=== PATIENT | female | born 1940 | race Caucasian/White ===

== ENCOUNTER → 2018-06-03 17:30 | Outpatient (CLI) | payer MEDICARE, SELFPAY | PROVIDERS: Family Provider Internal Medicine; PCP Internal Medicine; Visit Provider Physician Assistant | DX: R39.9 Unspecified symptoms and signs involving the genitourinary system (principal) | CPT/HCPCS: 87077; 87086; 87186 ==

== ENCOUNTER → 2018-07-08 17:12 | Outpatient (REF) | payer MEDICARE, SELFPAY ==
[2018-07-08 18:19] LABS: Appearance Urine UA CLOUDY; Bilirubin Urine UA NEGATIVE (NEGATIVE); Color Urine UA BROWN; Glucose Urine UA NEGATIVE (Normal); Ketones Urine UA NEGATIVE (NEGATIVE); Leukocyte Esterase Urine UA 2+ (NEGATIVE); Nitrite Urine UA POSITIVE (Negative); Occult Blood Urine UA 3+ (Negative); Protein Urine UA 2+ (Negative); Specific Gravity Urine UA 1.025 (1.000-1.035); Urobilinogen Urine UA 0.2 E.U./dL (0.2)
[2018-07-08 18:26] LABS: RBC Urine 30-100/HPF (0-5/HPF); Renal Epithelial Cells Urine 5-10/HPF; Squamous Epithelial Cell Urine 0-1 /HPF; WBC Urine 10-30/HPF (0-5/HPF)
[2018-07-08 18:27] LABS: Bacteria Urine Moderate (10-30); Culture Indicated Urine Specimen Cultured
== END ==
LOC: LAB 17:12
PROVIDERS: Family Provider Internal Medicine; PCP Internal Medicine; Visit Provider Internal Medicine
DX: N39.0 Urinary tract infection, site not specified (principal)
CPT/HCPCS: 81001; 87077; 87086; 87186

== ENCOUNTER → 2018-07-08 17:50 | Outpatient (CLI) | payer MEDICARE, SELFPAY | PROVIDERS: Family Provider Internal Medicine; PCP Internal Medicine; Visit Provider Internal Medicine | DX: Z53.9 Procedure and treatment not carried out, unspecified reason (principal) ==

== ENCOUNTER 2019-01-12 10:20 | Inpatient (IN) | payer MEDICARE, SELFPAY ==
[2019-01-12] VITALS (17 sets, daily range): BP systolic 129–194; BP diastolic 55–80; PULSE 67–100; RESP 14–24; TEMP 36.8–38.4; O2SAT 92–98; BMI 26.4
--- NOTE | 2019-01-12 10:48 | DI.RAD.S_ITS ---
PROCEDURE: XR CHEST 2V INDICATIONS: non productive cough TECHNIQUE: 2 views of the chest were acquired. COMPARISON: [facility], , CHEST 1 VIEW, 03/13/2014, 20:19. FINDINGS: Surgical changes and devices: None. Lungs and pleura: Lungs are clear. No pleural effusions or pneumothorax. Mediastinum: Mediastinal contours are normal. Heart size is normal. Bones and chest wall: No suspicious bony abnormalities. Soft tissues appear unremarkable. IMPRESSION: 1. No acute cardiopulmonary disease. Dictated by: Marcelo Gordillo M.D. on 01/12/2019 at 11:36 Approved by: Marcelo Gordillo M.D. on 01/12/2019 at 11:38
[2019-01-12 12:11] LABS: Add Manual Diff / Slide Review NO; Basophils Absolute Auto 0 /uL (0-100); Basophils Percent Auto 0.3 % (0-2); Eosinophils Absolute Auto 0 /uL (0-450); Eosinophils Percent Auto 0.1 % (2-4); Hemoglobin 15.3 g/dL (12.0-16.0); Lymphocytes Absolute Auto 300 /uL (1100-4500); Lymphocytes Percent Auto 7.7 % (25-40); Mean Corpuscular HGB Conc 34.7 % (30-36); Mean Corpuscular Volume 86.5 fL (80-100); Monocytes Absolute Auto 600 /uL (0-900); Monocytes Percent Auto 14.4 % (3-14); Neutrophils Absolute Auto 3100 /uL (1500-7000); Neutrophils Percent Auto 77.5 % (50-75); Platelet Count 211 X10^3/uL (150-400); Red Blood Cell Count 5.08 X10^6/uL (4.0-5.2)
--- NOTE | 2019-01-12 12:37 | DI.CT.S_ITS ---
PROCEDURE: CT HEAD/BRAIN WO CON INDICATIONS: syncope TECHNIQUE: Noncontrast 4.5 mm thick angled axial sections acquired from the foramen magnum to the vertex, with coronal and sagittal reformats. For radiation dose reduction, the following was used: automated exposure control, adjustment of mA and/or kV according to patient size. COMPARISON: [facility], CT, HEAD WITHOUT CONTRAST, 03/13/2014, 15:14. [facility], CT, HEAD WITHOUT CONTRAST, 06/17/2011, 16:11. FINDINGS: Image quality: Excellent. CSF spaces: Basal cisterns are patent. No extra-axial fluid collections. The ventricles are symmetric in size and shape. Brain: No intracranial bleeds or masses. There is cerebral volume loss for age, with resultant ventricular and sulcal prominence. There are periventricular and deep white matter chronic small vessel ischemic changes. There is intracranial internal carotid artery atherosclerosis. Skull and face: Calvarium and visualized facial bones appear intact, without suspicious lesions. Sinuses: Visualized sinuses and mastoids are clear. 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 Expected mild to moderate microvascular atherosclerotic change in the deep white matter of each hemisphere considering age. Dictated by: Deshawn Quach M.D. on 01/12/2019 at 12:59 Approved by: Deshawn Quach M.D. on 01/12/2019 at 13:00
--- NOTE | 2019-01-12 13:11 | ED_ITS ---
HPI - URI/Sore Throat <Siri CondonTERESAP-BC - Last Filed: 01/12/19 18:09> General Chief Complaint: Upper Respiratory Symptoms Stated Complaint: Pneumonia Time Seen by Provider: 01/12/19 12:23 Source: patient, EMS and RN notes reviewed Mode of arrival: ambulatory Limitations: no limitations History of Present Illness HPI Narrative: Patient is a 78-year-old female nonsmoker who lives by herself with history of pneumonia who presented by EMS today for chief concern of weakness earlier this morning. She states she was started on amoxicillin on Tuesday for presumptive pneumonia. She states she woke up this morning, passed out twice. She denies any chest pain. She complains of a cough. She states she has a history of severe dehydration for which she has been hospitalized. She complains of decreased appetite, nausea. She states she does not did not hit her head when she passed out earlier today. She states the 1st episode of syncope happened when she was getting coffee ready this morning. She states the 2nd episode of syncope happened after she took her antibiotic. She states that she was crawling across the floor. Per EMS the patient was ambulating well around her house when they arrived. Related Data Home Medications Medication Instructions Recorded Confirmed aspirin 81 mg tablet,delayed 81 mg PO DAILY 06/03/18 01/12/19 release gabapentin 300 mg capsule 300 mg PO BEDTIME 06/03/18 01/12/19 losartan 25 mg tablet 25 mg PO DAILY 06/03/18 01/12/19 amoxicillin 500 mg PO TID 01/12/19 01/12/19 cholecalciferol (vitamin D3) 1 tab PO DAILY 01/12/19 01/12/19 [Vitamin D3] dorzolamide 1 drp OPHTHALMIC (EYE) DIRECTED 01/12/19 01/12/19 latanoprost 1 drp OPHTHALMIC (EYE) BEDTIME 01/12/19 01/12/19 multivitamin 1 tab PO DAILY 01/12/19 01/12/19 Allergies Allergy/AdvReac Type Severity Reaction Status Date / Time nitrofurantoin Allergy Unknown Verified 01/12/19 13:21 [NITROFURANTOIN] azithromycin Allergy Verified 01/12/19 13:21 cholestyramine Allergy Verified 01/12/19 13:21 clavulanic acid Allergy Verified 01/12/19 13:21 [From Augmentin] lisinopril Allergy Verified 01/12/19 13:21 loratadine [From Claritin] Allergy Verified 01/12/19 13:21 neomycin Allergy Verified 01/12/19 13:21 Opioids-Meperidine and Allergy Verified 01/12/19 13:21 Related oseltamivir [From Tamiflu] Allergy Verified 01/12/19 13:21 procaine [From Novocain] Allergy Verified 01/12/19 13:21 Sulfa (Sulfonamide Allergy Verified 01/12/19 13:21 Antibiotics) Milk Containing Products AdvReac Mild DIARRHEA Verified 01/12/19 13:21 [MILK CONTAINING PRODUCTS] meperidine [MEPERIDINE] AdvReac Unknown Verified 01/12/19 13:21 Review of Systems <WALTER Hodgson - Last Filed: 01/12/19 18:09> Review of Systems GENERAL: See HPI HEENT: Denies sinus pain, ear pain, sore throat, difficulty swallowing, dizzin ess. RESPIRATORY: See HPI CARDIOVASCULAR: Denies chest pain, palpitations, orthopnea, edema, GASTROINTESTINAL: See HPI : Denies dysuria, frequency, incontinence, hematuria, urinary retention. MUSCULOSKELETAL: denies weakness, joint pain, or bony pain SKIN: Denies rash, skin lesions, or other NEUROLOGIC: Denies weakness, headache, numbness, change in speech, confusion, seizures, incoordination. PSYCHIATRIC: No concerning psychosocial issues. 12 point review of systems is negative except for those stated above PFSH <WALTER Hodgson - Last Filed: 01/12/19 18:09> Social History household members: none Smoking Status: Never smoker alcohol intake: never Social History household members: none Smoking Status: Never smoker alcohol intake: never Exam <WALTER Hodgson - Last Filed: 01/12/19 18:09> Narrative Exam Narrative: GENERAL: This is a well-nourished, well-developed patient, lying on stretcher HEAD: Atraumatic. Normocephalic. No temporal or scalp tenderness. EYES: Pupils equal round and reactive. Extraocular motions intact. No scleral icterus. No injection or drainage. ENT: Nose without bleeding, purulent drainage or septal hematoma. Throat without erythema, tonsillar hypertrophy or exudate. Uvula midline. Airway patent. NECK: Trachea midline. No JVD or lymphadenopathy. Supple, nontender, no meningeal signs. CARDIOVASCULAR: Regular rate and rhythm without murmurs, gallops, or rubs. RESPIRATORY: Clear to auscultation. Breath sounds equal bilaterally. No wheezes, rales, or rhonchi. Dry cough noted. No accessory muscle use. No increased respiratory effort. GASTROINTESTINAL: Abdomen soft, non-tender, nondistended. No hepato- splenomegaly, or palpable masses. No guarding. no palpable pulsatile mass. active bowel sounds all 4 quadrants. EXTREMITIES: No clubbing, cyanosis, or edema. No joint tenderness, effusion, or edema noted. BACK: Nontender without deformity or crepitance. No flank tenderness. NEURO: AOx3. SKIN: No rash or erythema. Initial Vital Signs Initial Vital Signs: Vital Signs Temperature 99.0 F 01/12/19 10:25 Pulse Rate 81 01/12/19 10:25 Respiratory Rate 18 01/12/19 10:25 Blood Pressure 149/77 H 01/12/19 10:25 Pulse Oximetry 97 01/12/19 10:25 <Siri Bae DO - Last Filed: 01/12/19 19:17> Initial Vital Signs Initial Vital Signs: Vital Signs Temperature 99.0 F 01/12/19 10:25 Pulse Rate 81 01/12/19 10:25 Respiratory Rate 18 01/12/19 10:25 Blood Pressure 149/77 H 01/12/19 10:25 Pulse Oximetry 97 01/12/19 10:25 Course <MELISA Hodgson-CHAVA - Last Filed: 01/12/19 18:09> Orders Ordered: ED Orders 01/12/19 10:48 CXR [XR chest 2V] Stat 01/12/19 11:35 CBC [Complete Blood Count AUTO DIFF] Stat 01/12/19 12:37 CT head/brain wo con Stat EKG-12 Lead Stat 01/12/19 13:25 Influenza A and B by PCR Rapid Stat 01/12/19 15:05 Urinalysis and Microscopic Stat 01/12/19 16:45 Troponin & CK Cardiac Panel Stat 01/12/19 18:40 Consult to Pastoral Services Routine Sodium Chloride (Normal Saline 0.9%) 1,000 mls @ 125 mls/hr IV CONT CARLI Last Infusion: 01/12/19 18:05 Dose: 125 mls/hr Infusion: 01/12/19 18:01 Dose: 0 mls/hr Admin: 01/12/19 17:07 Dose: 125 mls/hr Discontinued Medications Acetaminophen (Tylenol) 650 mg PO NOW ONE Stop: 01/12/19 15:30 Last Admin: 01/12/19 15:48 Dose: 650 mg Sodium Chloride (Normal Saline 0.9%) 500 mls @ 1,000 mls/hr IV BOLUS ONE Stop: 01/12/19 13:40 Last Infusion: 01/12/19 14:16 Dose: 0 mls/hr Admin: 01/12/19 13:29 Dose: 1,000 mls/hr Ondansetron HCl (Zofran) 4 mg IV NOW ONE Stop: 01/12/19 14:38 Last Admin: 01/12/19 15:21 Dose: 4 mg Vital Signs - 8 hr 01/12/19 11:35 01/12/19 12:11 01/12/19 13:15 Temperature Pulse Rate 72 72 78 Pulse Rate [Orthostatic Lying] Pulse Rate [Orthostatic Sitting] Pulse Rate [Orthostatic Standing] Respiratory Rate 16 18 16 Blood Pressure Blood Pressure [Orthostatic Lying] Blood Pressure [Orthostatic Sitting] Blood Pressure [Orthostatic Standing] Blood Pressure [Right Arm] 142/61 H 138/55 L Pulse Oximetry 95 95 96 01/12/19 13:45 01/12/19 14:00 01/12/19 15:30 Temperature 101.2 F H Pulse Rate 80 86 83 Pulse Rate [Orthostatic Lying] Pulse Rate [Orthostatic Sitting] Pulse Rate [Orthostatic Standing] Respiratory Rate 19 20 21 Blood Pressure Blood Pressure [Orthostatic Lying] Blood Pressure [Orthostatic Sitting] Blood Pressure [Orthostatic Standing] Blood Pressure [Right Arm] 165/73 H 179/78 H 194/72 H Pulse Oximetry 94 94 01/12/19 15:48 01/12/19 16:06 01/12/19 17:11 Temperature 101.2 F H Pulse Rate 75 Pulse Rate [Orthostatic Lying] 86 Pulse Rate [Orthostatic Sitting] 92 H Pulse Rate [Orthostatic Standing] 100 H Respiratory Rate 24 Blood Pressure Blood Pressure [Orthostatic Lying] 171/68 H Blood Pressure [Orthostatic Sitting] 164/79 H Blood Pressure [Orthostatic Standing] 166/76 H Blood Pressure [Right Arm] 179/72 H Pulse Oximetry 92 01/12/19 17:12 01/12/19 17:13 01/12/19 17:30 Temperature 99.9 F H 99.9 F H 98.3 F Pulse Rate 85 73 Pulse Rate [Orthostatic Lying] Pulse Rate [Orthostatic Sitting] Pulse Rate [Orthostatic Standing] Respiratory Rate 20 18 Blood Pressure 141/66 H Blood Pressure [Orthostatic Lying] Blood Pressure [Orthostatic Sitting] Blood Pressure [Orthostatic Standing] Blood Pressure [Right Arm] 166/76 H Pulse Oximetry 96 98 <Siri Bae, - Last Filed: 01/12/19 19:17> Orders Ordered: ED Orders 01/12/19 10:48 CXR [XR chest 2V] Stat 01/12/19 11:35 CBC [Complete Blood Count AUTO DIFF] Stat 01/12/19 12:37 CT head/brain wo con Stat EKG-12 Lead Stat 01/12/19 13:25 Influenza A and B by PCR Rapid Stat 01/12/19 15:05 Urinalysis and Microscopic Stat 01/12/19 16:45 Troponin & CK Cardiac Panel Stat 01/12/19 18:40 Consult to Pastoral Services Routine Sodium Chloride (Normal Saline 0.9%) 1,000 mls @ 125 mls/hr IV CONT CARLI Last Infusion: 01/12/19 18:05 Dose: 125 mls/hr Infusion: 01/12/19 18:01 Dose: 0 mls/hr Admin: 01/12/19 17:07 Dose: 125 mls/hr Discontinued Medications Acetaminophen (Tylenol) 650 mg PO NOW ONE Stop: 01/12/19 15:30 Last Admin: 01/12/19 15:48 Dose: 650 mg Sodium Chloride (Normal Saline 0.9%) 500 mls @ 1,000 mls/hr IV BOLUS ONE Stop: 01/12/19 13:40 Last Infusion: 01/12/19 14:16 Dose: 0 mls/hr Admin: 01/12/19 13:29 Dose: 1,000 mls/hr Ondansetron HCl (Zofran) 4 mg IV NOW ONE Stop: 01/12/19 14:38 Last Admin: 01/12/19 15:21 Dose: 4 mg Vital Signs - 8 hr 01/12/19 11:35 01/12/19 12:11 01/12/19 13:15 Temperature Pulse Rate 72 72 78 Pulse Rate [Orthostatic Lying] Pulse Rate [Orthostatic Sitting] Pulse Rate [Orthostatic Standing] Respiratory Rate 16 18 16 Blood Pressure Blood Pressure [Orthostatic Lying] Blood Pressure [Orthostatic Sitting] Blood Pressure [Orthostatic Standing] Blood Pressure [Right Arm] 142/61 H 138/55 L Pulse Oximetry 95 95 96 01/12/19 13:45 01/12/19 14:00 01/12/19 15:30 Temperature 101.2 F H Pulse Rate 80 86 83 Pulse Rate [Orthostatic Lying] Pulse Rate [Orthostatic Sitting] Pulse Rate [Orthostatic Standing] Respiratory Rate 19 20 21 Blood Pressure Blood Pressure [Orthostatic Lying] Blood Pressure [Orthostatic Sitting] Blood Pressure [Orthostatic Standing] Blood Pressure [Right Arm] 165/73 H 179/78 H 194/72 H Pulse Oximetry 94 94 01/12/19 15:48 01/12/19 16:06 01/12/19 17:11 Temperature 101.2 F H Pulse Rate 75 Pulse Rate [Orthostatic Lying] 86 Pulse Rate [Orthostatic Sitting] 92 H Pulse Rate [Orthostatic Standing] 100 H Respiratory Rate 24 Blood Pressure Blood Pressure [Orthostatic Lying] 171/68 H Blood Pressure [Orthostatic Sitting] 164/79 H Blood Pressure [Orthostatic Standing] 166/76 H Blood Pressure [Right Arm] 179/72 H Pulse Oximetry 92 01/12/19 17:12 01/12/19 17:13 01/12/19 17:30 Temperature 99.9 F H 99.9 F H 98.3 F Pulse Rate 85 73 Pulse Rate [Orthostatic Lying] Pulse Rate [Orthostatic Sitting] Pulse Rate [Orthostatic Standing] Respiratory Rate 20 18 Blood Pressure 141/66 H Blood Pressure [Orthostatic Lying] Blood Pressure [Orthostatic Sitting] Blood Pressure [Orthostatic Standing] Blood Pressure [Right Arm] 166/76 H Pulse Oximetry 96 98 MDM - URI/Sore Throat <WALTER Hodgson - Last Filed: 01/12/19 18:09> Lab Data Result diagrams: 01/12/19 11:35 01/12/19 10:00 Lab Results 01/12/19 01/12/19 01/12/19 Range/Units 10:00 10:00 10:00 WBC (4.5-11.0) X10^3/uL RBC (4.0-5.2) X10^6/uL Hgb (12.0-16.0) g/dL Hct (36-46) % MCV (80-100) fL MCH (26-34) PG MCHC (30-36) % RDW (11.6-14.8) % Plt Count (150-400) X10^3/uL Neut % (Auto) (50-75) % Lymph % (Auto) (25-40) % [place] % (Auto) (3-14) % Eos % (Auto) (2-4) % Baso % (Auto) (0-2) % Neut # (Auto) (8018-5920) /uL Lymph # (Auto) (3438-0167) /uL [place] # (Auto) (0-900) /uL Eos # (Auto) (0-450) /uL Baso # (Auto) (0-100) /uL PT 12.5 (10.1-12.7) SECONDS INR 1.1 (0.9-1.3) Sodium 139 (137-145) mmol/L Potassium 3.8 (3.4-5.1) mmol/L Chloride 100 (98-107) mmol/L Carbon Dioxide 26 (22-32) mmol/L BUN 14 (7-17) mg/dL Creatinine 0.70 (0.52-1.04) mg/dL Estimated GFR > 60.0 (>60) mL/min BUN/Creatinine Ratio 20.0 (6-22) Glucose 97 (80-110) mg/dL Calcium 9.1 (8.4-10.2) mg/dL Total Bilirubin 0.6 (0.2-1.3) mg/dL AST 45 H (14-36) IU/L ALT 29 (9-52) IU/L Alkaline Phosphatase 85 (38-126) U/L Total Creatine Kinase 380 H (30-135) U/L CK-MB (CK-2) 2.17 (<2.37) ng/mL CK-MB (CK-2) Rel Index 0.6 L (1.5-5.0) % Troponin I < 0.012 (0.01-0.034) ng/mL B-Natriuretic Peptide < 100 (<100) Total Protein 7.1 (6.3-8.2) g/dL Albumin 4.4 (3.5-5.0) g/dL Globulin 2.7 (1.7-4.1) g/dL Albumin/Globulin Ratio 1.6 (1.0-2.8) Urine Color Urine Appearance Urine pH (4.5-8.0) Ur Specific [place] (1.000-1.035) Urine Protein (Negative) Urine Glucose (UA) (Negative) g/dL Urine Ketones (NEGATIVE) Urine Occult Blood (Negative) Urine Nitrate (Negative) Urine Bilirubin (NEGATIVE) Urine Urobilinogen (0.2) E.U./dL Ur Leukocyte Esterase (NEGATIVE) Urine RBC (0-5/HPF) Urine WBC (0-5/HPF) Ur Transition Epith Cell (0-5/HPF) Ur Renal Epithelial Cell Urine Bacteria (None) Ur Culture Indicated? Influenza A & B (PCR) (Negative) 01/12/19 01/12/19 01/12/19 Range/Units 11:35 13:25 15:05 WBC 4.0 L (4.5-11.0) X10^3/uL RBC 5.08 (4.0-5.2) X10^6/uL Hgb 15.3 (12.0-16.0) g/dL Hct 44.0 (36-46) % MCV 86.5 (80-100) fL MCH 30.0 (26-34) PG MCHC 34.7 (30-36) % RDW 13.0 (11.6-14.8) % Plt Count 211 (150-400) X10^3/uL Neut % (Auto) 77.5 H (50-75) % Lymph % (Auto) 7.7 L (25-40) % [place] % (Auto) 14.4 H (3-14) % Eos % (Auto) 0.1 L (2-4) % Baso % (Auto) 0.3 (0-2) % Neut # (Auto) 3100 (5506-5164) /uL Lymph # (Auto) 300 L (0866-4823) /uL [place] # (Auto) 600 (0-900) /uL Eos # (Auto) 0 (0-450) /uL Baso # (Auto) 0 (0-100) /uL PT (10.1-12.7) SECONDS INR (0.9-1.3) Sodium (137-145) mmol/L Potassium (3.4-5.1) mmol/L Chloride (98-107) mmol/L Carbon Dioxide (22-32) mmol/L BUN (7-17) mg/dL Creatinine (0.52-1.04) mg/dL Estimated GFR (>60) mL/min BUN/Creatinine Ratio (6-22) Glucose (80-110) mg/dL Calcium (8.4-10.2) mg/dL Total Bilirubin (0.2-1.3) mg/dL AST (14-36) IU/L ALT (9-52) IU/L Alkaline Phosphatase (38-126) U/L Total Creatine Kinase (30-135) U/L CK-MB (CK-2) (<2.37) ng/mL CK-MB (CK-2) Rel Index (1.5-5.0) % Troponin I (0.01-0.034) ng/mL B-Natriuretic Peptide (<100) Total Protein (6.3-8.2) g/dL Albumin (3.5-5.0) g/dL Globulin (1.7-4.1) g/dL Albumin/Globulin Ratio (1.0-2.8) Urine Color Yellow Urine Appearance Clear Urine pH 6.5 (4.5-8.0) Ur Specific [place] 1.015 (1.000-1.035) Urine Protein Negative (Negative) Urine Glucose (UA) Negative (Negative) g/dL Urine Ketones 1+ H (NEGATIVE) Urine Occult Blood Negative (Negative) Urine Nitrate Negative (Negative) Urine Bilirubin Negative (NEGATIVE) Urine Urobilinogen 1.0 (0.2) E.U./dL Ur Leukocyte Esterase Negative (NEGATIVE) Urine RBC None seen (0-5/HPF) Urine WBC 0-1/hpf (0-5/HPF) Ur Transition Epith Cell 0-1/hpf (0-5/HPF) Ur Renal Epithelial Cell 0-1/hpf Urine Bacteria None seen (None) Ur Culture Indicated? Cult not indicated Influenza A & B (PCR) Positive, type b A (Negative) 01/12/19 Range/Units 16:45 WBC (4.5-11.0) X10^3/uL RBC (4.0-5.2) X10^6/uL Hgb (12.0-16.0) g/dL Hct (36-46) % MCV (80-100) fL MCH (26-34) PG MCHC (30-36) % RDW (11.6-14.8) % Plt Count (150-400) X10^3/uL Neut % (Auto) (50-75) % Lymph % (Auto) (25-40) % [place] % (Auto) (3-14) % Eos % (Auto) (2-4) % Baso % (Auto) (0-2) % Neut # (Auto) (2845-8286) /uL Lymph # (Auto) (7953-9406) /uL [place] # (Auto) (0-900) /uL Eos # (Auto) (0-450) /uL Baso # (Auto) (0-100) /uL PT (10.1-12.7) SECONDS INR (0.9-1.3) Sodium (137-145) mmol/L Potassium (3.4-5.1) mmol/L Chloride (98-107) mmol/L Carbon Dioxide (22-32) mmol/L BUN (7-17) mg/dL Creatinine (0.52-1.04) mg/dL Estimated GFR (>60) mL/min BUN/Creatinine Ratio (6-22) Glucose (80-110) mg/dL Calcium (8.4-10.2) mg/dL Total Bilirubin (0.2-1.3) mg/dL AST (14-36) IU/L ALT (9-52) IU/L Alkaline Phosphatase (38-126) U/L Total Creatine Kinase 607 H D (30-135) U/L CK-MB (CK-2) 2.51 H (<2.37) ng/mL CK-MB (CK-2) Rel Index 0.4 L (1.5-5.0) % Troponin I < 0.012 (0.01-0.034) ng/mL B-Natriuretic Peptide (<100) Total Protein (6.3-8.2) g/dL Albumin (3.5-5.0) g/dL Globulin (1.7-4.1) g/dL Albumin/Globulin Ratio (1.0-2.8) Urine Color Urine Appearance Urine pH (4.5-8.0) Ur Specific [place] (1.000-1.035) Urine Protein (Negative) Urine Glucose (UA) (Negative) g/dL Urine Ketones (NEGATIVE) Urine Occult Blood (Negative) Urine Nitrate (Negative) Urine Bilirubin (NEGATIVE) Urine Urobilinogen (0.2) E.U./dL Ur Leukocyte Esterase (NEGATIVE) Urine RBC (0-5/HPF) Urine WBC (0-5/HPF) Ur Transition Epith Cell (0-5/HPF) Ur Renal Epithelial Cell Urine Bacteria (None) Ur Culture Indicated? Influenza A & B (PCR) (Negative) Imaging Data CT scan - head: Radiologist's impression: [place] [address] CT Scan Report Signed Patient: Melissa Cortes LMR#: [id number] : 1940Acct:[id number] Age/Sex: 78 / FDate of Service: 01/12/19 Loc: ED Accession Number: [id number] Procedure: CT head/brain wo con Ordering Provider: Siri Condon [facility] PROCEDURE: CT HEAD/BRAIN WO CON INDICATIONS: syncope TECHNIQUE: Noncontrast 4.5 mm thick angled axial sections acquired from the foramen magnum to the vertex, with coronal and sagittal reformats. For radiation dose reduction, the following was used: automated exposure control, adjustment of mA and/or kV according to patient size. COMPARISON: [facility], CT, HEAD WITHOUT CONTRAST, 03/13/2014, 15:14. [facility], CT, HEAD WITHOUT CONTRAST, 06/17/2011, 16:11. FINDINGS: Image quality: Excellent. CSF spaces: Basal cisterns are patent. No extra-axial fluid collections. The ventricles are symmetric in size and shape. Brain: No intracranial bleeds or masses. There is cerebral volume loss for age, with resultant ventricular and sulcal prominence. There are periventricular and deep white matter chronic small vessel ischemic changes. There is intracranial internal carotid artery atherosclerosis. Skull and face: Calvarium and visualized facial bones appear intact, without suspicious lesions. Sinuses: Visualized sinuses and mastoids are clear. IMPRESSION: No interchange agent time, no sign of trauma from the syncopal episode. Expected mild to moderate microvascular atherosclerotic change in the deep white matter of each hemisphere considering age. Dictated by: Deshawn Quach M.D. on 01/12/2019 at 12:59 Approved by: Deshawn Quach M.D. on 01/12/2019 at 13:00 Chest x-ray: Radiologist's impression: Melissa Cortes 78 F [address] [address] XRay Report Signed Patient: Melissa Cortes LMR#: [id number] : 1940cct:[id number] Age/Sex: 78 / FDate of Service: 01/12/19 Loc: ED Accession Number: [id number] Procedure: XR chest 2V Ordering Provider: Siri Bae D.O. PROCEDURE: XR CHEST 2V INDICATIONS: non productive cough TECHNIQUE: 2 views of the chest were acquired. COMPARISON: [facility], , CHEST 1 VIEW, 03/13/2014, 20:19. FINDINGS: Surgical changes and devices: None. Lungs and pleura: Lungs are clear. No pleural effusions or pneumothorax. Mediastinum: Mediastinal contours are normal. Heart size is normal. Bones and chest wall: No suspicious bony abnormalities. Soft tissues appear unremarkable. IMPRESSION: 1. No acute cardiopulmonary disease. Dictated by: Marcelo Gordillo M.D. on 01/12/2019 at 11:36 Approved by: Marcelo Gordillo M.D. on 01/12/2019 at 11:38 ECG Data Attestation: I personally reviewed and interpreted this ECG as follows: Interpretation: Sinus rhythm. Ventricular rate 78. P are 122. No ectopy noted. QRS [address] Bae at 12:57 MDM Narrative Medical decision making narrative: The patient is a 78-year-old female who is currently treating for pneumonia. However she tested positive for flu B in the emergency department. Given that she has had repeat episodes of syncope at home, I am concerned about discharging her. She had a normal head CT, as well as a chest x-ray that showed no acute cardiopulmonary process. She had initial negative troponin. A 2nd troponin was ordered in the emergency department. Thus I contacted Dr. Rivera who kindly agreed to admit the patient. We discussed the possibility of Tamiflu, however the patient is allergic to Tamiflu and declines it at this point time. She was given IV fluids as well as nausea medication in the emergency department. I offered her Tylenol when her fever came up. She had orthostatics prior to her admission, which came back normal. she had no questions or concerns about her admission and appreciated her admission. <Siri Bae, DO - Last Filed: 01/12/19 19:17> Lab Data Lab Results 01/12/19 01/12/19 01/12/19 Range/Units 10:00 10:00 10:00 WBC (4.5-11.0) X10^3/uL RBC (4.0-5.2) X10^6/uL Hgb (12.0-16.0) g/dL Hct (36-46) % MCV (80-100) fL MCH (26-34) PG MCHC (30-36) % RDW (11.6-14.8) % Plt Count (150-400) X10^3/uL Neut % (Auto) (50-75) % Lymph % (Auto) (25-40) % [place] % (Auto) (3-14) % Eos % (Auto) (2-4) % Baso % (Auto) (0-2) % Neut # (Auto) (7087-7121) /uL Lymph # (Auto) (2156-9940) /uL [place] # (Auto) (0-900) /uL Eos # (Auto) (0-450) /uL Baso # (Auto) (0-100) /uL PT 12.5 (10.1-12.7) SECONDS INR 1.1 (0.9-1.3) Sodium 139 (137-145) mmol/L Potassium 3.8 (3.4-5.1) mmol/L Chloride 100 (98-107) mmol/L Carbon Dioxide 26 (22-32) mmol/L BUN 14 (7-17) mg/dL Creatinine 0.70 (0.52-1.04) mg/dL Estimated GFR > 60.0 (>60) mL/min BUN/Creatinine Ratio 20.0 (6-22) Glucose 97 (80-110) mg/dL Calcium 9.1 (8.4-10.2) mg/dL Total Bilirubin 0.6 (0.2-1.3) mg/dL AST 45 H (14-36) IU/L ALT 29 (9-52) IU/L Alkaline Phosphatase 85 (38-126) U/L Total Creatine Kinase 380 H (30-135) U/L CK-MB (CK-2) 2.17 (<2.37) ng/mL CK-MB (CK-2) Rel Index 0.6 L (1.5-5.0) % Troponin I < 0.012 (0.01-0.034) ng/mL B-Natriuretic Peptide < 100 (<100) Total Protein 7.1 (6.3-8.2) g/dL Albumin 4.4 (3.5-5.0) g/dL Globulin 2.7 (1.7-4.1) g/dL Albumin/Globulin Ratio 1.6 (1.0-2.8) Urine Color Urine Appearance Urine pH (4.5-8.0) Ur Specific [place] (1.000-1.035) Urine Protein (Negative) Urine Glucose (UA) (Negative) g/dL Urine Ketones (NEGATIVE) Urine Occult Blood (Negative) Urine Nitrate (Negative) Urine Bilirubin (NEGATIVE) Urine Urobilinogen (0.2) E.U./dL Ur Leukocyte Esterase (NEGATIVE) Urine RBC (0-5/HPF) Urine WBC (0-5/HPF) Ur Transition Epith Cell (0-5/HPF) Ur Renal Epithelial Cell Urine Bacteria (None) Ur Culture Indicated? Influenza A & B (PCR) (Negative) 01/12/19 01/12/19 01/12/19 Range/Units 11:35 13:25 15:05 WBC 4.0 L (4.5-11.0) X10^3/uL RBC 5.08 (4.0-5.2) X10^6/uL Hgb 15.3 (12.0-16.0) g/dL Hct 44.0 (36-46) % MCV 86.5 (80-100) fL MCH 30.0 (26-34) PG MCHC 34.7 (30-36) % RDW 13.0 (11.6-14.8) % Plt Count 211 (150-400) X10^3/uL Neut % (Auto) 77.5 H (50-75) % Lymph % (Auto) 7.7 L (25-40) % [place] % (Auto) 14.4 H (3-14) % Eos % (Auto) 0.1 L (2-4) % Baso % (Auto) 0.3 (0-2) % Neut # (Auto) 3100 (2868-8555) /uL Lymph # (Auto) 300 L (9521-2410) /uL [place] # (Auto) 600 (0-900) /uL Eos # (Auto) 0 (0-450) /uL Baso # (Auto) 0 (0-100) /uL PT (10.1-12.7) SECONDS INR (0.9-1.3) Sodium (137-145) mmol/L Potassium (3.4-5.1) mmol/L Chloride (98-107) mmol/L Carbon Dioxide (22-32) mmol/L BUN (7-17) mg/dL Creatinine (0.52-1.04) mg/dL Estimated GFR (>60) mL/min BUN/Creatinine Ratio (6-22) Glucose (80-110) mg/dL Calcium (8.4-10.2) mg/dL Total Bilirubin (0.2-1.3) mg/dL AST (14-36) IU/L ALT (9-52) IU/L Alkaline Phosphatase (38-126) U/L Total Creatine Kinase (30-135) U/L CK-MB (CK-2) (<2.37) ng/mL CK-MB (CK-2) Rel Index (1.5-5.0) % Troponin I (0.01-0.034) ng/mL B-Natriuretic Peptide (<100) Total Protein (6.3-8.2) g/dL Albumin (3.5-5.0) g/dL Globulin (1.7-4.1) g/dL Albumin/Globulin Ratio (1.0-2.8) Urine Color Yellow Urine Appearance Clear Urine pH 6.5 (4.5-8.0) Ur Specific [place] 1.015 (1.000-1.035) Urine Protein Negative (Negative) Urine Glucose (UA) Negative (Negative) g/dL Urine Ketones 1+ H (NEGATIVE) Urine Occult Blood Negative (Negative) Urine Nitrate Negative (Negative) Urine Bilirubin Negative (NEGATIVE) Urine Urobilinogen 1.0 (0.2) E.U./dL Ur Leukocyte Esterase Negative (NEGATIVE) Urine RBC None seen (0-5/HPF) Urine WBC 0-1/hpf (0-5/HPF) Ur Transition Epith Cell 0-1/hpf (0-5/HPF) Ur Renal Epithelial Cell 0-1/hpf Urine Bacteria None seen (None) Ur Culture Indicated? Cult not indicated Influenza A & B (PCR) Positive, type b A (Negative) 01/12/19 Range/Units 16:45 WBC (4.5-11.0) X10^3/uL RBC (4.0-5.2) X10^6/uL Hgb (12.0-16.0) g/dL Hct (36-46) % MCV (80-100) fL MCH (26-34) PG MCHC (30-36) % RDW (11.6-14.8) % Plt Count (150-400) X10^3/uL Neut % (Auto) (50-75) % Lymph % (Auto) (25-40) % [place] % (Auto) (3-14) % Eos % (Auto) (2-4) % Baso % (Auto) (0-2) % Neut # (Auto) (8983-2386) /uL Lymph # (Auto) (2334-4889) /uL [place] # (Auto) (0-900) /uL Eos # (Auto) (0-450) /uL Baso # (Auto) (0-100) /uL PT (10.1-12.7) SECONDS INR (0.9-1.3) Sodium (137-145) mmol/L Potassium (3.4-5.1) mmol/L Chloride (98-107) mmol/L Carbon Dioxide (22-32) mmol/L BUN (7-17) mg/dL Creatinine (0.52-1.04) mg/dL Estimated GFR (>60) mL/min BUN/Creatinine Ratio (6-22) Glucose (80-110) mg/dL Calcium (8.4-10.2) mg/dL Total Bilirubin (0.2-1.3) mg/dL AST (14-36) IU/L ALT (9-52) IU/L Alkaline Phosphatase (38-126) U/L Total Creatine Kinase 607 H D (30-135) U/L CK-MB (CK-2) 2.51 H (<2.37) ng/mL CK-MB (CK-2) Rel Index 0.4 L (1.5-5.0) % Troponin I < 0.012 (0.01-0.034) ng/mL B-Natriuretic Peptide (<100) Total Protein (6.3-8.2) g/dL Albumin (3.5-5.0) g/dL Globulin (1.7-4.1) g/dL Albumin/Globulin Ratio (1.0-2.8) Urine Color Urine Appearance Urine pH (4.5-8.0) Ur Specific [place] (1.000-1.035) Urine Protein (Negative) Urine Glucose (UA) (Negative) g/dL Urine Ketones (NEGATIVE) Urine Occult Blood (Negative) Urine Nitrate (Negative) Urine Bilirubin (NEGATIVE) Urine Urobilinogen (0.2) E.U./dL Ur Leukocyte Esterase (NEGATIVE) Urine RBC (0-5/HPF) Urine WBC (0-5/HPF) Ur Transition Epith Cell (0-5/HPF) Ur Renal Epithelial Cell Urine Bacteria (None) Ur Culture Indicated? Influenza A & B (PCR) (Negative) Discharge Plan Departure Patient Disposition: Admitted As Inpatient Clinical Impression: Influenza B Syncope Qualifiers: Syncope type: unspecified Qualified Code(s): R55 - Syncope and collapse Discharge Date/Time: 01/12/19 18:02 Interventions: ED Discharge Assessment Last Done: 01/12/19 17:26 Admit Date/Time: 01/12/19 17:57 Admit Provider: Mallory Rivera <Siri Bae DO - Last Filed: 01/12/19 19:17> Cosign ED Attending Cosignature Attestation: I was immediately available in the department for consultation, case was di scussed and with two episodes of syncope and positive for influenza felt it was appropriate to keep patient in hospital. This documentation has been reviewed and I agree with assessment and plan. Supervised by Siri Bae DO
[2019-01-12 13:18] LABS: INR 1.1 (0.9-1.3); Prothrombin Time 12.5 SECONDS (10.1-12.7)
[2019-01-12 13:28] LABS: Alanine Aminotransferase 29 IU/L (9-52); Albumin 4.4 g/dL (3.5-5.0); Albumin Globulin Ratio 1.6 (1.0-2.8); Alkaline Phosphatase 85 U/L (38-126); Aspartate Aminotransferase 45 IU/L (14-36); Bilirubin Total 0.6 mg/dL (0.2-1.3); Blood Urea Nitrogen 14 mg/dL (7-17); Calcium 9.1 mg/dL (8.4-10.2); Carbon Dioxide 26 mmol/L (22-32); Chloride 100 mmol/L (98-107); Creatine Kinase 380 U/L (30-135); Estimated Glomerular Filt Rate > 60.0 mL/min (>60); Globulin 2.7 g/dL (1.7-4.1); Glucose 97 mg/dL (80-110); HEMOLYSIS 18 (0-50); Potassium 3.8 mmol/L (3.4-5.1); Sodium 139 mmol/L (137-145); Total Protein 7.1 g/dL (6.3-8.2)
[2019-01-12] MEDS: SODIUM CHLORIDE 0.9% 500 ML 1000 ML IV (13:29)
[2019-01-12 13:40] LABS: Troponin I < 0.012 ng/mL (0.01-0.034)
[2019-01-12 13:43] LABS: B Type Natriuretic Peptide < 100 (<100)
[2019-01-12 13:44] LABS: CKMB % Relative Index 0.6 % (1.5-5.0); Creatine Kinase MB 2.17 ng/mL (<2.37)
[2019-01-12 15:08] LABS: Bacteria Urine None Seen; RBC Urine None Seen (0-5/HPF)
[2019-01-12 15:09] LABS: Appearance Urine UA CLEAR; Bilirubin Urine UA NEGATIVE (NEGATIVE); Color Urine UA YELLOW; Glucose Urine UA NEGATIVE (Negative); Ketones Urine UA 1+ (NEGATIVE); Leukocyte Esterase Urine UA NEGATIVE (NEGATIVE); Nitrite Urine UA NEGATIVE (Negative); Occult Blood Urine UA NEGATIVE (Negative); Protein Urine UA NEGATIVE (Negative); Specific Gravity Urine UA 1.015 (1.000-1.035); pH Urine UA 6.5 (4.5-8.0)
[2019-01-12] MEDS: ONDANSETRON 4 MG/2 ML INJ IV (15:21)
[2019-01-12 15:31] LABS: Culture Indicated Urine Cult Not Indicated; Renal Epithelial Cells Urine 0-1/HPF; Transitional Epi Cells Urine 0-1/HPF (0-5/HPF); WBC Urine 0-1/HPF (0-5/HPF)
[2019-01-12] MEDS: ACETAMINOPHEN 325 MG TABLET 650 MG PO (15:48)
[2019-01-12 17:05] LABS: Creatine Kinase 607 U/L (30-135)
[2019-01-12] MEDS: SODIUM CHLORIDE 0.9% 1,000 ML 125 ML IV (17:07)
[2019-01-12 17:18] LABS: Troponin I < 0.012 ng/mL (0.01-0.034)
[2019-01-12 17:20] LABS: CKMB % Relative Index 0.4 % (1.5-5.0); Creatine Kinase MB 2.51 ng/mL (<2.37)
--- NOTE | 2019-01-12 19:35 | PC.NURSE ---
Addendum entered and electronically signed by Ben Vallejo R.N. 01/12/19 19:50: BP 146/66,P 73, o2 98% on Room air. Lung sounds clear bilaterally. Original Note: Pt arrived on unit at 1730, ambulated from stretcher to bed. Pt is in good spirits, states that she is feeling less week. Denies pain, nausea.
[2019-01-12 21:23] LABS: Procalcitonin < 0.05 ng/mL (<0.5)
[2019-01-12] MEDS: GABAPENTIN 300 MG CAPSULE PO (21:51)
[2019-01-12] MEDS: SODIUM CHLORIDE 0.45% 1,000 ML 100 ML IV (21:52)
[2019-01-12] MEDS: DORZOLAMIDE 2% OPHTH 10 ML 1 DROPS EYE-BOTH (22:18)
[2019-01-12] MEDS: LATANOPROST 0.005% OPHTH 2.5 ML 1 DROPS EYE-BOTH (22:23)
[2019-01-12 23:23] LABS: Adenovirus Not Detected (Not Detect); Coronavirus 229E Not Detected (Not Detect); Coronavirus HKU1 Not Detected (Not Detect); Coronavirus NL 63 Not Detected (Not Detect); Coronavirus OC43 Not Detected (Not Detect); Human Metapneumovirus Not Detected (Not Detect); Human Rhinovirus/Enterovirus Not Detected (Not Detect)
[2019-01-12 23:24] LABS: Influenza A Not Detected (Not Detect)
[2019-01-12 23:25] LABS: Influenza B Detected (Not Detect)
[2019-01-12 23:26] LABS: Bordetella pertussis Not Detected (Not Detect); Chlamydophila pneumoniae Not Detected (Not Detect); Mycoplasma pneumoniae Not Detected (Not Detect); Parainfluenza Virus 1 Not Detected (Not Detect); Parainfluenza Virus 2 Not Detected (Not Detect); Parainfluenza Virus 3 Not Detected (Not Detect); Parainfluenza Virus 4 Not Detected (Not Detect); Respiratory Syncytial Virus Not Detected (Not Detect)
[2019-01-13] VITALS (13 sets, daily range): BP systolic 120–187; BP diastolic 58–88; PULSE 62–84; RESP 16–20; TEMP 36.4–37.7; O2SAT 94–99
--- NOTE | 2019-01-13 04:36 | P.HP_ITS ---
History of Present Illness Date Patient Seen: 01/12/19 Time Patient Seen: 20:39 Chief complaint: Pneumonia Narrative: This is a 78-year-old female patient with history of hypertension, optic neuropathy and neuropathy left foot who presents to the ER today for progressive cough and syncopal episodes today. The patient was seen by her primary care provider 2 days ago and was diagnosed with pneumonia and started on amoxicillin. The patient has since continued to have a nonproductive cough and malaise fevers and diaphoresis. She describes progressive weakness and feeling like she was going to pass out starting yesterday and experiencing 2 episodes of syncope today. She does report visual change associated with these episodes which occurred twice today sustaining a fall without injury. The patient denies striking her head complaints of neck back pain. she denies nasal congestion or sore throat has no chest pain or shortness of breath only a nagging cough that is dry and nonproductive. She Has had intermittent nausea denies vomiting and has no abdominal pain. She reports no complaints of diarrhea or constipation. While in the ER the patient is found to have a normal CBC as well as normal chemistries. She has an elevated CK as 607 with CK-can be at 2.51 with a low index of 0.4. She has had 2 troponins that are negative at less than 0.012. She is notably positive for influenza A on serology. Patient History Medical History History of hysterectomy (Acute) Hypertension (Acute) Idiopathic peripheral neuropathy (Acute) Optic neuropathy, right (Acute) Surgical History History of tonsillectomy (Acute) Social History household members: none Smoking Status: Never smoker alcohol intake: never Family & Social History Family History (Updated 01/13/19 @ 04:46 by NOBLE Florian) Father Hypertension Cancer Cardiovascular disease Mother No problems noted. Social History: household members none Prior Living Arrangements House Safety & Behavioral: Feels Safe in Current Yes Environment Been Physically Hurt or No Threatened By a Person Suicidal Ideation Description None Suicide Plan Description No Plan Tobacco & Substance use: Smoking Status Never smoker alcohol intake never alcohol intake frequency 0-2 drinks per day Substance Use Type does not use Comment: Patient lives by herself in a single family home in [place]. She is with her passing away 4 years ago. Her parents are both . Smoking: Patient is a nonsmoker Alcohol: The patient reports rare alcohol consumption Substance use: Patient denies recreation of arm [employer], herbal or cannabis products Advanced directives: Patient declares herself to be DO NOT RESUSCITATE. She does need her son Arvin Cortes to be her surrogate decision maker. Meds Home Medications Medication Instructions Recorded Confirmed Type aspirin 81 mg tablet,delayed 81 mg PO DAILY 06/03/18 01/12/19 History release gabapentin 300 mg capsule 300 mg PO BEDTIME 06/03/18 01/12/19 History losartan 25 mg tablet 25 mg PO DAILY 06/03/18 01/12/19 History amoxicillin 500 mg PO TID 01/12/19 01/12/19 History cholecalciferol (vitamin D3) 1 tab PO DAILY 01/12/19 01/12/19 History [Vitamin D3] dorzolamide 1 drp OPHTHALMIC (EYE) DIRECTED 01/12/19 01/12/19 History latanoprost 1 drp OPHTHALMIC (EYE) BEDTIME 01/12/19 01/12/19 History multivitamin 1 tab PO DAILY 01/12/19 01/12/19 History Allergies Allergy/AdvReac Type Severity Reaction Status Date / Time nitrofurantoin Allergy Unknown Verified 01/12/19 13:21 [NITROFURANTOIN] azithromycin Allergy Verified 01/12/19 13:21 cholestyramine Allergy Verified 01/12/19 13:21 clavulanic acid Allergy Verified 01/12/19 13:21 [From Augmentin] lisinopril Allergy Verified 01/12/19 13:21 loratadine [From Claritin] Allergy Verified 01/12/19 13:21 neomycin Allergy Verified 01/12/19 13:21 Opioids-Meperidine and Allergy Verified 01/12/19 13:21 Related oseltamivir [From Tamiflu] Allergy Verified 01/12/19 13:21 procaine [From Novocain] Allergy Verified 01/12/19 13:21 Sulfa (Sulfonamide Allergy Verified 01/12/19 13:21 Antibiotics) Milk Containing Products AdvReac Mild DIARRHEA Verified 01/12/19 13:21 [MILK CONTAINING PRODUCTS] meperidine [MEPERIDINE] AdvReac Unknown Verified 01/12/19 13:21 Review of Systems Review of Systems All systems reviewed & are unremarkable except as noted in HPI and below Exam Vital Signs (past 8 hours): - 01/12/19 20:44 01/12/19 20:50 01/13/19 00:55 Temperature 98.4 F 98.5 F Pulse Rate 67 65 Pulse Rate [Orthostatic Lying] 67 Pulse Rate [Orthostatic Sitting] 69 Pulse Rate [Orthostatic Standing] 78 Respiratory Rate 17 16 Blood Pressure 134/70 154/72 H Blood Pressure [Orthostatic Lying] 134/70 Blood Pressure [Orthostatic Sitting] 147/79 H Blood Pressure [Orthostatic Standing] 129/76 Pulse Oximetry 98 Oxygen Delivery Method Room Air Oxygen Flow Rate 93 Narrative Exam Narrative: GENERAL APPEARANCE: well developed, well nourished, in no acute distress. HEAD: Normocephalic, atraumatic, no scalp lesions. EYES: Wearing glasses, SILVA, decreased visual field right lower field, decreased lateral peripheral vision in both eyes, sclera non-icteric, extr aocular movement intact without nystagmus. EARS: normal external structures, no ear pain NOSE: sinuses non tender to percussion, no rhinorrhea ORAL CAVITY: mucosa moist without lesions or exudate, palate normal, tongue in midline. THROAT: normal, no erythema, no exudate, pharynx normal, uvula midline. NECK/THYROID: neck supple, no jugular venous distention, no carotid bruit, no thyromegaly, trachea midline. LYMPH NODES: no cervical or supraclavicular lymphadenopathy. SKIN: warm and dry, no suspicious lesions, no rashes, good turgor. HEART: regular rate and rhythm, S1-S2 without murmur, rubs, gallops, brisk capillary refill, no edema LUNGS: clear to auscultation bilaterally, no coarseness crackles or wheezing, no cough present CHEST: Symmetrical movement, no accessory muscle use, no pain to AP and lateral compression. ABDOMEN: Soft, no distention, no epigastric or abdominal tenderness on palpation, no guarding or peritoneal signs, no organomegaly, no flank or suprapubic tenderness BACK: Normal curvature, nontender to palpation, no CVA tenderness on percussion EXTREMITIES: moves all extremities, strength is 5/5 and symmetrical, well perfused, stable gait NEUROLOGIC: AAO x4, motor strength normal upper and lower extremities, sensory exam intact to light touch, hearing grossly normal to speech. PSYCH: alert, cognitive function intact, good eye contact, stable mood with congruent affect Objective Labs Result Diagrams: 01/12/19 11:35 01/12/19 10:00 Labs: Laboratory Results - last 24 hr 01/12/19 01/12/19 01/12/19 10:00 10:00 10:00 WBC RBC Hgb Hct MCV MCH MCHC RDW Plt Count Neut % (Auto) Lymph % (Auto) [place] % (Auto) Eos % (Auto) Baso % (Auto) Neut # (Auto) Lymph # (Auto) [place] # (Auto) Eos # (Auto) Baso # (Auto) PT 12.5 INR 1.1 Sodium 139 Potassium 3.8 Chloride 100 Carbon Dioxide 26 BUN 14 Creatinine 0.70 Estimated GFR > 60.0 BUN/Creatinine Ratio 20.0 Glucose 97 Calcium 9.1 Total Bilirubin 0.6 AST 45 H ALT 29 Alkaline Phosphatase 85 Total Creatine Kinase 380 H CK-MB (CK-2) 2.17 CK-MB (CK-2) Rel Index 0.6 L Troponin I < 0.012 B-Natriuretic Peptide < 100 Total Protein 7.1 Albumin 4.4 Globulin 2.7 Albumin/Globulin Ratio 1.6 Procalcitonin Urine Color Urine Appearance Urine pH Ur Specific [place] Urine Protein Urine Glucose (UA) Urine Ketones Urine Occult Blood Urine Nitrate Urine Bilirubin Urine Urobilinogen Ur Leukocyte Esterase Urine RBC Urine WBC Ur Transition Epith Cell Ur Renal Epithelial Cell Urine Bacteria Ur Culture Indicated? Chlamy pneumoniae PCR Adenovirus (PCR) B.parapertussis DNA PCR Coronavirus OC43 (PCR) Coronavirus HKU1 (PCR) Coronavirus 229E (PCR) Coronavirus NL63 (PCR) Human Metapneumovir PCR Influenza Type A (PCR) Influenza Type B (PCR) Influenza A & B (PCR) M. pneumoniae (PCR) Parainfluenza 1 (PCR) Parainfluenza 2 (PCR) Parainfluenza 3 (PCR) Parainfluenza 4 (PCR) RSV (PCR) Entero/Rhino (PCR) 01/12/19 01/12/19 01/12/19 11:35 13:25 15:05 WBC 4.0 L RBC 5.08 Hgb 15.3 Hct 44.0 MCV 86.5 MCH 30.0 MCHC 34.7 RDW 13.0 Plt Count 211 Neut % (Auto) 77.5 H Lymph % (Auto) 7.7 L [place] % (Auto) 14.4 H Eos % (Auto) 0.1 L Baso % (Auto) 0.3 Neut # (Auto) 3100 Lymph # (Auto) 300 L [place] # (Auto) 600 Eos # (Auto) 0 Baso # (Auto) 0 PT INR Sodium Potassium Chloride Carbon Dioxide BUN Creatinine Estimated GFR BUN/Creatinine Ratio Glucose Calcium Total Bilirubin AST ALT Alkaline Phosphatase Total Creatine Kinase CK-MB (CK-2) CK-MB (CK-2) Rel Index Troponin I B-Natriuretic Peptide Total Protein Albumin Globulin Albumin/Globulin Ratio Procalcitonin Urine Color Yellow Urine Appearance Clear Urine pH 6.5 Ur Specific [place] 1.015 Urine Protein Negative Urine Glucose (UA) Negative Urine Ketones 1+ H Urine Occult Blood Negative Urine Nitrate Negative Urine Bilirubin Negative Urine Urobilinogen 1.0 Ur Leukocyte Esterase Negative Urine RBC None seen Urine WBC 0-1/hpf Ur Transition Epith Cell 0-1/hpf Ur Renal Epithelial Cell 0-1/hpf Urine Bacteria None seen Ur Culture Indicated? Cult not indicated Chlamy pneumoniae PCR Adenovirus (PCR) B.parapertussis DNA PCR Coronavirus OC43 (PCR) Coronavirus HKU1 (PCR) Coronavirus 229E (PCR) Coronavirus NL63 (PCR) Human Metapneumovir PCR Influenza Type A (PCR) Influenza Type B (PCR) Influenza A & B (PCR) Positive, type b A M. pneumoniae (PCR) Parainfluenza 1 (PCR) Parainfluenza 2 (PCR) Parainfluenza 3 (PCR) Parainfluenza 4 (PCR) RSV (PCR) Entero/Rhino (PCR) 01/12/19 01/12/19 01/12/19 16:45 16:45 22:08 WBC RBC Hgb Hct MCV MCH MCHC RDW Plt Count Neut % (Auto) Lymph % (Auto) [place] % (Auto) Eos % (Auto) Baso % (Auto) Neut # (Auto) Lymph # (Auto) [place] # (Auto) Eos # (Auto) Baso # (Auto) PT INR Sodium Potassium Chloride Carbon Dioxide BUN Creatinine Estimated GFR BUN/Creatinine Ratio Glucose Calcium Total Bilirubin AST ALT Alkaline Phosphatase Total Creatine Kinase 607 H D CK-MB (CK-2) 2.51 H CK-MB (CK-2) Rel Index 0.4 L Troponin I < 0.012 B-Natriuretic Peptide Total Protein Albumin Globulin Albumin/Globulin Ratio Procalcitonin < 0.05 Urine Color Urine Appearance Urine pH Ur Specific [place] Urine Protein Urine Glucose (UA) Urine Ketones Urine Occult Blood Urine Nitrate Urine Bilirubin Urine Urobilinogen Ur Leukocyte Esterase Urine RBC Urine WBC Ur Transition Epith Cell Ur Renal Epithelial Cell Urine Bacteria Ur Culture Indicated? Chlamy pneumoniae PCR Not detected Adenovirus (PCR) Not detected B.parapertussis DNA PCR Not detected Coronavirus OC43 (PCR) Not detected Coronavirus HKU1 (PCR) Not detected Coronavirus 229E (PCR) Not detected Coronavirus NL63 (PCR) Not detected Human Metapneumovir PCR Not detected Influenza Type A (PCR) Not detected Influenza Type B (PCR) Detected H Influenza A & B (PCR) M. pneumoniae (PCR) Not detected Parainfluenza 1 (PCR) Not detected Parainfluenza 2 (PCR) Not detected Parainfluenza 3 (PCR) Not detected Parainfluenza 4 (PCR) Not detected RSV (PCR) Not detected Entero/Rhino (PCR) Not detected Assessment & Plan Assessment & Plan narrative: The patient is admitted to the hospital for evaluation and monitoring related to syncopal episodes. 1. Syncopal episodes, acute -patient with 2 syncopal episodes while standing with antecedent visual changes, no complaints of chest pain or palpitations. -EKG in the ER is sinus rhythm with ventricular rate of 78, no ectopy, no ST or T-wave changes are noted -patient with associated falls without injury -patient endorses prior hospitalization for syncopal episode related to dehydration. Patient admits to decreased oral intake related to current illness and malaise. -patient has received IV fluid in the emergency room and continues to receive IV fluid on the floor is able stand without dizziness -will obtain orthostatic vital signs 2. Influenza A, present on admission -patient with dry nonproductive cough, chest x-ray reveals normal heart size and no acute cardiopulmonary disease. -no evidence of pneumonia however positive on serology for flu A -patient is alert communicative and presently afebrile without pulmonary complications therefore will not be starting Tamiflu. 3. Dehydration, acute -this appears to be the cause of syncopal episodes is the patient endorses decreased oral intake related to feeling poorly -will receive IV hydration normal saline at 75 cc/hour Patient is admitted to the hospital due to the severity of symptoms and risk for complications. The patient is admitted as observation with expected length of stay to be less than 2 midnights. Quality VTE Deep Vein Thrombosis/Pulmonary Embolism Present on Admission: No
[2019-01-13 05:44] LABS: Hematocrit 41.4 % (36-46); Hemoglobin 13.8 g/dL (12.0-16.0); Mean Corpuscular HGB Conc 33.2 % (30-36); Mean Corpuscular Hemoglobin 29.3 PG (26-34); Mean Corpuscular Volume 88.3 fL (80-100); Platelet Count 178 X10^3/uL (150-400); Red Blood Cell Count 4.69 X10^6/uL (4.0-5.2); Red Cell Distribution Width 13.1 % (11.6-14.8); White Blood Cell Count 2.8 X10^3/uL (4.5-11.0)
[2019-01-13 05:51] LABS: Add Manual Diff / Slide Review YES
[2019-01-13 06:09] LABS: BUN Creatinine Ratio 23.3 (6-22); Blood Urea Nitrogen 14 mg/dL (7-17); Calcium 8.3 mg/dL (8.4-10.2); Carbon Dioxide 22 mmol/L (22-32); Chloride 104 mmol/L (98-107); Estimated Glomerular Filt Rate > 60.0 mL/min (>60); Glucose 82 mg/dL (80-110); HEMOLYSIS 17 (0-50); Potassium 3.5 mmol/L (3.4-5.1); Sodium 136 mmol/L (137-145)
[2019-01-13] MEDS: PANTOPRAZOLE 20 MG TABLET PO (06:30)
[2019-01-13 07:40] LABS: Neutrophils Absolute Manual 1288 /uL (3000-5900); Total Cells Counted 50
[2019-01-13 07:41] LABS: RBC Morphology Normal Morphology
[2019-01-13] MEDS: SODIUM CHLORIDE 0.45% 1,000 ML 100 ML IV (08:11)
--- NOTE | 2019-01-13 08:13 | PM.DS.1 ---
History of Present Illness Date Patient Seen: 01/12/19 Chief complaint: Pneumonia Narrative: Written by Dat DICKEY: This is a 78-year-old female patient with history of hypertension, optic neuropathy and neuropathy left foot who presents to the ER today for progressive cough and syncopal episodes today. The patient was seen by her primary care provider 2 days ago and was diagnosed with pneumonia and started on amoxicillin. The patient has since continued to have a nonproductive cough and malaise fevers and diaphoresis. She describes progressive weakness and feeling like she was going to pass out starting yesterday and experiencing 2 episodes of syncope today. She does report visual change associated with these episodes which occurred twice today sustaining a fall without injury. The patient denies striking her head complaints of neck back pain. she denies nasal congestion or sore throat has no chest pain or shortness of breath only a nagging cough that is dry and nonproductive. She Has had intermittent nausea denies vomiting and has no abdominal pain. She reports no complaints of diarrhea or constipation. While in the ER the patient is found to have a normal CBC as well as normal chemistries. She has an elevated CK as 607 with CK-can be at 2.51 with a low index of 0.4. She has had 2 troponins that are negative at less than 0.012. She is notably positive for influenza A on serology. 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 Syncopal episodes, acute -patient with 2 syncopal episodes while standing with antecedent visual changes, no complaints of chest pain or palpitations. -EKG in the ER is sinus rhythm with ventricular rate of 78, no ectopy, no ST or T-wave changes are noted -patient with associated falls without injury -patient endorses prior hospitalization for syncopal episode related to dehydration. Patient admits to decreased oral intake related to current illness and malaise. -patient has received IV fluid in the emergency room and continues to receive IV fluid on the floor is able stand without dizziness -will obtain orthostatic vital signs 2. Influenza A, present on admission -patient with dry nonproductive cough, chest x-ray reveals normal heart size and no acute cardiopulmonary disease. -no evidence of pneumonia however positive on serology for flu A -patient is alert communicative and presently afebrile without pulmonary complications therefore will not be starting Tamiflu. 3. Dehydration, acute -this appears to be the cause of syncopal episodes is the patient endorses decreased oral intake related to feeling poorly -will receive IV hydration normal saline at 75 cc/hour Exam Vital Signs (past 8 hours): - 01/13/19 00:55 01/13/19 05:00 Temperature 98.5 F 98.1 F Pulse Rate 65 69 Respiratory Rate 16 16 Blood Pressure 154/72 H 150/58 H Pulse Oximetry 98 95 Oxygen Delivery Method Room Air Oxygen Flow Rate 93 Narrative Exam Narrative: General: No acute distress, well-developed, well-nourished, appropriately interactive HEENT: Normocephalic, atraumatic. External ears without defect. Pupils equal, round, and reactive to light and accommodation. Anicteric sclerae, moist conjunctivae, and no lid lag. Oropharynx free of erythema and cobble stoning with moist mucosa. Neck: Supple with full range of motion. No jugular venous distension. No bruits. No lymphadenopathy or thyromegaly. Cardiovascular: Regular rate and rhythm without murmurs, rubs, or gallops appreciated Pulmonary: Clear to auscultation bilaterally without crackles, wheezes, or rhonchi. Normal respiratory effort with no use of accessory muscles. Abdomen: Bowel tones present. Soft, nontender, nondistended. No hepatosplenomegaly or masses appreciated. Extremities: No clubbing, cyanosis, or edema. Skin: Normal temperature, turgor, and texture; no rash, ulcers, or subcutaneous nodules appreciated. Neurological: Cranial nerves grossly intact. Normal muscle strength, tone, and bulk. Reflexes, coordination, and sensory function within normal limits. No known gait impairment. Psychiatric: Normal mood and affect. Alert and oriented to person, place, and time. Objective Labs Result Diagrams: 01/13/19 04:50 01/13/19 04:50 Labs: Laboratory Results - last 24 hr 01/12/19 01/12/19 01/12/19 10:00 10:00 10:00 WBC RBC Hgb Hct MCV MCH MCHC RDW Plt Count Neut % (Auto) Lymph % (Auto) [place] % (Auto) Eos % (Auto) Baso % (Auto) Neut # (Auto) Lymph # (Auto) [place] # (Auto) Eos # (Auto) Baso # (Auto) Total Counted Seg Neutrophils % Band Neutrophils % Lymphocytes % (Manual) Atypical Lymphs % Monocytes % (Manual) Basophils % (Manual) Neutrophils # (Manual) RBC Morphology PT 12.5 INR 1.1 Sodium 139 Potassium 3.8 Chloride 100 Carbon Dioxide 26 BUN 14 Creatinine 0.70 Estimated GFR > 60.0 BUN/Creatinine Ratio 20.0 Glucose 97 Calcium 9.1 Total Bilirubin 0.6 AST 45 H ALT 29 Alkaline Phosphatase 85 Total Creatine Kinase 380 H CK-MB (CK-2) 2.17 CK-MB (CK-2) Rel Index 0.6 L Troponin I < 0.012 B-Natriuretic Peptide < 100 Total Protein 7.1 Albumin 4.4 Globulin 2.7 Albumin/Globulin Ratio 1.6 Procalcitonin Urine Color Urine Appearance Urine pH Ur Specific [place] Urine Protein Urine Glucose (UA) Urine Ketones Urine Occult Blood Urine Nitrate Urine Bilirubin Urine Urobilinogen Ur Leukocyte Esterase Urine RBC Urine WBC Ur Transition Epith Cell Ur Renal Epithelial Cell Urine Bacteria Ur Culture Indicated? Chlamy pneumoniae PCR Adenovirus (PCR) B.parapertussis DNA PCR Coronavirus OC43 (PCR) Coronavirus HKU1 (PCR) Coronavirus 229E (PCR) Coronavirus NL63 (PCR) Human Metapneumovir PCR Influenza Type A (PCR) Influenza Type B (PCR) Influenza A & B (PCR) M. pneumoniae (PCR) Parainfluenza 1 (PCR) Parainfluenza 2 (PCR) Parainfluenza 3 (PCR) Parainfluenza 4 (PCR) RSV (PCR) Entero/Rhino (PCR) 01/12/19 01/12/19 01/12/19 11:35 13:25 15:05 WBC 4.0 L RBC 5.08 Hgb 15.3 Hct 44.0 MCV 86.5 MCH 30.0 MCHC 34.7 RDW 13.0 Plt Count 211 Neut % (Auto) 77.5 H Lymph % (Auto) 7.7 L [place] % (Auto) 14.4 H Eos % (Auto) 0.1 L Baso % (Auto) 0.3 Neut # (Auto) 3100 Lymph # (Auto) 300 L [place] # (Auto) 600 Eos # (Auto) 0 Baso # (Auto) 0 Total Counted Seg Neutrophils % Band Neutrophils % Lymphocytes % (Manual) Atypical Lymphs % Monocytes % (Manual) Basophils % (Manual) Neutrophils # (Manual) RBC Morphology PT INR Sodium Potassium Chloride Carbon Dioxide BUN Creatinine Estimated GFR BUN/Creatinine Ratio Glucose Calcium Total Bilirubin AST ALT Alkaline Phosphatase Total Creatine Kinase CK-MB (CK-2) CK-MB (CK-2) Rel Index Troponin I B-Natriuretic Peptide Total Protein Albumin Globulin Albumin/Globulin Ratio Procalcitonin Urine Color Yellow Urine Appearance Clear Urine pH 6.5 Ur Specific [place] 1.015 Urine Protein Negative Urine Glucose (UA) Negative Urine Ketones 1+ H Urine Occult Blood Negative Urine Nitrate Negative Urine Bilirubin Negative Urine Urobilinogen 1.0 Ur Leukocyte Esterase Negative Urine RBC None seen Urine WBC 0-1/hpf Ur Transition Epith Cell 0-1/hpf Ur Renal Epithelial Cell 0-1/hpf Urine Bacteria None seen Ur Culture Indicated? Cult not indicated Chlamy pneumoniae PCR Adenovirus (PCR) B.parapertussis DNA PCR Coronavirus OC43 (PCR) Coronavirus HKU1 (PCR) Coronavirus 229E (PCR) Coronavirus NL63 (PCR) Human Metapneumovir PCR Influenza Type A (PCR) Influenza Type B (PCR) Influenza A & B (PCR) Positive, type b A M. pneumoniae (PCR) Parainfluenza 1 (PCR) Parainfluenza 2 (PCR) Parainfluenza 3 (PCR) Parainfluenza 4 (PCR) RSV (PCR) Entero/Rhino (PCR) 01/12/19 01/12/19 01/12/19 16:45 16:45 22:08 WBC RBC Hgb Hct MCV MCH MCHC RDW Plt Count Neut % (Auto) Lymph % (Auto) [place] % (Auto) Eos % (Auto) Baso % (Auto) Neut # (Auto) Lymph # (Auto) [place] # (Auto) Eos # (Auto) Baso # (Auto) Total Counted Seg Neutrophils % Band Neutrophils % Lymphocytes % (Manual) Atypical Lymphs % Monocytes % (Manual) Basophils % (Manual) Neutrophils # (Manual) RBC Morphology PT INR Sodium Potassium Chloride Carbon Dioxide BUN Creatinine Estimated GFR BUN/Creatinine Ratio Glucose Calcium Total Bilirubin AST ALT Alkaline Phosphatase Total Creatine Kinase 607 H D CK-MB (CK-2) 2.51 H CK-MB (CK-2) Rel Index 0.4 L Troponin I < 0.012 B-Natriuretic Peptide Total Protein Albumin Globulin Albumin/Globulin Ratio Procalcitonin < 0.05 Urine Color Urine Appearance Urine pH Ur Specific [place] Urine Protein Urine Glucose (UA) Urine Ketones Urine Occult Blood Urine Nitrate Urine Bilirubin Urine Urobilinogen Ur Leukocyte Esterase Urine RBC Urine WBC Ur Transition Epith Cell Ur Renal Epithelial Cell Urine Bacteria Ur Culture Indicated? Chlamy pneumoniae PCR Not detected Adenovirus (PCR) Not detected B.parapertussis DNA PCR Not detected Coronavirus OC43 (PCR) Not detected Coronavirus HKU1 (PCR) Not detected Coronavirus 229E (PCR) Not detected Coronavirus NL63 (PCR) Not detected Human Metapneumovir PCR Not detected Influenza Type A (PCR) Not detected Influenza Type B (PCR) Detected H Influenza A & B (PCR) M. pneumoniae (PCR) Not detected Parainfluenza 1 (PCR) Not detected Parainfluenza 2 (PCR) Not detected Parainfluenza 3 (PCR) Not detected Parainfluenza 4 (PCR) Not detected RSV (PCR) Not detected Entero/Rhino (PCR) Not detected 01/13/19 01/13/19 04:50 04:50 WBC 2.8 L RBC 4.69 Hgb 13.8 Hct 41.4 MCV 88.3 MCH 29.3 MCHC 33.2 RDW 13.1 Plt Count 178 Neut % (Auto) Not Reportable Lymph % (Auto) Not Reportable [place] % (Auto) Not Reportable Eos % (Auto) Not Reportable Baso % (Auto) Not Reportable Neut # (Auto) Lymph # (Auto) Not Reportable [place] # (Auto) Not Reportable Eos # (Auto) Baso # (Auto) Not Reportable Total Counted 50 Seg Neutrophils % 34.0 L Band Neutrophils % 12.0 H Lymphocytes % (Manual) 26.0 Atypical Lymphs % 10.0 H Monocytes % (Manual) 16.0 H Basophils % (Manual) 2.0 H Neutrophils # (Manual) 1288 L RBC Morphology Normal morphology PT INR Sodium 136 L Potassium 3.5 Chloride 104 Carbon Dioxide 22 BUN 14 Creatinine 0.60 Estimated GFR > 60.0 BUN/Creatinine Ratio 23.3 H Glucose 82 Calcium 8.3 L Total Bilirubin AST ALT Alkaline Phosphatase Total Creatine Kinase CK-MB (CK-2) CK-MB (CK-2) Rel Index Troponin I B-Natriuretic Peptide Total Protein Albumin Globulin Albumin/Globulin Ratio Procalcitonin Urine Color Urine Appearance Urine pH Ur Specific [place] Urine Protein Urine Glucose (UA) Urine Ketones Urine Occult Blood Urine Nitrate Urine Bilirubin Urine Urobilinogen Ur Leukocyte Esterase Urine RBC Urine WBC Ur Transition Epith Cell Ur Renal Epithelial Cell Urine Bacteria Ur Culture Indicated? Chlamy pneumoniae PCR Adenovirus (PCR) B.parapertussis DNA PCR Coronavirus OC43 (PCR) Coronavirus HKU1 (PCR) Coronavirus 229E (PCR) Coronavirus NL63 (PCR) Human Metapneumovir PCR Influenza Type A (PCR) Influenza Type B (PCR) Influenza A & B (PCR) M. pneumoniae (PCR) Parainfluenza 1 (PCR) Parainfluenza 2 (PCR) Parainfluenza 3 (PCR) Parainfluenza 4 (PCR) RSV (PCR) Entero/Rhino (PCR) Discharge Plan Discharge Med Rec/Prescriptions Prescriptions: No Action aspirin [Adult Aspirin Regimen] 81 mg tablet,delayed release (DR/EC) 81 mg PO DAILY RF: 0 losartan 25 mg tablet 25 mg PO DAILY RF: 0 gabapentin 300 mg capsule 300 mg PO BEDTIME RF: 0 amoxicillin 500 mg capsule 500 mg PO TID RF: 0 latanoprost 0.005 % drops 1 drp ophthalmic (eye) BEDTIME RF: 0 dorzolamide 2 % drops 1 drp ophthalmic (eye) DIRECTED RF: 0 multivitamin Tablet,Chewable 1 tab PO DAILY RF: 0 cholecalciferol (vitamin D3) [Vitamin D3] 400 unit Tablet,Chewable 1 tab PO DAILY RF: 0 Follow up/Referrals: Vic Duque MD [Primary Care Provider] - Discharge Data Primary Care Provider: Vic Duque V Attending Provider: Mallory Rivera Admit Date/Time: 01/12/19 17:57 Quality VTE Deep Vein Thrombosis/Pulmonary Embolism Present on Admission: No
[2019-01-13] MEDS: ASPIRIN EC 81 MG TABLET PO (08:57)
[2019-01-13] MEDS: IBUPROFEN 600 MG TABLET PO (09:01)
[2019-01-13] MEDS: LOSARTAN 25 MG TABLET PO (09:20)
--- NOTE | 2019-01-13 10:06 | PT.IIE ---
Surgical History (Last Reviewed 01/13/19 @ 04:45 by NOBLE Florian) History of tonsillectomy (Acute) Medical History (Last Reviewed 01/13/19 @ 04:45 by NOBLE Florian) History of hysterectomy (Acute) Hypertension (Acute) Idiopathic peripheral neuropathy (Acute) Optic neuropathy, right (Acute) Physical Therapy Inpatient Evaluation/Re-Eval M1 PT/OT-IP Prior Functional Status Start: 01/13/19 13:23 Freq: NEEDED Status: Active Protocol: Document 01/13/19 10:06 DLM (Rec: 01/13/19 13:39 DL [id number]) Medical Review Prior Functional Status Medical History Reviewed Yes Diet/Fluid Consistency Regular Communication WNL Mobility and Gait Independent without device Activities of Daily Living and IADL's Independent Prior Functional Level (Other details) drives, volunteers at [employer] Social History Household Members none Living Arrangements House Number of Floors (Floors) One Floor Number of Stairs To Enter/Railing? 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 Hx of falls with syncope M2 PT-IP Current Condition Start: 01/13/19 13:23 Freq: NEEDED Status: Active Protocol: Document 01/13/19 10:06 DLM (Rec: 01/13/19 13:39 DL [id number]) Physical Therapy Current Condition Current Condition Evaluation Date 01/13/19 Treatment Diagnosis weakness, impaired gait Onset Date 01/12/19 Precautions Other Precautions Influenza A M3 PT-IP Subjective Start: 01/13/19 13:23 Freq: NEEDED Status: Active Protocol: Document 01/13/19 10:06 DLM (Rec: 01/13/19 13:39 DL [id number]) Subjective Physical Therapy Visit Type Type Initial Evaluation Visit Start Time 09:30 Visit Stop Time 10:06 Total Visit Minutes 36 Number of HOME THEATER INSTALLER Visits 0 Physical Therapy Visit Comments Patient Comments she describes mild light- headedness when up to bathroom , c/o cough Patient Goals get better and return home Therapy Pain Assessment Pain When Pain Assessed During Mobility Pain Present Pain Present Denied Pain M4 PT-IP Mobility and Gait Start: 01/13/19 13:23 Freq: NEEDED Status: Active Protocol: Document 01/13/19 10:06 DLM (Rec: 01/13/19 15:24 DL [id number]) PT-Bed Mobility Assessment Supine to Sit Supine to Sit Standby Assistance Scooting Scooting to Edge of Bed Independent PT-Transfer Assessment Sit to and From Stand Sit to and from Stand Standby Assistance Use of Upper Extremities Equipment Transfer Assistive Device Gait Belt Front Wheeled Walker Transfers Transfer Destination Chair Toilet Transfer Technique Stand Step Pivot Transfer Ability Level of Assist Standby Assistance Gait Assessment Gait Gait Assistance Required: Standby Assistance Distance (Feet) 8 Assistive Devices Assistive Device Gait Belt Front Wheeled Walker Factors Limiting Gait Function Factors Limiting Gait Function Decreased Activity Tolerance Comments Gait Comments mild light-headedness reported when up ambulating to toilet Vital signs: supine BP 149/76, HR 82 sitting BP 183/83, HR 79 standing BP 127/77, HR 84 sitting BP 138/71, HR 81 PT-Balance Assessment Sitting Balance and Reactions Static Sitting Balance Ability Normal Dynamic Sitting Balance Ability Normal Standing Balance and Reactions Static Standing Balance Ability Good Dynamic Standing Balance Ability Good Device Used FWW M5 PT-IP Objective Assessments Start: 01/13/19 13:23 Freq: NEEDED Status: Active Protocol: Document 01/13/19 10:06 DLM (Rec: 01/13/19 15:24 DL [id number]) Orientation Orientation/Cognition Level of Alertness Alert Orientation Name Age Birthday Month Date Year Day of Week Place Situation Language Function Ability No Deficits Noted Safety Awareness Understands Safety Issues Memory Description No Deficits Noted Gross Range of Motion Upper Extremity ROM Assessment Within Functional Limits Lower Extremity ROM Assessment Within Functional Limits Strength Upper Extremity Strength Assessment Within Functional Limits Lower Extremity Strength Assessment Within Functional Limits Coordination Assessment Gross Coordination Gross Coordination WNL Sensation Assessment Sensation Gross Sensation Right LE Impaired Left LE Impaired Sensation Description Numbness Comments Sensation Comments hx neuropathy in feet Muscle Tone Muscle Tone WNL Yes M6 PT-IP Treatment Start: 01/13/19 13:23 Freq: NEEDED Status: Active Protocol: Document 01/13/19 10:06 DLM (Rec: 01/13/19 15:24 DL [id number]) Physical Therapy Treatment Education Education Provided Safety M7 PT-IP Assessment and Plan Start: 01/13/19 13:23 Freq: NEEDED Status: Active Protocol: Document 01/13/19 10:06 DLM (Rec: 01/13/19 15:24 [facility] [id number]) PT Summary Assessment and Plan Potential Rehabilitation Potential Excellent Status of Condition at Evaluation Evolving Summary Impairments Gait Activity Tolerance Assessment Summary Melissa is alert and willing to participate in physical therapy. Noted orthostatic BP during sit to stand. Pt able to ambulate short distances in her room with FWW with c/o mild light-headedness. Pt left up in recliner this visit. She continues to have frequent cough. She will need to progress before she is safe to return home alone. Will continue to assess her need for fWW for home use. Goals Bed Mobility Goal Independent Transfer Goal Independent Front Wheeled Walker Gait Goal Independent Front Wheel Walker Gait Distance 150 feet Other Goals Up and down 6 steps with rail and SBA Days to Meet Goals 4 Frequency of Treatment Frequency Of Treatment Twice a Day Treatment Plan Physical Therapy Treatment Plan Bed Mobility Training Transfer Training Gait Training Therapeutic Exercise Balance Retraining Discharge Planning Other Recommendations and Next Treatment assess need for assistive Focus device as she progresses Recommendations To Nursing Amount of Assist Needed 1 Person Assist Discharge Recommendations PT Discharge Recommendations Home Home Health Other Discharge Recommendations continue to assess for discharge planning Equipment Needed for Home Before continue to assess Discharge
[2019-01-13] MEDS: DORZOLAMIDE 2% OPHTH 10 ML 1 DROPS EYE-BOTH ×2 (10:09→20:37)
--- NOTE | 2019-01-13 10:21 | PC.NURSE ---
AM NOTE - pt is alert, some occassional congested, non productive cough, bs are clear, ra 98%, some voice hoarseness, given tea with honey this am, ibuprofen for 99.9 temp, later am phys therapy in and pt up w/fww, orthostatic completed, pt bp did drop from sitting to standing, pt continues with some dizziness, ambul to chair with phys therapy, no return lightheadedness once seated.
--- NOTE | 2019-01-13 11:11 | P.PN_ITS ---
Subjective Date Patient Seen: 01/13/19 Interval history: Melissa Cortes is a 78-year-old female with a past medical history significant for hypertension, optic neuropathy and neuropathy left foot who presents to the ED for progressive cough and syncopal episodes. The patient is resting in bedside chair comfortably. She endorses dry nonproductive cough and slight hoarseness. She requests lozenges. She also endorses generalized weakness that is slowly improving. She does not feel ready to go home as she is unsure of how she would take care of herself. Continue PT. She denies headache, shortness of breath, chest pain, abdominal pain, nausea, vomiting, fever, chills, dysuria, diarrhea or constipation. She is voiding and eliminating without difficulty. She is up ambulating with assistance. Exam Vital Signs (past 8 hours): - 01/13/19 05:00 01/13/19 08:31 01/13/19 08:42 Temperature 98.1 F 99.9 F H Pulse Rate 69 79 Pulse Rate [Orthostatic Lying] Pulse Rate [Orthostatic Sitting] Pulse Rate [Orthostatic Standing] Respiratory Rate 16 20 Blood Pressure 150/58 H 120/69 Blood Pressure [Orthostatic Lying] Blood Pressure [Orthostatic Sitting] Blood Pressure [Orthostatic Standing] Pulse Oximetry 95 98 94 01/13/19 09:50 01/13/19 11:01 Temperature Pulse Rate Pulse Rate [Orthostatic Lying] 82 Pulse Rate [Orthostatic Sitting] 79 Pulse Rate [Orthostatic Standing] 84 Respiratory Rate Blood Pressure Blood Pressure [Orthostatic Lying] 149/76 H Blood Pressure [Orthostatic Sitting] 183/83 H Blood Pressure [Orthostatic Standing] 127/77 Pulse Oximetry 97 Oxygen Delivery Method Room Air Oxygen Flow Rate 93 Narrative Exam Narrative: General: Elderly female sitting in bedside chair and in no acute distress, well-developed, well-nourished, appropriately interactive. HEENT: Normocephalic, atraumatic. External ears without defect. Pupils equal, round, and reactive to light. Anicteric sclerae, moist conjunctivae, and no lid lag. Oropharynx with mild erythema and moist mucosa. Neck: Supple with full range of motion.No lymphadenopathy or thyromegaly. Cardiovascular: Regular rate and rhythm without murmurs, rubs, or gallops appreciated. Pulmonary: Clear to auscultation bilaterally without crackles, wheezes, or rhonchi. Normal respiratory effort with no use of accessory muscles. Abdomen: Soft, bowel sounds present, nontender, nondistended. No hepatosplenomegaly or masses appreciated. Extremities: No clubbing, cyanosis, or edema. Skin: Normal temperature, turgor, and texture; no rash, ulcers, or subcutaneous nodules appreciated. Neurological: Cranial nerves grossly intact. Psychiatric: Normal mood and affect. Alert and appears to be oriented to person, place, and time. Objective Labs Result Diagrams: 01/13/19 04:50 01/13/19 04:50 Labs: Laboratory Results - last 24 hr 01/12/19 01/12/19 01/12/19 10:00 10:00 10:00 WBC RBC Hgb Hct MCV MCH MCHC RDW Plt Count Neut % (Auto) Lymph % (Auto) [place] % (Auto) Eos % (Auto) Baso % (Auto) Neut # (Auto) Lymph # (Auto) [place] # (Auto) Eos # (Auto) Baso # (Auto) Total Counted Seg Neutrophils % Band Neutrophils % Lymphocytes % (Manual) Atypical Lymphs % Monocytes % (Manual) Basophils % (Manual) Neutrophils # (Manual) RBC Morphology PT 12.5 INR 1.1 Sodium 139 Potassium 3.8 Chloride 100 Carbon Dioxide 26 BUN 14 Creatinine 0.70 Estimated GFR > 60.0 BUN/Creatinine Ratio 20.0 Glucose 97 Calcium 9.1 Total Bilirubin 0.6 AST 45 H ALT 29 Alkaline Phosphatase 85 Total Creatine Kinase 380 H CK-MB (CK-2) 2.17 CK-MB (CK-2) Rel Index 0.6 L Troponin I < 0.012 B-Natriuretic Peptide < 100 Total Protein 7.1 Albumin 4.4 Globulin 2.7 Albumin/Globulin Ratio 1.6 Procalcitonin Urine Color Urine Appearance Urine pH Ur Specific Clancy Urine Protein Urine Glucose (UA) Urine Ketones Urine Occult Blood Urine Nitrate Urine Bilirubin Urine Urobilinogen Ur Leukocyte Esterase Urine RBC Urine WBC Ur Transition Epith Cell Ur Renal Epithelial Cell Urine Bacteria Ur Culture Indicated? Chlamy pneumoniae PCR Adenovirus (PCR) B.parapertussis DNA PCR Coronavirus OC43 (PCR) Coronavirus HKU1 (PCR) Coronavirus 229E (PCR) Coronavirus NL63 (PCR) Human Metapneumovir PCR Influenza Type A (PCR) Influenza Type B (PCR) Influenza A & B (PCR) M. pneumoniae (PCR) Parainfluenza 1 (PCR) Parainfluenza 2 (PCR) Parainfluenza 3 (PCR) Parainfluenza 4 (PCR) RSV (PCR) Entero/Rhino (PCR) 01/12/19 01/12/19 01/12/19 11:35 13:25 15:05 WBC 4.0 L RBC 5.08 Hgb 15.3 Hct 44.0 MCV 86.5 MCH 30.0 MCHC 34.7 RDW 13.0 Plt Count 211 Neut % (Auto) 77.5 H Lymph % (Auto) 7.7 L [place] % (Auto) 14.4 H Eos % (Auto) 0.1 L Baso % (Auto) 0.3 Neut # (Auto) 3100 Lymph # (Auto) 300 L [place] # (Auto) 600 Eos # (Auto) 0 Baso # (Auto) 0 Total Counted Seg Neutrophils % Band Neutrophils % Lymphocytes % (Manual) Atypical Lymphs % Monocytes % (Manual) Basophils % (Manual) Neutrophils # (Manual) RBC Morphology PT INR Sodium Potassium Chloride Carbon Dioxide BUN Creatinine Estimated GFR BUN/Creatinine Ratio Glucose Calcium Total Bilirubin AST ALT Alkaline Phosphatase Total Creatine Kinase CK-MB (CK-2) CK-MB (CK-2) Rel Index Troponin I B-Natriuretic Peptide Total Protein Albumin Globulin Albumin/Globulin Ratio Procalcitonin Urine Color Yellow Urine Appearance Clear Urine pH 6.5 Ur Specific Clancy 1.015 Urine Protein Negative Urine Glucose (UA) Negative Urine Ketones 1+ H Urine Occult Blood Negative Urine Nitrate Negative Urine Bilirubin Negative Urine Urobilinogen 1.0 Ur Leukocyte Esterase Negative Urine RBC None seen Urine WBC 0-1/hpf Ur Transition Epith Cell 0-1/hpf Ur Renal Epithelial Cell 0-1/hpf Urine Bacteria None seen Ur Culture Indicated? Cult not indicated Chlamy pneumoniae PCR Adenovirus (PCR) B.parapertussis DNA PCR Coronavirus OC43 (PCR) Coronavirus HKU1 (PCR) Coronavirus 229E (PCR) Coronavirus NL63 (PCR) Human Metapneumovir PCR Influenza Type A (PCR) Influenza Type B (PCR) Influenza A & B (PCR) Positive, type b A M. pneumoniae (PCR) Parainfluenza 1 (PCR) Parainfluenza 2 (PCR) Parainfluenza 3 (PCR) Parainfluenza 4 (PCR) RSV (PCR) Entero/Rhino (PCR) 01/12/19 01/12/19 01/12/19 16:45 16:45 22:08 WBC RBC Hgb Hct MCV MCH MCHC RDW Plt Count Neut % (Auto) Lymph % (Auto) [place] % (Auto) Eos % (Auto) Baso % (Auto) Neut # (Auto) Lymph # (Auto) [place] # (Auto) Eos # (Auto) Baso # (Auto) Total Counted Seg Neutrophils % Band Neutrophils % Lymphocytes % (Manual) Atypical Lymphs % Monocytes % (Manual) Basophils % (Manual) Neutrophils # (Manual) RBC Morphology PT INR Sodium Potassium Chloride Carbon Dioxide BUN Creatinine Estimated GFR BUN/Creatinine Ratio Glucose Calcium Total Bilirubin AST ALT Alkaline Phosphatase Total Creatine Kinase 607 H D CK-MB (CK-2) 2.51 H CK-MB (CK-2) Rel Index 0.4 L Troponin I < 0.012 B-Natriuretic Peptide Total Protein Albumin Globulin Albumin/Globulin Ratio Procalcitonin < 0.05 Urine Color Urine Appearance Urine pH Ur Specific Clancy Urine Protein Urine Glucose (UA) Urine Ketones Urine Occult Blood Urine Nitrate Urine Bilirubin Urine Urobilinogen Ur Leukocyte Esterase Urine RBC Urine WBC Ur Transition Epith Cell Ur Renal Epithelial Cell Urine Bacteria Ur Culture Indicated? Chlamy pneumoniae PCR Not detected Adenovirus (PCR) Not detected B.parapertussis DNA PCR Not detected Coronavirus OC43 (PCR) Not detected Coronavirus HKU1 (PCR) Not detected Coronavirus 229E (PCR) Not detected Coronavirus NL63 (PCR) Not detected Human Metapneumovir PCR Not detected Influenza Type A (PCR) Not detected Influenza Type B (PCR) Detected H Influenza A & B (PCR) M. pneumoniae (PCR) Not detected Parainfluenza 1 (PCR) Not detected Parainfluenza 2 (PCR) Not detected Parainfluenza 3 (PCR) Not detected Parainfluenza 4 (PCR) Not detected RSV (PCR) Not detected Entero/Rhino (PCR) Not detected 01/13/19 01/13/19 04:50 04:50 WBC 2.8 L RBC 4.69 Hgb 13.8 Hct 41.4 MCV 88.3 MCH 29.3 MCHC 33.2 RDW 13.1 Plt Count 178 Neut % (Auto) Not Reportable Lymph % (Auto) Not Reportable [place] % (Auto) Not Reportable Eos % (Auto) Not Reportable Baso % (Auto) Not Reportable Neut # (Auto) Lymph # (Auto) Not Reportable [place] # (Auto) Not Reportable Eos # (Auto) Baso # (Auto) Not Reportable Total Counted 50 Seg Neutrophils % 34.0 L Band Neutrophils % 12.0 H Lymphocytes % (Manual) 26.0 Atypical Lymphs % 10.0 H Monocytes % (Manual) 16.0 H Basophils % (Manual) 2.0 H Neutrophils # (Manual) 1288 L RBC Morphology Normal morphology PT INR Sodium 136 L Potassium 3.5 Chloride 104 Carbon Dioxide 22 BUN 14 Creatinine 0.60 Estimated GFR > 60.0 BUN/Creatinine Ratio 23.3 H Glucose 82 Calcium 8.3 L Total Bilirubin AST ALT Alkaline Phosphatase Total Creatine Kinase CK-MB (CK-2) CK-MB (CK-2) Rel Index Troponin I B-Natriuretic Peptide Total Protein Albumin Globulin Albumin/Globulin Ratio Procalcitonin Urine Color Urine Appearance Urine pH Ur Specific Clancy Urine Protein Urine Glucose (UA) Urine Ketones Urine Occult Blood Urine Nitrate Urine Bilirubin Urine Urobilinogen Ur Leukocyte Esterase Urine RBC Urine WBC Ur Transition Epith Cell Ur Renal Epithelial Cell Urine Bacteria Ur Culture Indicated? Chlamy pneumoniae PCR Adenovirus (PCR) B.parapertussis DNA PCR Coronavirus OC43 (PCR) Coronavirus HKU1 (PCR) Coronavirus 229E (PCR) Coronavirus NL63 (PCR) Human Metapneumovir PCR Influenza Type A (PCR) Influenza Type B (PCR) Influenza A & B (PCR) M. pneumoniae (PCR) Parainfluenza 1 (PCR) Parainfluenza 2 (PCR) Parainfluenza 3 (PCR) Parainfluenza 4 (PCR) RSV (PCR) Entero/Rhino (PCR) Assessment & Plan Assessment & Plan narrative: Melissa Cortes is a 78-year-old female with a past medical history significant for hypertension, optic neuropathy and neuropathy left foot who presents to the ED for progressive cough and syncopal episodes. 1. Acute orthostatic hypotension with syncopal episodes, secondary to hypovolemia, present on admission. Resolving. -Patient presented after 2 syncopal episodes while standing with antecedent visual changes and fall without injury. No complaints of chest pain or palpitations. -Patient endorses prior hospitalization for syncopal episode related to dehydration. Patient admits to decreased oral intake related to current illness and malaise. -EKG in the ER is sinus rhythm with ventricular rate of 78, no ectopy, no ST or T-wave changes are noted. -Continue IV fluid with normal saline at 100 mL/hr (patient was receiveing 1/2 NS likely by accident and that was discontinued). Received 1 L NS in ED. -Ordered orthostatic vital signs every shiftand improving. Hold losartan which was continued and stopped this morning. 2. Acute generalized weakness, present on admission. Resolving. -Continue to treat underlying cause which is acute dehydration secondary to influenza infection as above. -Ordered PT and OT evaluation and treatment, pending. 3. Acute influenza A upper respiratory tract infection, present on admission. Active. -Patient presented with dry nonproductive cough and mild laryngitis. -Chest x-ray reveals normal heart size and no acute cardiopulmonary disease. -Positive for influenza A. -Continue symptom management with Cepacol lozenges, Tessalon Perles 3 times daily as needed and IV fluid hydration as above. Patient is outside the window for Tamiflu and reports she is allergic. 4. Hypertension, chronic, present on admit. Stable. -Patient hypovolemic and has orthostatic blood pressures as above. -Held losartan which may have been given this morning but now discontinued. Disposition: Likely discharge tomorrow with home health. Quality VTE Deep Vein Thrombosis/Pulmonary Embolism Present on Admission: No
[2019-01-13 11:22] LABS: Magnesium 1.7 mg/dL (1.6-2.3)
[2019-01-13] MEDS: SODIUM CHLORIDE 0.9% 1,000 ML 100 ML IV ×2 (11:32→20:36)
[2019-01-13] MEDS: BENZOCAINE/MENTHOL 1 LOZ PKT 1 EACH PO ×2 (11:32→19:14)
--- NOTE | 2019-01-13 15:43 | PT.IPTN ---
Physical Therapy Treatment Note M2 PT-IP Current Condition Start: 01/13/19 13:23 Freq: NEEDED Status: Active Protocol: Document 01/13/19 10:06 DLM (Rec: 01/13/19 13:39 DLM [id number]) Physical Therapy Current Condition Current Condition Evaluation Date 01/13/19 Treatment Diagnosis weakness, impaired gait Onset Date 01/12/19 Precautions Other Precautions Influenza A M3 PT-IP Subjective Start: 01/13/19 13:23 Freq: NEEDED Status: Active Protocol: Document 01/13/19 15:26 SA (Rec: 01/13/19 15:43 SA [id number]) Subjective Physical Therapy Visit Type Type Treatment Note Visit Start Time 15:00 Visit Stop Time 15:25 Total Visit Minutes 25 Number of [employer]PAREL [employer]BR[employer] DIGIT[employer]ER Visits 1 Physical Therapy Visit Comments Patient Comments Pt up in chair and agreeable to therapy. Patient Goals get better and return home Therapy Pain Assessment Pain When Pain Assessed During Mobility Pain Present Pain Present Denied Pain M4 PT-IP Mobility and Gait Start: 01/13/19 13:23 Freq: NEEDED Status: Active Protocol: Document 01/13/19 15:26 SA (Rec: 01/13/19 15:43 SA [id number]) PT-Transfer Assessment Sit to and From Stand Sit to and from Stand Standby Assistance Use of Upper Extremities Equipment Transfer Assistive Device Gait Belt Front Wheeled Walker Orthotic/Prosthetic Devices or Brace: Yes Transfers Transfer Destination Chair Toilet Transfer Technique Stand Step Pivot Transfer Ability Level of Assist Standby Assistance Comments Mobility Comments Pt completed stand pivot txs on/off chair and toilet with FWW and cues for safety. Stood at sink to wash/dry hands with no LOB. BP prior to activity 153/72 and after activity 143/74. Gait Assessment Gait Gait Assistance Required: Standby Assistance 1 Person Assist Distance (Feet) 20 Able to Maintain Weight Bearing Status Yes During Gait Assistive Devices Assistive Device Gait Belt Front Wheeled Walker Orthotic/Prosthetic Devices or Brace: No Gait Deviations General Gait Pattern Decreased Stride Length Decreased Feet Clearance Factors Limiting Gait Function Factors Limiting Gait Function Decreased Activity Tolerance Decreased Strength Comments Gait Comments Pt denies feeling dizzy or lightheaded with gait, uses FWW safely in tight spaces and no LOB. PT-Balance Assessment Sitting Balance and Reactions Static Sitting Balance Ability Normal Dynamic Sitting Balance Ability Normal Standing Balance and Reactions Static Standing Balance Ability Good Dynamic Standing Balance Ability Good Device Used FWW M5 PT-IP Objective Assessments Start: 01/13/19 13:23 Freq: NEEDED Status: Active Protocol: Document 01/13/19 10:06 DLM (Rec: 01/13/19 15:24 DLM [id number]) Orientation Orientation/Cognition Level of Alertness Alert Orientation Name Age Birthday Month Date Year Day of Week Place Situation Language Function Ability No Deficits Noted Safety Awareness Understands Safety Issues Memory Description No Deficits Noted Gross Range of Motion Upper Extremity ROM Assessment Within Functional Limits Lower Extremity ROM Assessment Within Functional Limits Strength Upper Extremity Strength Assessment Within Functional Limits Lower Extremity Strength Assessment Within Functional Limits Coordination Assessment Gross Coordination Gross Coordination WNL Sensation Assessment Sensation Gross Sensation Right LE Impaired Left LE Impaired Sensation Description Numbness Comments Sensation Comments hx neuropathy in feet Muscle Tone Muscle Tone WNL Yes M6 PT-IP Treatment Start: 01/13/19 13:23 Freq: NEEDED Status: Active Protocol: Document 01/13/19 15:26 SA (Rec: 01/13/19 15:43 SA [id number]) Physical Therapy Treatment Exercises Exercises Ankle Pumps Seated Knee Flexion/Extension Education Education Provided Safety M7 PT-IP Assessment and Plan Start: 01/13/19 13:23 Freq: NEEDED Status: Active Protocol: Document 01/13/19 15:26 SA (Rec: 01/13/19 15:43 SA [id number]) PT Summary Assessment and Plan Potential Rehabilitation Potential Excellent Status of Condition at Evaluation Evolving Summary Impairments Gait Activity Tolerance Assessment Summary Pt with decreased activity tolerance and strength, fatigues rapidly with standing activity. Demonstrates safe use of FWW and no LOB with gait or transfers. Goals Days to Meet Goals 4 Frequency of Treatment Frequency Of Treatment Twice a Day Treatment Plan Physical Therapy Treatment Plan Bed Mobility Training Transfer Training Gait Training Therapeutic Exercise Balance Retraining Discharge Planning Other Recommendations and Next Treatment assess need for assistive Focus device as she progresses Recommendations To Nursing Amount of Assist Needed 1 Person Assist Discharge Recommendations PT Discharge Recommendations Home Home Health Other Discharge Recommendations continue to assess for discharge planning Equipment Needed for Home Before continue to assess Discharge
--- NOTE | 2019-01-13 17:50 | PC.NURSE ---
Addendum entered and electronically signed by Ben Vallejo R.N. 01/13/19 21:51: Patient continues to trend up w/ Blood pressures on this shift. 130/67, 176/73, 187/76, 180/63. Dr. Perdomo was phoned and he advised to d/c NS fluids. Original Note: Pt has non-productive cough. Lung sounds clear bilaterally. Denies pain.
[2019-01-13] MEDS: BENZONATATE 100 MG CAPSULE PO (18:15)
[2019-01-13] MEDS: GABAPENTIN 300 MG CAPSULE PO (20:37)
[2019-01-13] MEDS: LATANOPROST 0.005% OPHTH 2.5 ML 1 DROPS EYE-BOTH (20:37)
[2019-01-14] VITALS (13 sets, daily range): BP systolic 126–198; BP diastolic 61–99; PULSE 69–95; RESP 16–19; TEMP 35.8–37.7; O2SAT 91–97
--- NOTE | 2019-01-14 | DI.ECHO.S_ITS ---
[facility]---------+ [facility] +---------+ : : [id number] : : : : [id number] : : : : Phone: [phone]+ Echocardiogram Report + + :Name: SAMANTHA MAYNARD Study Date: 01/14/2019 Height: 61 in : :[facility] Exam Location: [facility] Weight: 138 lb : : Gender: Female BSA: 1.6 m2 : :: 1940 Age: 78 yrs BP: 159/70 mmHg: :Reason For Study: SYNCOPE : : Performed By: Maikol Bailon : :Referring: OMAR JACOBS : + + Interpretation Summary There is normal left ventricular wall thickness. The ejection fraction is estimated to be 60-65%. There are no focal wall motion abnormalities. The right ventricle is normal in size and function. Pulmonary artery pressures cannot be estimated because of the lack of a measurable TR jet velocity but the IVC suggests a CVP of around 3 mmHg. Comparison is made with the echocardiogram of 03/14/14. No significant change. Procedure: A two-dimensional transthoracic echocardiogram with color flow and Doppler was performed. The study quality was technically adequate. Comparison is made with the echocardiogram of 03/14/14. The patient was in normal sinus rhythm during the exam. Left Ventricle: The left ventricle is normal in size. There is normal left ventricular wall thickness. There is no echo evidence for significant left ventricular outflow tract obstruction. The ejection fraction is estimated to be 60-65%. There are no focal wall motion abnormalities. Diastolic parameters suggest a relaxation abnormality of the left ventricle, consistent with probable normal filling pressures. Right Ventricle: The right ventricle is normal in size and function. Atria: Both atria are normal in size. The interatrial septum is intact with no evidence for an atrial septal defect. Mitral Valve: The mitral valve is normal in structure and function. There is no mitral valve stenosis. There is no mitral regurgitation noted. Aortic Valve: The aortic valve is trileaflet. The aortic valve opens well. There is no aortic valve stenosis. No aortic regurgitation is present. Tricuspid Valve: The tricuspid valve is normal in structure and function. No tricuspid regurgitation. Pulmonary artery pressures cannot be estimated because of the lack of a measurable TR jet velocity but the IVC suggests a CVP of around 3 mmHg. Pulmonic Valve: The pulmonic valve is normal in structure and function. There is trace pulmonic regurgitation. Great Vessels: The aortic root is normal size. The dimensions of the ascending aorta are normal. The pulmonary artery is normal size. The IVC is of normal diameter and collapses less than 50% with a sniff. This suggests a right atrial pressure of 8 mm Hg. Pericardium/ Pleura There is no pericardial effusion. There is no pleural effusion. MMode/2D Measurements & Calculations LVIDd: 4.6 cm LVOT diam: 2.0 cm LVIDs: 2.9 cm Ao root diam: 3.0 cm FS: 38.3 % Aortic Jxn: 2.6 cm EPSS: 0.49 cm asc Aorta Diam: 3.2 cm IVSd: 1.0 cm Ao Arch Diam (Prox Trans): 2.5 cm LVPWd: 0.81 cm LV scott. diameter/BSA (cm/m^2): 2.9 LV sys. diameter/BSA (cm/m^2): 1.8 LA dimension: 3.7 cm RA long axis: 4.1 cm LA A2 area: 17.1 cm2 RA area: 12.2 cm2 LA A4 area: 14.0 cm2 RA vol: 30.7 ml LA length (vol): 4.4 cm RA : 19.0 ml/m2 LA vol: 46.6 ml IVC diam: 1.3 cm LA vol index: 28.9 ml/m2 Doppler Measurements & Calculations Ao V2 max: 130.4 cm/sec LVOT Max Arnold: 123.5 cm/sec Ao V2 mean: 91.4 cm/sec LV V1 max P.1 mmHg Ao max P.8 mmHg LV V1 VTI: 20.7 cm Ao mean P.7 mmHg DIANE(I,D): 2.3 cm2 Ao V2 VTI: 27.7 cm DIANE(V,D): 2.9 cm2 sev ratio: 0.75 DIANE indexed to BSA (cm^2/m^2): 1.4 MV E max arnold: 56.8 cm/sec PA V2 max: 89.5 cm/sec MV A max arnold: 85.0 cm/sec PA V2 mean: 67.4 cm/sec MV E/A: 0.67 PA mean P.9 mmHg Med Peak E' Arnold: 6.4 cm/sec PA pr(Accel): 21.6 mmHg E/E' med: 8.9 PA Accel Time: 0.13 sec Lat Peak E' Arnold: 5.4 cm/sec E/E' lat: 10.6 E/e' average: 9.7 MV dec time: 0.32 sec SV(LVOT): 63.7 ml Electronically signed by: Kiet Eugene M.D. on Reading Physician:01/14/2019 06:34 PM
[2019-01-14] MEDS: ONDANSETRON 4 MG/2 ML INJ IV ×2 (05:35→11:57)
[2019-01-14] MEDS: SODIUM CHLORIDE 0.9% FLUSH 10 ML IV ×3 (05:36→21:38)
[2019-01-14] MEDS: PANTOPRAZOLE 20 MG TABLET PO (05:43)
[2019-01-14 06:06] LABS: BUN Creatinine Ratio 13.3 (6-22); Blood Urea Nitrogen 8 mg/dL (7-17); Calcium 8.6 mg/dL (8.4-10.2); Carbon Dioxide 24 mmol/L (22-32); Chloride 102 mmol/L (98-107); Estimated Glomerular Filt Rate > 60.0 mL/min (>60); Glucose 93 mg/dL (80-110); HEMOLYSIS < 15 (0-50); Magnesium 1.7 mg/dL (1.6-2.3); Potassium 3.5 mmol/L (3.4-5.1); Sodium 137 mmol/L (137-145)
--- NOTE | 2019-01-14 07:18 | PM.PN.1 ---
Subjective Date Patient Seen: 01/14/19 Interval history: Melissa Cortes is a 78-year-old female with a past medical history significant for hypertension, optic neuropathy and neuropathy left foot who presents to the ED for progressive cough and syncopal episodes. Interval history: Patient was up to bedside commode and syncopized, likely vasovagal. A code blue was called and canceled. Patient normotensive/hypertensive with good pulse. Appears more toxic today. She is diaphoretic and feels lightheaded and nauseated. Ordered 1 L normal saline bolus, Zofran, and starting Tamiflu despite listed allergy which she reports was a syncopal episode. Ordered stat EKG and labs including troponin and lactic acid. Repleting magnesium and potassium which are on low side of normal. Telemetry demonstrated sinus bradycardia to 40's which quickly resolved. Exam Vital Signs (past 8 hours): - 01/14/19 00:00 01/14/19 00:24 01/14/19 03:40 Temperature 99.8 F H Pulse Rate 80 Pulse Rate [Orthostatic Lying] 81 Pulse Rate [Orthostatic Sitting] 89 Pulse Rate [Orthostatic Standing] 95 H Respiratory Rate 16 Blood Pressure 182/81 H Blood Pressure [Orthostatic Lying] 190/92 H Blood Pressure [Orthostatic Sitting] 198/93 H Blood Pressure [Orthostatic Standing] 180/91 H Pulse Oximetry 95 96 01/14/19 05:44 Temperature Pulse Rate 74 Pulse Rate [Orthostatic Lying] Pulse Rate [Orthostatic Sitting] Pulse Rate [Orthostatic Standing] Respiratory Rate Blood Pressure 138/74 Blood Pressure [Orthostatic Lying] Blood Pressure [Orthostatic Sitting] Blood Pressure [Orthostatic Standing] Pulse Oximetry 96 Oxygen Delivery Method Room Air Oxygen Flow Rate 93 Narrative Exam Narrative: General: Elderly female lying in bed, diaphoretic, appears toxic and ill. HEENT: Normocephalic, atraumatic. External ears without defect. Pupils equal, round, and reactive to light. Anicteric sclerae, moist conjunctivae, and no lid lag. Oropharynx with mild erythema and moist mucosa. Neck: Supple with full range of motion. No lymphadenopathy or thyromegaly. Cardiovascular: Regular rate and rhythm without murmurs, rubs, or gallops appreciated. Pulmonary: Clear to auscultation bilaterally without crackles, wheezes, or rhonchi. Normal respiratory effort with no use of accessory muscles. Abdomen: Soft, bowel sounds present, nontender, nondistended. No hepatosplenomegaly or masses appreciated. Extremities: No clubbing, cyanosis, or edema. Skin: Normal temperature, turgor, and texture; no rash, ulcers, or subcutaneous nodules appreciated. Neurological: Cranial nerves grossly intact. Objective Labs Result Diagrams: 01/13/19 04:50 01/14/19 05:10 Labs: Laboratory Results - last 24 hr 01/13/19 01/13/19 01/14/19 04:50 04:50 05:10 Total Counted 50 Seg Neutrophils % 34.0 L Band Neutrophils % 12.0 H Lymphocytes % (Manual) 26.0 Atypical Lymphs % 10.0 H Monocytes % (Manual) 16.0 H Basophils % (Manual) 2.0 H Neutrophils # (Manual) 1288 L RBC Morphology Normal morphology Sodium 137 Potassium 3.5 Chloride 102 Carbon Dioxide 24 BUN 8 Creatinine 0.60 Estimated GFR > 60.0 BUN/Creatinine Ratio 13.3 Glucose 93 Calcium 8.6 Magnesium 1.7 1.7 Assessment & Plan Assessment & Plan narrative: Melissa Cortes is a 78-year-old female with a past medical history significant for hypertension, optic neuropathy and neuropathy left foot who presents to the ED for progressive cough and syncopal episodes. 1. Acute orthostatic hypotension and syncopal episodes, secondary to hypovolemia, present on admission. Orthostasis and hypovolemia resolved. -Patient presented after 2 syncopal episodes while standing with antecedent visual changes and fall without injury. No complaints of chest pain or palpitations. -Patient endorses prior hospitalization for syncopal episode related to dehydration. Patient admits to decreased oral intake related to current illness and malaise. -EKG demonstrated sinus rhythm with short NE intervals with frequent supraventricular complexes, left axis deviation, RBBB and inverted T wave. -Continue IV fluid hydration, receiving 1 L NS bolus now then continue normal saline at 100 mL/hr. Received 1 L NS in ED. -Continue orthostatic vital signs every shift and improving. Restarted losartan as patient is now hypertensive. -Started Tamiflu 75 mg twice daily as patient appears toxic. -Ordered stat echocardiogram, pending. -Patient had acute syncopal episode this morning while on bedside commode and review of telemetry demonstrated bradycardia to 40s with likely etiology vasovagal syncope. 2. Acute generalized weakness, present on admission. Active. -Treated acute dehydration secondary to influenza infection as above and may have some degree of deconditioning. -Continue PT and OT evaluation and treatment. Recommending home with home health. 3. Acute influenza B upper respiratory tract infection, present on admission. Active. -Patient presented with dry nonproductive cough and mild laryngitis. -Chest x-ray reveals normal heart size and no acute cardiopulmonary disease. -Positive for influenza B. Started Tamiflu 75 mg twice daily as patient now appears more toxic. -Continue symptom management with Cepacol lozenges, Tessalon Perles 3 times daily as needed and IV fluid hydration as above. 4. Hypertension, chronic, present on admit. Stable. -Patient hypovolemic and has orthostatic blood pressures as above. -Held losartan which may have been given this morning but now discontinued. Disposition: Anticipated discharge home today, however, patient became more toxic appearing and had another syncopal episode while on bedside commode prompting code blue which was canceled. Continue management as above. Patient likely to discharge in 1-2 days depending upon improvement with treatment of influenza. Quality VTE Deep Vein Thrombosis/Pulmonary Embolism Present on Admission: No
--- NOTE | 2019-01-14 07:21 | P.PN_ITS ---
Subjective Date Patient Seen: 01/14/19 Interval history: Melissa Cortes is a 78-year-old female with a past medical history significant for hypertension, optic neuropathy and neuropathy left foot who presents to the ED for progressive cough and syncopal episodes. Interval history: Patient was up to bedside commode and syncopized, likely vasovagal. A code blue was called and canceled. Patient normotensi ve/hypertensive with good pulse. Appears more toxic today. She is diaphoretic and feels lightheaded and nauseated. Ordered 1 L normal saline bolus, Zofran, and starting Tamiflu despite listed allergy which she reports was a syncopal episode. Ordered stat EKG and labs including troponin and lactic acid. Repleting magnesium and potassium which are on low side of normal. Telemetry demonstrated sinus bradycardia to 40's which quickly resolved. Exam Vital Signs (past 8 hours): - 01/14/19 00:00 01/14/19 00:24 01/14/19 03:40 Temperature 99.8 F H Pulse Rate 80 Pulse Rate [Orthostatic Lying] 81 Pulse Rate [Orthostatic Sitting] 89 Pulse Rate [Orthostatic Standing] 95 H Respiratory Rate 16 Blood Pressure 182/81 H Blood Pressure [Orthostatic Lying] 190/92 H Blood Pressure [Orthostatic Sitting] 198/93 H Blood Pressure [Orthostatic Standing] 180/91 H Pulse Oximetry 95 96 01/14/19 05:44 Temperature Pulse Rate 74 Pulse Rate [Orthostatic Lying] Pulse Rate [Orthostatic Sitting] Pulse Rate [Orthostatic Standing] Respiratory Rate Blood Pressure 138/74 Blood Pressure [Orthostatic Lying] Blood Pressure [Orthostatic Sitting] Blood Pressure [Orthostatic Standing] Pulse Oximetry 96 Oxygen Delivery Method Room Air Oxygen Flow Rate 93 Narrative Exam Narrative: General: Elderly female lying in bed, diaphoretic, appears toxic and ill. HEENT: Normocephalic, atraumatic. External ears without defect. Pupils equal, round, and reactive to light. Anicteric sclerae, moist conjunctivae, and no lid lag. Oropharynx with mild erythema and moist mucosa. Neck: Supple with full range of motion. No lymphadenopathy or thyromegaly. Cardiovascular: Regular rate and rhythm without murmurs, rubs, or gallops appreciated. Pulmonary: Clear to auscultation bilaterally without crackles, wheezes, or rhonchi. Normal respiratory effort with no use of accessory muscles. Abdomen: Soft, bowel sounds present, nontender, nondistended. No h epatosplenomegaly or masses appreciated. Extremities: No clubbing, cyanosis, or edema. Skin: Normal temperature, turgor, and texture; no rash, ulcers, or subcutaneous nodules appreciated. Neurological: Cranial nerves grossly intact. Objective Labs Result Diagrams: 01/13/19 04:50 01/14/19 05:10 Labs: Laboratory Results - last 24 hr 01/13/19 01/13/19 01/14/19 04:50 04:50 05:10 Total Counted 50 Seg Neutrophils % 34.0 L Band Neutrophils % 12.0 H Lymphocytes % (Manual) 26.0 Atypical Lymphs % 10.0 H Monocytes % (Manual) 16.0 H Basophils % (Manual) 2.0 H Neutrophils # (Manual) 1288 L RBC Morphology Normal morphology Sodium 137 Potassium 3.5 Chloride 102 Carbon Dioxide 24 BUN 8 Creatinine 0.60 Estimated GFR > 60.0 BUN/Creatinine Ratio 13.3 Glucose 93 Calcium 8.6 Magnesium 1.7 1.7 Assessment & Plan Assessment & Plan narrative: Melissa Cortes is a 78-year-old female with a past medical history significant for hypertension, optic neuropathy and neuropathy left foot who presents to the ED for progressive cough and syncopal episodes. 1. Acute orthostatic hypotension and syncopal episodes, secondary to hypovolemia, present on admission. Orthostasis and hypovolemia resolved. -Patient presented after 2 syncopal episodes while standing with antecedent visual changes and fall without injury. No complaints of chest pain or palpitations. -Patient endorses prior hospitalization for syncopal episode related to dehydra tion. Patient admits to decreased oral intake related to current illness and malaise. -EKG demonstrated sinus rhythm with short [place] intervals with frequent supraventricular complexes, left axis deviation, RBBB and inverted T wave. -Continue IV fluid hydration, receiving 1 L NS bolus now then continue normal saline at 100 mL/hr. Received 1 L NS in ED. -Continue orthostatic vital signs every shift and improving. Restarted losartan as patient is now hypertensive. -Started Tamiflu 75 mg twice daily as patient appears toxic. -Ordered stat echocardiogram, pending. -Patient had acute syncopal episode this morning while on bedside commode and review of telemetry demonstrated bradycardia to 40s with likely etiology vasovagal syncope. 2. Acute generalized weakness, present on admission. Active. -Treated acute dehydration secondary to influenza infection as above and may have some degree of deconditioning. -Continue PT and OT evaluation and treatment. Recommending home with home health. 3. Acute influenza B upper respiratory tract infection, present on admission. Active. -Patient presented with dry nonproductive cough and mild laryngitis. -Chest x-ray reveals normal heart size and no acute cardiopulmonary disease. -Positive for influenza B. Started Tamiflu 75 mg twice daily as patient now appears more toxic. -Continue symptom management with Cepacol lozenges, Tessalon Perles 3 times daily as needed and IV fluid hydration as above. 4. Hypertension, chronic, present on admit. Stable. -Patient hypovolemic and has orthostatic blood pressures as above. -Held losartan which may have been given this morning but now discontinued. Disposition: Anticipated discharge home today, however, patient became more toxic appearing and had another syncopal episode while on bedside commode prompting code blue which was canceled. Continue management as above. Patient likely to discharge in 1-2 days depending upon improvement with treatment of influenza. Quality VTE Deep Vein Thrombosis/Pulmonary Embolism Present on Admission: No
[2019-01-14 07:35] LABS: Lactate (Lactic Acid) 1.1 mmol/L (0.7-2.1)
[2019-01-14 07:47] LABS: Troponin I 0.021 ng/mL (0.01-0.034)
[2019-01-14] MEDS: MAGNESIUM SULFATE 2 GM/50 ML PIGGYBACK IV (08:10)
[2019-01-14] MEDS: SODIUM CHLORIDE 0.9% 1,000 ML 1000 ML IV (08:13)
[2019-01-14] MEDS: DORZOLAMIDE 2% OPHTH 10 ML 1 DROPS EYE-BOTH ×2 (08:17→21:37)
[2019-01-14] MEDS: SODIUM CHLORIDE 0.9% 1,000 ML 100 ML IV (08:21)
[2019-01-14] MEDS: ASPIRIN EC 81 MG TABLET PO (09:25)
[2019-01-14] MEDS: POTASSIUM CHLORIDE 40 MEQ in SODIUM CHLORIDE 0.9% 500 ML 130 ML IV (09:25)
[2019-01-14] MEDS: OSELTAMIVIR 75 MG CAPSULE PO ×2 (09:26→21:38)
--- NOTE | 2019-01-14 10:41 | PC.NURSE ---
Addendum entered by Eleonora Mendez R.N. 01/14/19 13:25: CARDIAC - echo in progress. Original Note: Addendum entered by Eleonora Mendez R.N. 01/14/19 12:04: GI - has continued with some underlying nausea, given 4mg iv zofran and pt able to natasha fluids and toast. Original Note: AM NOTE - at change of shift night and day RNs in med room, the night NEWS PRODUCER came out into med room and stated pt would not wake up while on bsc, informed pot pusher to immediately go back to pt, entered room immediately and pt was upright on a bsc, skin pink, eyes closed and not responding to voice or touch, rapid response called, pt did slowly arouse and with mult staff assistance was placed back in bed, bp 158/76, p60, pt was diaphoretic, her skin color was pink, was able to speak and ra 97%, pt continued to feel nauseated, Dr. Fisher was in to eval during the rapid response and an iv bolus of 1L was started, new orders rec'd, ekg done and MD reviewed, labs ordered, troponin and lactate 0.021 and 1.1, repeated vitals with bp 142/68, p68, mg+ rider admin, fluid continued NS at 100 after bolus, K+ rider started and after pt and discussed tamiflu and her hx of possible reaction a dose was admininstered, pt did have a small bm on the bed aquino, call light available and bed alarm on and advised pt not to get up w/o assistance. Later am, pt req up to bs, orthostatic bp were completed, lying 141/86, sit 171/87 and stand 188/98, spoke to with new order to resume pt losartan.
--- NOTE | 2019-01-14 11:26 | PT.IPTN ---
Physical Therapy Treatment Note M2 PT-IP Current Condition Start: 01/13/19 13:23 Freq: NEEDED Status: Active Protocol: Document 01/13/19 10:06 DLM (Rec: 01/13/19 13:39 DLM [id number]) Physical Therapy Current Condition Current Condition Evaluation Date 01/13/19 Treatment Diagnosis weakness, impaired gait Onset Date 01/12/19 Precautions Other Precautions Influenza A M3 PT-IP Subjective Start: 01/13/19 13:23 Freq: NEEDED Status: Active Protocol: Document 01/14/19 11:26 DLM (Rec: 01/14/19 13:02 DLM [id number]) Subjective Physical Therapy Visit Type Type Cancellation Notes nursing reports she had a near syncopal episode this AM when up, discussed case with nursing who agrees with holding activity this AM, will check back in PM Physical Therapy Visit Comments Patient Comments She is feeing nauseated
[2019-01-14] MEDS: LOSARTAN 25 MG TABLET PO (11:59)
--- NOTE | 2019-01-14 14:55 | PT.IPTN ---
Physical Therapy Treatment Note M2 PT-IP Current Condition Start: 01/13/19 13:23 Freq: NEEDED Status: Active Protocol: Document 01/13/19 10:06 DLM (Rec: 01/13/19 13:39 DLM [id number]) Physical Therapy Current Condition Current Condition Evaluation Date 01/13/19 Treatment Diagnosis weakness, impaired gait Onset Date 01/12/19 Precautions Other Precautions Influenza (+) M3 PT-IP Subjective Start: 01/13/19 13:23 Freq: NEEDED Status: Active Protocol: Document 01/14/19 14:55 DLM (Rec: 01/14/19 16:09 DLM [id number]) Subjective Physical Therapy Visit Type Type Cancellation Notes Hold Physical Therapy this afternoon per nursing, pt still resting after near syncopal episode this AM
--- NOTE | 2019-01-14 15:44 | CM.IDA ---
Initial DCP Assessment Note: Pt is a 78 yo female, resident of [place], admitted d/t syncopal episodes, found to be Flu A+, she had another syncopal episode this morning and code blue was called. Pt appearing more toxic this morning per Dr Fisher's assessment. Payer: Medicare/ [employer]. Met w/pt, explained SW role. 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 She wants to return home upon her DC but would appreciate a referral to HH and some information about private caregiving options. This [employer] provided Medicare Certified HH agency list and provided Senior Resource Guide. Pt explains she would like to review these options w/her sister today before a referral is made. This [employer] asks how much assist pt thinks she needs from a cg at home? Pt states she is unsure right now and may know more as she returns home. Following closely. F2F still needs to be signed and HH referral made if pt remains agreeable to this plan. P: DC likely in 1-2 days w/family and HH. JAMAAL Saunders Discharge Planning/Care Management Advanced directive, confirm from FAMILY Start: 01/12/19 18:41 Freq: Q24H Status: Active Protocol: Document 01/13/19 08:32 NEE (Rec: 01/13/19 08:32 NEE [id number]) Advance Directive, confirm on record Time 08:35 Person contacted patient Copy received No Document 01/14/19 11:02 NEE (Rec: 01/14/19 11:02 NEE [id number]) Advance Directive, confirm on record Time 08:35 Person contacted patient Copy received No Time 09:00 Person contacted pt Copy received No CM Discharge Assessment Start: 01/14/19 15:43 Freq: Status: Active Protocol: Document 01/14/19 15:43 [place] (Rec: 01/14/19 15:44 [place] [id number]) Discharge Planning Assessment Assigned Broom Man JAMAAL Singletary DPOA/Assigned Designee Name sister Argueta Contact Information [phone] Advance Directives? No Advance Directives on File No History Provided By Patient Medical Record Prior Living Arrangements House Household Members none Type of transporation used prior to Drives own vehicle admit Independent with ADL's Yes Is patient alert and oriented? Yes Barriers to Discharge No Discharge Plan Home Transportation Arrangement Family Referrals Initiated Home Health Review Status In Process
--- NOTE | 2019-01-14 16:16 | PM.CHAP ---
visit with Amalia, as she prefers to be called. She was attentive, and missing her dog and her home. Hospital stay frustrating because she is a busy lady. she asked for prayer.
[2019-01-14] MEDS: GABAPENTIN 300 MG CAPSULE PO (21:37)
[2019-01-14] MEDS: LATANOPROST 0.005% OPHTH 2.5 ML 1 DROPS EYE-BOTH (21:38)
[2019-01-14] MEDS: BENZOCAINE/MENTHOL 1 LOZ PKT 1 EACH PO (21:44)
--- NOTE | 2019-01-14 22:45 | PC.NURSE ---
Fluids d/c'd weak, but no episodes of syncope on our shift. Up to commode several times, a-febrile, denies pain. Has no edema, clear lung sounds bilaterally. No adverse reaction to Tamiflu observed or reported by patient. Normal sinus rhythm.
[2019-01-15] VITALS (7 sets, daily range): BP systolic 116–160; BP diastolic 58–86; PULSE 65–87; RESP 16–18; TEMP 36.6–36.9; O2SAT 96–98
[2019-01-15 05:47] LABS: Hematocrit 44.9 % (36-46); Mean Corpuscular HGB Conc 33.4 % (30-36); Mean Corpuscular Hemoglobin 29.2 PG (26-34); Mean Corpuscular Volume 87.3 fL (80-100); Platelet Count 167 X10^3/uL (150-400); Red Blood Cell Count 5.14 X10^6/uL (4.0-5.2); Red Cell Distribution Width 13.2 % (11.6-14.8); White Blood Cell Count 3.2 X10^3/uL (4.5-11.0)
[2019-01-15 05:51] LABS: Add Manual Diff / Slide Review YES
[2019-01-15 06:11] LABS: BUN Creatinine Ratio 13.3 (6-22); Blood Urea Nitrogen 8 mg/dL (7-17); Calcium 8.6 mg/dL (8.4-10.2); Carbon Dioxide 24 mmol/L (22-32); Chloride 105 mmol/L (98-107); Estimated Glomerular Filt Rate > 60.0 mL/min (>60); Glucose 86 mg/dL (80-110); HEMOLYSIS 19 (0-50); Magnesium 2.1 mg/dL (1.6-2.3); Potassium 3.7 mmol/L (3.4-5.1); Sodium 137 mmol/L (137-145)
[2019-01-15 06:26] LABS: Procalcitonin < 0.05 ng/mL (<0.5)
[2019-01-15] MEDS: PANTOPRAZOLE 20 MG TABLET PO (06:41)
[2019-01-15 07:00] LABS: RBC Morphology Normal Morphology
[2019-01-15] MEDS: ONDANSETRON 4 MG/2 ML INJ IV (07:50)
[2019-01-15] MEDS: SODIUM CHLORIDE 0.9% FLUSH 10 ML IV ×2 (07:50→20:08)
[2019-01-15] MEDS: ASPIRIN EC 81 MG TABLET PO (09:44)
[2019-01-15] MEDS: DORZOLAMIDE 2% OPHTH 10 ML 1 DROPS EYE-BOTH ×2 (09:44→20:08)
[2019-01-15] MEDS: LOSARTAN 25 MG TABLET PO (09:44)
[2019-01-15] MEDS: OSELTAMIVIR 75 MG CAPSULE PO ×2 (09:44→20:08)
--- NOTE | 2019-01-15 09:56 | PT.IPTN ---
Current Diagnoses Orthostatic hypotension (01/14/19) Physical Therapy Treatment Note M2 PT-IP Current Condition Start: 01/13/19 13:23 Freq: NEEDED Status: Active Protocol: Document 01/13/19 10:06 DLM (Rec: 01/13/19 13:39 DL [id number]) Physical Therapy Current Condition Current Condition Evaluation Date 01/13/19 Treatment Diagnosis weakness, impaired gait Onset Date 01/12/19 Precautions Other Precautions Influenza A M3 PT-IP Subjective Start: 01/13/19 13:23 Freq: NEEDED Status: Active Protocol: Document 01/15/19 09:49 [facility] (Rec: 01/15/19 09:56 [facility] [id number]) Subjective Physical Therapy Visit Type Type Treatment Note Visit Start Time 09:10 Visit Stop Time 09:40 Total Visit Minutes 30 Number of CLINICAL RN Visits 0 Physical Therapy Visit Comments Patient Comments Pt agreeable to get up. M4 PT-IP Mobility and Gait Start: 01/13/19 13:23 Freq: NEEDED Status: Active Protocol: Document 01/15/19 09:49 [facility] (Rec: 01/15/19 09:56 [facility] [id number]) PT-Transfer Assessment Sit to and From Stand Sit to and from Stand Standby Assistance Use of Upper Extremities Equipment Transfer Assistive Device Gait Belt Front Wheeled Walker Orthotic/Prosthetic Devices or Brace: Yes Comments Mobility Comments Transition between reclined to upright to standing with inc time to monitor symptoms. Gait Assessment Gait Gait Assistance Required: Standby Assistance Distance (Feet) 70 Assistive Devices Assistive Device Gait Belt Front Wheeled Walker Orthotic/Prosthetic Devices or Brace: No Gait Deviations General Gait Pattern Decreased Stride Length Decreased Feet Clearance Factors Limiting Gait Function Factors Limiting Gait Function Decreased Activity Tolerance Decreased Strength Comments Gait Comments No dizziness during gait. She required occasional standing breaks. seated rest break between 2 walks (35 feet ea) M5 PT-IP Objective Assessments Start: 01/13/19 13:23 Freq: NEEDED Status: Active Protocol: Document 01/13/19 10:06 DLM (Rec: 01/13/19 15:24 DL [id number]) Orientation Orientation/Cognition Level of Alertness Alert Orientation Name Age Birthday Month Date Year Day of Week Place Situation Language Function Ability No Deficits Noted Safety Awareness Understands Safety Issues Memory Description No Deficits Noted Gross Range of Motion Upper Extremity ROM Assessment Within Functional Limits Lower Extremity ROM Assessment Within Functional Limits Strength Upper Extremity Strength Assessment Within Functional Limits Lower Extremity Strength Assessment Within Functional Limits Coordination Assessment Gross Coordination Gross Coordination WNL Sensation Assessment Sensation Gross Sensation Right LE Impaired Left LE Impaired Sensation Description Numbness Comments Sensation Comments hx neuropathy in feet Muscle Tone Muscle Tone WNL Yes M6 PT-IP Treatment Start: 01/13/19 13:23 Freq: NEEDED Status: Active Protocol: Document 01/15/19 09:49 [facility] (Rec: 01/15/19 09:56 [facility] [id number]) Physical Therapy Treatment Exercises Exercises Ankle Pumps Seated Knee Flexion/Extension Other Treatments Other Treatment Performed edu to do leg lifts M7 PT-IP Assessment and Plan Start: 01/13/19 13:23 Freq: NEEDED Status: Active Protocol: Document 01/15/19 09:49 [facility] (Rec: 01/15/19 09:56 [facility] [id number]) PT Summary Assessment and Plan Summary Impairments Gait Activity Tolerance Assessment Summary Pt able to tolerate more activity and improve gait mechanics with cueing for inc step length & clearance. Goals Bed Mobility Goal Independent Transfer Goal Independent Front Wheeled Walker Gait Goal Independent Front Wheel Walker Gait Distance 150 feet Other Goals Up and down 6 steps with rail and SBA Days to Meet Goals 4 Frequency of Treatment Frequency Of Treatment Twice a Day Treatment Plan Physical Therapy Treatment Plan Bed Mobility Training Transfer Training Gait Training Therapeutic Exercise Balance Retraining Discharge Planning Other Recommendations and Next Treatment assess need for assistive Focus device as she progresses Recommendations To Nursing Amount of Assist Needed 1 Person Assist Discharge Recommendations PT Discharge Recommendations Home Home Health Other Discharge Recommendations continue to assess for discharge planning Equipment Needed for Home Before continue to assess Discharge
--- NOTE | 2019-01-15 12:05 | CM.DPC ---
Addendum entered by JAMAAL Weller 01/15/19 15:19: ADD: Per MD, pt not feeling stable for d/c yet today and due to pt's sister's concerns she may be agreeable to SNF at [facility] if needed. SW updated MD and pt's sister that since pt was changed to Inpt Status on 01/14/19 then she would need another two nights in the hospital to achieve her 3 night qualifying stay for Medicare to cover SNF. Sister agreeable with continuing to contact [facility] to attempt to set up Caregiver in the home for the pt for day of discharge and HH with back up plan of [facility] in [place] if needed. SW called [facility] and made new referral and KHALIF Pereira faxed clinicals to review. SW met bedside with pt again and she states that she and her sister were able to get a hold of [facility] and they can open the pt to private pay caregiver service on the day pt discharges the hospital. Pt also inquiring about [facility] Grocery Delivery service for once she gets home. Plan: SW to follow for likely pt d/c home tomorrow with [facility] and [facility] with back up plan of possibly [facility] SNF if they can accept. JAMAAL Weller Original Note: DCP HH Planning SW met bedside with pt and sister and explained role and both were very appreciative to further discuss d/c options and plans. SW provided another HH Choice List and both pt and sister state that they feel HH needed at d/c and SW discussed the services and frequency of HH and that they are not Caregivers. Pt does not have HH preference but requests one that can start services with her the soonest. Pt and sister have [employer] Resource Guidebook from yesterday and sister helping to place calls to [facility] for additional support 24/7 initially after discharge. Pt confirms that her son Arvin, who lives in [place], is her DPOA and has been keeping updated on pt status and needs from the pt and her sister. Son Arvin also agreeable with HH and CG at d/c. SW encouraged sister to call private pay caregivers again today to confirm how quickly they could start and sister agreeable and plans to call now. SW called [facility] and confirmed that they can accept the referral and can open the pt within 24 hrs of discharge likely. Kat from [facility] plans to come to the hospital and introduce herself to the pt and collect the pt's clinicals and F2F tomorrow (01/16/19) unless pt discharges today then SW will fax the clinicals to their office. Plan: SW to follow for [facility] to gather pt's clinicals and pwk tomorrow with plans to open the pt to service at discharge when medically stable. JAMAAL Weller
--- NOTE | 2019-01-15 14:18 | OT.IP.EVAL ---
Current Diagnoses Orthostatic hypotension (01/14/19) Past Medical History (Last Reviewed 01/13/19 @ 04:45 by NOBLE Florian) History of hysterectomy (Acute) Hypertension (Acute) Idiopathic peripheral neuropathy (Acute) Optic neuropathy, right (Acute) Surgical History (Last Reviewed 01/13/19 @ 04:45 by NOBLE Florian) History of tonsillectomy (Acute) Occupational Therapy Inpatient Evaluation/Re-Eval M1 PT/OT-IP Prior Functional Status Start: 01/13/19 13:23 Freq: NEEDED Status: Active Protocol: Document 01/15/19 14:00 CGR (Rec: 01/15/19 14:18 CGR [email or web address]) Medical Review Prior Functional Status Medical History Reviewed Yes Diet/Fluid Consistency Regular Communication WNL Mobility and Gait Independent without device Activities of Daily Living and IADL's Independent Prior Functional Level (Other details) 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 6 with B rail to front door and 4 with B rail to back door . Home Environment Standard Height Toilet Walk in Shower Home Equipment Straight Cane Grab Bars Near Toilet Grab Bars In Shower Employment Status Retired Additional Social History Comment Pt is a retired [employer] and currently volunteers at the [email or web address]. Pt was 4 years ago. M2 OT-IP Current Condition Start: 01/15/19 14:00 Freq: Status: Active Protocol: Document 01/15/19 14:00 CGR (Rec: 01/15/19 14:18 CGR [email or web address]) Occupational Therapy Current Condition Current Condition Evaluation Date 01/15/19 Treatment Diagnosis Influenza Post Operative Precautions Other Precautions Fall risk M3 OT- IP Subjective and Pain Start: 01/15/19 14:00 Freq: Status: Active Protocol: Document 01/15/19 14:00 CGR (Rec: 01/15/19 14:18 CGR [email or web address]) OT- Subjective Occupational Therapy Visit Type Type Initial Evaluation Visit Start Time 12:45 Visit Stop Time 13:08 Total Visit Minutes 23 Occupational Therapy Visit Comments Patient Comments Pt agreeable to OT services but requesting to speak with case management. Also requests to practice ambulation with a quad cane. Patient/Caregiver Goals To go home. OT Pain Assessment Pain Present Pain Present Denied Pain M4 OT- IP ADL's Start: 01/15/19 14:00 Freq: Status: Active Protocol: Document 01/15/19 14:00 CGR (Rec: 01/15/19 14:18 CGR [email or web address]) OT ADL-Grooming General Evaluation Grooming Ability Independent OT ADL-Dressing General Eval Upper Body Dressing Ability Independent Lower Body Dressing Ability Independent Comments OT Dressing Comments Socks seated without difficulty OT ADL-Toileting General Evaluation Toileting Ability Independent Comments OT Toileting Comments Toileting OT ADL-Bathing Comments OT Bathing Comments Declined, performed this AM with nursing. M5 OT- IP IADL's Start: 01/15/19 14:00 Freq: Status: Active Protocol: Document 01/15/19 14:00 CGR (Rec: 01/15/19 14:18 CGR [email or web address]) OT-Instrumental Activities of Daily Living Deficits IADL Deficits Identified No Deficits Home Safety Awareness Awareness of Need for Assistance at Home Good Awareness Ability to Problem Solve Emergency Able to Problem Solve Situations M6 OT- IP Functional Cognition Start: 01/15/19 14:00 Freq: Status: Active Protocol: Document 01/15/19 14:00 CGR (Rec: 01/15/19 14:18 CGR [email or web address]) Cognitive Factors Limiting Selfcare Function Cognitive Ability Level of Alertness Alert Patient Orientation Name Age Birthday Month Date Year Day of Week Place Situation Attention Span Ability Capable of Focused Attention Ability to Follow Commands Able to Follow Multi-Step Commands Memory Description No Deficits Noted Safety Awareness No Deficits Noted Problem Solving Ability No deficits Noted Executive Function Ability No Deficits Noted Abstract Thinking Ability No Deficits Noted OT- Vision and Hearing OT- Hearing Assessment OT- Hearing Assessment WFL OT- Vision Assessment Visual Acuity Glasses For Reading Visual Attentiveness WFL Occular Pursuits WFL Visual Convergence WFL Visual Ward WFL Diplopia Absent Visual Spacial Neglect Not Applicable M7 OT- IP Mobility and Balance Start: 01/15/19 14:00 Freq: Status: Active Protocol: Document 01/15/19 14:00 CGR (Rec: 01/15/19 14:18 CGR [email or web address]) OT- Bed Mobility Assessment Rolling Type of Rolling Roll to Right Level of Assistance Independent Supine to Sit Supine to Sit Assist Independent Sit to Supine Sit to Supine Assist Independent Scooting Scooting to Edge of Bed Independent OT-Transfer Assessment Sit to and From Stand Sit to and from Stand Independent Transfers Transfer Ability Independent Technique Transfer Destination Bed Chair Toilet Devices Transfer Assistive Devices Front Wheeled Walker OT- Balance Assessment Sitting Balance and Reactions Static Sitting Balance Ability Normal Dynamic Sitting Balance Ability Normal Standing Balance and Reactions Static Standing Balance Ability Fair Dynamic Standing Balance Ability Fair M8 OT- IP Objective Assessments Start: 01/15/19 14:00 Freq: Status: Active Protocol: Document 01/15/19 14:00 CGR (Rec: 01/15/19 14:18 CGR [email or web address]) OT Gross Range of Motion Upper Extremity Range of Motion Assessment Within Functional Limits OT Strength Upper Extremity Strength Assessment Within Functional Limits OT- Coordination Assessment Upper Extremity Finger to Nose Test Within Functional Limits Finger Tapping Test Within Functional Limits M9 OT- IP Assessment and Plan Start: 01/15/19 14:00 Freq: Status: Active Protocol: Document 01/15/19 14:00 CGR (Rec: 01/15/19 14:18 CGR [email or web address]) OT Summary Assessment and Plan Potential Rehabilitation Potential Excellent Analytic Complexity at Evaluation Low Summary Progress Towards Goals Safe For Discharge Frequency of Treatment Frequency Of Treatment Discharge Discharge Recommendations OT Discharge Recommendations Home Home Equipment Needs Defer to P.T. for functional mobility aid
--- NOTE | 2019-01-15 14:57 | CM.DPC ---
DCP Cont: Faxed referral to [facility] [[email or web address]] at fax # [phone]. Fax confirmation scanned in. Kelli Govea, [facility]
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
--- NOTE | 2019-01-15 16:01 | PT.IPTN ---
Current Diagnoses Orthostatic hypotension (01/14/19) Physical Therapy Treatment Note M2 PT-IP Current Condition Start: 01/13/19 13:23 Freq: NEEDED Status: Active Protocol: Document 01/13/19 10:06 DLM (Rec: 01/13/19 13:39 DLM [id number]) Physical Therapy Current Condition Current Condition Evaluation Date 01/13/19 Treatment Diagnosis weakness, impaired gait Onset Date 01/12/19 Precautions Other Precautions Influenza A M3 PT-IP Subjective Start: 01/13/19 13:23 Freq: NEEDED Status: Active Protocol: Document 01/15/19 13:45 HH (Rec: 01/15/19 16:01 [email or web address]) Subjective Physical Therapy Visit Type Type Treatment Note Visit Start Time 13:45 Visit Stop Time 14:10 Total Visit Minutes 20 Physical Therapy Visit Comments Patient Comments Pt agreeable to amb and requested to try SPC for mobility. M4 PT-IP Mobility and Gait Start: 01/13/19 13:23 Freq: NEEDED Status: Active Protocol: Document 01/15/19 13:45 HH (Rec: 01/15/19 16:01 HH [email or web address]) PT-Transfer Assessment Sit to and From Stand Sit to and from Stand Standby Assistance Contact Guard Assistance Use of Upper Extremities Equipment Transfer Assistive Device Gait Belt Straight Cane Front Wheeled Walker Comments Mobility Comments SBA for transfers with FWW CGA for transfers Gait Assessment Gait Gait Assistance Required: Contact Guard Assist Distance (Feet) 220 Assistive Devices Assistive Device Gait Belt Straight Cane Orthotic/Prosthetic Devices or Brace: No Gait Deviations General Gait Pattern Decreased Stride Length Decreased Feet Clearance Factors Limiting Gait Function Factors Limiting Gait Function Decreased Activity Tolerance Decreased Strength Comments Gait Comments educated 2 point gait pattern. Pt amb 220 ft with SPC in the hallway. required min to mod cues for reciprocal 2 point pattern. Pt lost balance to the side x2 but was able to recover. M5 PT-IP Objective Assessments Start: 01/13/19 13:23 Freq: NEEDED Status: Active Protocol: Document 01/13/19 10:06 DLM (Rec: 01/13/19 15:24 DLM [id number]) Orientation Orientation/Cognition Level of Alertness Alert Orientation Name Age Birthday Month Date Year Day of Week Place Situation Language Function Ability No Deficits Noted Safety Awareness Understands Safety Issues Memory Description No Deficits Noted Gross Range of Motion Upper Extremity ROM Assessment Within Functional Limits Lower Extremity ROM Assessment Within Functional Limits Strength Upper Extremity Strength Assessment Within Functional Limits Lower Extremity Strength Assessment Within Functional Limits Coordination Assessment Gross Coordination Gross Coordination WNL Sensation Assessment Sensation Gross Sensation Right LE Impaired Left LE Impaired Sensation Description Numbness Comments Sensation Comments hx neuropathy in feet Muscle Tone Muscle Tone WNL Yes M6 PT-IP Treatment Start: 01/13/19 13:23 Freq: NEEDED Status: Active Protocol: Document 01/15/19 09:49 [facility] (Rec: 01/15/19 09:56 [facility] [id number]) Physical Therapy Treatment Exercises Exercises Ankle Pumps Seated Knee Flexion/Extension Other Treatments Other Treatment Performed edu to do leg lifts M7 PT-IP Assessment and Plan Start: 01/13/19 13:23 Freq: NEEDED Status: Active Protocol: Document 01/15/19 13:45 (Rec: 01/15/19 16:01 [email or web address]) PT Summary Assessment and Plan Summary Impairments Gait Activity Tolerance Assessment Summary Pt able to tolerate more activity and improve gait mechanics with cueing for inc step length & clearance. Attempted SPC this pm with CGA . Needed cues for 2 point pattern and pt lost her balance twice but able to recover Goals Bed Mobility Goal Independent Transfer Goal Independent Cane Front Wheeled Walker Gait Goal Independent Cane Front Wheel Walker Gait Distance 150 feet Other Goals Up and down 6 steps with rail and SBA Days to Meet Goals 4 Frequency of Treatment Frequency Of Treatment Twice a Day Treatment Plan Physical Therapy Treatment Plan Bed Mobility Training Transfer Training Gait Training Therapeutic Exercise Balance Retraining Discharge Planning Other Recommendations and Next Treatment assess need for assistive Focus device as she progresses Recommendations To Nursing Amount of Assist Needed 1 Person Assist Discharge Recommendations PT Discharge Recommendations Home Home Health Other Discharge Recommendations continue to assess for discharge planning Equipment Needed for Home Before continue to assess Discharge
--- NOTE | 2019-01-15 18:13 | PM.PN.1 ---
Subjective Date Patient Seen: 01/15/19 Interval history: The patient is a 78-year-old female admitted to the hospital for influenza and dehydration. She was to be discharged home yesterday and had vasovagal syncope while on the toilet. Patient has had no further if episodes of syncope. She is however unsteady with ambulation. She is somewhat anxious about returning home. Her sister is attempting to get home care arranged for her. It is unclear whether this will be arranged by tomorrow. We agree that if the patient was unable to return home with 24 hour care she would be transferred to [facility] until this could be arranged. She is not short of breath. She is sitting in a chair resting comfortably. Exam Vital Signs (past 8 hours): - 01/15/19 13:00 01/15/19 16:58 Temperature 98.1 F 98.1 F Pulse Rate 68 74 Respiratory Rate 16 18 Blood Pressure 155/86 H 126/58 L Pulse Oximetry 96 98 Oxygen Delivery Method Room Air Oxygen Flow Rate 0 Narrative Exam Narrative: Pleasant female resting comfortably Lungs: Clear to auscultation Cardiac exam: Regular rate and rhythm normal S1 S Abdomen: Soft and nontender Extremity: No edema Objective Labs Result Diagrams: 01/15/19 05:00 01/15/19 05:00 Labs: Laboratory Results - last 24 hr 01/15/19 01/15/19 01/15/19 05:00 05:00 05:00 WBC 3.2 L RBC 5.14 Hgb 15.0 Hct 44.9 MCV 87.3 MCH 29.2 MCHC 33.4 RDW 13.2 Plt Count 167 Neut % (Auto) Not Reportable Lymph % (Auto) Not Reportable [place] % (Auto) Not Reportable Eos % (Auto) Not Reportable Baso % (Auto) Not Reportable Lymph # (Auto) Not Reportable [place] # (Auto) Not Reportable Baso # (Auto) Not Reportable Seg Neutrophils % 38.0 Band Neutrophils % 7.0 Lymphocytes % (Manual) 32.0 Atypical Lymphs % 13.0 H Monocytes % (Manual) 8.0 Eosinophils % (Manual) 1.0 L Basophils % (Manual) 1.0 RBC Morphology Normal morphology Sodium 137 Potassium 3.7 Chloride 105 Carbon Dioxide 24 BUN 8 Creatinine 0.60 Estimated GFR > 60.0 BUN/Creatinine Ratio 13.3 Glucose 86 Calcium 8.6 Magnesium 2.1 Procalcitonin < 0.05 Assessment & Plan Assessment & Plan narrative: Acute orthostatic hypotension and syncopal episodes, secondary to hypovolemia, present on admission. Orthostasis and hypovolemia resolved. -Patient presented after 2 syncopal episodes while standing with antecedent visual changes and fall without injury. No complaints of chest pain or palpitations. -Patient endorses prior hospitalization for syncopal episode related to dehydration. Patient admits to decreased oral intake related to current illness and malaise. -EKG demonstrated sinus rhythm with short [place] intervals with frequent supraventricular complexes, left axis deviation, RBBB and inverted T wave. -Continue IV fluid hydration, receiving 1 L NS bolus now then continue normal saline at 100 mL/hr. Received 1 L NS in ED. -Continue orthostatic vital signs every shift and improving. Restarted losartan as patient is now hypertensive. -Started Tamiflu 75 mg twice daily as patient appears toxic. -Ordered stat echocardiogram, pending. -Patient had acute syncopal episode this morning while on bedside commode and review of telemetry demonstrated bradycardia to 40s with likely etiology vasovagal syncope. 2. Acute generalized weakness, present on admission. Active. -Treated acute dehydration secondary to influenza infection as above and may have some degree of deconditioning. -Continue PT and OT evaluation and treatment. Recommending home with home health. 3. Acute influenza B upper respiratory tract infection, present on admission. Active. -Patient presented with dry nonproductive cough and mild laryngitis. -Chest x-ray reveals normal heart size and no acute cardiopulmonary disease. -Positive for influenza B. Started Tamiflu 75 mg twice daily as patient now appears more toxic. -Continue symptom management with Cepacol lozenges, Tessalon Perles 3 times daily as needed and IV fluid hydration as above. 4. Hypertension, chronic, present on admit. Stable. -Patient hypovolemic and has orthostatic blood pressures as above. -Held losartan which may have been given this morning but now discontinued. Anticipated discharge home with [address] [place] [address] tomorrow. Quality VTE Deep Vein Thrombosis/Pulmonary Embolism Present on Admission: No
--- NOTE | 2019-01-15 18:16 | P.PN_ITS ---
Subjective Date Patient Seen: 01/15/19 Interval history: The patient is a 78-year-old female admitted to the hospital for influenza and dehydration. She was to be discharged home yesterday and had vasovagal syncope while on the toilet. Patient has had no further if episodes of syncope. She is however unsteady with ambulation. She is somewhat anxious about returning home. Her sister is attempting to get home care arranged for her. It is unclear whether this will be arranged by tomorrow. We agree that if the patient was unable to return home with 24 hour care she would be transferred to detention facility until this could be arranged. She is not short of breath. She is sitting in a chair resting comfortably. Exam Vital Signs (past 8 hours): - 01/15/19 13:00 01/15/19 16:58 Temperature 98.1 F 98.1 F Pulse Rate 68 74 Respiratory Rate 16 18 Blood Pressure 155/86 H 126/58 L Pulse Oximetry 96 98 Oxygen Delivery Method Room Air Oxygen Flow Rate 0 Narrative Exam Narrative: Pleasant female resting comfortably Lungs: Clear to auscultation Cardiac exam: Regular rate and rhythm normal S1 S Abdomen: Soft and nontender Extremity: No edema Objective Labs Result Diagrams: 01/15/19 05:00 01/15/19 05:00 Labs: Laboratory Results - last 24 hr 01/15/19 01/15/19 01/15/19 05:00 05:00 05:00 WBC 3.2 L RBC 5.14 Hgb 15.0 Hct 44.9 MCV 87.3 MCH 29.2 MCHC 33.4 RDW 13.2 Plt Count 167 Neut % (Auto) Not Reportable Lymph % (Auto) Not Reportable [place] % (Auto) Not Reportable Eos % (Auto) Not Reportable Baso % (Auto) Not Reportable Lymph # (Auto) Not Reportable [place] # (Auto) Not Reportable Baso # (Auto) Not Reportable Seg Neutrophils % 38.0 Band Neutrophils % 7.0 Lymphocytes % (Manual) 32.0 Atypical Lymphs % 13.0 H Monocytes % (Manual) 8.0 Eosinophils % (Manual) 1.0 L Basophils % (Manual) 1.0 RBC Morphology Normal morphology Sodium 137 Potassium 3.7 Chloride 105 Carbon Dioxide 24 BUN 8 Creatinine 0.60 Estimated GFR > 60.0 BUN/Creatinine Ratio 13.3 Glucose 86 Calcium 8.6 Magnesium 2.1 Procalcitonin < 0.05 Assessment & Plan Assessment & Plan narrative: Acute orthostatic hypotension and syncopal episodes, secondary to hypovolemia, present on admission. Orthostasis and hypovolemia resolved. -Patient presented after 2 syncopal episodes while standing with antecedent visual changes and fall without injury. No complaints of chest pain or palpitations. -Patient endorses prior hospitalization for syncopal episode related to dehydration. Patient admits to decreased oral intake related to current illness and malaise. -EKG demonstrated sinus rhythm with short SC intervals with frequent supraventricular complexes, left axis deviation, RBBB and inverted T wave. -Continue IV fluid hydration, receiving 1 L NS bolus now then continue normal saline at 100 mL/hr. Received 1 L NS in ED. -Continue orthostatic vital signs every shift and improving. Restarted losartan as patient is now hypertensive. -Started Tamiflu 75 mg twice daily as patient appears toxic. -Ordered stat echocardiogram, pending. -Patient had acute syncopal episode this morning while on bedside commode and review of telemetry demonstrated bradycardia to 40s with likely etiology vasov agal syncope. 2. Acute generalized weakness, present on admission. Active. -Treated acute dehydration secondary to influenza infection as above and may have some degree of deconditioning. -Continue PT and OT evaluation and treatment. Recommending home with home health. 3. Acute influenza B upper respiratory tract infection, present on admission. Active. -Patient presented with dry nonproductive cough and mild laryngitis. -Chest x-ray reveals normal heart size and no acute cardiopulmonary disease. -Positive for influenza B. Started Tamiflu 75 mg twice daily as patient now appears more toxic. -Continue symptom management with Cepacol lozenges, Tessalon Perles 3 times daily as needed and IV fluid hydration as above. 4. Hypertension, chronic, present on admit. Stable. -Patient hypovolemic and has orthostatic blood pressures as above. -Held losartan which may have been given this morning but now discontinued. Anticipated discharge home with [address] [place] [address] tomorrow. Quality VTE Deep Vein Thrombosis/Pulmonary Embolism Present on Admission: No
[2019-01-15] MEDS: GABAPENTIN 300 MG CAPSULE PO (20:08)
[2019-01-15] MEDS: LATANOPROST 0.005% OPHTH 2.5 ML 1 DROPS EYE-BOTH (20:08)
[2019-01-16 00:40] VITALS: BP 134/62; PULSE 63; RESP 16; TEMP 36.8; O2SAT 97
[2019-01-16 03:51] VITALS: BP 172/68; PULSE 64; RESP 16; TEMP 36.7; O2SAT 97
[2019-01-16 03:52] VITALS: BP 116/67; BP 156/79; BP 172/68; PULSE 64; PULSE 78; PULSE 79
[2019-01-16] MEDS: PANTOPRAZOLE 20 MG TABLET PO (06:14)
[2019-01-16 08:37] VITALS: BP 126/64; BP 132/64; BP 133/56; PULSE 62; PULSE 64; PULSE 78; RESP 16; TEMP 36.6; O2SAT 97
[2019-01-16] MEDS: ASPIRIN EC 81 MG TABLET PO (09:26)
[2019-01-16] MEDS: OSELTAMIVIR 75 MG CAPSULE PO (09:27)
[2019-01-16] MEDS: DORZOLAMIDE 2% OPHTH 10 ML 1 DROPS EYE-BOTH (09:27)
[2019-01-16] MEDS: LOSARTAN 25 MG TABLET PO (09:27)
[2019-01-16] MEDS: SODIUM CHLORIDE 0.9% FLUSH 10 ML IV (09:27)
--- NOTE | 2019-01-16 09:51 | P.DS_ITS ---
History of Present Illness Date Patient Seen: 01/16/19 Chief complaint: Pneumonia Narrative: This is a 78-year-old female patient with history of hypertension, optic neuropathy and neuropathy left foot who presents to the ER today for progressive cough and syncopal episodes today. The patient was seen by her [facility] provider 2 days ago and was diagnosed with pneumonia and started on amoxicillin. The patient has since continued to have a nonproductive cough and malaise fevers and diaphoresis. She describes progressive weakness and feeling like she was going to pass out starting yesterday and experiencing 2 episodes of syncope today. She does report visual change associated with these episodes which occurred twice today sustaining a fall without injury. The patient denies striking her head complaints of neck back pain. she denies nasal congestion or sore throat has no chest pain or shortness of breath only a nagging cough that is dry and nonproductive. She Has had intermittent nausea denies vomiting and has no abdominal pain. She reports no complaints of diarrhea or constipation. While in the ER the patient is found to have a normal CBC as well as normal chemistries. She has an elevated CK as 607 with CK-can be at 2.51 with a low index of 0.4. She has had 2 troponins that are negative at less than 0.012. She is notably positive for influenza A on serology. 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 01/12/19 20:34 Consult to Discharge Planning Routine Comment: lives alone Consult to Physical Therapy Evaluate & Treat Comment: Flu A, generalized weakness Physician Instructions: Evaluate and Treat 01/13/19 11:20 Consult to Occupational Therapy Evaluate & Treat Comment: Physician Instructions: Evaluate and treat 01/15/19 15:25 Consult to Home Health Routine Comment: Pneumonia, Influenza A, sycopal episode Reason For Exam: Set up RN/PT/OT/ORAL AND MAXILLOFACIAL SURGEON for d/c home Discharge provider: Mallory Rivera MD Summary Discharge Diagnosis: Influenza A, present on admission Syncope, likely vasovagal, resolved Dehydration, present on admission Hypertension Left foot neuropathy Hospital Course: Patient was admitted to the hospital for dehydration, influenza A and generalized weakness. She was treated with tamiflu with improvement of her symptoms. The patient was to be discharged day before yesterday but had a vasovagal episode when on the toilet. She improved yesterday albeit still weak. Patient was able to obtain 24 hour homecare. She felt more confident about discharge and arrangements were made for her to discharge home. Status at Discharge Cognitive/behavioral status at discharge: oriented Functional status at discharge: independent ambulation Overall status at discharge: patient is not back to baseline Time Spent with Patient Less than 30 minutes Exam Vital Signs (past 8 hours): - 01/16/19 03:51 01/16/19 03:52 01/16/19 08:37 Temperature 98.1 F 97.8 F Pulse Rate 64 62 Pulse Rate [Orthostatic Lying] 64 62 Pulse Rate [Orthostatic Sitting] 79 64 Pulse Rate [Orthostatic Standing] 78 78 Respiratory Rate 16 16 Blood Pressure 172/68 H 133/56 L Blood Pressure [Orthostatic Lying] 172/68 H 133/56 L Blood Pressure [Orthostatic Sitting] 156/79 H 132/64 Blood Pressure [Orthostatic Standing] 116/67 126/64 Pulse Oximetry 97 97 Oxygen Delivery Method Room Air Oxygen Flow Rate 0 Narrative Exam Narrative: pleasant female resting comfortably Lungs: clear to auscultation CV: RRR NL Sl S2 2/6 ANDREW Abd: soft/ non tender/ non distended Ext: no edema Objective Labs Result Diagrams: 01/15/19 05:00 01/15/19 05:00 Discharge Plan Discharge Plan Patient Disposition: Home Discharge comment: Please follow up with Dr Johnson within 1 week. We will try to schedule before you leave the hospital, but if not please call to schedule [phone] Discharge Med Rec/Prescriptions Prescriptions: New benzonatate 100 mg Capsule 100 mg PO TID PRN (Reason: Cough) 5 Days RF: 0 oseltamivir [Tamiflu] 75 mg Capsule 75 mg PO BID 3 Days Qty: 6 RF: 0 Cepacol Sore Throat (tana-men) 15-3.6 mg Lozenge 1 ea PO Q8H PRN (Reason: Sore Throat) 5 Days RF: 0 oseltamivir [Tamiflu] 75 mg capsule 75 mg PO BID 5 Days Qty: 10 RF: 0 Continued aspirin [Adult Aspirin Regimen] 81 mg tablet,delayed release (DR/EC) 81 mg PO DAILY RF: 0 losartan 25 mg tablet 25 mg PO DAILY RF: 0 gabapentin 300 mg capsule 300 mg PO BEDTIME RF: 0 latanoprost 0.005 % drops 1 drp ophthalmic (eye) BEDTIME RF: 0 dorzolamide 2 % drops 1 drp ophthalmic (eye) DIRECTED RF: 0 multivitamin Tablet,Chewable 1 tab PO DAILY RF: 0 cholecalciferol (vitamin D3) [Vitamin D3] 400 unit Tablet,Chewable 1 tab PO DAILY RF: 0 Discontinued amoxicillin 500 mg capsule 500 mg PO TID RF: 0 Follow up/Referrals: Vic Johnson MD [Primary Care Provider] - (appt:01/23 @ 9:[address] johnson at [facility] [phone] ) Provider Discharge Instructions Diet: Diet as Tolerated and Low-sodium Activity: as tolerated Oxygen: not indicated Skin/Wound/Dressing Care Report to your healthcare provider any signs of infection, such as:: chills, fever and night sweats Visit Report/Discharge Packet Instructions: DI for Syncope in Adults (Fainting), DI for Dehydration -- Adult, DI for Influenza -- Adult, Benzonatate, Oseltamivir Discharge Data Primary Care Provider: Vic Johnson V Attending Provider: Mallory Rivera Admit Date/Time: 01/14/19 10:47 Discharges patient from system. Discharge Date/Time: 01/16/19 14:13 Quality VTE Deep Vein Thrombosis/Pulmonary Embolism Present on Admission: No
[2019-01-16 09:53] VITALS: O2SAT 96
--- NOTE | 2019-01-16 10:35 | PT.IPTN ---
Current Diagnoses Orthostatic hypotension (01/14/19) Physical Therapy Treatment Note M2 PT-IP Current Condition Start: 01/13/19 13:23 Freq: NEEDED Status: Active Protocol: Document 01/13/19 10:06 DLM (Rec: 01/13/19 13:39 DLM [id number]) Physical Therapy Current Condition Current Condition Evaluation Date 01/13/19 Treatment Diagnosis weakness, impaired gait Onset Date 01/12/19 Precautions Other Precautions Influenza A M3 PT-IP Subjective Start: 01/13/19 13:23 Freq: NEEDED Status: Active Protocol: Document 01/16/19 10:35 GGD (Rec: 01/16/19 12:35 GGD [id number]) Subjective Physical Therapy Visit Type Type Treatment Note Visit Start Time 10:05 Visit Stop Time 10:30 Total Visit Minutes 30 Number of MACHINE WIPER Visits 1 Physical Therapy Visit Comments Patient Comments Pt states she is doing better. M4 PT-IP Mobility and Gait Start: 01/13/19 13:23 Freq: NEEDED Status: Active Protocol: Document 01/16/19 10:35 GGD (Rec: 01/16/19 12:35 GGD [id number]) PT-Transfer Assessment Sit to and From Stand Sit to and from Stand Contact Guard Assistance Use of Upper Extremities Equipment Transfer Assistive Device Gait Belt Straight Cane Orthotic/Prosthetic Devices or Brace: No Transfers Transfer Destination Chair Wheelchair Transfer Ability Level of Assist Contact Guard Assistance Use of Upper Extremities Gait Assessment Gait Gait Assistance Required: Contact Guard Assist Distance (Feet) 350 Able to Maintain Weight Bearing Status Yes During Gait Assistive Devices Assistive Device Gait Belt Straight Cane Orthotic/Prosthetic Devices or Brace: No Gait Deviations General Gait Pattern Decreased Stride Length Decreased Feet Clearance Factors Limiting Gait Function Factors Limiting Gait Function Decreased Activity Tolerance Decreased Strength Comments Gait Comments Pt needed SPC for gait for stablity. She had increase in unsteadiness with gait without AD. Stair Climbing Assessment Evaluation Level of Assist On Stairs Standby Assistance Devices Stair Climbing Assistive Devices Right Railing Technique/Endurance Stair Climbing Direction Ascend and Descend Stair Climbing Technique Step to Step Number of Steps Climbed 3 Query Text: Stair Climbing Set # Repetitions (reps) 2 M5 PT-IP Objective Assessments Start: 01/13/19 13:23 Freq: NEEDED Status: Active Protocol: Document 01/13/19 10:06 DLM (Rec: 01/13/19 15:24 DL [id number]) Orientation Orientation/Cognition Level of Alertness Alert Orientation Name Age Birthday Month Date Year Day of Week Place Situation Language Function Ability No Deficits Noted Safety Awareness Understands Safety Issues Memory Description No Deficits Noted Gross Range of Motion Upper Extremity ROM Assessment Within Functional Limits Lower Extremity ROM Assessment Within Functional Limits Strength Upper Extremity Strength Assessment Within Functional Limits Lower Extremity Strength Assessment Within Functional Limits Coordination Assessment Gross Coordination Gross Coordination WNL Sensation Assessment Sensation Gross Sensation Right LE Impaired Left LE Impaired Sensation Description Numbness Comments Sensation Comments hx neuropathy in feet Muscle Tone Muscle Tone WNL Yes M6 PT-IP Treatment Start: 01/13/19 13:23 Freq: NEEDED Status: Active Protocol: Document 01/15/19 09:49 [facility] (Rec: 01/15/19 09:56 [facility] [id number]) Physical Therapy Treatment Exercises Exercises Ankle Pumps Seated Knee Flexion/Extension Other Treatments Other Treatment Performed edu to do leg lifts M7 PT-IP Assessment and Plan Start: 01/13/19 13:23 Freq: NEEDED Status: Active Protocol: Document 01/16/19 10:35 GGD (Rec: 01/16/19 12:35 GGD [id number]) PT Summary Assessment and Plan Summary Assessment Summary Pt improving mobility and gait . She did need cues for safety and stair mobility. She had improved stability with gait with SPC. Frequency of Treatment Frequency Of Treatment Twice a Day Treatment Plan Physical Therapy Treatment Plan Bed Mobility Training Transfer Training Gait Training Therapeutic Exercise Balance Retraining Discharge Planning Other Recommendations and Next Treatment assess need for assistive Focus device as she progresses Recommendations To Nursing Amount of Assist Needed 1 Person Assist Discharge Recommendations PT Discharge Recommendations Home Home Health
--- NOTE | 2019-01-16 11:10 | CM.DPC ---
DCP Discharge Home with HH Per MD, pt is medically stable to d/c home with HH today and pt agreeable and confirms that sister helped set up [facility] to arrive this evening for additional home assist. SW called [facility] and updated them that pt has d/c orders for today. Kat from [facility] arrived bedside and introduced self to pt and collected pt's facesheet, clinicals, d/c summ, signed MD Nellie orders to open pt to service. Plan: Patient to d/c home today via family POV and [facility] to open pt to service and private pay caregiver through [facility] to start this evening when pt arrives home. JAMAAL Weller
--- NOTE | 2019-01-16 11:33 | PM.CHAP ---
visit with Amalia. She is being discharged today, and has home helth care set up. We talked about her dog, her home, and her love of art. She is in positive spirits.
--- NOTE | 2019-01-16 14:05 | PC.NURSE ---
Discharge: IV dc'd intact. Tried to schedule follow up appt with Dr Duque before patient left, but their office was closed for lunch. Patient is aware she needs to schedule follow up within 1 week and will call [facility]. 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 Given education info on dehydration, influenza and syncope. She has made arrangements for [facility] who are meeting her at home today. Reviewed med list, and instructed to call MD with any s/sx worsening infection or symptoms of concern that arise prior to follow up. Patient verbalized understanding of d/c info and stated no further questions. All personal belongings sent at discharge. Assisted into wheelchair and taken out to private vehicle by nursing staff.
== END 2019-01-16 14:13 | disposition home or self-care (01) | DRG 312 ==
LOC: ED 17:57 → AC 01-13 09:04
PROVIDERS: Emergency Medicine; Internal Medicine; Nurse Practitioner Adult Health; Admitting Provider Internal Medicine; Emergency Provider Nurse Practitioner Family; Family Provider Internal Medicine; PCP Internal Medicine; Visit Provider Internal Medicine
DX: I95.1 Orthostatic hypotension (principal); H46.9 Unspecified optic neuritis; J10.1 Influenza due to other identified influenza virus with other respiratory manifestations; E86.0 Dehydration; G57.90 Unspecified mononeuropathy of unspecified lower limb; I10 Essential (primary) hypertension; W19.XXXA Unspecified fall, initial encounter; R55 Syncope and collapse
CPT/HCPCS: 36415; 36591; 70450; 71046; 80048; 80053; 81001; 82550; 82553; 83605; 83735; 83880; 84145; 84484; 85025; 85610; 87400; 87633; 93005; 93306; 94762; 96361; 96374; 97116; 97162; 97165; 97530; 97535; 99285; G0378; J2405; J3480; J7050

== ENCOUNTER → 2019-01-29 14:56 | Outpatient (CLI) | payer MEDICARE, SELFPAY ==
[2019-01-12 18:22] VITALS: BMI 26.4
== END ==
PROVIDERS: PCP Internal Medicine; Visit Provider Internal Medicine
DX: Z78.0 Asymptomatic menopausal state (principal); R29.890 Loss of height; Z82.62 Family history of osteoporosis
CPT/HCPCS: 77080

== ENCOUNTER → 2019-03-28 11:30 | Outpatient (CLI) | payer MEDICARE, SELFPAY ==
[2019-01-12 18:22] VITALS: BMI 26.4
--- NOTE | 2019-03-28 | DI.MG.S_ITS ---
BILATERAL DIGITAL SCREENING MAMMOGRAM 3D/2D WITH CAD: 03/28/2019 CLINICAL: Routine screening. Comparison is made to exams dated: 11/26/2014 mammogram, 03/11/2017 mammogram, and 09/18/2013 mammogram - [facility]. The tissue of both breasts is heterogeneously dense. This may lower the sensitivity of mammography. Current study was also evaluated with a Computer Aided Detection (CAD) system. No significant masses, calcifications, or other findings are seen in either breast. There has been no significant interval change. IMPRESSION: NEGATIVE There is no mammographic evidence of malignancy. A 1 year screening mammogram is recommended. This exam was interpreted at Station ID: [id number]. NOTE: For mammograms, a report in lay terms will be sent to the patient. Approximately 15% of breast malignancies will not be visualized mammographically. In the management of a palpable breast mass, a negative mammogram must not discourage biopsy of a clinically suspicious lesion. Electronically Signed By: Marcelo hood/francine:03/29/2019 15:14:49 letter sent: Normal Exam ACR BI-RADS Category 1: Negative [id number]
[2019-03-28 14:33] LABS: Aspartate Aminotransferase 28 IU/L (14-36); Blood Urea Nitrogen 14 mg/dL (7-17); Calcium 9.7 mg/dL (8.4-10.2); Carbon Dioxide 29 mmol/L (22-32); Chloride 101 mmol/L (98-107); Cholesterol 143 mg/dL (140-199); Estimated Glomerular Filt Rate > 60.0 mL/min (>60); Glucose 75 mg/dL (80-110); HDL Cholesterol 76 mg/dL (40-60); HEMOLYSIS < 15 (0-50); LDL Cholesterol Calculated 48 mg/dL (<100); Potassium 3.8 mmol/L (3.4-5.1); Sodium 139 mmol/L (137-145); Triglycerides 93 mg/dL (35-150)
== END ==
PROVIDERS: PCP Internal Medicine; Visit Provider Internal Medicine
DX: Z12.31 Encounter for screening mammogram for malignant neoplasm of breast (principal); I10 Essential (primary) hypertension; E78.2 Mixed hyperlipidemia
CPT/HCPCS: 36415; 77063; 77067; 80048; 80061; 84450

== ENCOUNTER → 2020-04-25 13:49 | Outpatient (CLI) | payer MEDICARE, SELFPAY ==
[2019-01-12 18:22] VITALS: BMI 26.4
[2020-04-25 16:01] LABS: Aspartate Aminotransferase 29 IU/L (14-36); BUN Creatinine Ratio 20.8 (6-22); Blood Urea Nitrogen 15 mg/dL (7-17); Calcium 9.6 mg/dL (8.4-10.2); Carbon Dioxide 27 mmol/L (22-32); Chloride 102 mmol/L (98-107); Cholesterol 130 mg/dL (140-199); Estimated Glomerular Filt Rate > 60.0 mL/min (>60); Glucose 98 mg/dL (80-110); HDL Cholesterol 73 mg/dL (40-60); HEMOLYSIS < 15 (0-50); LDL Cholesterol Calculated 27 mg/dL (<100); Potassium 4.3 mmol/L (3.4-5.1); Sodium 136 mmol/L (137-145); Triglycerides 148 mg/dL (35-150)
== END ==
PROVIDERS: PCP Internal Medicine; Referring Provider Internal Medicine; Visit Provider Internal Medicine
DX: I10 Essential (primary) hypertension (principal); E78.2 Mixed hyperlipidemia
CPT/HCPCS: 36415; 80048; 80061; 84450

== ENCOUNTER → 2020-11-12 08:18 | Outpatient (CLI) | payer MEDICARE, SELFPAY ==
[2019-01-12 18:22] VITALS: BMI 26.4
[2020-11-12] MEDS: COVID-19 VACC #1, MRNA(MOD) 100 MCG/0.5 ML VIAL IM (08:28)
== END ==
PROVIDERS: PCP Internal Medicine; Visit Provider Internal Medicine
DX: Z23 Encounter for immunization (principal)
CPT/HCPCS: 0011A; 91301

== ENCOUNTER → 2020-12-10 08:24 | Outpatient (CLI) | payer MEDICARE, SELFPAY ==
[2019-01-12 18:22] VITALS: BMI 26.4
[2020-12-10] MEDS: COVID-19 VACC #2, MRNA(MOD) 100 MCG/0.5 ML VIAL IM (08:33)
== END ==
PROVIDERS: PCP Internal Medicine; Visit Provider Internal Medicine
DX: Z23 Encounter for immunization (principal)
CPT/HCPCS: 0012A; 91301

== ENCOUNTER → 2021-01-09 10:05 | Outpatient (CLI) | payer MEDICARE, SELFPAY ==
[2019-01-12 18:22] VITALS: BMI 26.4
--- NOTE | 2021-01-09 | DI.RAD.S_ITS ---
PROCEDURE: XR CHEST 2V INDICATIONS: Cough/Weakness TECHNIQUE: 2 views of the chest were acquired. COMPARISON: [facility], CR, XR CHEST 2V, 01/12/2019, 10:52. FINDINGS: Surgical changes and devices: None. Lungs and pleura: Lungs are clear. No pleural effusions or pneumothorax. Mediastinum: Mediastinal contours are normal. Heart size is normal. Bones and chest wall: No suspicious bony abnormalities. Soft tissues appear unremarkable. IMPRESSION: No acute cardiopulmonary disease process. Dictated by: Essie Cox MD, PhD on 01/09/2021 at 15:02 Approved by: Essie Cox MD, PhD on 01/09/2021 at 15:10
[2021-01-09 11:07] LABS: Add Manual Diff / Slide Review NO; Basophils Absolute Auto 100 /uL (0-100); Basophils Percent Auto 1.1 % (0-2); Eosinophils Absolute Auto 100 /uL (0-450); Eosinophils Percent Auto 1.6 % (2-4); Hematocrit 43.5 % (36-46); Hemoglobin 14.6 g/dL (12.0-16.0); Lymphocytes Absolute Auto 1500 /uL (1100-4500); Mean Corpuscular HGB Conc 33.5 % (30-36); Mean Corpuscular Volume 89.5 fL (80-100); Monocytes Absolute Auto 600 /uL (0-900); Monocytes Percent Auto 9.8 % (3-14); Neutrophils Absolute Auto 3700 /uL (1500-7000); Neutrophils Percent Auto 62.5 % (50-75); Platelet Count 252 X10^3/uL (150-400); Red Blood Cell Count 4.86 X10^6/uL (4.0-5.2); Red Cell Distribution Width 13.2 % (11.6-14.8)
[2021-01-09 11:08] LABS: Appearance Urine UA CLEAR; Bilirubin Urine UA NEGATIVE (NEGATIVE); Color Urine UA YELLOW; Glucose Urine UA TRACE g/dL (Negative); Ketones Urine UA NEGATIVE (NEGATIVE); Leukocyte Esterase Urine UA NEGATIVE (NEGATIVE); Nitrite Urine UA NEGATIVE (Negative); Occult Blood Urine UA TRACE-INTACT (Negative); Protein Urine UA NEGATIVE (Negative); Specific Gravity Urine UA 1.025 (1.000-1.035); Urobilinogen Urine UA 0.2 E.U./dL (0.2)
[2021-01-09 11:18] LABS: Alanine Aminotransferase 23 IU/L (<35); Albumin 4.2 g/dL (3.5-5.0); Albumin Globulin Ratio 1.8 (1.0-2.8); Alkaline Phosphatase 74 U/L (38-126); Aspartate Aminotransferase 32 IU/L (14-36); BUN Creatinine Ratio 22.2 (6-22); Bilirubin Total 0.8 mg/dL (0.2-1.3); Blood Urea Nitrogen 16 mg/dL (7-17); Calcium 9.5 mg/dL (8.4-10.2); Carbon Dioxide 30 mmol/L (22-32); Chloride 104 mmol/L (98-107); Estimated Glomerular Filt Rate > 60.0 mL/min (>60); Globulin 2.4 g/dL (1.7-4.1); Glucose 87 mg/dL (80-110); HEMOLYSIS < 15 (0-50); Sodium 140 mmol/L (137-145); Total Protein 6.6 g/dL (6.3-8.2)
[2021-01-09 11:30] LABS: Bacteria Urine Few (2-10); Culture Indicated Urine Cult Not Indicated; RBC Urine 1-5/HPF (0-5/HPF); Squamous Epithelial Cell Urine 1-5 /HPF (0-5/HPF); WBC Urine 1-5/HPF (0-5/HPF)
[2021-01-09 11:44] LABS: TSH w/ Reflex to FT4 0.34 uIU/mL (0.47-4.68)
== END ==
PROVIDERS: PCP Internal Medicine; Referring Provider Physician Assistant; Visit Provider Physician Assistant
DX: R05 Cough (principal); R53.83 Other fatigue; R53.1 Weakness
CPT/HCPCS: 36415; 71046; 80053; 81001; 84439; 84443; 85025

== ENCOUNTER → 2021-01-13 09:23 | Outpatient (CLI) | payer MEDICARE, SELFPAY ==
[2019-01-12 18:22] VITALS: BMI 26.4
[2021-01-13 11:51] LABS: Free T3, Triiodothyronine Free 3.24 pg/mL (2.77-5.27); Free T4, Direct Thyroxine 1.23 ng/dL (0.78-2.19)
[2021-01-13 12:05] LABS: TSH w/ Reflex to FT4 1.19 uIU/mL (0.47-4.68)
== END ==
PROVIDERS: PCP Internal Medicine; Referring Provider Internal Medicine; Visit Provider Internal Medicine
DX: E78.2 Mixed hyperlipidemia (principal)
CPT/HCPCS: 36415; 84439; 84443; 84481

== ENCOUNTER 2021-03-21 08:35 | Emergency (ER) | payer MEDICARE, SELFPAY ==
[2019-01-12 18:22] VITALS: BMI 26.4
[2021-03-21 09:05] VITALS: BP 211/89; PULSE 83; RESP 16; TEMP 36.3; O2SAT 98; BMI 24.5
--- NOTE | 2021-03-21 09:14 | DI.CT.S_ITS ---
PROCEDURE: CT FACIAL BONES WO CON INDICATIONS: fall TECHNIQUE: Noncontrast 2.5 mm thick axial images acquired from the mandible through the frontal sinuses, with coronal and sagittal reformatting. For radiation dose reduction, the following was used: automated exposure control, adjustment of mA and/or kV according to patient size. COMPARISON: None. FINDINGS: Image quality: Excellent. Bones and teeth: Orbital alcaraz are intact. Sinus alcaraz show no fracture or deformity. Nasal bones and septum are intact. Visualized portions of the mandible demonstrate no fractures or subluxation. Zygomatic arches are intact. Pterygoid plates are intact. Visualized portions of the skull base and auditory canals are intact. Sinuses: Paranasal sinuses are aerated, without fluid levels, mucosal thickening, or mucoceles. Mastoid air cells are aerated. Soft tissues: No edema, masses, or fluid collections. No enlarged lymph nodes. No soft tissue lacerations or debris. Vascular: Visualized vascular structures appear normal in the absence of contrast. Bony vascular foramina and canals are intact. IMPRESSION: No facial fractures found. No evidence of abnormal fluid within the mastoid air cells or paranasal sinuses. Dictated by: Deshawn Quach M.D. on 03/21/2021 at 8:41 Approved by: Deshawn Quach M.D. on 03/21/2021 at 8:42
--- NOTE | 2021-03-21 09:14 | DI.CT.S_ITS ---
PROCEDURE: CT CERVICAL SPINE WO CON INDICATIONS: fall TECHNIQUE: Noncontrast 3 mm thick sections acquired from the skull base to the T4 level. Sagittal and coronal reformats were then constructed. For radiation dose reduction, the following was used: automated exposure control, adjustment of mA and/or kV according to patient size. COMPARISON: None. FINDINGS: Image quality: Excellent. Bones: No fractures or dislocations. Visualized superior ribs are intact. Soft tissues: Prevertebral soft tissues are normal in thickness. No paravertebral hematomas. No apical pneumothoraces. IMPRESSION: Degenerative osteoarthritic change and disc disease but no trauma found. Dictated by: Deshawn Quach M.D. on 03/21/2021 at 8:40 Approved by: Deshawn Quach M.D. on 03/21/2021 at 8:41
--- NOTE | 2021-03-21 09:14 | DI.CT.S_ITS ---
PROCEDURE: CT HEAD/BRAIN WO CON INDICATIONS: fall TECHNIQUE: Noncontrast 4.5 mm thick angled axial sections acquired from the foramen magnum to the vertex, with coronal and sagittal reformats. For radiation dose reduction, the following was used: automated exposure control, adjustment of mA and/or kV according to patient size. COMPARISON: None. FINDINGS: Image quality: Excellent. CSF spaces: Basal cisterns are patent. No extra-axial fluid collections. The ventricles are symmetric in size and shape. Brain: No intracranial bleeds or masses. There is cerebral volume loss for age, with resultant ventricular and sulcal prominence. There are periventricular and deep white matter chronic small vessel ischemic changes. There is intracranial internal carotid artery atherosclerosis. Skull and face: Calvarium and visualized facial bones appear intact, without suspicious lesions. Sinuses: Visualized sinuses and mastoids are clear. IMPRESSION: Scalp contusion left frontal area, otherwise normal. Dictated by: Deshawn Quach M.D. on 03/21/2021 at 8:40 Approved by: Deshawn Quach M.D. on 03/21/2021 at 8:40
--- NOTE | 2021-03-21 09:22 | PC.NURSE ---
denies symptoms, is hypertensive, provider gave verbal order for ct of head, c spine, and face. Patient has two black eyes. her nose abrasion is open to air, appears clean and well cared for the last three days.
--- NOTE | 2021-03-21 09:39 | ED.FALL ---
HPI - Fall General Chief Complaint: Fall Stated Complaint: fell Time Seen by Provider: 03/21/21 09:26 Source: patient Mode of arrival: Wheelchair Limitations: no limitations History of Present Illness HPI Narrative: Patient is an 80-year-old male abnormal patient has history of hypertension she presents after a ground level fall 2 days ago. She says she was walking her dog in a park when she tripped on a rock and landed on her face. She denies loss of consciousness. She says to nice people helped pick her up off the street. She does take aspirin 81 mg daily she has not had any nausea or vomiting. She has obvious bilateral contusions of her eyes she said her nose bled quite a bit. She has no numbness tingling or weakness. She is ambulatory. She has also been taking Aleve for her pain. She did not take her blood pressure medicine this morning. complaint: fall Onset (ago): day(s) (2) Fall from: standing Fall witnessed: no Place fall occurred: street Loss of consciousness: none Prolonged down time: no Related Data Home Medications Medication Instructions Recorded Confirmed aspirin 81 mg tablet,delayed 81 mg PO DAILY 06/03/18 01/12/19 release gabapentin 300 mg capsule 300 mg PO BEDTIME 06/03/18 01/12/19 losartan 25 mg tablet 25 mg PO DAILY 06/03/18 01/12/19 cholecalciferol (vitamin D3) 1 tab PO DAILY 01/12/19 01/12/19 [Vitamin D3] dorzolamide 1 drp OPHTHALMIC (EYE) DIRECTED 01/12/19 01/12/19 latanoprost 1 drp OPHTHALMIC (EYE) BEDTIME 01/12/19 01/12/19 multivitamin 1 tab PO DAILY 01/12/19 01/12/19 Allergies Allergy/AdvReac Type Severity Reaction Status Date / Time nitrofurantoin Allergy Unknown Verified 03/21/21 09:10 [NITROFURANTOIN] azithromycin Allergy Verified 03/21/21 09:10 cholestyramine Allergy Verified 03/21/21 09:10 clavulanic acid Allergy Verified 03/21/21 09:10 [From Augmentin] lisinopril Allergy Verified 03/21/21 09:10 loratadine [From Claritin] Allergy Verified 03/21/21 09:10 neomycin Allergy Verified 03/21/21 09:10 Opioids-Meperidine and Allergy Verified 03/21/21 09:10 Related oseltamivir [From Tamiflu] Allergy Verified 03/21/21 09:10 procaine [From Novocain] Allergy Verified 03/21/21 09:10 Sulfa (Sulfonamide Allergy Verified 03/21/21 09:10 Antibiotics) Milk Containing Products AdvReac Mild DIARRHEA Verified 03/21/21 09:10 [MILK CONTAINING PRODUCTS] meperidine [MEPERIDINE] AdvReac Unknown Verified 03/21/21 09:10 Review of Systems Review of Systems Narrative: GENERAL: Denies chills, fatigue, malaise, fever, sweats, travel HEENT: Denies sinus pain, ear pain, sore throat, difficulty swallowing, neck pain RESPIRATORY: Denies dyspnea, cough, wheezing, hemoptysis, sputum. CARDIOVASCULAR: Denies chest pain, palpitations, orthopnea, edema GASTROINTESTINAL: Denies nausea, vomiting, abdominal pain, diarrhea, constipation, melena. : Denies dysuria, frequency, incontinence, hematuria, urinary retention, flank pain. MUSCULOSKELETAL: Denies weakness, joint pain, or bony pain SKIN: Facial contusions NEUROLOGIC: Closed head injury, see HPI PSYCHIATRIC: No concerning psychosocial issues. 12 point review of systems is negative except for those stated above and HPI Patient History Medical History (Updated 03/21/21 @ 10:16 by Cristela Kyle DO) Hypertension Idiopathic peripheral neuropathy Optic neuropathy, right Surgical History History of hysterectomy History of tonsillectomy Family History Father Hypertension Cancer Cardiovascular disease Mother No problems noted. Social History household members: none Smoking Status: Never smoker alcohol intake: never Smoking Status: Never smoker alcohol intake frequency: 0-2 drinks per day Substance Use Type: does not use Exam Initial Vital Signs Initial Vital Signs: Vital Signs Temperature 97.3 F L 03/21/21 09:05 Pulse Rate 83 03/21/21 09:05 Respiratory Rate 16 03/21/21 09:05 Blood Pressure 211/89 H 03/21/21 09:05 Pulse Oximetry 98 03/21/21 09:05 GENERAL: Alert 80-year-old female sitting on bed resting comfortably HEENT: Head atraumatic,EOMI, pupils reactive, face symmetric, obvious periorbital facial contusions but no periorbital swelling nasal abrasion NECK: Supple no vertebral tenderness or step-off CARDIOVASCULAR: Regular rate and rhythm without murmurs, rubs or gallops. RESPIRATORY: Breath sounds equal bilaterally, no wheezes rales or rhonchi. ABDOMEN: Soft, nontender. Normoactive bowel sounds all 4 quadrants. No guarding or rebound. EXTREMITIES: Normal range of motion, no clubbing or edema. Neurovascularly intact NEUROLOGICAL: Alert and oriented x4.Normal gait and speech. Cranial nerves II through XII grossly intact. Resident In Diagnostic Radiology strength equal bilaterally SKIN: Warm, dry, no laceration, no petechiae, no rashes or lesions. Course Orders Ordered: ED Orders 03/21/21 09:14 CT cervical spine wo con Stat CT facial bones wo con Stat CT head/brain wo con Stat Vital Signs Vital signs: Vital Signs - 8 hr 03/21/21 10:36 Pulse Rate 78 Respiratory Rate 17 Blood Pressure 211/88 H Pulse Oximetry 99 MDM - Fall Imaging Data CT scan - head: Radiologist's Impression: PROCEDURE: CT HEAD/BRAIN WO CON INDICATIONS: fall TECHNIQUE: Noncontrast 4.5 mm thick angled axial sections acquired from the foramen magnum to the vertex, with coronal and sagittal reformats. For radiation dose reduction, the following was used: automated exposure control, adjustment of mA and/or kV according to patient size. COMPARISON: None. FINDINGS: Image quality: Excellent. CSF spaces: Basal cisterns are patent. No extra-axial fluid collections. The ventricles are symmetric in size and shape. Brain: No intracranial bleeds or masses. There is cerebral volume loss for age, with resultant ventricular and sulcal prominence. There are periventricular and deep white matter chronic small vessel ischemic changes. There is intracranial internal carotid artery atherosclerosis. Skull and face: Calvarium and visualized facial bones appear intact, without suspicious lesions. Sinuses: Visualized sinuses and mastoids are clear. IMPRESSION: Scalp contusion left frontal area, otherwise normal. Dictated by: Deshawn Quach M.D. on 03/21/2021 at 8:40 CT - cervical spine: Radiologist's Impression: PROCEDURE: CT CERVICAL SPINE WO CON INDICATIONS: fall TECHNIQUE: Noncontrast 3 mm thick sections acquired from the skull base to the T4 level. Sagittal and coronal reformats were then constructed. For radiation dose reduction, the following was used: automated exposure control, adjustment of mA and/or kV according to patient size. COMPARISON: None. FINDINGS: Image quality: Excellent. Bones: No fractures or dislocations. Visualized superior ribs are intact. Soft tissues: Prevertebral soft tissues are normal in thickness. No paravertebral hematomas. No apical pneumothoraces. IMPRESSION: Degenerative osteoarthritic change and disc disease but no trauma found. Dictated by: Deshawn Quach M.D. on 03/21/2021 at 8:40 Approved by: Deshawn Quach M.D. on 03/21/2021 at 8:41 CT Facial: Radiologist's Impression: PROCEDURE: CT FACIAL BONES WO CON INDICATIONS: fall TECHNIQUE: Noncontrast 2.5 mm thick axial images acquired from the mandible through the frontal sinuses, with coronal and sagittal reformatting. For radiation dose reduction, the following was used: automated exposure control, adjustment of mA and/or kV according to patient size. COMPARISON: None. FINDINGS: Image quality: Excellent. Bones and teeth: Orbital alcaraz are intact. Sinus alcaraz show no fracture or deformity. Nasal bones and septum are intact. Visualized portions of the mandible demonstrate no fractures or subluxation. Zygomatic arches are intact. Pterygoid plates are intact. Visualized portions of the skull base and auditory canals are intact. Sinuses: Paranasal sinuses are aerated, without fluid levels, mucosal thickening, or mucoceles. Mastoid air cells are aerated. Soft tissues: No edema, masses, or fluid collections. No enlarged lymph nodes. No soft tissue lacerations or debris. Vascular: Visualized vascular structures appear normal in the absence of contrast. Bony vascular foramina and canals are intact. IMPRESSION: No facial fractures found. No evidence of abnormal fluid within the mastoid air cells or paranasal sinuses. Dictated by: Deshawn Quach M.D. on 03/21/2021 at 8:41 MDM Narrative Medical decision making narrative: Fortunately patient scans are negative. She is quite hypertensive but not take blood pressure medication today she has no other or symptoms of closed head injury. Discussed with her that Aleve and aspirin can cause increased bleeding. Discharge Plan Departure Patient Disposition: Home Clinical Impression: Contusion of face Qualifiers: Encounter type: initial encounter Qualified Code(s): S00.83XA - Contusion of other part of head, initial encounter Activity Restrictions/Additional Instructions: *You have been diagnosed with facial contusion *What to do: Fortunately you do not have any broken bones or injury in her brain. Aleve an aspirin can cause increased bleeding. Recommend using Tylenol. Your blood pressure is also noted to be elevated in the emergency department. Please be sure to take your blood pressure medicine when you get home. He may need to monitor your blood pressure and report back to your primary care provider. *Continue to take medications as directed Tylenol 650 mg every 4-6 hours if needed for [id number] pain *Follow up with your primary care provider in 2-3 days *Return to ER if you should have increasing pain, nausea, persistent vomiting, weakness numbness or tingling. or any new, worsening or concerning symptoms Prescriptions: No Action aspirin [Adult Aspirin Regimen] 81 mg tablet,delayed release (DR/EC) 81 mg PO DAILY RF: 0 losartan 25 mg tablet 25 mg PO DAILY RF: 0 gabapentin 300 mg capsule 300 mg PO BEDTIME RF: 0 latanoprost 0.005 % drops 1 drp ophthalmic (eye) BEDTIME RF: 0 dorzolamide 2 % drops 1 drp ophthalmic (eye) DIRECTED RF: 0 multivitamin Tablet,Chewable 1 tab PO DAILY RF: 0 cholecalciferol (vitamin D3) [Vitamin D3] 400 unit Tablet,Chewable 1 tab PO DAILY RF: 0 Referrals: Vic Duque MD [Primary Care Provider] -
[2021-03-21 10:36] VITALS: BP 211/88; PULSE 78; RESP 17; O2SAT 99
== END 2021-03-21 10:37 | disposition home or self-care (01) ==
PROVIDERS: Emergency Provider Emergency Medicine; PCP Internal Medicine
DX: S00.83XA Contusion of other part of head, initial encounter (principal); I10 Essential (primary) hypertension; W19.XXXA Unspecified fall, initial encounter
CPT/HCPCS: 70450; 70486; 72125; 99281; 99284

== ENCOUNTER → 2022-03-03 10:21 | Outpatient (CLI) | payer MEDICARE, SELFPAY ==
[2019-01-12 18:22] VITALS: BMI 26.4
[2022-03-03 12:45] LABS: Hematocrit 43.2 % (36-46); Hemoglobin 14.6 g/dL (12.0-16.0); Mean Corpuscular HGB Conc 33.7 % (30-36); Mean Corpuscular Hemoglobin 29.8 PG (26-34); Mean Corpuscular Volume 88.3 fL (80-100); Platelet Count 267 X10^3/uL (150-400); Red Blood Cell Count 4.89 X10^6/uL (4.0-5.2); Red Cell Distribution Width 13.4 % (11.6-14.8)
[2022-03-03 13:03] LABS: Alanine Aminotransferase 18 IU/L (<35); Albumin 4.3 g/dL (3.5-5.0); Albumin Globulin Ratio 1.6 (1.0-2.8); Alkaline Phosphatase 75 U/L (38-126); Aspartate Aminotransferase 31 IU/L (14-36); BUN Creatinine Ratio 16.7 (6-22); Blood Urea Nitrogen 14 mg/dL (7-17); Carbon Dioxide 28 mmol/L (22-32); Chloride 105 mmol/L (98-107); Cholesterol 142 mg/dL (140-199); Estimated Glomerular Filt Rate > 60 mL/min (>60); Globulin 2.7 g/dL (1.7-4.1); Glucose 91 mg/dL (80-110); HDL Cholesterol 94 mg/dL (40-60); HEMOLYSIS < 15 (0-50); LDL Cholesterol Calculated 38 mg/dL (<100); Potassium 4.1 mmol/L (3.4-5.1); Sodium 139 mmol/L (137-145); Triglycerides 49 mg/dL (35-150)
[2022-03-03 13:34] LABS: TSH w/ Reflex to FT4 1.26 uIU/mL (0.47-4.68)
== END ==
PROVIDERS: PCP Internal Medicine; Referring Provider Internal Medicine; Visit Provider Internal Medicine
DX: I10 Essential (primary) hypertension (principal); E78.2 Mixed hyperlipidemia
CPT/HCPCS: 36415; 80053; 80061; 84443; 85027

== ENCOUNTER → 2022-08-26 10:17 | Outpatient (CLI) | payer MEDICARE, SELFPAY ==
[2019-01-12 18:22] VITALS: BMI 26.4
[2022-08-26 12:20] LABS: Add Manual Diff / Slide Review NO; Basophils Absolute Auto 100 /uL (0-100); Eosinophils Absolute Auto 100 /uL (0-450); Hematocrit 40.6 % (36-46); Hemoglobin 13.9 g/dL (12.0-16.0); Lymphocytes Absolute Auto 1600 /uL (1100-4500); Lymphocytes Percent Auto 28.1 % (25-40); Mean Corpuscular HGB Conc 34.2 % (30-36); Mean Corpuscular Hemoglobin 29.8 PG (26-34); Mean Corpuscular Volume 87.3 fL (80-100); Monocytes Absolute Auto 600 /uL (0-900); Monocytes Percent Auto 11.2 % (3-14); Neutrophils Absolute Auto 3300 /uL (1500-7000); Neutrophils Percent Auto 57.7 % (50-75); Platelet Count 269 X10^3/uL (150-400); Red Blood Cell Count 4.65 X10^6/uL (4.0-5.2); Red Cell Distribution Width 13.6 % (11.6-14.8); White Blood Cell Count 5.6 X10^3/uL (4.5-11.0)
[2022-08-26 14:12] LABS: Alanine Aminotransferase 19 IU/L (<35); Albumin 3.8 g/dL (3.5-5.0); Albumin Globulin Ratio 1.6 (1.0-2.8); Alkaline Phosphatase 72 U/L (38-126); Amylase 53 U/L (30-110); Aspartate Aminotransferase 25 IU/L (14-36); BUN Creatinine Ratio 22.4 (6-22); Bilirubin Total 0.7 mg/dL (0.2-1.3); Blood Urea Nitrogen 17 mg/dL (7-17); Calcium 9.1 mg/dL (8.4-10.2); Carbon Dioxide 27 mmol/L (22-32); Chloride 103 mmol/L (98-107); Estimated Glomerular Filt Rate > 60 mL/min (>60); Globulin 2.4 g/dL (1.7-4.1); Glucose 75 mg/dL (80-110); HEMOLYSIS < 15 (0-50); Lipase 151 U/L (23-300); Potassium 4.3 mmol/L (3.4-5.1); Sodium 138 mmol/L (137-145); Total Protein 6.2 g/dL (6.3-8.2)
[2022-08-26 14:48] LABS: Vitamin B12 423 pg/mL (239-931)
== END ==
PROVIDERS: PCP Internal Medicine; Referring Provider Internal Medicine; Visit Provider Internal Medicine
DX: R10.9 Unspecified abdominal pain (principal); E53.8 Deficiency of other specified B group vitamins
CPT/HCPCS: 36415; 80053; 82150; 82607; 83690; 85025

== ENCOUNTER → 2022-08-31 11:29 | Outpatient (CLI) | payer MEDICARE, SELFPAY ==
[2019-01-12 18:22] VITALS: BMI 26.4
--- NOTE | 2022-08-31 11:30 | DI.CT.S_ITS ---
PROCEDURE: CT ABDOMEN PELVIS W CON INDICATIONS: abdominal pain, weight loss TECHNIQUE: After the administration of oral and IV contrast, axial sections were acquired from the lung bases to the pubic symphysis. Coronal and sagittal reformats were performed. For radiation dose reduction, the following was used: automated exposure control, adjustment of mA and/or kV according to patient size. COMPARISON: None. FINDINGS: Image quality: Excellent. Lung bases: Unremarkable. There is a 1.7 cm right paraesophageal lymph node. GE junction is mildly thickened. Heart: Normal size. Partial visualization of a 2 cm soft tissue density in the area of the intra-atrial septum. ABDOMEN: Liver: Normal in size. Mild intrahepatic biliary dilation. Gallbladder: Surgically absent Biliary ducts: Common bile duct measures up to 12 mm in diameter, tapering to normal caliber distally. Pancreas: Unremarkable. Spleen: Unremarkable. Adrenal Glands: Mild adrenal thickening and nodularity. Kidneys and Ureters: Unremarkable. Stomach and Bowel: Appearance of mild thickening of gastric cardia and gastric antrum may be secondary to inadequate distention. Small bowel loops, and colon are normal in caliber. There is a large amount of stool in colon. Peritoneum: No abnormal intraperitoneal fluid. No free air. Ventral Wall: Small fat containing umbilical hernia. Abdominal Nodes: No retroperitoneal or mesenteric adenopathy by size criteria. Vessels: Aorta and inferior vena cava are normal in size. PELVIS: Pelvic Organs: Uterus is absent consistent with hysterectomy. No adnexal mass. No free-fluid in pelvis. Bladder: Unremarkable. Pelvic Nodes: No enlarged lymph nodes. Miscellaneous: No inguinal hernias are seen. Bones: Mild levoscoliosis. Moderate degenerative disc and facet disease in lumbar spine. IMPRESSION: 1. There is an enlarged posterior mediastinal lymph node. Etiology uncertain. Differential diagnosis include reactive lymph node, lymphoma and metastatic disease. CT chest with contrast is suggested for follow-up evaluation. 2. Mild concentric thickening of the distal esophagus. Recommend esophagram or EGD for follow-up evaluation. 3. A 2 cm soft tissue density in the area of interatrial septum. This is partially visualized. Can be further evaluated with chest CT at same time. 4. A large amount of stool in colon. Dictated by: Ernie Chambers M.D. on 09/01/2022 at 7:40 Approved by: Ernie Chambers M.D. on 09/01/2022 at 7:50
== END ==
PROVIDERS: PCP Internal Medicine; Referring Provider Internal Medicine; Visit Provider Internal Medicine
DX: R10.9 Unspecified abdominal pain (principal); R59.0 Localized enlarged lymph nodes; K42.9 Umbilical hernia without obstruction or gangrene
CPT/HCPCS: 74177; Q9967

== ENCOUNTER → 2022-09-12 10:40 | Outpatient (CLI) | payer MEDICARE, SELFPAY ==
[2019-01-12 18:22] VITALS: BMI 26.4
--- NOTE | 2022-09-12 10:42 | DI.CT.S_ITS ---
PROCEDURE: CT CHEST W CON INDICATIONS: abnormal abd CT scan/mediastinal adenopathy TECHNIQUE: After the administration of intravenous contrast, 5 mm thick sections acquired from the pulmonary apices to the posterior costophrenic angles. 1 mm axial lung, 5 mm thick coronal and sagittal reformats and 7 mm axial MIP were acquired. For radiation dose reduction, the following was used: automated exposure control, adjustment of mA and/or kV according to patient size. COMPARISON: [facility], CT, CT ABDOMEN PELVIS W CON, 08/31/2022, 13:25. FINDINGS: Image quality: Excellent. Lungs and pleura: Minimal nodular opacity can be seen involving the right upper lobe inferiorly and anteriorly. The lungs otherwise appear clear. No focal infiltrates are seen. No pleural effusions or pneumothorax. Central and peripheral airways are patent and normal in caliber. Mediastinum: In this patient with this given history, scrutiny is given to mediastinal lymph nodes. There is again seen a nodular opacity adjacent to the distal esophagus within the inferior mediastinum that measures 17 x 13 mm, as on series 2, image 46. No additional enlarged mediastinal lymph nodes are seen. No enlarged perihilar lymph nodes are seen. Incidental note is made of in atrial lipoma, as on series 2, image 33. Heart size is normal. No pericardial effusion. Thoracic aorta and central pulmonary arteries are normal in size. Esophagus is normal in caliber. There is a small hiatal hernia. Bones and chest wall: No suspicious bony lesions. Accentuated thoracic kyphosis is seen. Age-appropriate bony degenerative changes are seen. No vertebral body compression fractures. No axillary or supraclavicular adenopathy by size criteria. Thyroid gland demonstrates no significant abnormality. Abdomen: Visualized upper abdominal solid organs appear normal. Upper abdominal bowel loops are normal in caliber. IMPRESSION: There is a stable enlarged lymph node seen within the inferior mediastinum, adjacent to the distal esophagus. - Please consider upper endoscopy for further evaluation, as differential diagnosis includes a metastasis from esophageal cancer. No additional enlarged mediastinal, perihilar, or axillary lymph nodes are seen. Likely scarring can be seen involving the right upper lobe Additional findings: Atrial lipoma Small hiatal hernia Dictated by: Dejon Castaneda M.D. on 09/12/2022 at 10:26 Approved by: Dejon Castaneda M.D. on 09/12/2022 at 10:30
== END ==
PROVIDERS: PCP Internal Medicine; Referring Provider Internal Medicine; Visit Provider Internal Medicine
DX: R59.0 Localized enlarged lymph nodes (principal); K44.9 Diaphragmatic hernia without obstruction or gangrene; D17.4 Benign lipomatous neoplasm of intrathoracic organs
CPT/HCPCS: 71260; Q9967

== ENCOUNTER 2022-09-21 12:56 | Day surgery (SDC) | payer MEDICARE, SELFPAY ==
[2019-01-12 18:22] VITALS: BMI 26.4
[2022-09-21] VITALS (8 sets, daily range): BP systolic 92–193; BP diastolic 52–94; PULSE 73–96; RESP 11–18; TEMP 36.2–36.9; O2SAT 94–100; BMI 54.1
--- NOTE | 2022-09-21 | PATH_ITS ---
[facility] Accession Number: [id number] . 01 Material submitted: . PART A: esophagus, E-G Junction - GE JUNCTION - ESOPHAGUS PART B: esophagus - ESOPHAGEAL BIOPSIES . 01 Diagnosis: A. Gastroesophageal Junction, Biopsy: Squamocolumnar junctional mucosa with no diagnostic abnormality. Negative for intestinal metaplasia. Negative for dysplasia and malignancy. . B. Esophagus, 8iopsies: Squamous epithelium with no diagnostic abnormality. Intraepithelial eosinophils are not increased. Negative for dysplasia and malignancy. [facility] 09/23/2022 1039 Local . 01 Electronically signed: . Shayy Holt MD, Pathologist NPI- [id number] . 01 Gross description: . Part A: GE JUNCTION - ESOPHAGUS: Received in formalin is 1 fragment(s) of stevens, soft tissue measuring 0.3 x 0.3 x 0.1 cm submitted entirely in 1 cassette(s) Part B: ESOPHAGEAL BIOPSIES: Received in formalin are multiple fragment(s) of stevens, soft tissue measuring 0.7 x 0.3 x 0.1 cm in aggregate submitted entirely in 1 cassette(s) /CPE 09/22/2022 1142 Local . 01 Pathologist provided ICD-10: R93.89 . 01 CPT . 836192, 810020 Performed at: [address] [facility] [address] [place] [address] [address], [place], [place] [id number] MD Marcelo Nixon MD Phone: [phone]
[2022-09-21 13:54] LABS: COVID19 -Nasal RAPID Negative (Negative)
[2022-09-21] MEDS: LACTATED RINGERS 1,000 ML 200 ML IV (13:58)
--- NOTE | 2022-09-21 14:51 | PM.HP.1 ---
History of Present Illness History of Present Illness Date Patient Seen: 09/21/22 Time Patient Seen: 14:51 Chief complaint: EGD Narrative: 82-year-old woman who is here for diagnostic esophagoduodenoscopy. For the past 1 year she is been experiencing a significant unintentional weight loss and chronic nausea. No difficulty swallowing. Recent CT abdomen pelvis demonstrated thickening of the distal esophagus as well as an enlarged mediastinal lymph node. Patient History Medical History Do not resuscitate Esophageal mass Essential hypertension Generalized anxiety disorder Hypertension Idiopathic peripheral neuropathy Irritable bowel syndrome with diarrhea Mediastinal adenopathy Medicare annual wellness visit, initial Mixed hyperlipidemia Optic neuropathy, right Polyneuropathy, unspecified Recurrent UTI (urinary tract infection) Sensorineural hearing loss, bilateral Surgical History History of cholecystectomy History of hysterectomy History of tonsillectomy Family & Social History Family History Father Hypertension Cancer Cardiovascular disease Mother No problems noted. Social History: household members none Tobacco & Substance use: Smoking Status Never smoker alcohol intake never alcohol intake frequency holiday/special occasion Substance Use Type does not use Meds Home Medications and Allergies Home Medications Medication Instructions Recorded Confirmed Type aspirin 81 mg tablet,delayed 81 mg PO DAILY 06/03/18 09/21/22 History release (Adult Aspirin Regimen) dorzolamide 2 % eye drops 1 drp ophthalmic (eye) DIRECTED 01/12/19 09/21/22 History latanoprost 0.005 % eye drops 1 drp ophthalmic (eye) BEDTIME 01/12/19 09/21/22 History cholecalciferol (vitamin D3) 50 50 mcg PO DAILY 02/17/22 09/21/22 History mcg (2,000 unit) capsule ondansetron 4 mg disintegrating 4 mg PO Q8H PRN nausea and 05/10/22 09/21/22 Rx tablet vomiting #30 tabs losartan 50 mg tablet 50 mg PO BID #180 tabs 07/02/22 09/21/22 Rx rosuvastatin 10 mg tablet 10 mg PO DAILY #90 tabs 07/19/22 09/21/22 Rx L. acidophilus/Bifid. animalis 1 cap PO DAILY 07/23/22 09/21/22 History [Daily Probiotic] calcium carbonate 500 mg calcium 500 mg PO BID 07/23/22 09/21/22 History (1,250 mg) tablet netarsudil 0.02 % eye drops 1 drp ophthalmic (eye) DAILY 07/23/22 09/13/22 History (Rhopressa) Allergies Allergy/AdvReac Type Severity Reaction Status Date / Time nitrofurantoin Allergy Unknown Verified 09/21/22 13:43 [NITROFURANTOIN] azithromycin Allergy Verified 09/21/22 13:43 cholestyramine Allergy Verified 09/21/22 13:43 clavulanic acid Allergy Verified 09/21/22 13:43 [From Augmentin] gabapentin Allergy Verified 09/21/22 13:43 lisinopril Allergy Verified 09/21/22 13:43 loratadine [From Claritin] Allergy Verified 09/21/22 13:43 neomycin Allergy Verified 09/21/22 13:43 Opioids-Meperidine and Allergy Verified 09/21/22 13:43 Related oseltamivir [From Tamiflu] Allergy Verified 09/21/22 13:43 procaine [From Novocain] Allergy Verified 09/21/22 13:43 Sulfa (Sulfonamide Allergy Verified 09/21/22 13:43 Antibiotics) Milk Containing Products AdvReac Mild DIARRHEA Verified 09/21/22 13:43 [MILK CONTAINING PRODUCTS] meperidine [MEPERIDINE] AdvReac Unknown Verified 09/21/22 13:43 Exam Vital Signs (past 8 hours): - 09/21/22 13:48 Temperature 97.8 F Pulse Rate 80 Respiratory Rate 16 Blood Pressure 188/76 H Pulse Oximetry 100 Oxygen Delivery Method Room Air Oxygen Flow Rate 0 Oxygen Delivery Method Room Air Oxygen Flow Rate 0 Narrative Exam Narrative: General elderly woman alert oriented no distress Abdomen soft nontender nondistended Objective Labs Labs: Laboratory Results - last 24 hr 09/21/22 13:35 SARS-CoV-2 (PCR) Negative Assessment & Plan Assessment and plan (1) Esophageal thickening: Status: Acute Assessment & Plan narrative: 82-year-old woman with esophageal thickening and mediastinal lymphadenopathy here for diagnostic esophagoduodenoscopy. Overview of the operation was discussed with the patient. Procedural risks including bleeding, intestinal perforation were discussed. Her questions have been answered and she is in agreement with this plan. Time Spent With Patient Critical Care time: I spent a total of [] minutes of critical care time on this patient's care today; this time is exclusive of procedural time.
[2022-09-21] MEDS: LIDOCAINE 4% SOLN 50 ML 20 ML TOP (15:08)
--- NOTE | 2022-09-21 15:12 | PM.OP.EGD ---
Operative Date/Time/Diagnoses Date of procedure: 09/21/22 Time of procedure: 15:12 Pre-op diagnosis: Esophageal thickening Post-op diagnosis: same Procedure & Clinicians Study performed: Esophagoduodenoscopy Same procedure as scheduled: Yes Indications: 82-year-old woman with unintentional weight loss and chronic nausea found to have esophageal thickening Surgeon: Star Jimenez Procedure Notes Procedure in detail: Patient placed in left lateral decubitus position. Time out was performed. Procedural sedation was administered. A bite block was placed. the scope was inserted into the mouth and advanced through the esophagus. There were no masses within the esophagus. There was significant esophageal mucosal sloughing with linear fissures present most prominent in the distal esophagus multiple random biopsies of the esophagus were performed.. GE junction was observed at 35 cm from the incisors and was biopsied. The stomach was grossly normal in its appearance there were no masses.. The pylorus was intubated however pylorus was quite tight and intubation of it was difficult. Ultimately it was intubated and the duodenum was normal to the 2nd portion. The scope was retroflexed within the stomach and there was no hiatal hernia. Stomach was desufflated and scope removed. Patient tolerated procedure well. Findings: other findings (Esophagitis) Specimen(s): other (GE junction and random esophageal biopsies) Complications: none Impression: Esophagitis, suggestive of eosinophilic esophagitis Post-procedure Plan for aftercare: Will contact with results of biopsy Disposition: same day surgery
== END 2022-09-21 16:22 | disposition home or self-care (01) ==
PROVIDERS: PCP Internal Medicine; Referring Provider Surgery; Visit Provider Surgery
PROC: 0DJ08ZZ Inspection of Upper Intestinal Tract, Via Natural or Artificial Opening Endoscopic (ICD-10-PCS; CPT 43235; principal; 2022-09-21 14:15)
DX: K20.90 Esophagitis, unspecified without bleeding (principal); R63.4 Abnormal weight loss; Z20.822 Contact with and (suspected) exposure to COVID-19
CPT/HCPCS: 43239; 87635; C9803; J2704; J3010

== ENCOUNTER 2022-10-04 06:06 | Emergency (ER) | payer MEDICARE, SELFPAY ==
[2019-01-12 18:22] VITALS: BMI 26.4
--- NOTE | 2022-10-04 06:13 | DI.RAD.S_ITS ---
PROCEDURE: XR CHEST 1V INDICATIONS: dizzy, nausea, htn, n/v TECHNIQUE: One view of the chest was acquired. COMPARISON: [facility], CR, XR CHEST 2V, 01/09/2021, 10:07. FINDINGS: Surgical changes and devices: None. Lungs and pleura: Lungs are clear. No pleural effusions or pneumothorax. Mediastinum: Mediastinal contours appear normal. Heart size is normal. Bones and chest wall: No suspicious bony lesions. Overlying soft tissues appear unremarkable. IMPRESSION: No acute cardiopulmonary findings. These findings are concordant with the overnight interpretation. Dictated by: Arpita Maher M.D. on 10/04/2022 at 8:24 Approved by: Arpita Maher M.D. on 10/04/2022 at 8:25
--- NOTE | 2022-10-04 06:13 | DI.CT.S_ITS ---
PROCEDURE: CT HEAD/BRAIN WO CON INDICATIONS: dizzy, nausea, htn, n/v TECHNIQUE: Noncontrast 4.5 mm thick angled axial sections acquired from the foramen magnum to the vertex, with coronal and sagittal reformats. For radiation dose reduction, the following was used: automated exposure control, adjustment of mA and/or kV according to patient size. COMPARISON: [facility], CT, CT HEAD/BRAIN WO CON, 03/21/2021, 9:22. [facility], CT, CT HEAD/BRAIN WO CON, 01/12/2019, 12:46. FINDINGS: Image quality: Excellent. CSF spaces: Basal cisterns are patent. No extra-axial fluid collections. The ventricles are symmetric in size and shape. Brain: No intracranial bleeds or masses. There is moderate cerebral volume loss for age, with resultant ventricular and sulcal prominence. There are moderate periventricular and deep white matter chronic small vessel ischemic changes. Stable appearance of encephalomalacia involving the left gonzales radiata as well as the left basal ganglia compatible with remote infarct. There is intracranial internal carotid artery atherosclerosis. Skull and face: Calvarium and visualized facial bones appear intact, without suspicious lesions. Sinuses: Visualized sinuses and mastoids are clear. IMPRESSION: 1. CT head without acute intracranial abnormalities or acute calvarial fractures. 2. Age-related senescent changes and sequela of chronic small vessel ischemic disease. No significant discrepancy with the shift boss radiology preliminary report. Dictated by: Saul Cardona M.D. on 10/04/2022 at 7:48 Approved by: Saul Cardona M.D. on 10/04/2022 at 7:50
--- NOTE | 2022-10-04 06:15 | ED_ITS ---
HPI - Dizziness <Siri Bae, DO - Last Filed: 10/07/22 07:06> General Chief Complaint: Weakness Stated Complaint: Flu like symptoms Time Seen by Provider: 10/04/22 06:13 Source: patient Mode of arrival: EMS Limitations: no limitations History of Present Illness HPI Narrative: This is a 82-year-old female with history of hypertension dyslipidemia who states that she felt dizzy this morning, she felt a little nauseated she felt like she might pass out. She also states that it feels like she is spinning, patient states it does not seem to be worse when she moves her head quickly. Wh en she seated she is asymptomatic it is more when she tries to walk around. Medics noted that at home when they came to pick her up she walked quite a distance without any issue but when they explained they need to walk farther to the ambulance she lowered herself to the floor.. She states that no headache, no fevers or chills. She does have a new cough which is nonproductive. She denies chest pain or shortness of breath. Patient states she is had nausea this morning but no vomiting. She did have some diarrhea this morning she states it was dark. She denies any bright red blood. She denies any dysuria, urgency or frequency. She states she did have an EGD recently for abdominal discomfort which was negative according to the patient. Patient denies tobacco, alcohol or illicit. Related Data Home Medications Medication Instructions Recorded Confirmed aspirin 81 mg tablet,delayed 81 mg PO DAILY 06/03/18 09/24/22 release (Adult Aspirin Regimen) latanoprost 0.005 % eye drops 1 drp ophthalmic (eye) BEDTIME 01/12/19 09/24/22 cholecalciferol (vitamin D3) 50 50 mcg PO DAILY 02/17/22 09/24/22 mcg (2,000 unit) capsule L. acidophilus/Bifid. animalis 1 cap PO DAILY 07/23/22 09/24/22 [Daily Probiotic] calcium carbonate 500 mg calcium 500 mg PO BID 07/23/22 09/24/22 (1,250 mg) tablet netarsudil 0.02 % eye drops 1 drp ophthalmic (eye) DAILY 07/23/22 09/24/22 (Rhopressa) dorzolamide 22.3 mg-timolol 6.8 1 drp EYE-BOTH BID 09/24/22 09/24/22 mg/mL eye drops Previous Rx's Medication Instructions Recorded ondansetron 4 mg disintegrating 4 mg PO Q8H PRN nausea and 05/10/22 tablet vomiting #30 tabs rosuvastatin 10 mg tablet 10 mg PO DAILY #90 tabs 07/19/22 omeprazole 20 mg capsule,delayed 20 mg PO BID #60 caps 09/21/22 release losartan 100 mg tablet 100 mg PO DAILY #90 tabs 09/24/22 Allergies Allergy/AdvReac Type Severity Reaction Status Date / Time nitrofurantoin Allergy Unknown Verified 09/24/22 14:59 [NITROFURANTOIN] azithromycin Allergy Verified 09/24/22 14:59 cholestyramine Allergy Verified 09/24/22 14:59 clavulanic acid Allergy Verified 09/24/22 14:59 [From Augmentin] gabapentin Allergy Verified 09/24/22 14:59 lisinopril Allergy Verified 09/24/22 14:59 loratadine [From Claritin] Allergy Verified 09/24/22 14:59 neomycin Allergy Verified 09/24/22 14:59 Opioids-Meperidine and Allergy Verified 09/24/22 14:59 Related oseltamivir [From Tamiflu] Allergy Verified 09/24/22 14:59 procaine [From Novocain] Allergy Verified 09/24/22 14:59 Sulfa (Sulfonamide Allergy Verified 09/24/22 14:59 Antibiotics) Milk Containing Products AdvReac Mild DIARRHEA Verified 09/24/22 14:59 [MILK CONTAINING PRODUCTS] meperidine [MEPERIDINE] AdvReac Unknown Verified 09/24/22 14:59 Review of Systems <Siri Bae DO - Last Filed: 10/07/22 07:06> Review of Systems ROS Unobtainable: All systems reviewed & are unremarkable except as noted in HPI and below Patient History <Siri Bae DO - Last Filed: 10/07/22 07:06> Medical History Do not resuscitate Esophageal mass Essential hypertension Generalized anxiety disorder Hypertension Idiopathic peripheral neuropathy Irritable bowel syndrome with diarrhea Mediastinal adenopathy Mixed hyperlipidemia Optic neuropathy, right Polyneuropathy, unspecified Recurrent UTI (urinary tract infection) Sensorineural hearing loss, bilateral Surgical History History of cholecystectomy History of hysterectomy History of tonsillectomy Family History Father Hypertension Cancer Cardiovascular disease Mother No problems noted. Social History household members: none Smoking Status: Never smoker alcohol intake: never Smoking Status: Never smoker alcohol intake frequency: holidays/special occasions only Substance Use Type: does not use Exam <Siri Bae DO - Last Filed: 10/07/22 07:06> Narrative Exam Narrative: GEN: Elderly female, alert and oriented x 3, patient appears to be in mild distress. Patient stood off the EMS gurney, walked to our emergency department gurney and seated herself. HEENT: Atraumatic, pupils are equal round reactive to light, extraocular movements are intact, nares are clear, TMs are clear with no fluid, there is no conjunctival pallor. Throat is clear without any exudates, erythema, tonsillar enlargement or uvular deviation HEART: Regular rate and rhythm without murmur, clicks, rubs. LUNGS:Lungs clear to auscultation, no wheezes, rales, crackles, chest moves sym metrically ABD:bowel sounds normal, soft, non-tender, no guarding, rebound, rigidity, no masses noted, no hepatosplenomegaly, no abdominal bruit. Pulsatile mass. :No CVA tenderness MSCL: Non-tender, no muscle atrophy, muscles strength 5/5 upper and lower extremities, full range of motion, normal gait NEURO:CN 2-12 intact, sensation normal SKIN: No rash, erythema or other skin changes Initial Vital Signs Initial Vital Signs: Vital Signs Temperature 98.7 F 10/04/22 06:16 Pulse Rate 72 10/04/22 06:16 Respiratory Rate 16 10/04/22 06:16 Blood Pressure 214/93 H 10/04/22 06:16 Pulse Oximetry 97 10/04/22 06:16 Oxygen Delivery Method 10/04/22 06:16 <Cristela Kyle DO - Last Filed: 10/04/22 18:31> Initial Vital Signs Initial Vital Signs: Vital Signs Temperature 98.7 F 10/04/22 06:16 Pulse Rate 72 10/04/22 06:16 Respiratory Rate 16 10/04/22 06:16 Blood Pressure 214/93 H 10/04/22 06:16 Pulse Oximetry 97 10/04/22 06:16 Oxygen Delivery Method 10/04/22 06:16 Course <DO Ashley Kemp Last Filed: 10/07/22 07:06> Orders Ordered: Discontinued Medications Sodium Chloride (Normal Saline 0.9%) 1,000 mls @ 150 mls/hr IV CONT CARLI Vital Signs Vital signs: Vital Signs - 8 hr 10/04/22 06:16 10/04/22 06:42 10/04/22 06:50 Temperature 98.7 F Pulse Rate 72 75 66 Respiratory Rate 16 22 22 Blood Pressure 214/93 H Pulse Oximetry 97 96 Oxygen Delivery Method Room Air 10/04/22 06:50 10/04/22 07:00 10/04/22 07:00 Temperature Pulse Rate 62 Respiratory Rate 19 Blood Pressure 178/76 H 156/67 H Pulse Oximetry 95 Oxygen Delivery Method 10/04/22 07:30 10/04/22 07:30 Temperature Pulse Rate 62 Respiratory Rate 18 Blood Pressure 167/73 H Pulse Oximetry 95 Oxygen Delivery Method <Cristela Kyle DO - Last Filed: 10/04/22 18:31> Orders Ordered: Discontinued Medications Sodium Chloride (Normal Saline 0.9%) 1,000 mls @ 150 mls/hr IV CONT CARLI Vital Signs Vital signs: Vital Signs - 8 hr 10/04/22 06:16 10/04/22 06:42 10/04/22 06:50 Temperature 98.7 F Pulse Rate 72 75 66 Respiratory Rate 16 22 22 Blood Pressure 214/93 H Pulse Oximetry 97 96 Oxygen Delivery Method Room Air 10/04/22 06:50 10/04/22 07:00 10/04/22 07:00 Temperature Pulse Rate 62 Respiratory Rate 19 Blood Pressure 178/76 H 156/67 H Pulse Oximetry 95 Oxygen Delivery Method 10/04/22 07:30 10/04/22 07:30 Temperature Pulse Rate 62 Respiratory Rate 18 Blood Pressure 167/73 H Pulse Oximetry 95 Oxygen Delivery Method MDM - Dizziness <DO Ashley Kemp Last Filed: 10/07/22 07:06> Lab Data Result diagrams: 10/04/22 06:45 10/04/22 06:45 Labs: Lab Results 10/04/22 10/04/22 10/04/22 Range/Units 06:42 06:45 06:45 WBC 6.6 (4.5-11.0) X10^3/uL RBC 4.80 (4.0-5.2) X10^6/uL Hgb 14.2 (12.0-16.0) g/dL Hct 41.6 (36-46) % MCV 86.7 (80-100) fL MCH 29.5 (26-34) PG MCHC 34.0 (30-36) % RDW 13.4 (11.6-14.8) % Plt Count 217 (150-400) X10^3/uL Neut % (Auto) 78.1 H (50-75) % Lymph % (Auto) 9.1 L (25-40) % Clinton % (Auto) 11.4 (3-14) % Eos % (Auto) 0.5 L (2-4) % Baso % (Auto) 0.9 (0-2) % Neut # (Auto) 5100 (3105-8530) /uL Lymph # (Auto) 600 L (0551-6835) /uL Clinton # (Auto) 800 (0-900) /uL Eos # (Auto) 0 (0-450) /uL Baso # (Auto) 100 (0-100) /uL Sodium 137 (137-145) mmol/L Potassium 3.6 (3.4-5.1) mmol/L Chloride 103 (98-107) mmol/L Carbon Dioxide 24 (22-32) mmol/L BUN 10 (7-17) mg/dL Creatinine 0.67 (0.52-1.04) mg/dL Estimated GFR > 60 (>60) mL/min BUN/Creatinine Ratio 14.9 (6-22) Glucose 101 (80-110) mg/dL Calcium 8.7 (8.4-10.2) mg/dL Total Bilirubin 1.1 (0.2-1.3) mg/dL AST 34 (14-36) IU/L ALT 30 (<35) IU/L Alkaline Phosphatase 84 (38-126) U/L Total Creatine Kinase 84 (30-135) U/L CK-MB (CK-2) TNP CK-MB (CK-2) Rel Index TNP Troponin I < 0.012 (0.01-0.034) ng/mL NT-Pro-B Natriuret Pep 524 H (<450) pg/mL Total Protein 7.0 (6.3-8.2) g/dL Albumin 4.1 (3.5-5.0) g/dL Globulin 2.9 (1.7-4.1) g/dL Albumin/Globulin Ratio 1.4 (1.0-2.8) Lipase (23-300) U/L SARS-CoV-2 (PCR) Positive H (Negative) Influenza A (RT-PCR) Flu a negative (NEGATIVE) Influenza B (RT-PCR) Flu b negative (NEGATIVE) RSV (PCR) Negative (Negative) 10/04/22 Range/Units 06:45 WBC (4.5-11.0) X10^3/uL RBC (4.0-5.2) X10^6/uL Hgb (12.0-16.0) g/dL Hct (36-46) % MCV (80-100) fL MCH (26-34) PG MCHC (30-36) % RDW (11.6-14.8) % Plt Count (150-400) X10^3/uL Neut % (Auto) (50-75) % Lymph % (Auto) (25-40) % Clinton % (Auto) (3-14) % Eos % (Auto) (2-4) % Baso % (Auto) (0-2) % Neut # (Auto) (6722-7259) /uL Lymph # (Auto) (6054-1234) /uL Clinton # (Auto) (0-900) /uL Eos # (Auto) (0-450) /uL Baso # (Auto) (0-100) /uL Sodium (137-145) mmol/L Potassium (3.4-5.1) mmol/L Chloride (98-107) mmol/L Carbon Dioxide (22-32) mmol/L BUN (7-17) mg/dL Creatinine (0.52-1.04) mg/dL Estimated GFR (>60) mL/min BUN/Creatinine Ratio (6-22) Glucose (80-110) mg/dL Calcium (8.4-10.2) mg/dL Total Bilirubin (0.2-1.3) mg/dL AST (14-36) IU/L ALT (<35) IU/L Alkaline Phosphatase (38-126) U/L Total Creatine Kinase (30-135) U/L CK-MB (CK-2) CK-MB (CK-2) Rel Index Troponin I (0.01-0.034) ng/mL NT-Pro-B Natriuret Pep (<450) pg/mL Total Protein (6.3-8.2) g/dL Albumin (3.5-5.0) g/dL Globulin (1.7-4.1) g/dL Albumin/Globulin Ratio (1.0-2.8) Lipase 78 (23-300) U/L SARS-CoV-2 (PCR) (Negative) Influenza A (RT-PCR) (NEGATIVE) Influenza B (RT-PCR) (NEGATIVE) RSV (PCR) (Negative) Urine Dip Bedside Urine Glucose Negative Bedside Urine Bilirubin - Negative Bedside Urine Ketone + 15 Urine Specific Krum 1.010 Bedside Urine Occult Blood - Negative Bedside Urine pH 7.5 Bedside Urine Protein - Negative Bedside Urine Urobilinogen - Negative Bedside Urine Nitrite - Negative Bedside Urine Leukocytes - Negative Esterase ECG Data Attestation: I personally reviewed and interpreted this ECG as follows: MDM Narrative Medical decision making narrative: This is an 82-year-old female who presents with dizziness, nausea, some mild diarrhea, patient has not had any syncope she actually ambulated quite well in department she is initially hypertensive on 1st set of vitals so head CT, chest x-ray cardiac labs, lipase and EKG were ordered also influenza/COVID RSV is having significant viral illness in the community. Patient does not have any other acute neurologic changes on exam, she notes sometimes she has felt dizzy in the past. She does note a recent cough. Patient signed out to Dr. Kyle while awaiting final results. <Cristela Kyle, DO - Last Filed: 10/04/22 18:31> Lab Data Labs: Lab Results 10/04/22 10/04/22 10/04/22 Range/Units 06:42 06:45 06:45 WBC 6.6 (4.5-11.0) X10^3/uL RBC 4.80 (4.0-5.2) X10^6/uL Hgb 14.2 (12.0-16.0) g/dL Hct 41.6 (36-46) % MCV 86.7 (80-100) fL MCH 29.5 (26-34) PG MCHC 34.0 (30-36) % RDW 13.4 (11.6-14.8) % Plt Count 217 (150-400) X10^3/uL Neut % (Auto) 78.1 H (50-75) % Lymph % (Auto) 9.1 L (25-40) % Clinton % (Auto) 11.4 (3-14) % Eos % (Auto) 0.5 L (2-4) % Baso % (Auto) 0.9 (0-2) % Neut # (Auto) 5100 (5234-2024) /uL Lymph # (Auto) 600 L (6805-1168) /uL Clinton # (Auto) 800 (0-900) /uL Eos # (Auto) 0 (0-450) /uL Baso # (Auto) 100 (0-100) /uL Sodium 137 (137-145) mmol/L Potassium 3.6 (3.4-5.1) mmol/L Chloride 103 (98-107) mmol/L Carbon Dioxide 24 (22-32) mmol/L BUN 10 (7-17) mg/dL Creatinine 0.67 (0.52-1.04) mg/dL Estimated GFR > 60 (>60) mL/min BUN/Creatinine Ratio 14.9 (6-22) Glucose 101 (80-110) mg/dL Calcium 8.7 (8.4-10.2) mg/dL Total Bilirubin 1.1 (0.2-1.3) mg/dL AST 34 (14-36) IU/L ALT 30 (<35) IU/L Alkaline Phosphatase 84 (38-126) U/L Total Creatine Kinase 84 (30-135) U/L CK-MB (CK-2) TNP CK-MB (CK-2) Rel Index TNP Troponin I < 0.012 (0.01-0.034) ng/mL NT-Pro-B Natriuret Pep 524 H (<450) pg/mL Total Protein 7.0 (6.3-8.2) g/dL Albumin 4.1 (3.5-5.0) g/dL Globulin 2.9 (1.7-4.1) g/dL Albumin/Globulin Ratio 1.4 (1.0-2.8) Lipase (23-300) U/L SARS-CoV-2 (PCR) Positive H (Negative) Influenza A (RT-PCR) Flu a negative (NEGATIVE) Influenza B (RT-PCR) Flu b negative (NEGATIVE) RSV (PCR) Negative (Negative) 10/04/22 Range/Units 06:45 WBC (4.5-11.0) X10^3/uL RBC (4.0-5.2) X10^6/uL Hgb (12.0-16.0) g/dL Hct (36-46) % MCV (80-100) fL MCH (26-34) PG MCHC (30-36) % RDW (11.6-14.8) % Plt Count (150-400) X10^3/uL Neut % (Auto) (50-75) % Lymph % (Auto) (25-40) % Clinton % (Auto) (3-14) % Eos % (Auto) (2-4) % Baso % (Auto) (0-2) % Neut # (Auto) (6666-4208) /uL Lymph # (Auto) (2558-7260) /uL Clinton # (Auto) (0-900) /uL Eos # (Auto) (0-450) /uL Baso # (Auto) (0-100) /uL Sodium (137-145) mmol/L Potassium (3.4-5.1) mmol/L Chloride (98-107) mmol/L Carbon Dioxide (22-32) mmol/L BUN (7-17) mg/dL Creatinine (0.52-1.04) mg/dL Estimated GFR (>60) mL/min BUN/Creatinine Ratio (6-22) Glucose (80-110) mg/dL Calcium (8.4-10.2) mg/dL Total Bilirubin (0.2-1.3) mg/dL AST (14-36) IU/L ALT (<35) IU/L Alkaline Phosphatase (38-126) U/L Total Creatine Kinase (30-135) U/L CK-MB (CK-2) CK-MB (CK-2) Rel Index Troponin I (0.01-0.034) ng/mL NT-Pro-B Natriuret Pep (<450) pg/mL Total Protein (6.3-8.2) g/dL Albumin (3.5-5.0) g/dL Globulin (1.7-4.1) g/dL Albumin/Globulin Ratio (1.0-2.8) Lipase 78 (23-300) U/L SARS-CoV-2 (PCR) (Negative) Influenza A (RT-PCR) (NEGATIVE) Influenza B (RT-PCR) (NEGATIVE) RSV (PCR) (Negative) Urine Dip Bedside Urine Glucose Negative Bedside Urine Bilirubin - Negative Bedside Urine Ketone + 15 Urine Specific Krum 1.010 Bedside Urine Occult Blood - Negative Bedside Urine pH 7.5 Bedside Urine Protein - Negative Bedside Urine Urobilinogen - Negative Bedside Urine Nitrite - Negative Bedside Urine Leukocytes - Negative Esterase Imaging Data Chest x-ray: Radiologist's Impression: atient: Melissa Cortes MR#: [id number] : 1940 Acct:[id number] Age/Sex: 82 / F Date of Service: 10/04/22 Loc: ED Accession Number: [id number] ?? Procedure: XR chest 1V Ordering Provider: Siri Bae D.O. PROCEDURE:? XR CHEST 1V ? INDICATIONS:? dizzy, nausea, htn, n/v ? TECHNIQUE:? One view of the chest was acquired.? ? COMPARISON:? [facility], , XR CHEST 2V, 01/09/2021, 10:07. ? FINDINGS:? ? Surgical changes and devices:? None.? ? Lungs and pleura:? Lungs are clear.? No pleural effusions or pneumothorax.? ? Mediastinum:? Mediastinal contours appear normal.? Heart size is normal.? ? Bones and chest wall:? No suspicious bony lesions.? Overlying soft tissues appear unremarkable.? ? IMPRESSION:? No acute cardiopulmonary findings. ? These findings are concordant with the overnight interpretation. ? ? ? Dictated by: Arpita Maher M.D. on 10/04/2022 at 8:24 ? ? ECG Data Interpretation: Sinus rhythm rate 62 PA interval 104 QRS [address] changes similar to previous EKGs MDM Narrative Medical decision making narrative: This is an 82-year-old female who presents with dizziness, nausea, some mild diarrhea, patient has not had any syncope she actually ambulated quite well in department she is initially hypertensive on 1st set of vitals so head CT, chest x-ray cardiac labs, lipase and EKG were ordered also influenza/COVID RSV is having significant viral illness in the community. Patient does not have any other acute neurologic changes on exam, she notes sometimes she has felt dizzy in the past. She does note a recent cough. Patient signed out to Dr. Kyle while awaiting final results. Patient is 82-year-old female signed out to me by Dr. Bae. If seen and evaluated her myself. She has some mild dizziness upon standing and ambulating. She is found to be COVID positive. She is not requiring oxygen blood work is overall within normal limits. BNP is minimally elevated at 524 but she is asymptomatic, no leukocytosis. Patient ambulated to the restroom. At this time does not require hospitalization for her COVID. Overall feeling better. Discharge Plan Departure Patient Disposition: Home Clinical Impression: COVID-19 Instructions: COVID-19 Activity Restrictions/Additional Instructions: *You have been diagnosed with COVID-19 *What to do: At this time please drink fluids rest *Continue to take medications as directed Tylenol 650 mg every 4-6 hours if needed for pain or fever *Follow up with your primary care provider in 2-3 days or call [phone] *Return to ER if you should have increasing dizziness falls shortness of breath oxygen less than 90% or any new, worsening or concerning symptoms Prescriptions: No Action aspirin [Adult Aspirin Regimen] 81 mg tablet,delayed release (DR/EC) 81 mg PO DAILY ondansetron 4 mg tablet,disintegrating 4 mg PO Q8H PRN (Reason: nausea and vomiting) Qty: 30 6RF rosuvastatin 10 mg tablet 10 mg PO DAILY Qty: 90 3RF calcium carbonate 500 mg calcium (1,250 mg) tablet 500 mg PO BID L. acidophilus/Bifid. animalis [Daily Probiotic] 1 cap PO DAILY Rhopressa 0.02 % drops 1 drp ophthalmic (eye) DAILY dorzolamide-timolol 22.3-6.8 mg/mL drops 1 drp EYE-BOTH BID losartan 100 mg tablet 100 mg PO DAILY Qty: 90 3RF cholecalciferol (vitamin D3) 50 mcg (2,000 unit) capsule 50 mcg PO DAILY omeprazole 20 mg capsule,delayed release(DR/EC) 20 mg PO BID Qty: 60 0RF latanoprost 0.005 % drops 1 drp ophthalmic (eye) BEDTIME Label Comments: INSTILL 1 DROP IN BOTH EYES AT BEDTIME Referrals: Vic Duque MD [Primary Care Provider] - Visit Report Forms: Patient Portal/API
[2022-10-04 06:16] VITALS: BP 214/93; PULSE 72; RESP 16; TEMP 37.1; O2SAT 97
--- NOTE | 2022-10-04 06:29 | PC.NURSE ---
To CT via stretcher with tech
--- NOTE | 2022-10-04 06:40 | PC.NURSE ---
Returns to the room via stretcher with tech
[2022-10-04 06:42] VITALS: PULSE 75; RESP 22
--- NOTE | 2022-10-04 06:42 | PC.NURSE ---
Nasal swab performed at this time - tolerated well
[2022-10-04 06:50] VITALS: BP 178/76; PULSE 66; RESP 22; O2SAT 96
[2022-10-04 07:00] VITALS: BP 156/67; PULSE 62; RESP 19; O2SAT 95
[2022-10-04 07:07] LABS: Add Manual Diff / Slide Review NO; Basophils Absolute Auto 100 /uL (0-100); Basophils Percent Auto 0.9 % (0-2); Eosinophils Absolute Auto 0 /uL (0-450); Eosinophils Percent Auto 0.5 % (2-4); Hematocrit 41.6 % (36-46); Hemoglobin 14.2 g/dL (12.0-16.0); Lymphocytes Absolute Auto 600 /uL (1100-4500); Lymphocytes Percent Auto 9.1 % (25-40); Mean Corpuscular Hemoglobin 29.5 PG (26-34); Mean Corpuscular Volume 86.7 fL (80-100); Monocytes Absolute Auto 800 /uL (0-900); Monocytes Percent Auto 11.4 % (3-14); Neutrophils Absolute Auto 5100 /uL (1500-7000); Neutrophils Percent Auto 78.1 % (50-75); Platelet Count 217 X10^3/uL (150-400); Red Cell Distribution Width 13.4 % (11.6-14.8); White Blood Cell Count 6.6 X10^3/uL (4.5-11.0)
[2022-10-04 07:14] LABS: Alanine Aminotransferase 30 IU/L (<35); Albumin 4.1 g/dL (3.5-5.0); Albumin Globulin Ratio 1.4 (1.0-2.8); Alkaline Phosphatase 84 U/L (38-126); Aspartate Aminotransferase 34 IU/L (14-36); BUN Creatinine Ratio 14.9 (6-22); Bilirubin Total 1.1 mg/dL (0.2-1.3); Blood Urea Nitrogen 10 mg/dL (7-17); Calcium 8.7 mg/dL (8.4-10.2); Carbon Dioxide 24 mmol/L (22-32); Chloride 103 mmol/L (98-107); Creatine Kinase 84 U/L (30-135); Estimated Glomerular Filt Rate > 60 mL/min (>60); Globulin 2.9 g/dL (1.7-4.1); Glucose 101 mg/dL (80-110); HEMOLYSIS < 15 (0-50); Lipase 78 U/L (23-300); Potassium 3.6 mmol/L (3.4-5.1); Sodium 137 mmol/L (137-145)
--- NOTE | 2022-10-04 07:20 | PC.NURSE ---
Report given to dayshift RN team - care relinquished
[2022-10-04 07:26] LABS: NT-proBNP (BNP-Adult 18+) 524 pg/mL (<450); Troponin I < 0.012 ng/mL (0.01-0.034)
[2022-10-04 07:30] VITALS: BP 167/73; PULSE 62; RESP 18; O2SAT 95
[2022-10-04 08:00] VITALS: BP 174/78; PULSE 78; RESP 24; O2SAT 95
[2022-10-04 08:23] LABS: Influenza A - CEPHEID Flu A NEGATIVE (NEGATIVE); Influenza B - CEPHEID Flu B NEGATIVE (NEGATIVE); Respiratory Syncytial Virus Negative (Negative)
[2022-10-04 08:26] LABS: COVID-19 CEPHEID 4-PLEX PCR POSITIVE (Negative)
== END 2022-10-04 09:27 | disposition home or self-care (01) ==
PROVIDERS: Emergency Medicine; Emergency Provider Emergency Medicine; PCP Internal Medicine
DX: U07.1 COVID-19 (principal); I10 Essential (primary) hypertension; R42 Dizziness and giddiness
CPT/HCPCS: 0241U; 36415; 70450; 71045; 80053; 81003; 82550; 83690; 83880; 84484; 85025; 93005; 99284

== ENCOUNTER 2023-02-17 13:36 | Emergency (ER) | payer MEDICARE, SELFPAY ==
[2019-01-12 18:22] VITALS: BMI 26.4
[2023-02-17 14:31] VITALS: BP 216/97; PULSE 64; RESP 18; TEMP 36.6; O2SAT 98; BMI 22.8
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
[2023-02-17 16:33] VITALS: BP 200/95; PULSE 80; RESP 18; O2SAT 97
== END 2023-02-17 16:35 | disposition home or self-care (01) ==
PROVIDERS: Emergency Provider Physician Assistant Medical; PCP Internal Medicine
DX: I10 Essential (primary) hypertension (principal); V89.2XXA Person injured in unspecified motor-vehicle accident, traffic, initial encounter
CPT/HCPCS: 99281

== ENCOUNTER → 2023-06-01 11:53 | Outpatient (CLI) | payer MEDICARE, SELFPAY ==
[2023-05-30 15:33] VITALS: BMI 26.4
[2023-06-01 12:30] LABS: Hematocrit 38.1 % (36-46); Hemoglobin 13.3 g/dL (12.0-16.0); Mean Corpuscular HGB Conc 34.9 % (30-36); Mean Corpuscular Hemoglobin 29.6 PG (26-34); Mean Corpuscular Volume 84.9 fL (80-100); Platelet Count 272 X10^3/uL (150-400); Red Cell Distribution Width 13.6 % (11.6-14.8); White Blood Cell Count 6.8 X10^3/uL (4.5-11.0)
[2023-06-01 12:50] LABS: Alanine Aminotransferase 21 IU/L (<35); Albumin 4.1 g/dL (3.5-5.0); Albumin Globulin Ratio 1.5 (1.0-2.8); Alkaline Phosphatase 86 U/L (38-126); Aspartate Aminotransferase 29 IU/L (14-36); BUN Creatinine Ratio 14.9 (6-22); Bilirubin Total 1.1 mg/dL (0.2-1.3); Blood Urea Nitrogen 14 mg/dL (7-17); Carbon Dioxide 28 mmol/L (22-32); Chloride 102 mmol/L (98-107); Cholesterol 145 mg/dL (140-199); Estimated Glomerular Filt Rate 60 mL/min (>60); Globulin 2.7 g/dL (1.7-4.1); Glucose 100 mg/dL (80-110); HDL Cholesterol 93 mg/dL (40-60); HEMOLYSIS < 15 (0-50); LDL Cholesterol Calculated 37 mg/dL (<100); Sodium 137 mmol/L (137-145); Total Protein 6.8 g/dL (6.3-8.2); Triglycerides 76 mg/dL (35-150)
[2023-06-01 13:18] LABS: TSH w/ Reflex to FT4 1.12 uIU/mL (0.47-4.68)
[2023-06-01 13:54] LABS: Potassium 2.7 mmol/L (3.4-5.1)
== END ==
PROVIDERS: PCP Internal Medicine; Referring Provider Internal Medicine; Visit Provider Internal Medicine
DX: E78.2 Mixed hyperlipidemia (principal); I10 Essential (primary) hypertension; I87.2 Venous insufficiency (chronic) (peripheral); R55 Syncope and collapse
CPT/HCPCS: 36415; 80053; 80061; 84443; 85027

== ENCOUNTER → 2023-06-06 14:14 | Outpatient (CLI) | payer MEDICARE, SELFPAY ==
[2023-05-30 15:33] VITALS: BMI 26.4
[2023-06-06 15:37] LABS: Blood Urea Nitrogen 16 mg/dL (7-17); Carbon Dioxide 24 mmol/L (22-32); Chloride 104 mmol/L (98-107); Estimated Glomerular Filt Rate 60 mL/min (>60); Glucose 109 mg/dL (80-110); HEMOLYSIS < 15 (0-50); Magnesium 1.4 mg/dL (1.6-2.3); Potassium 3.4 mmol/L (3.4-5.1); Sodium 140 mmol/L (137-145)
== END ==
PROVIDERS: PCP Internal Medicine; Referring Provider Internal Medicine; Visit Provider Internal Medicine
DX: E87.6 Hypokalemia (principal)
CPT/HCPCS: 36415; 80048; 83735

== ENCOUNTER → 2024-02-27 15:32 | Outpatient (CLI) | payer MEDICARE, SELFPAY ==
[2023-05-30 15:33] VITALS: BMI 26.4
--- NOTE | 2024-02-27 15:34 | DI.RAD.S_ITS ---
PROCEDURE: XR KNEE RT 3V INDICATIONS: pain TECHNIQUE: 3 views of the knee were acquired. COMPARISON: None. FINDINGS: Bones: Normal mineralization. No acute fractures. Moderate lateral compartment joint space loss, trace subcortical cystic change and small marginal spurs. Mild medial compartment joint space loss. Moderate patellofemoral compartment space loss and small spurs. No suspicious bone lesions. Soft tissues: Small joint effusion. No unusual calcifications. 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 Small joint effusion. Dictated by: Abby De Leon M.D. on 02/27/2024 at 17:08 Approved by: Abby De Leon M.D. on 02/27/2024 at 17:09
== END ==
PROVIDERS: PCP Internal Medicine; Referring Provider Internal Medicine; Visit Provider Internal Medicine
DX: M25.461 Effusion, right knee (principal); M25.561 Pain in right knee
CPT/HCPCS: 73562

== ENCOUNTER 2024-05-28 14:58 | Emergency (ER) | payer MEDICARE, SELFPAY ==
[2023-05-30 15:33] VITALS: BMI 26.4
[2024-05-28 15:10] VITALS: BP 138/65; PULSE 70; RESP 16; TEMP 36.6; O2SAT 99; BMI 20.7
--- NOTE | 2024-05-28 15:45 | DI.RAD.S_ITS ---
PROCEDURE: XR CHEST 1V INDICATIONS: chest pain TECHNIQUE: One view of the chest was acquired. COMPARISON: [facility], CR, XR CHEST 2V, 01/09/2021, 10:07. [facility], CR, XR CHEST 1V, 10/04/2022, 6:33. FINDINGS: Surgical changes and devices: Cholecystectomy clips are seen. Lungs and pleura: Lungs are clear. No pleural effusions or pneumothorax. Mediastinum: The cardiac contours are within normal limits. The aorta demonstrates calcification and tortuosity. Bones and chest wall: No suspicious bony lesions. Age-appropriate bony degenerative changes are seen. Mild levoconvex scoliotic curvature is noted. Overlying soft tissues appear unremarkable. IMPRESSION: No acute cardiopulmonary abnormality is seen. Dictated by: Dejon Castaneda M.D. on 05/28/2024 at 16:07 Approved by: Dejon Castaneda M.D. on 05/28/2024 at 16:08
--- NOTE | 2024-05-28 16:29 | EKG_ITS ---
[place] [address] [address] [place] [id number] Test Date: 2024-05-28 Pat Name: Melissa oCrtes Department: [facility] Room: Gender: Female Family Intervention Specialist: TIESHA : 1940 Requested By: Order Number: [id number] Reading MD: Robert Cortes MD Measurements Intervals [place] Rate: 72 P: 56 [place]: 114 QRS: -49 QRSD: 94 T: 13 QT: 388 QTc: 424 Interpretive Statements Normal sinus rhythm Left axis deviation Pulmonary disease pattern Incomplete right bundle branch block Nonspecific ST and T wave abnormality Electronically Signed On 05-28-2024 16:44:04 PDT by Robert Cortes MD
[2024-05-28 16:30] VITALS: BP 159/76; PULSE 72; RESP 19; O2SAT 98
[2024-05-28 17:00] VITALS: PULSE 76; RESP 23; O2SAT 95
[2024-05-28 17:01] VITALS: BP 202/88; PULSE 79; RESP 18; O2SAT 96
[2024-05-28 17:02] LABS: Add Manual Diff / Slide Review NO; Basophils Absolute Auto 0 /uL (0-100); Basophils Percent Auto 0.4 % (0-2); Eosinophils Absolute Auto 100 /uL (0-450); Eosinophils Percent Auto 0.7 % (2-4); Hematocrit 39.5 % (36-46); Hemoglobin 13.4 g/dL (12.0-16.0); INR 1.1 (0.9-1.3); Lymphocytes Absolute Auto 900 /uL (1100-4500); Lymphocytes Percent Auto 8.9 % (25-40); Mean Corpuscular Hemoglobin 30.4 PG (26-34); Mean Corpuscular Volume 89.3 fL (80-100); Monocytes Absolute Auto 600 /uL (0-900); Monocytes Percent Auto 6.2 % (3-14); Neutrophils Absolute Auto 8500 /uL (1500-7000); Neutrophils Percent Auto 83.8 % (50-75); Platelet Count 237 X10^3/uL (150-400); Prothrombin Time 12.1 SECONDS (9.4-12.5); Red Blood Cell Count 4.42 X10^6/uL (4.0-5.2); Red Cell Distribution Width 13.4 % (11.6-14.8); White Blood Cell Count 10.2 X10^3/uL (4.5-11.0)
[2024-05-28 17:04] LABS: PTT Partial Thromboplastin Tim 29 SECONDS (25.1-36.5)
[2024-05-28 17:12] LABS: Alanine Aminotransferase 27 IU/L (<35); Albumin 4.6 g/dL (3.5-5.0); Albumin Globulin Ratio 1.7 (1.0-2.8); Alkaline Phosphatase 73 U/L (38-126); BUN Creatinine Ratio 20.7 (6-22); Bilirubin Total 1.3 mg/dL (0.2-1.3); Blood Urea Nitrogen 17 mg/dL (7-17); Calcium 9.2 mg/dL (8.4-10.2); Carbon Dioxide 20 mmol/L (22-32); Chloride 104 mmol/L (98-107); Creatine Kinase 94 U/L (30-135); Estimated Glomerular Filt Rate > 60 mL/min (>60); Globulin 2.7 g/dL (1.7-4.1); Glucose 136 mg/dL (80-110); Lipase 95 U/L (23-300); Magnesium 1.6 mg/dL (1.6-2.3); Sodium 134 mmol/L (137-145); Total Protein 7.3 g/dL (6.3-8.2)
[2024-05-28 17:24] LABS: NT-proBNP (BNP-Adult 18+) 424 pg/mL (<450); Troponin I < 0.012 ng/mL (0.01-0.034)
[2024-05-28 17:26] LABS: HEMOLYSIS 225 (0-50)
[2024-05-28 17:27] LABS: Aspartate Aminotransferase 58 IU/L (14-36)
--- NOTE | 2024-05-28 18:22 | ED_ITS ---
HPI - General Adult General Chief complaint: Dizziness Stated complaint: Fainting Spell Time Seen by Provider: 05/28/24 18:00 Source: patient, RN notes reviewed and old records reviewed Mode of arrival: Family Vehicle Limitations: no limitations History of Present Illness HPI narrative: 84-year-old female with history of hypertension, dyslipidemia, GERD, venous insufficiency and mild dementia presents with complaint of syncopal episode. 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 She states she has been feeling a little under the weather today she had had 2 episodes of diarrhea earlier, she states typically she has 1 which has a bowel movement. She was little bit dizzy while she was seated states she felt tired. Also consciousness for about 10-15 seconds according to bystanders and then improved. She had returned home and her friend then brought her here to evaluate. She is since ambulated without issue, states she will feels tired but otherwise well. Denies any fevers or chills, no cold cough or congestion. No chest pain or shortness of breath. Persistent dizziness or syncope. No nausea or vomiting. She notes she did not have want to eat or drink today. She has not had any additional episodes of diarrhea she states no black or bloody stools. She did take Imodium after the 1st episode. States no dysuria urgency or frequency that is new but is up a lot at nighttime for the past month or 2. States she is on medication for hypertension, GERD, statin aspirin. States she has had a prior hysterectomy and cholecystectomy. States she is multiple antibiotic allergies but can tolerate penicillin. Patient states she has a appointment with her primary care next . She is accompanied by a friend. Related Data Home Medications Medication Instructions Recorded Confirmed aspirin 81 mg tablet,delayed 81 mg PO DAILY 06/03/18 04/26/24 release (Adult Aspirin Regimen) cholecalciferol (vitamin D3) 50 50 mcg PO DAILY 02/17/22 04/26/24 mcg (2,000 unit) capsule pyridoxine (vitamin B6) [Vitamin 1 cap PO DAILY PRN 10/27/23 04/26/24 B-6] dorzolamide 22.3 mg-timolol 6.8 EYE-BOTH 04/26/24 04/26/24 mg/mL eye drops latanoprost 0.005 % eye drops drp EYE-BOTH 04/26/24 04/26/24 Previous Rx's Medication Instructions Recorded amlodipine 5 mg tablet 5 mg PO DAILY #90 tabs 05/24/24 omeprazole 20 mg capsule,delayed 20 mg PO BID #180 caps 05/24/24 release rosuvastatin 10 mg tablet 10 mg PO DAILY #90 tabs 05/24/24 cephalexin 500 mg capsule 500 mg PO Q8H 5 days #15 caps 05/28/24 Allergies Allergy/AdvReac Type Severity Reaction Status Date / Time nitrofurantoin Allergy Unknown Verified 04/26/24 13:56 [NITROFURANTOIN] azithromycin Allergy Verified 04/26/24 13:56 cholestyramine Allergy Verified 04/26/24 13:56 clavulanic acid Allergy Verified 04/26/24 13:56 [From Augmentin] gabapentin Allergy Verified 04/26/24 13:56 lisinopril Allergy Verified 04/26/24 13:56 loratadine [From Claritin] Allergy Verified 04/26/24 13:56 neomycin Allergy Verified 04/26/24 13:56 Opioids-Meperidine and Allergy Verified 04/26/24 13:56 Related oseltamivir [From Tamiflu] Allergy Verified 04/26/24 13:56 procaine [From Novocain] Allergy Verified 04/26/24 13:56 Sulfa (Sulfonamide Allergy Verified 04/26/24 13:56 Antibiotics) donepezil [From Aricept] AdvReac Severe Diarrhea Verified 04/26/24 13:56 losartan AdvReac Intermediate GI upset Verified 04/26/24 13:56 Milk Containing Products AdvReac Mild DIARRHEA Verified 04/26/24 13:56 (Dairy) [MILK CONTAINING PRODUCTS] meperidine [MEPERIDINE] AdvReac Unknown Verified 04/26/24 13:56 Review of Systems Review of Systems ROS Unobtainable: All systems reviewed & are unremarkable except as noted in HPI and below Patient History Medical History Dementia Venous (peripheral) insufficiency GERD without esophagitis Polyneuropathy, unspecified Irritable bowel syndrome with diarrhea Do not resuscitate Generalized anxiety disorder Recurrent UTI (urinary tract infection) Sensorineural hearing loss, bilateral Mixed hyperlipidemia Essential hypertension Idiopathic peripheral neuropathy Optic neuropathy, right Hypertension Surgical History History of cholecystectomy History of tonsillectomy History of hysterectomy Family History Father Hypertension Cancer Cardiovascular disease Mother No problems noted. Social History details: lives alone, 3 sons, one estranged, retired household members: none Smoking Status: Never smoker alcohol intake: never Smoking Status: Never smoker alcohol intake frequency: holidays/special occasions only Substance Use Type: does not use Exam Narrative Exam Narrative: GEN: Thin elderly female, alert and oriented x 3, patient appears to be in mild distress. HEENT: Atraumatic, pupils are equal round reactive to light, extraocular movements are intact, nares are clear, there is no conjunctival pallor. Throat is clear without any exudates, erythema, tonsillar enlargement or uvular deviation HEART: Regular rate and rhythm without murmur, clicks, rubs. No JVD. Trace edema bilateral ankles. LUNGS:Lungs clear to auscultation, no wheezes, rales, crackles, chest moves symmetrically, no tachypnea or accessory muscle use ABD:bowel sounds normal, soft, non-tender, no guarding, rebound, rigidity, no masses noted, no hepatosplenomegaly :No CVA tenderness MSCL: Non-tender, no muscle atrophy, muscles strength 5/5 upper and lower extremities, full range of motion NEURO:CN 2-12 intact, sensation normal Initial Vital Signs Initial Vital Signs: Vital Signs Temperature 97.8 F 05/28/24 15:10 Pulse Rate 70 05/28/24 15:10 Respiratory Rate 16 05/28/24 15:10 Blood Pressure 138/65 05/28/24 15:10 Pulse Oximetry 99 05/28/24 15:10 Oxygen Delivery Method Room Air 05/28/24 15:10 Course Orders Ordered: Discontinued Medications Cephalexin HCl (Cephalexin 250 Mg Capsule) 500 mg PO NOW ONE Stop: 05/28/24 18:40 Last Admin: 05/28/24 18:59 Dose: 500 mg Documented By: USMAN Vital Signs Vital signs: Vital Signs - 8 hr 05/28/24 15:10 05/28/24 16:30 05/28/24 16:30 Temperature 97.8 F Pulse Rate 70 72 Respiratory Rate 16 19 Blood Pressure 138/65 159/76 H Pulse Oximetry 99 98 Oxygen Delivery Method Room Air Room Air 05/28/24 17:00 05/28/24 17:01 05/28/24 17:01 Temperature Pulse Rate 76 79 Respiratory Rate 23 18 Blood Pressure 202/88 H Pulse Oximetry 95 96 Oxygen Delivery Method Medical Decision Making Lab Data 05/28/24 16:19 05/28/24 16:19 Labs: Lab Results 05/28/24 05/28/24 Range/Units 16:19 17:04 WBC 10.2 (4.5-11.0) X10^3/uL RBC 4.42 (4.0-5.2) X10^6/uL Hgb 13.4 (12.0-16.0) g/dL Hct 39.5 (36-46) % MCV 89.3 (80-100) fL MCH 30.4 (26-34) PG MCHC 34.0 (30-36) % RDW 13.4 (11.6-14.8) % Plt Count 237 (150-400) X10^3/uL Neut % (Auto) 83.8 H (50-75) % Lymph % (Auto) 8.9 L (25-40) % Harrison % (Auto) 6.2 (3-14) % Eos % (Auto) 0.7 L (2-4) % Baso % (Auto) 0.4 (0-2) % Neut # (Auto) 8500 H (5383-3103) /uL Lymph # (Auto) 900 L (5997-1336) /uL Harrison # (Auto) 600 (0-900) /uL Eos # (Auto) 100 (0-450) /uL Baso # (Auto) 0 (0-100) /uL PT 12.1 (9.4-12.5) SECONDS INR 1.1 (0.9-1.3) APTT 29 (25.1-36.5) SECONDS Sodium 134 L (137-145) mmol/L Potassium 5.0 (3.4-5.1) mmol/L Chloride 104 (98-107) mmol/L Carbon Dioxide 20 L (22-32) mmol/L BUN 17 (7-17) mg/dL Creatinine 0.82 (0.52-1.04) mg/dL Estimated GFR > 60 (>60) mL/min BUN/Creatinine Ratio 20.7 (6-22) Glucose 136 H (80-110) mg/dL Calcium 9.2 (8.4-10.2) mg/dL Magnesium 1.6 (1.6-2.3) mg/dL Total Bilirubin 1.3 (0.2-1.3) mg/dL AST 58 H (14-36) IU/L ALT 27 (<35) IU/L Alkaline Phosphatase 73 (38-126) U/L Total Creatine Kinase 94 (30-135) U/L Troponin I < 0.012 (0.01-0.034) ng/mL NT-Pro-B Natriuret Pep 424 (<450) pg/mL Total Protein 7.3 (6.3-8.2) g/dL Albumin 4.6 (3.5-5.0) g/dL Globulin 2.7 (1.7-4.1) g/dL Albumin/Globulin Ratio 1.7 (1.0-2.8) Lipase 95 (23-300) U/L Urine RBC 1-5/hpf (0-5/HPF) Urine WBC 5-10/hpf H (0-5/HPF) Ur Squamous Epith Cells None seen (0-5/HPF) Urine Bacteria Many (>30) H (None) Ur Culture Indicated? Specimen cultured Vol Urine Centrifuged 10ml (spun) Urine Dip Bedside Urine Glucose Negative Bedside Urine Bilirubin - Negative Bedside Urine Ketone - Negative Urine Specific [place] 1.010 Bedside Urine Occult Blood +/- Bedside Urine pH 6.0 Bedside Urine Protein - Negative Bedside Urine Urobilinogen - Negative Bedside Urine Nitrite + Positive Bedside Urine Leukocytes ++ 125 Esterase Point of care testing: Urine Dip Bedside Urine Glucose Negative Bedside Urine Bilirubin - Negative Bedside Urine Ketone - Negative Urine Specific [place] 1.010 Bedside Urine Occult Blood +/- Bedside Urine pH 6.0 Bedside Urine Protein - Negative Bedside Urine Urobilinogen - Negative Bedside Urine Nitrite + Positive Bedside Urine Leukocytes ++ 125 Esterase ECG Data Attestation: I personally reviewed and interpreted this ECG as follows: Prior ECG tracings: available for review Interpretation: Sinus rhythm rate of 72 MA 114 QRS 84 QTC of 424, no acute ST changes V2 V3 slightly different although appears to be some motion artifact in V3. V2 actually appears similar to prior from 01/14/2019 but different from 10/04/2022 all the others appears similar. [facility] Narrative Medical decision making narrative: 84-year-old female who had 2 episodes of diarrhea which is not atypical but states she did eat or drink much today had an episode of dizziness and then syncope lasting 10-15 seconds. Patient has been ambulating and feeling overall well since although slightly tired immediately afterwards. She states she feels much better at this time. Labs show white count of 10.2 hemoglobin of 13 platelets of 237 predominance of neutrophils. Coags are negative sodium is 134 potassium 5, chloride 104 CO2 is 20 with a BUN of 17 creatinine 0.82 glucose of 136 calcium 9.2 with a Mag 1.6, AST is 58 otherwise negative LFTs, troponins less than 0.012 with a BNP of 424 Point of care urine is nitrate positive as well as leukocyte esterase. Chest x-ray shows no acute change. EKG shows left axis deviation, normal sinus rhythm incomplete right bundle. Patient was ambulated without issue. We will treat for UTI she is noticed she has up a lot at nighttime urinating but this has been going on for some time. Patient is otherwise well-appearing and felt appropriate for discharge home. Discharge Plan Departure Patient Disposition: Home Clinical Impression: Syncope, UTI (urinary tract infection) Instructions: DI for Syncope in Adults (Fainting) Activity Restrictions/Additional Instructions: Follow up with your physician at your scheduled appointment. Your urine did show changes consistent with infection, take antibiotics until completed. Your prescription was sent to [facility] in [place]. Take the cephalexin, 1 tablet every 8 hours x5 days Please return for fevers, recurrent episodes of lightheadedness or passing out, severe headaches new chest pain or shortness of breath, persistent vomiting, black or bloody stools, difficulty with urination or other new or concerning changes. Prescriptions: New cephalexin 500 mg capsule 500 mg PO Q8H 5 Days Qty: 15 0RF No Action aspirin [Adult Aspirin Regimen] 81 mg tablet,delayed release (DR/EC) 81 mg PO DAILY rosuvastatin 10 mg tablet 10 mg PO DAILY Qty: 90 0RF amlodipine 5 mg tablet 5 mg PO DAILY Qty: 90 0RF omeprazole 20 mg capsule,delayed release(DR/EC) 20 mg PO BID Qty: 180 0RF pyridoxine (vitamin B6) [Vitamin B-6] 1 cap PO DAILY PRN dorzolamide-timolol 22.3-6.8 mg/mL drops EYE-BOTH latanoprost 0.005 % drops EYE-BOTH cholecalciferol (vitamin D3) 50 mcg (2,000 unit) capsule 50 mcg PO DAILY Referrals: Vic Duque MD [Primary Care Provider] - Stand Alone Forms: Patient Portal/API
[2024-05-28 18:40] LABS: Bacteria Urine Many (>30); RBC Urine 1-5/HPF (0-5/HPF); Urine Volume 10mL (spun); WBC Urine 5-10/HPF (0-5/HPF)
[2024-05-28 18:41] LABS: Culture Indicated Urine Specimen Cultured; Squamous Epithelial Cell Urine None Seen (0-5/HPF)
[2024-05-28] MEDS: cephALEXin 250 MG CAPSULE 500 MG PO (18:59)
== END 2024-05-28 19:04 | disposition home or self-care (01) ==
PROVIDERS: Emergency Medicine; Emergency Provider Emergency Medicine; PCP Internal Medicine
DX: R55 Syncope and collapse (principal); N39.0 Urinary tract infection, site not specified; R19.7 Diarrhea, unspecified; R07.9 Chest pain, unspecified
CPT/HCPCS: 36415; 71045; 80053; 81003; 81015; 82550; 83690; 83735; 83880; 84484; 85025; 85610; 85730; 87077; 87086; 87186; 93005; 99284

== ENCOUNTER → 2024-11-25 14:22 | Outpatient (CLI) | payer MEDICARE, SELFPAY ==
[2023-05-30 15:33] VITALS: BMI 26.4
== END ==
PROVIDERS: PCP Internal Medicine; Visit Provider Nurse Practitioner Family
DX: R30.0 Dysuria (principal)
CPT/HCPCS: 87077; 87086; 87186

== ENCOUNTER 2024-12-06 11:42 | Inpatient (IN) | payer MEDICARE, SELFPAY ==
[2023-05-30 15:33] VITALS: BMI 26.4
[2024-12-06] VITALS (21 sets, daily range): BP systolic 95–201; BP diastolic 58–98; PULSE 72–91; RESP 12–22; TEMP 36.2–36.6; O2SAT 95–100; BMI 19.8
--- NOTE | 2024-12-06 | DI.RAD.S_ITS ---
PROCEDURE: XR CHEST 1V INDICATIONS: ground level fall TECHNIQUE: One view of the chest was acquired. COMPARISON: [facility], CR, XR CHEST 1V, 05/28/2024, 15:51. FINDINGS: Surgical changes and devices: None. Lungs and pleura: Lungs are clear. No pleural effusions or pneumothorax. Mediastinum: Mediastinal contours appear normal. Heart size is normal. Bones and chest wall: No suspicious bony lesions. Overlying soft tissues appear unremarkable. IMPRESSION: No acute cardiopulmonary abnormality is seen. Dictated by: Jad Graham M.D. on 12/06/2024 at 14:26 Approved by: Jad Graham M.D. on 12/06/2024 at 14:28
--- NOTE | 2024-12-06 11:58 | EKG_ITS ---
[address] [id number] [address] [address] Test Date: 2024-12-06 Pat Name: Melissa Cortes Department: Room: 209 Gender: Female Para Educator: SHAY : 1940 Requested By: Order Number: [id number] Reading MD: Robert Cortes MD Measurements Intervals [place] Rate: 71 P: 78 [place]: 112 QRS: -51 QRSD: 102 T: 40 QT: 404 QTc: 439 Interpretive Statements Normal sinus rhythm Left axis deviation Incomplete right bundle branch block (old) Electronically Signed On 12-07-2024 7:24:01 PST by Robert Cortes MD
--- NOTE | 2024-12-06 12:01 | DI.CT.S_ITS ---
PROCEDURE: CT HEAD/BRAIN WO CON INDICATIONS: Unwitness fall TECHNIQUE: Noncontrast 4.5 mm thick angled axial sections acquired from the foramen magnum to the vertex, with coronal and sagittal reformats. For radiation dose reduction, the following was used: automated exposure control, adjustment of mA and/or kV according to patient size. COMPARISON: [facility], CT, CT HEAD/BRAIN WO CON, 10/04/2022, 6:19. [facility], CT, CT HEAD/BRAIN WO CON, 03/21/2021, 9:22. FINDINGS: Image quality: Diagnostic. CSF spaces: Basal cisterns are patent. No extra-axial fluid collections. The ventricles are symmetric in size and shape. Brain: No intracranial bleeds or masses. There is cerebral volume loss for age, with resultant ventricular and sulcal prominence. There are periventricular and deep white matter chronic small vessel ischemic changes. There is intracranial internal carotid artery atherosclerosis. Skull and face: Calvarium and visualized facial bones appear intact, without suspicious lesions. Sinuses: Visualized sinuses and mastoids are clear. IMPRESSION: No acute intracranial pathology. Age related microvascular atherosclerotic changes again noted within the deep white matter of each hemisphere. No trauma seen. Dictated by: Deshawn Quach M.D. on 12/06/2024 at 12:55 Approved by: Deshawn Quach M.D. on 12/06/2024 at 12:56
--- NOTE | 2024-12-06 12:01 | DI.CT.S_ITS ---
PROCEDURE: CT ANGIO HEAD AND NECK INDICATIONS: unwitnessed fall TECHNIQUE: After the administration of intravenous contrast, 1 mm thick sections acquired from the aortic arch through the [place] of [place]. 3-dimensional crmxryi-oupdksies-slwlvwgwue (MIP) and/or volume rendering reformats were acquired of the central intracranial vasculature and neck separately. For radiation dose reduction, the following was used: automated exposure control, adjustment of mA and/or kV according to patient size. COMPARISON: None. FINDINGS: Image quality: Diagnostic. BRAIN: No significant change since same day head CT. HEAD CT ANGIOGRAPHY: Anterior circulation: Intracranial internal carotid arteries are normal in size and flow. The flow within the paired anterior cerebral arteries is normal and symmetric. The flow within the middle cerebral arteries is normal and symmetric. The anterior communicating artery is seen. No aneurysms are seen. Posterior circulation: Visualized portions of the vertebral arteries demonstrate normal caliber, and join to form a normal appearing basilar artery. Flow within the posterior cerebral arteries is normal and symmetric. No aneurysms are seen. NECK CT ANGIOGRAPHY: Carotid system: The great vessels demonstrate a conventional anatomy as they arise from the aortic arch. The origins of the common carotid arteries appear patent. The common carotid arteries demonstrate normal caliber and courses. The bifurcation regions are both widely patent. The internal carotid arteries demonstrate normal calibers and courses. Posterior circulation: The origins of the vertebral arteries both appear widely patent. The left vertebral artery is atrophic The more superior extracranial portions of both vertebral arteries also demonstrate normal courses. They join to form a normal appearing basilar artery. Soft tissues: Visualized neck soft tissues demonstrate no suspicious abnormalities. Bones: No suspicious bony lesions. Visualized cervical spine appears normally aligned. Other: Dependent centrilobular nodules in the right upper lobe and left lower lobe. IMPRESSION: No significant intracranial arterial abnormality is seen. No significant abnormality is seen within the arteries of the neck. Dependent centrilobular nodules in the lungs, concerning for aspiration. Correlate with risk factors and consider speech pathology referral. No acute, displaced fracture or traumatic subluxation. Any quantitative measurements of stenosis were performed using NASCET criteria. Dictated by: Yoni Perez M.D. on 12/06/2024 at 13:25 Approved by: Yoni Perez M.D. on 12/06/2024 at 13:29
[2024-12-06 12:12] LABS: INR 1.1 (0.9-1.3)
[2024-12-06 12:14] LABS: PTT Partial Thromboplastin Tim 30 SECONDS (25.1-36.5)
[2024-12-06 12:15] LABS: Add Manual Diff / Slide Review NO; Basophils Absolute Auto 0 /uL (0-100); Basophils Percent Auto 0.3 % (0-2); Eosinophils Absolute Auto 0 /uL (0-450); Hematocrit 43.5 % (36-46); Hemoglobin 14.8 g/dL (12.0-16.0); Lymphocytes Absolute Auto 300 /uL (1100-4500); Lymphocytes Percent Auto 1.6 % (25-40); Mean Corpuscular HGB Conc 34.1 % (30-36); Monocytes Absolute Auto 1000 /uL (0-900); Monocytes Percent Auto 5.2 % (3-14); Neutrophils Absolute Auto 17900 /uL (1500-7000); Neutrophils Percent Auto 92.9 % (50-75); Platelet Count 284 X10^3/uL (150-400); Red Blood Cell Count 4.94 X10^6/uL (4.0-5.2); Red Cell Distribution Width 13.4 % (11.6-14.8); White Blood Cell Count 19.3 X10^3/uL (4.5-11.0)
[2024-12-06 12:22] LABS: Alanine Aminotransferase 46 IU/L (<35); Albumin 4.6 g/dL (3.5-5.0); Albumin Globulin Ratio 1.8 (1.0-2.8); Alkaline Phosphatase 99 U/L (38-126); Aspartate Aminotransferase 86 IU/L (14-36); BUN Creatinine Ratio 34.3 (6-22); Bilirubin Total 2.3 mg/dL (0.2-1.3); Blood Urea Nitrogen 23 mg/dL (7-17); Calcium 9.7 mg/dL (8.4-10.2); Carbon Dioxide 18 mmol/L (22-32); Chloride 104 mmol/L (98-107); Estimated Glomerular Filt Rate > 60 mL/min (>60); Globulin 2.5 g/dL (1.7-4.1); Glucose 135 mg/dL (80-110); Lipase 27 U/L (23-300); Magnesium 1.7 mg/dL (1.6-2.3); Potassium 3.2 mmol/L (3.4-5.1); Sodium 135 mmol/L (137-145); Total Protein 7.1 g/dL (6.3-8.2)
[2024-12-06 12:23] LABS: Lactate (Lactic Acid) 3.1 mmol/L (0.7-2.1)
--- NOTE | 2024-12-06 12:28 | ED.SYNCOPE ---
HPI - Syncope General Chief Complaint: Trauma Stated Complaint: GLF Time Seen by Provider: 12/06/24 12:01 Source: EMS Mode of arrival: EMS History of Present Illness HPI narrative: 84-year-old female with a past medical history of hyperlipidemia mild dementia comes into the ED from home via EMS for evaluation of unwitnessed fall. Patient states that the last thing she remembers was waking up to people coming into her house, these were apparently metal numerical control programmer's who was scheduled to do work at patient's house. At arrival EMS states patient A&O x4 no focal deficits but unable to stand bear weight ambulate, she states that she believes she may have fallen/passed out yesterday and is now too weak to get up, she normally is able to stand walk with a walker. She denies any pain but does feel generalized weakness, she states that she did complete a course of antibiotics for urinary tract infection, unsure of tetanus vaccination, family at bedside state patient is at her baseline, but does look a lot weaker than normal. She denies any symptoms such as chest pain shortness of breath fever chills nausea vomiting abdominal pain or any other GI/ symptoms at this time. Related Data Home Medications Medication Instructions Recorded Confirmed aspirin 81 mg tablet,delayed 81 mg PO DAILY 06/03/18 11/25/24 release (Adult Aspirin Regimen) cholecalciferol (vitamin D3) 50 50 mcg PO DAILY 02/17/22 11/25/24 mcg (2,000 unit) capsule pyridoxine (vitamin B6) [Vitamin 1 cap PO DAILY PRN 10/27/23 11/25/24 B-6] dorzolamide 22.3 mg-timolol 6.8 EYE-BOTH 04/26/24 11/25/24 mg/mL eye drops latanoprost 0.005 % eye drops drp EYE-BOTH 04/26/24 11/25/24 Previous Rx's Medication Instructions Recorded amlodipine 10 mg tablet 10 mg PO DAILY #90 tabs 10/11/24 omeprazole 20 mg capsule,delayed 20 mg PO BID #180 caps 10/11/24 release rosuvastatin 10 mg tablet 10 mg PO DAILY #90 tabs 10/11/24 cefdinir 300 mg capsule 300 mg PO BID #10 caps 11/25/24 Allergies Allergy/AdvReac Type Severity Reaction Status Date / Time nitrofurantoin Allergy Unknown Verified 09/05/24 13:32 [NITROFURANTOIN] azithromycin Allergy Verified 09/05/24 13:32 cholestyramine Allergy Verified 09/05/24 13:32 clavulanic acid Allergy Verified 09/05/24 13:32 [From Augmentin] gabapentin Allergy Verified 09/05/24 13:32 lisinopril Allergy Verified 09/05/24 13:32 loratadine [From Claritin] Allergy Verified 09/05/24 13:32 neomycin Allergy Verified 09/05/24 13:32 Opioids-Meperidine and Allergy Verified 09/05/24 13:32 Related oseltamivir [From Tamiflu] Allergy Verified 09/05/24 13:32 procaine [From Novocain] Allergy Verified 09/05/24 13:32 Sulfa (Sulfonamide Allergy Verified 09/05/24 13:32 Antibiotics) donepezil [From Aricept] AdvReac Severe Diarrhea Verified 09/05/24 13:32 cephalexin AdvReac Intermediate Verified 09/05/24 13:32 losartan AdvReac Intermediate GI upset Verified 09/05/24 13:32 Milk Containing Products AdvReac Mild DIARRHEA Verified 09/05/24 13:32 (Dairy) [MILK CONTAINING PRODUCTS] meperidine [MEPERIDINE] AdvReac Unknown Verified 09/05/24 13:32 Review of Systems Review of Systems Narrative: General: Positive generalized weakness, Denies fever, chills, weight loss HEENT: Denies headache, eye drainage, eye irritation, head trauma, sore throat, voice change Cardiovascular: Denies any chest pain, palpitations, shortness of breath, tachycardia Respiratory: Denies any shortness of breath, cough, wheeze, stridor GI/: Denies any abdominal pain, nausea, vomiting, diarrhea, bright red blood per rectum, melanotic stools, urinary frequency, urinary retention, dysuria, hematuria MSK: Denies any joint pain, muscle pains, swelling Skin: Denies any rashes, lesions, discoloration Neuro: Positive syncope, generalized weakness Denies any headache, lightheadedness, dizziness, Psych: Denies SI/HI Patient History Medical History (Updated 12/06/24 @ 16:20 by Dat Casper DO) Unilateral primary osteoarthritis, right knee Dementia Venous (peripheral) insufficiency GERD without esophagitis Polyneuropathy, unspecified Irritable bowel syndrome with diarrhea Do not resuscitate Generalized anxiety disorder Recurrent UTI (urinary tract infection) Sensorineural hearing loss, bilateral Mixed hyperlipidemia Essential hypertension Idiopathic peripheral neuropathy Optic neuropathy, right Hypertension Surgical History History of cholecystectomy History of tonsillectomy History of hysterectomy Family History Father Hypertension Cancer Cardiovascular disease Mother No problems noted. Social History details: lives alone, 3 sons, one estranged, retired household members: none Smoking Status: Never smoker alcohol intake: never Smoking Status: Never smoker alcohol intake frequency: holidays/special occasions only Exam Narrative Exam Narrative: General: Frail, cachectic Cooperative, comfortable, not in acute distress HEENT: Small abrasion noted to the top of the right eyebrow not actively bleeding, ecchymosis noted to the right forehead/sabianist, PERRLA, normal sclera, eyelids normal, Neck: Active full range of motion, atraumatic, patient in C-collar for precautions Chest: Normal to inspection, negative crepitus, no overlying erythema ecchymosis Respiratory: Normal respiratory effort, not in acute respiratory distress, clear to auscultation bilaterally negative cough, wheeze, tachypnea, rhonchi, rales Cardiology: Regular rate rhythm negative gallop, murmur, rubs GI/: Normal to inspection, soft, nonrigid, no tenderness to palpation, exam deferred MSK: Patient with no tenderness palpation of any bony prominences however patient with pain with passive motion of the right hip neurovascularly intact no crepitus Skin: No rashes lesions noted Neuro: Alert awake oriented x3, moves all 4 extremities spontaneously, cranial nerves intact, able to answer all questions appropriately follows commands appropriately Psych: Cooperative, negative suicidal or homicidal ideations Initial Vital Signs Initial Vital Signs: Vital Signs Pulse Rate 78 12/06/24 11:44 Respiratory Rate 20 12/06/24 11:44 Blood Pressure 133/70 12/06/24 11:44 Pulse Oximetry 100 12/06/24 11:44 Oxygen Delivery Method Room Air 12/06/24 11:44 Course Orders Ordered: ED Orders 12/06/24 11:50 CBC Auto Diff [Complete Blood Count AUTO DIFF] Stat CMP [Comprehensive Metabolic Panel] Stat Lactate (Lactic Acid) Stat Lipase Stat MAG [Magnesium] Stat NT-proBNP (BNP-Adult 18+) Stat PT [Prothrombin Time INR] Stat PTT Partial Thromboplastin Alex Stat Troponin & CK Cardiac Panel Stat 12/06/24 12:01 CT angio head and neck Stat CT head/brain wo con Stat 12/06/24 12:09 Covid-19 + FLU A/B + RSV - PCR Stat 12/06/24 13:30 Urinalysis and Microscopic Stat 12/06/24 14:53 CT chest abd pel w con Stat 12/06/24 16:35 Troponin & CK Cardiac Panel Stat 12/06/24 16:44 XR hip w pel if done RT 2V Stat Acetaminophen (Acetaminophen 325 Mg Tablet) 650 mg PO Q6H PRN PRN Reason: Fever/Mild Pain (1-3) Enoxaparin Sodium (Enoxaparin 40 Mg/0.4 Ml Syringe) 40 mg SUBCUT DAILY CARLI Sodium Chloride (Normal Saline 0.9%) 1,000 mls @ 100 mls/hr IV CONT CARLI Naloxone HCl (Naloxone 0.4 Mg/Ml Vial) 0.2 mg IV Q2MIN PRN PRN Reason: Opiate Reversal Ondansetron HCl (Ondansetron 4 Mg/2 Ml Inj) 4 mg IV Q8HR PRN PRN Reason: Nausea And Vomiting Discontinued Medications Diphtheria/Tetanus/Acell Pertussis (Tet,Diph,Pertuss(Acell),Vac/Pf 0.5 Ml Syringe) 0.5 ml IM .ONCE ONE Stop: 12/06/24 12:28 Last Admin: 12/06/24 12:49 Dose: 0.5 ml Documented By: JS Sodium Chloride (Normal Saline 0.9%) 1,000 mls @ 1,000 mls/hr IV BOLUS ONE Stop: 12/06/24 13:26 Last Infusion: 12/06/24 13:30 Dose: Infused Documented By: Admin: 12/06/24 12:49 Dose: 1,000 mls/hr Documented By: JS Ceftriaxone Sodium 1,000 mg/ (Sodium Chloride) 100 mls @ 200 mls/hr IV NOW ONE Stop: 12/06/24 16:17 Last Admin: 12/06/24 16:56 Dose: 200 mls/hr Documented By: JAIMIE Doxycycline Hyclate 100 mg/ (Sodium Chloride) 100 mls @ 100 mls/hr IV NOW ONE Stop: 12/06/24 16:17 Vital Signs Vital signs: Vital Signs - 8 hr 12/06/24 11:44 12/06/24 11:51 12/06/24 11:52 Temperature Pulse Rate 78 76 77 Respiratory Rate 20 19 14 Blood Pressure 133/70 Pulse Oximetry 100 97 97 Oxygen Delivery Method Room Air 12/06/24 11:52 12/06/24 11:55 12/06/24 12:00 Temperature 97.2 F L Pulse Rate Respiratory Rate Blood Pressure 134/62 121/58 L Pulse Oximetry Oxygen Delivery Method 12/06/24 12:00 12/06/24 12:30 12/06/24 12:30 Temperature Pulse Rate 80 72 Respiratory Rate 20 18 Blood Pressure 131/59 L Pulse Oximetry 97 97 Oxygen Delivery Method 12/06/24 12:47 12/06/24 12:47 12/06/24 13:00 Temperature Pulse Rate 85 77 Respiratory Rate 19 15 Blood Pressure 95/60 Pulse Oximetry 96 96 Oxygen Delivery Method 12/06/24 13:01 12/06/24 13:01 12/06/24 13:30 Temperature Pulse Rate 77 82 Respiratory Rate 15 12 Blood Pressure 155/70 H Pulse Oximetry 96 97 Oxygen Delivery Method 12/06/24 13:30 12/06/24 14:00 12/06/24 14:00 Temperature Pulse Rate 76 Respiratory Rate 14 Blood Pressure 153/70 H 134/63 Pulse Oximetry 96 Oxygen Delivery Method 12/06/24 14:30 12/06/24 14:30 12/06/24 15:00 Temperature Pulse Rate 83 Respiratory Rate 22 Blood Pressure 140/63 146/69 H Pulse Oximetry 97 Oxygen Delivery Method 12/06/24 15:00 12/06/24 15:30 12/06/24 16:08 Temperature Pulse Rate 82 91 H 84 Respiratory Rate 17 20 Blood Pressure Pulse Oximetry 97 97 97 Oxygen Delivery Method Room Air MDM - Syncope Differential Diagnosis Differential diagnosis: Likely subarachnoid hemorrhage, dehydration and other (ACS, pneumonia, electrolyte abnormality, urinary tract infection intracranial hemorrhage, stroke) Lab Data 12/06/24 11:50 12/06/24 11:50 Labs: Lab Results 12/06/24 12/06/24 12/06/24 Range/Units 11:50 12:09 13:30 WBC 19.3 H (4.5-11.0) X10^3/uL RBC 4.94 (4.0-5.2) X10^6/uL Hgb 14.8 (12.0-16.0) g/dL Hct 43.5 (36-46) % MCV 88.0 (80-100) fL MCH 30.0 (26-34) PG MCHC 34.1 (30-36) % RDW 13.4 (11.6-14.8) % Plt Count 284 (150-400) X10^3/uL Neut % (Auto) 92.9 H (50-75) % Lymph % (Auto) 1.6 L (25-40) % Taylor % (Auto) 5.2 (3-14) % Eos % (Auto) 0.0 L (2-4) % Baso % (Auto) 0.3 (0-2) % Neut # (Auto) 90659 H (9399-6926) /uL Lymph # (Auto) 300 L (3566-3716) /uL Taylor # (Auto) 1000 H (0-900) /uL Eos # (Auto) 0 (0-450) /uL Baso # (Auto) 0 (0-100) /uL PT 13.0 H (9.4-12.5) SECONDS INR 1.1 (0.9-1.3) APTT 30 (25.1-36.5) SECONDS Sodium 135 L (137-145) mmol/L Potassium 3.2 L (3.4-5.1) mmol/L Chloride 104 (98-107) mmol/L Carbon Dioxide 18 L (22-32) mmol/L BUN 23 H (7-17) mg/dL Creatinine 0.67 (0.52-1.04) mg/dL Estimated GFR > 60 (>60) mL/min BUN/Creatinine Ratio 34.3 H (6-22) Glucose 135 H (80-110) mg/dL Lactate 3.1 H (0.7-2.1) mmol/L Calcium 9.7 (8.4-10.2) mg/dL Magnesium 1.7 (1.6-2.3) mg/dL Total Bilirubin 2.3 H (0.2-1.3) mg/dL AST 86 H (14-36) IU/L ALT 46 H (<35) IU/L Alkaline Phosphatase 99 (38-126) U/L Total Creatine Kinase 2201 H (30-135) U/L Troponin I 0.056 H (0.01-0.034) ng/mL NT-Pro-B Natriuret Pep 1840 H (<450) pg/mL Total Protein 7.1 (6.3-8.2) g/dL Albumin 4.6 (3.5-5.0) g/dL Globulin 2.5 (1.7-4.1) g/dL Albumin/Globulin Ratio 1.8 (1.0-2.8) Lipase 27 (23-300) U/L Urine Color Yellow Urine Appearance Clear Urine pH 6.5 (4.5-8.0) Ur Specific [place] 1.020 (1.000-1.035) Urine Protein 2+ H (Negative) Urine Glucose (UA) Negative (Negative) g/dL Urine Ketones 1+ H (NEGATIVE) Urine Occult Blood 3+ H (Negative) Urine Nitrate Negative (Negative) Urine Bilirubin Negative (NEGATIVE) Urine Urobilinogen 0.2 (0.2) E.U./dL Ur Leukocyte Esterase Negative (NEGATIVE) Urine RBC 1-5/hpf (0-5/HPF) Urine WBC 0-1/hpf (0-5/HPF) Ur Squamous Epith Cells 0-1 /hpf (0-5/HPF) Urine Bacteria Occasional (0-1) (None) Ur Culture Indicated? Cult not indicated Vol Urine Centrifuged 10ml (spun) SARS-CoV-2 (PCR) Negative (Negative) Influenza A (RT-PCR) Flu a negative (NEGATIVE) Influenza B (RT-PCR) Flu b negative (NEGATIVE) RSV (PCR) Negative (Negative) 12/06/24 12/06/24 Range/Units 14:05 16:35 WBC (4.5-11.0) X10^3/uL RBC (4.0-5.2) X10^6/uL Hgb (12.0-16.0) g/dL Hct (36-46) % MCV (80-100) fL MCH (26-34) PG MCHC (30-36) % RDW (11.6-14.8) % Plt Count (150-400) X10^3/uL Neut % (Auto) (50-75) % Lymph % (Auto) (25-40) % Taylor % (Auto) (3-14) % Eos % (Auto) (2-4) % Baso % (Auto) (0-2) % Neut # (Auto) (4456-1243) /uL Lymph # (Auto) (5514-7392) /uL Taylor # (Auto) (0-900) /uL Eos # (Auto) (0-450) /uL Baso # (Auto) (0-100) /uL PT (9.4-12.5) SECONDS INR (0.9-1.3) APTT (25.1-36.5) SECONDS Sodium (137-145) mmol/L Potassium (3.4-5.1) mmol/L Chloride (98-107) mmol/L Carbon Dioxide (22-32) mmol/L BUN (7-17) mg/dL Creatinine (0.52-1.04) mg/dL Estimated GFR (>60) mL/min BUN/Creatinine Ratio (6-22) Glucose (80-110) mg/dL Lactate 1.4 (0.7-2.1) mmol/L Calcium (8.4-10.2) mg/dL Magnesium (1.6-2.3) mg/dL Total Bilirubin (0.2-1.3) mg/dL AST (14-36) IU/L ALT (<35) IU/L Alkaline Phosphatase (38-126) U/L Total Creatine Kinase 2235 H (30-135) U/L Troponin I 0.076 H (0.01-0.034) ng/mL NT-Pro-B Natriuret Pep (<450) pg/mL Total Protein (6.3-8.2) g/dL Albumin (3.5-5.0) g/dL Globulin (1.7-4.1) g/dL Albumin/Globulin Ratio (1.0-2.8) Lipase (23-300) U/L Urine Color Urine Appearance Urine pH (4.5-8.0) Ur Specific Ripley (1.000-1.035) Urine Protein (Negative) Urine Glucose (UA) (Negative) g/dL Urine Ketones (NEGATIVE) Urine Occult Blood (Negative) Urine Nitrate (Negative) Urine Bilirubin (NEGATIVE) Urine Urobilinogen (0.2) E.U./dL Ur Leukocyte Esterase (NEGATIVE) Urine RBC (0-5/HPF) Urine WBC (0-5/HPF) Ur Squamous Epith Cells (0-5/HPF) Urine Bacteria (None) Ur Culture Indicated? Vol Urine Centrifuged SARS-CoV-2 (PCR) (Negative) Influenza A (RT-PCR) (NEGATIVE) Influenza B (RT-PCR) (NEGATIVE) RSV (PCR) (Negative) Imaging Data CT scan - head: Radiologist's Impression: [address] [address] [address] Scan Report Signed Patient: Melissa Cortes MR#: [id number] : 1940 Acct:[id number] Age/Sex: 84 / F Date of Service: 12/06/24 Loc: ED Accession Number: [id number] Procedure: CT head/brain wo con Ordering Provider: Dat Casper D.O. PROCEDURE: CT HEAD/BRAIN WO CON INDICATIONS: Unwitness fall TECHNIQUE: Noncontrast 4.5 mm thick angled axial sections acquired from the foramen magnum to the vertex, with coronal and sagittal reformats. For radiation dose reduction, the following was used: automated exposure control, adjustment of mA and/or kV according to patient size. COMPARISON: [facility], CT, CT HEAD/BRAIN WO CON, 10/04/2022, 6:19. [facility], CT, CT HEAD/BRAIN WO CON, 03/21/2021, 9:22. FINDINGS: Image quality: Diagnostic. CSF spaces: Basal cisterns are patent. No extra-axial fluid collections. The ventricles are symmetric in size and shape. Brain: No intracranial bleeds or masses. There is cerebral volume loss for age, with resultant ventricular and sulcal prominence. There are periventricular and deep white matter chronic small vessel ischemic changes. There is intracranial internal carotid artery atherosclerosis. Skull and face: Calvarium and visualized facial bones appear intact, without suspicious lesions. Sinuses: Visualized sinuses and mastoids are clear. IMPRESSION: No acute intracranial pathology. Age related microvascular atherosclerotic changes again noted within the deep white matter of each hemisphere. No trauma seen. CT angio head and neck: Radiologist's Impression: [address] [address] [address] Scan Report Signed Patient: Melissa Cortes MR#: [id number] : 1940 Acct:[id number] Age/Sex: 84 / F Date of Service: 12/06/24 Loc: ED Accession Number: [id number] Procedure: CT angio head and neck Ordering Provider: Dat Casper D.O. PROCEDURE: CT ANGIO HEAD AND NECK INDICATIONS: unwitnessed fall TECHNIQUE: After the administration of intravenous contrast, 1 mm thick sections acquired from the aortic arch through the [place] of [place]. 3-dimensional hiycgre-ghzlibimb-wemcofofov (MIP) and/or volume rendering reformats were acquired of the central intracranial vasculature and neck separately. For radiation dose reduction, the following was used: automated exposure control, adjustment of mA and/or kV according to patient size. COMPARISON: None. FINDINGS: Image quality: Diagnostic. BRAIN: No significant change since same day head CT. HEAD CT ANGIOGRAPHY: Anterior circulation: Intracranial internal carotid arteries are normal in size and flow. The flow within the paired anterior cerebral arteries is normal and symmetric. The flow within the middle cerebral arteries is normal and symmetric. The anterior communicating artery is seen. No aneurysms are seen. Posterior circulation: Visualized portions of the vertebral arteries demonstrate normal caliber, and join to form a normal appearing basilar artery. Flow within the posterior cerebral arteries is normal and symmetric. No aneurysms are seen. NECK CT ANGIOGRAPHY: Carotid system: The great vessels demonstrate a conventional anatomy as they arise from the aortic arch. The origins of the common carotid arteries appear patent. The common carotid arteries demonstrate normal caliber and courses. The bifurcation regions are both widely patent. The internal carotid arteries demonstrate normal calibers and courses. Posterior circulation: The origins of the vertebral arteries both appear widely patent. The left vertebral artery is atrophic The more superior extracranial portions of both vertebral arteries also demonstrate normal courses. They join to form a normal appearing basilar artery. Soft tissues: Visualized neck soft tissues demonstrate no suspicious abnormalities. Bones: No suspicious bony lesions. Visualized cervical spine appears normally aligned. Other: Dependent centrilobular nodules in the right upper lobe and left lower lobe. IMPRESSION: No significant intracranial arterial abnormality is seen. No significant abnormality is seen within the arteries of the neck. Dependent centrilobular nodules in the lungs, concerning for aspiration. Correlate with risk factors and consider speech pathology referral. No acute, displaced fracture or traumatic subluxation. Chest x-ray: Radiologist's Impression: [address] [address] XRay Report Signed Patient: Melissa Cortes MR#: [id number] : 1940 Acct:[id number] Age/Sex: 84 / F Date of Service: 12/06/24 Loc: ED Accession Number: [id number] Procedure: XR chest 1V Ordering Provider: Dat Casper D.O. PROCEDURE: XR CHEST 1V INDICATIONS: ground level fall TECHNIQUE: One view of the chest was acquired. COMPARISON: [facility], , XR CHEST 1V, 05/28/2024, 15:51. FINDINGS: Surgical changes and devices: None. Lungs and pleura: Lungs are clear. No pleural effusions or pneumothorax. Mediastinum: Mediastinal contours appear normal. Heart size is normal. Bones and chest wall: No suspicious bony lesions. Overlying soft tissues appear unremarkable. IMPRESSION: No acute cardiopulmonary abnormality is seen. ct chest abd pelvis: Radiologist's Impression: [address] [address] [address] Scan Report Signed Patient: Melissa Cortes MR#: [id number] : 1940 Acct:[id number] Age/Sex: 84 / F Date of Service: 12/06/24 Loc: ED Accession Number: [id number] Procedure: CT chest abd pel w con Ordering Provider: Dat Casper D.O. PROCEDURE: CT CHEST ABD PEL W CON INDICATIONS: sepsis, found down on floor TECHNIQUE: After the administration of intravenous contrast, 5 mm thick sections acquired from the lung apices to the symphysis. 5 mm coronal and sagittal reformats were performed, with additional 7 mm MIP reformats through the lungs. For radiation dose reduction, the following was used: automated exposure control, adjustment of mA and/or kV according to patient size. COMPARISON: None. FINDINGS: Image quality: Excellent. CHEST: Lower Neck: No enlarged lymph nodes. Thyroid: No thyroid nodules which require sonographic follow up, per consensus guidelines. Multiple small thyroid nodules period Axillae: No enlarged lymph nodes. Chest Wall: Unremarkable. Lungs and Pleura: No pneumothorax or pleural effusions. Trace dependent consolidation and ground-glass, most prominent in the left lower lobe. Heart: Heart size is normal. No pericardial effusion. Thoracic Vessels: The aorta and pulmonary arteries demonstrate normal size. Mediastinum and Marlene: No enlarged lymph nodes. Esophagus: No wall thickening. Small hiatal hernia. ABDOMEN: Liver: No solid mass. Gallbladder: Absent. Biliary ducts: No intrahepatic or extrahepatic biliary dilation, accounting for a post cholecystectomy state. Pancreas: No ductal dilation. Spleen: Size is within normal limits. Adrenal Glands: No adrenal nodules. Kidneys and Ureters: No hydronephrosis. No solid mass. No complex renal cystic lesion which requires follow up. Stomach and Bowel: Normal colonic caliber, without significant wall thickening. Peritoneum: No abnormal intraperitoneal fluid. No free air. Ventral Wall: No significant ventral hernia. Abdominal Nodes: No retroperitoneal or mesenteric adenopathy by size criteria. Vessels: Aorta and inferior vena cava are normal in size. PELVIS: Pelvic Organs: Unremarkable. Bladder: No bladder wall thickening, accounting for underdistention. Pelvic Nodes: No enlarged lymph nodes. Miscellaneous: No inguinal hernias are seen. Bones: Subcapital right hip fracture. IMPRESSION: Subcapital right hip fracture. Trace, dependent ground-glass and consolidation, most notably in the left lower lobe. Distribution and appearance raise the concern for aspiration. ECG Data Interpretation: EKG interpreted by ED physician sinus at 71 beats per minute QTC [address] changes no STEMI MDM Narrative Medical decision making narrative: 84-year-old female with a history of dementia, hypertension hyperlipidemia presents for unwitnessed fall at home. Patient was found by metal numerical control programmer's who were supposed to do work at the patient's home today. Patient states the last thing she remembers was walking in her house. At time of evaluation patient A&O x4 however too weak to even sit up in bed patient only able to stand bear weight ambulate with a walker. Patient had lab work imaging performed here in the emergency department, patient had CT scans performed of her head neck chest abdomen and pelvis CT scan of the chest showing pneumonia, patient is started on Rocephin doxy for this. Patient also noted to have right subcapital hip fracture. Patient with a leukocytosis, with initial elevated lactate at 3.1 with repeat improving at 1.4 after 1 L normal saline, patient also noted to have an elevated creatinine kinase of 2201 consistent with traumatic rhabdomyolysis patient creatinine normal not in ROMULO. Patient with EKG nonischemic, troponin initially 0.056 repeat pending, most likely type 2 spilled given patient with traumatic rhabdomyolysis as well as pneumonia. Given patient with pneumonia right subcapital hip fracture patient will require admission to the hospital 1646: Discussed case with orthopedic surgeon Dr. Peter, requesting x-rays, but states will see in consult agreeable with current workup patient to be admitted to Medicine given multiple other complaints/complexities, call placed out to hospitalist for admission. The patient's management plan was discussed Dr. Emerson, who agrees to admit the patient to their service and assumes care of this patient at this time. Full admission orders will be placed by the primary team. Discharge Plan Departure Patient Disposition: Admitted As Inpatient Clinical Impression: Traumatic rhabdomyolysis, Generalized weakness, Syncope, Closed head injury, Subcapital fracture of right hip, Pneumonia Admit Date/Time: 12/06/24 17:23 Admit Provider: Dat Soriano
[2024-12-06 12:29] LABS: Creatine Kinase 2201 U/L (30-135); HEMOLYSIS 16 (0-50)
[2024-12-06 12:33] LABS: NT-proBNP (BNP-Adult 18+) 1840 pg/mL (<450); Troponin I 0.056 ng/mL (0.01-0.034)
[2024-12-06] MEDS: SODIUM CHLORIDE 0.9% 1,000 ML 1000 ML IV (12:49)
[2024-12-06] MEDS: TET,DIPH,PERTUSS(ACELL),VAC/PF 0.5 ML SYRINGE IM (12:49)
[2024-12-06 12:57] LABS: Influenza A - CEPHEID Flu A NEGATIVE (NEGATIVE); Influenza B - CEPHEID Flu B NEGATIVE (NEGATIVE); Respiratory Syncytial Virus Negative (Negative)
[2024-12-06 13:02] LABS: COVID-19 CEPHEID 4-PLEX PCR Negative (Negative)
[2024-12-06 13:43] LABS: Reflexed Lactate in 2 Hours Y
--- NOTE | 2024-12-06 14:10 | PC.NURSE ---
Radha-Care done & Purewick placed, clear zechariah yellow urine draining.
[2024-12-06 14:24] LABS: Appearance Urine UA CLEAR; Bilirubin Urine UA NEGATIVE (NEGATIVE); Color Urine UA YELLOW; Glucose Urine UA NEGATIVE (Negative); Ketones Urine UA 1+ (NEGATIVE); Leukocyte Esterase Urine UA NEGATIVE (NEGATIVE); Nitrite Urine UA NEGATIVE (Negative); Occult Blood Urine UA 3+ (Negative); Protein Urine UA 2+ (Negative); Urobilinogen Urine UA 0.2 E.U./dL (0.2)
[2024-12-06 14:25] LABS: Lactate 2HR (Lactic Acid Rflx) 1.4 mmol/L (0.7-2.1)
[2024-12-06 14:27] LABS: pH Urine UA 6.5 (4.5-8.0)
[2024-12-06 14:35] LABS: Bacteria Urine Occasional (0-1); Culture Indicated Urine Cult Not Indicated; RBC Urine 1-5/HPF (0-5/HPF); Squamous Epithelial Cell Urine 0-1 /HPF (0-5/HPF); Urine Volume 10mL (spun); WBC Urine 0-1/HPF (0-5/HPF)
--- NOTE | 2024-12-06 14:53 | DI.CT.S_ITS ---
PROCEDURE: CT CHEST ABD PEL W CON INDICATIONS: sepsis, found down on floor TECHNIQUE: After the administration of intravenous contrast, 5 mm thick sections acquired from the lung apices to the symphysis. 5 mm coronal and sagittal reformats were performed, with additional 7 mm MIP reformats through the lungs. For radiation dose reduction, the following was used: automated exposure control, adjustment of mA and/or kV according to patient size. COMPARISON: None. FINDINGS: Image quality: Excellent. CHEST: Lower Neck: No enlarged lymph nodes. Thyroid: No thyroid nodules which require sonographic follow up, per consensus guidelines. Multiple small thyroid nodules period Axillae: No enlarged lymph nodes. Chest Wall: Unremarkable. Lungs and Pleura: No pneumothorax or pleural effusions. Trace dependent consolidation and ground-glass, most prominent in the left lower lobe. Heart: Heart size is normal. No pericardial effusion. Thoracic Vessels: The aorta and pulmonary arteries demonstrate normal size. Mediastinum and Marlene: No enlarged lymph nodes. Esophagus: No wall thickening. Small hiatal hernia. ABDOMEN: Liver: No solid mass. Gallbladder: Absent. Biliary ducts: No intrahepatic or extrahepatic biliary dilation, accounting for a post cholecystectomy state. Pancreas: No ductal dilation. Spleen: Size is within normal limits. Adrenal Glands: No adrenal nodules. Kidneys and Ureters: No hydronephrosis. No solid mass. No complex renal cystic lesion which requires follow up. Stomach and Bowel: Normal colonic caliber, without significant wall thickening. Peritoneum: No abnormal intraperitoneal fluid. No free air. Ventral Wall: No significant ventral hernia. Abdominal Nodes: No retroperitoneal or mesenteric adenopathy by size criteria. Vessels: Aorta and inferior vena cava are normal in size. PELVIS: Pelvic Organs: Unremarkable. Bladder: No bladder wall thickening, accounting for underdistention. Pelvic Nodes: No enlarged lymph nodes. Miscellaneous: No inguinal hernias are seen. Bones: Subcapital right hip fracture. IMPRESSION: Subcapital right hip fracture. Trace, dependent ground-glass and consolidation, most notably in the left lower lobe. Distribution and appearance raise the concern for aspiration. Dictated by: Yoni Perez M.D. on 12/06/2024 at 15:57 Approved by: Yoni Perez M.D. on 12/06/2024 at 16:02
--- NOTE | 2024-12-06 16:44 | DI.RAD.S_ITS ---
PROCEDURE: XR HIP W PEL IF DONE RT 2V INDICATIONS: right subcapital hip fracture TECHNIQUE: AP pelvis with lateral view(s) of the right hip(s). COMPARISON: [facility], CT, CT CHEST ABD PEL W CON, 12/06/2024, 15:14. FINDINGS: Bones: There is a mildly displaced and impacted subcapital right femoral neck fracture. Other osseous structures appear intact. Degenerative changes of the bilateral hips and lower lumbar spine.. Pelvic ring appears intact. No suspicious bony lesions. Soft tissues: The visualized bowel gas pattern is normal. No suspicious soft tissue calcifications. Contrast noted in the urinary bladder likely secondary to recent contrast enhanced CT. IMPRESSION: Mildly displaced and impacted subcapital right femoral neck fracture. Dictated by: Saul Cardona M.D. on 12/06/2024 at 17:24 Approved by: Saul Cardona M.D. on 12/06/2024 at 17:25
--- NOTE | 2024-12-06 16:45 | PC.NURSE ---
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 IVS covered w [employer] and patient no longer pulling at them. Repetative questions/confusion continue. Patient has Pure-Wick that continues to drain well.
[2024-12-06] MEDS: cefTRIAXone 1,000 MG in SODIUM CHLORIDE 0.9% 100 ML 200 MG IV (16:56)
[2024-12-06] MEDS: DOXYCYCLINE 100 MG in SODIUM CHLORIDE 0.9% 100 ML IV (17:00)
[2024-12-06 17:07] LABS: Creatine Kinase 2235 U/L (30-135)
[2024-12-06 17:08] LABS: Troponin I 0.076 ng/mL (0.01-0.034)
--- NOTE | 2024-12-06 17:19 | P.CONS_ITS ---
History of Present Illness Consult details Date Patient Seen: 12/07/24 Time Patient Seen: 07:24 Chief complaint: GLF Reason for consult: right hip fracture Requesting provider: Dat Casper Narrative: 84 yo F found down with R subcapital hip fracture-- per report normally ambulatory. + dementia--some mention possible pneuomina and rhabdomysosis Reports she remembers falling. Usually with a sent and pinned gently at home with her small dog. Ambulates with a cane. No prodrome or hip pain. States she fell very hard onto her right buttock. Denies injuries. Denies hip pain while lying in bed right now. Notes she has a sister Camilla in town. Details limited due to mental status. Patient was does state she remembers falling hard was unable to crawl to the door due to pain. Denies any numbness or tingling. Denies any upper extremity pain. - Meds Home Medications and Allergies Home Medications Medication Instructions Recorded Confirmed Type aspirin 81 mg tablet,delayed 81 mg PO DAILY 06/03/18 11/25/24 History release (Adult Aspirin Regimen) cholecalciferol (vitamin D3) 50 50 mcg PO DAILY 02/17/22 11/25/24 History mcg (2,000 unit) capsule pyridoxine (vitamin B6) [Vitamin 1 cap PO DAILY PRN 10/27/23 11/25/24 History B-6] dorzolamide 22.3 mg-timolol 6.8 EYE-BOTH 04/26/24 11/25/24 History mg/mL eye drops latanoprost 0.005 % eye drops drp EYE-BOTH 04/26/24 11/25/24 History amlodipine 10 mg tablet 10 mg PO DAILY #90 tabs 10/11/24 11/25/24 Rx omeprazole 20 mg capsule,delayed 20 mg PO BID #180 caps 10/11/24 11/25/24 Rx release rosuvastatin 10 mg tablet 10 mg PO DAILY #90 tabs 10/11/24 11/25/24 Rx cefdinir 300 mg capsule 300 mg PO BID #10 caps 11/25/24 11/25/24 Rx Allergies Allergy/AdvReac Type Severity Reaction Status Date / Time nitrofurantoin Allergy Unknown Verified 09/05/24 13:32 [NITROFURANTOIN] azithromycin Allergy Verified 09/05/24 13:32 cholestyramine Allergy Verified 09/05/24 13:32 clavulanic acid Allergy Verified 09/05/24 13:32 [From Augmentin] gabapentin Allergy Verified 09/05/24 13:32 lisinopril Allergy Verified 09/05/24 13:32 loratadine [From Claritin] Allergy Verified 09/05/24 13:32 neomycin Allergy Verified 09/05/24 13:32 Opioids-Meperidine and Allergy Verified 09/05/24 13:32 Related oseltamivir [From Tamiflu] Allergy Verified 09/05/24 13:32 procaine [From Novocain] Allergy Verified 09/05/24 13:32 Sulfa (Sulfonamide Allergy Verified 09/05/24 13:32 Antibiotics) donepezil [From Aricept] AdvReac Severe Diarrhea Verified 09/05/24 13:32 cephalexin AdvReac Intermediate Verified 09/05/24 13:32 losartan AdvReac Intermediate GI upset Verified 09/05/24 13:32 Milk Containing Products AdvReac Mild DIARRHEA Verified 09/05/24 13:32 (Dairy) [MILK CONTAINING PRODUCTS] meperidine [MEPERIDINE] AdvReac Unknown Verified 09/05/24 13:32 Review of Systems Review of Systems ROS: Yes All systems reviewed with the patient and are negative except as otherwise documented Exam Vital Signs (past 8 hours): - 12/06/24 11:44 12/06/24 11:51 12/06/24 11:52 Temperature Pulse Rate 78 76 77 Respiratory Rate 20 19 14 Blood Pressure 133/70 Pulse Oximetry 100 97 97 Oxygen Delivery Method Room Air 12/06/24 11:52 12/06/24 11:55 12/06/24 12:00 Temperature 97.2 F L Pulse Rate Respiratory Rate Blood Pressure 134/62 121/58 L Pulse Oximetry Oxygen Delivery Method 12/06/24 12:00 12/06/24 12:30 12/06/24 12:30 Temperature Pulse Rate 80 72 Respiratory Rate 20 18 Blood Pressure 131/59 L Pulse Oximetry 97 97 Oxygen Delivery Method 12/06/24 12:47 12/06/24 12:47 12/06/24 13:00 Temperature Pulse Rate 85 77 Respiratory Rate 19 15 Blood Pressure 95/60 Pulse Oximetry 96 96 Oxygen Delivery Method 12/06/24 13:01 12/06/24 13:01 12/06/24 13:30 Temperature Pulse Rate 77 82 Respiratory Rate 15 12 Blood Pressure 155/70 H Pulse Oximetry 96 97 Oxygen Delivery Method 12/06/24 13:30 12/06/24 14:00 12/06/24 14:00 Temperature Pulse Rate 76 Respiratory Rate 14 Blood Pressure 153/70 H 134/63 Pulse Oximetry 96 Oxygen Delivery Method 12/06/24 14:30 12/06/24 14:30 12/06/24 15:00 Temperature Pulse Rate 83 Respiratory Rate 22 Blood Pressure 140/63 146/69 H Pulse Oximetry 97 Oxygen Delivery Method 12/06/24 15:00 12/06/24 15:30 12/06/24 16:08 Temperature Pulse Rate 82 91 H 84 Respiratory Rate 17 20 Blood Pressure Pulse Oximetry 97 97 97 Oxygen Delivery Method Room Air Oxygen Delivery Method Room Air Narrative Exam Narrative: Alert answers questions incomplete sentences. But limited details. Breathing is unlabored on room air. There is some bruising around the face and orbits compatible with a known fall. Moves bilateral upper extremities without limitation. Regular rate. Lungs clear Left lower extremity well perfused. 5/5 dorsiflexion plantar flexion. Sensation intact to light touch. Palpable dorsalis pedis pulse. Soft calf and thigh compartments. Right lower extremity noted limited motor examination due to known fracture. No pain at rest. There is groin pain with movement. He is able to demonstrate 5/5 dorsiflexion plantar flexion sensation intact on the foot. Palpable dorsalis pedis pulse. Soft compressible calf, lower extremity and thigh compartments. Objective Imaging Pelvis and right hip x-ray: My impression: Subcapital displaced femoral neck fracture, right Labs 12/07/24 05:38 12/07/24 05:38 Labs: Laboratory Results - last 24 hr 12/06/24 12/06/24 12/06/24 11:50 12:09 13:30 WBC 19.3 H RBC 4.94 Hgb 14.8 Hct 43.5 MCV 88.0 MCH 30.0 MCHC 34.1 RDW 13.4 Plt Count 284 Neut % (Auto) 92.9 H Lymph % (Auto) 1.6 L Woodford % (Auto) 5.2 Eos % (Auto) 0.0 L Baso % (Auto) 0.3 Neut # (Auto) 04318 H Lymph # (Auto) 300 L [place] # (Auto) 1000 H Eos # (Auto) 0 Baso # (Auto) 0 PT 13.0 H INR 1.1 APTT 30 Sodium 135 L Potassium 3.2 L Chloride 104 Carbon Dioxide 18 L BUN 23 H Creatinine 0.67 Estimated GFR > 60 BUN/Creatinine Ratio 34.3 H Glucose 135 H Lactate 3.1 H Calcium 9.7 Magnesium 1.7 Total Bilirubin 2.3 H AST 86 H ALT 46 H Alkaline Phosphatase 99 Total Creatine Kinase 2201 H Troponin I 0.056 H NT-Pro-B Natriuret Pep 1840 H Total Protein 7.1 Albumin 4.6 Globulin 2.5 Albumin/Globulin Ratio 1.8 Lipase 27 Urine Color Yellow Urine Appearance Clear Urine pH 6.5 Ur Specific Brule 1.020 Urine Protein 2+ H Urine Glucose (UA) Negative Urine Ketones 1+ H Urine Occult Blood 3+ H Urine Nitrate Negative Urine Bilirubin Negative Urine Urobilinogen 0.2 Ur Leukocyte Esterase Negative Urine RBC 1-5/hpf Urine WBC 0-1/hpf Ur Squamous Epith Cells 0-1 /hpf Urine Bacteria Occasional (0-1) Ur Culture Indicated? Cult not indicated Vol Urine Centrifuged 10ml (spun) SARS-CoV-2 (PCR) Negative Influenza A (RT-PCR) Flu a negative Influenza B (RT-PCR) Flu b negative RSV (PCR) Negative 12/06/24 12/06/24 14:05 16:35 WBC RBC Hgb Hct MCV MCH MCHC RDW Plt Count Neut % (Auto) Lymph % (Auto) Woodford % (Auto) Eos % (Auto) Baso % (Auto) Neut # (Auto) Lymph # (Auto) [place] # (Auto) Eos # (Auto) Baso # (Auto) PT INR APTT Sodium Potassium Chloride Carbon Dioxide BUN Creatinine Estimated GFR BUN/Creatinine Ratio Glucose Lactate 1.4 Calcium Magnesium Total Bilirubin AST ALT Alkaline Phosphatase Total Creatine Kinase 2235 H Troponin I 0.076 H NT-Pro-B Natriuret Pep Total Protein Albumin Globulin Albumin/Globulin Ratio Lipase Urine Color Urine Appearance Urine pH Ur Specific Brule Urine Protein Urine Glucose (UA) Urine Ketones Urine Occult Blood Urine Nitrate Urine Bilirubin Urine Urobilinogen Ur Leukocyte Esterase Urine RBC Urine WBC Ur Squamous Epith Cells Urine Bacteria Ur Culture Indicated? Vol Urine Centrifuged SARS-CoV-2 (PCR) Influenza A (RT-PCR) Influenza B (RT-PCR) RSV (PCR) [facility] Medical History Unilateral primary osteoarthritis, right knee Dementia Venous (peripheral) insufficiency GERD without esophagitis Polyneuropathy, unspecified Irritable bowel syndrome with diarrhea Do not resuscitate Generalized anxiety disorder Recurrent UTI (urinary tract infection) Sensorineural hearing loss, bilateral Mixed hyperlipidemia Essential hypertension Idiopathic peripheral neuropathy Optic neuropathy, right Hypertension Surgical History History of cholecystectomy History of tonsillectomy History of hysterectomy Family History Father Hypertension Cancer Cardiovascular disease Mother No problems noted. Social History details: lives alone, 3 sons, one estranged, retired household members: none Tobacco & Substance Use Smoking Status: Never smoker alcohol intake: never Assessment & Plan Assessment and plan (1) Subcapital fracture of right hip: Qualifiers: Encounter type: initial encounter Fracture type: closed Qualified Code(s): S72.011A - Unspecified intracapsular fracture of right femur, initial encounter for closed fracture Status: Acute (2) Osteoporotic hip fracture: Qualifiers: Encounter type: initial encounter Laterality: right Qualified Code(s): M80.051A - Age-related osteoporosis with current pathological fracture, right femur, initial encounter for fracture Status: Acute Plan The patient has a displaced right subcapital femoral neck fracture. Discussed these types of fractures do not heal on their known and require surgery for mobilization. I have recommended a cemented hemiarthroplasty. Which has a partial hip replacement -once medical optimized would be candidate for cemented right hip hemiarthroplasty -- giving medical conditional and timing/ and availability I would plan on surgery Tuesday12/08/24 for this if optimized-- hip hemiarthroplasty would be to treat the fracture with a partial hip replacement, allow immediate mobilization and weightbearing and to reduce risks associated with prolonged immobility Discussed planned surgery with the patient patient agrees. We will discuss with surrogate decisionmaker sister prior to surgery as well. Currently surgery planned for 9:00 a.m. Tuesday12/08/2024 NPO at midnight. Time-Based Coding :: [TOTAL MINUTES] spent with patient and on the chart (including review of chart, obtaining history, exam, reviewing outside data, placing orders, documenting exam and treatment plan, and counseling patient) on [DATE].
--- NOTE | 2024-12-06 17:29 | PM.HP.IH.1 ---
History of Present Illness History of Present Illness Date Patient Seen: 12/06/24 Time Patient Seen: 17:45 Chief complaint: GLF Narrative: 84-year-old woman under the primary care of Dr. Vic Duque was found down today by preliminary who come to her house to do work. Her sister Camilla who is present in the emergency department states that she last talked to her 2 days ago. She has moderate dementia and has been living at home independently. She has a small dog that she wishes to keep and this has kept her from moving into an assisted living memory care facility until now. Emergency department evaluation was notable for right hip fracture in lower lobe pneumonia. She is admitted for further management and evaluation. Due to her dementia she is unable to provide meaningful history about recent events. [facility] Medical History Dementia Do not resuscitate Essential hypertension Generalized anxiety disorder GERD without esophagitis Hypertension Idiopathic peripheral neuropathy Irritable bowel syndrome with diarrhea Mixed hyperlipidemia Optic neuropathy, right Polyneuropathy, unspecified Recurrent UTI (urinary tract infection) Sensorineural hearing loss, bilateral Unilateral primary osteoarthritis, right knee Venous (peripheral) insufficiency Surgical History History of cholecystectomy History of hysterectomy History of tonsillectomy Family History Father Hypertension Cancer Cardiovascular disease Mother No problems noted. Social History details: lives alone, 3 sons, one estranged, retired household members: none Smoking Status: Never smoker alcohol intake: never Meds Home Medications and Allergies Home Medications Medication Instructions Recorded Confirmed Type aspirin 81 mg tablet,delayed 81 mg PO DAILY 06/03/18 11/25/24 History release (Adult Aspirin Regimen) cholecalciferol (vitamin D3) 50 50 mcg PO DAILY 02/17/22 11/25/24 History mcg (2,000 unit) capsule pyridoxine (vitamin B6) [Vitamin 1 cap PO DAILY PRN 10/27/23 11/25/24 History B-6] dorzolamide 22.3 mg-timolol 6.8 EYE-BOTH 04/26/24 11/25/24 History mg/mL eye drops latanoprost 0.005 % eye drops drp EYE-BOTH 04/26/24 11/25/24 History amlodipine 10 mg tablet 10 mg PO DAILY #90 tabs 10/11/24 11/25/24 Rx omeprazole 20 mg capsule,delayed 20 mg PO BID #180 caps 10/11/24 11/25/24 Rx release rosuvastatin 10 mg tablet 10 mg PO DAILY #90 tabs 10/11/24 11/25/24 Rx cefdinir 300 mg capsule 300 mg PO BID #10 caps 11/25/24 11/25/24 Rx Allergies Allergy/AdvReac Type Severity Reaction Status Date / Time nitrofurantoin Allergy Unknown Verified 09/05/24 13:32 [NITROFURANTOIN] azithromycin Allergy Verified 09/05/24 13:32 cholestyramine Allergy Verified 09/05/24 13:32 clavulanic acid Allergy Verified 09/05/24 13:32 [From Augmentin] gabapentin Allergy Verified 09/05/24 13:32 lisinopril Allergy Verified 09/05/24 13:32 loratadine [From Claritin] Allergy Verified 09/05/24 13:32 neomycin Allergy Verified 09/05/24 13:32 Opioids-Meperidine and Allergy Verified 09/05/24 13:32 Related oseltamivir [From Tamiflu] Allergy Verified 09/05/24 13:32 procaine [From Novocain] Allergy Verified 09/05/24 13:32 Sulfa (Sulfonamide Allergy Verified 09/05/24 13:32 Antibiotics) donepezil [From Aricept] AdvReac Severe Diarrhea Verified 09/05/24 13:32 cephalexin AdvReac Intermediate Verified 09/05/24 13:32 losartan AdvReac Intermediate GI upset Verified 09/05/24 13:32 Milk Containing Products AdvReac Mild DIARRHEA Verified 09/05/24 13:32 (Dairy) [MILK CONTAINING PRODUCTS] meperidine [MEPERIDINE] AdvReac Unknown Verified 09/05/24 13:32 Review of Systems Review of Systems ROS: Yes All systems reviewed with the patient and are negative except as otherwise documented Exam Vital Signs (past 8 hours): - 12/06/24 11:44 12/06/24 11:51 12/06/24 11:52 Temperature Pulse Rate 78 76 77 Respiratory Rate 20 19 14 Blood Pressure 133/70 Pulse Oximetry 100 97 97 Oxygen Delivery Method Room Air 12/06/24 11:52 12/06/24 11:55 12/06/24 12:00 Temperature 97.2 F L Pulse Rate Respiratory Rate Blood Pressure 134/62 121/58 L Pulse Oximetry Oxygen Delivery Method 12/06/24 12:00 12/06/24 12:30 12/06/24 12:30 Temperature Pulse Rate 80 72 Respiratory Rate 20 18 Blood Pressure 131/59 L Pulse Oximetry 97 97 Oxygen Delivery Method 12/06/24 12:47 12/06/24 12:47 12/06/24 13:00 Temperature Pulse Rate 85 77 Respiratory Rate 19 15 Blood Pressure 95/60 Pulse Oximetry 96 96 Oxygen Delivery Method 12/06/24 13:01 12/06/24 13:01 12/06/24 13:30 Temperature Pulse Rate 77 82 Respiratory Rate 15 12 Blood Pressure 155/70 H Pulse Oximetry 96 97 Oxygen Delivery Method 12/06/24 13:30 12/06/24 14:00 12/06/24 14:00 Temperature Pulse Rate 76 Respiratory Rate 14 Blood Pressure 153/70 H 134/63 Pulse Oximetry 96 Oxygen Delivery Method 12/06/24 14:30 12/06/24 14:30 12/06/24 15:00 Temperature Pulse Rate 83 Respiratory Rate 22 Blood Pressure 140/63 146/69 H Pulse Oximetry 97 Oxygen Delivery Method 12/06/24 15:00 12/06/24 15:30 12/06/24 16:08 Temperature Pulse Rate 82 91 H 84 Respiratory Rate 17 20 Blood Pressure Pulse Oximetry 97 97 97 Oxygen Delivery Method Room Air Oxygen Delivery Method Room Air Narrative Exam Narrative: GENERAL: This is a frail elderly female patient, appears comfortable, answering questions and conversational, with moderate dementia. HEAD: Right brow and temporal hematoma, with crusting blood over the right brow and around both eyes. EYES: Pupils equal round and reactive. Extraocular motions intact. No scleral icterus. No injection or drainage. ENT: Mucous membranes pink and dry. NECK: Trachea midline. No JVD, bruits or lymphadenopathy. Supple, nontender, no meningeal signs. CARDIOVASCULAR: Regular rate and rhythm without murmurs, gallops, or rubs. RESPIRATORY: Clear to auscultation anterior. GASTROINTESTINAL: Abdomen soft, non-tender, nondistended. EXTREMITIES: No clubbing, cyanosis, or edema. Right leg is shortened and externally rotated. BACK: Nontender without deformity or crepitance. No flank tenderness. NEUROLOGIC: Alert, oriented, speech fluent, full upper and lower motor strength, no focal deficits evident. DERMATOLOGIC: No rashes or skin lesions. Objective Imaging *: My impression: 1. Head CT No acute intracranial pathology. Age related microvascular atherosclerotic changes again noted within the deep white matter of each hemisphere. No trauma seen. 2. Chest xray No acute cardiopulmonary abnormality is seen. 3. Head/neck CTA No significant intracranial arterial abnormality is seen. No significant abnormality is seen within the arteries of the neck. Dependent centrilobular nodules in the lungs, concerning for aspiration. Correlate with risk factors and consider speech pathology referral. No acute, displaced fracture or traumatic subluxation. 4. Chest/abd/pelvis CT Subcapital right hip fracture. Trace, dependent ground-glass and consolidation, most notably in the left lower lobe. Distribution and appearance raise the concern for aspiration. 5. Right hip xray Mildly displaced and impacted subcapital right femoral neck fracture. Labs 12/06/24 11:50 12/06/24 11:50 Labs: Laboratory Results - last 24 hr 12/06/24 12/06/24 12/06/24 11:50 12:09 13:30 WBC 19.3 H RBC 4.94 Hgb 14.8 Hct 43.5 MCV 88.0 MCH 30.0 MCHC 34.1 RDW 13.4 Plt Count 284 Neut % (Auto) 92.9 H Lymph % (Auto) 1.6 L [place] % (Auto) 5.2 Eos % (Auto) 0.0 L Baso % (Auto) 0.3 Neut # (Auto) 22532 H Lymph # (Auto) 300 L [place] # (Auto) 1000 H Eos # (Auto) 0 Baso # (Auto) 0 PT 13.0 H INR 1.1 APTT 30 Sodium 135 L Potassium 3.2 L Chloride 104 Carbon Dioxide 18 L BUN 23 H Creatinine 0.67 Estimated GFR > 60 BUN/Creatinine Ratio 34.3 H Glucose 135 H Lactate 3.1 H Calcium 9.7 Magnesium 1.7 Total Bilirubin 2.3 H AST 86 H ALT 46 H Alkaline Phosphatase 99 Total Creatine Kinase 2201 H Troponin I 0.056 H NT-Pro-B Natriuret Pep 1840 H Total Protein 7.1 Albumin 4.6 Globulin 2.5 Albumin/Globulin Ratio 1.8 Lipase 27 Urine Color Yellow Urine Appearance Clear Urine pH 6.5 Ur Specific [place] 1.020 Urine Protein 2+ H Urine Glucose (UA) Negative Urine Ketones 1+ H Urine Occult Blood 3+ H Urine Nitrate Negative Urine Bilirubin Negative Urine Urobilinogen 0.2 Ur Leukocyte Esterase Negative Urine RBC 1-5/hpf Urine WBC 0-1/hpf Ur Squamous Epith Cells 0-1 /hpf Urine Bacteria Occasional (0-1) Ur Culture Indicated? Cult not indicated Vol Urine Centrifuged 10ml (spun) SARS-CoV-2 (PCR) Negative Influenza A (RT-PCR) Flu a negative Influenza B (RT-PCR) Flu b negative RSV (PCR) Negative 12/06/24 12/06/24 14:05 16:35 WBC RBC Hgb Hct MCV MCH MCHC RDW Plt Count Neut % (Auto) Lymph % (Auto) [place] % (Auto) Eos % (Auto) Baso % (Auto) Neut # (Auto) Lymph # (Auto) [place] # (Auto) Eos # (Auto) Baso # (Auto) PT INR APTT Sodium Potassium Chloride Carbon Dioxide BUN Creatinine Estimated GFR BUN/Creatinine Ratio Glucose Lactate 1.4 Calcium Magnesium Total Bilirubin AST ALT Alkaline Phosphatase Total Creatine Kinase 2235 H Troponin I 0.076 H NT-Pro-B Natriuret Pep Total Protein Albumin Globulin Albumin/Globulin Ratio Lipase Urine Color Urine Appearance Urine pH Ur Specific [place] Urine Protein Urine Glucose (UA) Urine Ketones Urine Occult Blood Urine Nitrate Urine Bilirubin Urine Urobilinogen Ur Leukocyte Esterase Urine RBC Urine WBC Ur Squamous Epith Cells Urine Bacteria Ur Culture Indicated? Vol Urine Centrifuged SARS-CoV-2 (PCR) Influenza A (RT-PCR) Influenza B (RT-PCR) RSV (PCR) Assessment & Plan Assessment & Plan narrative: 1. Right subcapital hip fracture due to underlying osteoporosis with ground level fall. Anticipate cemented right hip hemiarthroplasty when medically stabilized. 2. Left lower lobe pneumonia, possible community-acquired versus aspiration. 3. Rhabdomyolysis due to ground level fall. 4. Borderline elevated troponin. Monitor serial cardiac enzymes on telemetry. Likely due to demand ischemia. 5. Alzheimer type dementia, moderately advanced. 6. Hypertension. Continue routine medication. 7. Hyperlipidemia. Continue routine medication. 8. Venous insufficiency. Appears controlled. 9. GERD. 10. DVT prophylaxis: Subcutaneous heparin. SCDs 11. Code status: Do not resuscitate. This consistent with previous expressed wishes and a POLST form enclosed in the chart. Her sister Camilla is her surrogate decision maker. Plan: -admit to inpatient status -IV hydration -monitor serial cardiac enzymes -monitor CPK and renal function -surgical repair when stabilized in 1-2 days. Orthopedic consultation is greatly appreciated -do not resuscitate The patient is admitted inpatient status as she will require at least 2 midnights of inpatient level care. She will require subsequent senior care facility placement and following that, we will require a fully supervised assisted living facility with memory care services. Quality MIPS - Admit I confirm the patient?s Advance Care Plan is present, Code status is documented, Surrogate decision maker is in patient?s record [If Yes, STOP here]: Yes [facility] - Meds 'Current medications' to include all prescriptions, [id number] products, herbals, cannabis/cannabidiol products, and vitamin/mineral/dietary (nutritional) supplements. I have utilized all available resources to obtain, update, or review the patient?s current medications. [If Yes, STOP here]: Yes [employer] Document charge(s): No Charge Codes Initial inpatient/observation care: [id number]
--- NOTE | 2024-12-06 17:52 | PC.NURSE ---
Patients sister Camilla Cifuentes (Patient calls her Gig) here at bedside Contact information verified for Camilla and additional ph# to reach her provided [phone]. Patients sister Camilla is in process of moving here. States she can be contacted anytime. Camilla Cifuentes has patients purse with all contents, patients necklaces, patients 3 bracelets (bracelets: 1 yellow chain, 1 yellow metal with red and white stones, 1 yellow/pink metal with blueish stones) Patient is wearing only her white long sleeve tshirt and here brown watch. Camilla has all patients above listed belongings to return to patients home. Patients alisa Dsouza is being cared for by Sister Camilla or neighbor/friend Nani. Camilla provided patients son Arvin Cortes contact information [phone]. Update to be given this evening to son by Camilla. Dr Duque rounded at bedside and spoke with Camilla.
--- NOTE | 2024-12-06 17:58 | PC.NURSE ---
Addendum entered by Tawana Quach R.N. 12/06/24 18:00: setve landon (lives in [facility]) PH# [phone] Original Note: steve landon (lives in [facility]) PH# [phone]
--- NOTE | 2024-12-06 18:10 | PC.NURSE ---
Cho catheter not placed, patient continued to intermittantly pull at monitoring cords/ivs/medical devices and purewick working well with keeping patient dry and collecting urine. 800 ml out total so far today.
[2024-12-06] MEDS: SODIUM CHLORIDE 0.9% 1,000 ML 100 ML IV (18:31)
[2024-12-06] MEDS: KETOROLAC 30 MG/ML VIAL 15 MG IV (20:39)
[2024-12-06] MEDS: PANTOPRAZOLE DR 20 MG TABLET PO (21:00)
[2024-12-06 23:27] LABS: Troponin I 0.079 ng/mL (0.01-0.034)
[2024-12-07] VITALS (11 sets, daily range): BP systolic 139–152; BP diastolic 61–79; PULSE 69–98; RESP 16–18; TEMP 36.2–37.7; O2SAT 78–97
[2024-12-07] MEDS: SODIUM CHLORIDE 0.9% 1,000 ML 100 ML IV (04:48)
[2024-12-07] MEDS: DOXYCYCLINE 100 MG in SODIUM CHLORIDE 0.9% 100 ML IV ×2 (05:30→19:52)
[2024-12-07 06:18] LABS: Add Manual Diff / Slide Review NO; Basophils Absolute Auto 100 /uL (0-100); Basophils Percent Auto 0.8 % (0-2); Eosinophils Absolute Auto 0 /uL (0-450); Eosinophils Percent Auto 0.1 % (2-4); Hematocrit 37.6 % (36-46); Hemoglobin 12.8 g/dL (12.0-16.0); Lymphocytes Absolute Auto 400 /uL (1100-4500); Mean Corpuscular HGB Conc 34.1 % (30-36); Mean Corpuscular Volume 87.9 fL (80-100); Monocytes Absolute Auto 600 /uL (0-900); Monocytes Percent Auto 4.2 % (3-14); Neutrophils Absolute Auto 12500 /uL (1500-7000); Neutrophils Percent Auto 91.9 % (50-75); Platelet Count 237 X10^3/uL (150-400); Red Blood Cell Count 4.28 X10^6/uL (4.0-5.2); Red Cell Distribution Width 13.6 % (11.6-14.8); White Blood Cell Count 13.6 X10^3/uL (4.5-11.0)
[2024-12-07 06:42] LABS: Alanine Aminotransferase 37 IU/L (<35); Albumin 3.5 g/dL (3.5-5.0); Albumin Globulin Ratio 1.5 (1.0-2.8); Alkaline Phosphatase 83 U/L (38-126); Aspartate Aminotransferase 79 IU/L (14-36); BUN Creatinine Ratio 31.6 (6-22); Bilirubin Total 1.1 mg/dL (0.2-1.3); Blood Urea Nitrogen 25 mg/dL (7-17); Calcium 8.7 mg/dL (8.4-10.2); Carbon Dioxide 18 mmol/L (22-32); Chloride 111 mmol/L (98-107); Estimated Glomerular Filt Rate > 60 mL/min (>60); Globulin 2.3 g/dL (1.7-4.1); Glucose 78 mg/dL (80-110); HEMOLYSIS 15 (0-50); Magnesium 1.7 mg/dL (1.6-2.3); Potassium 2.8 mmol/L (3.4-5.1); Sodium 138 mmol/L (137-145); Total Protein 5.8 g/dL (6.3-8.2)
[2024-12-07 06:51] LABS: Troponin I 0.057 ng/mL (0.01-0.034)
[2024-12-07 07:23] LABS: TSH w/ Reflex to FT4 2.26 uIU/mL (0.47-4.68)
--- NOTE | 2024-12-07 08:07 | EKG_ITS ---
[address] [address] Test Date: 2024-12-07 Pat Name: Melissa Cortes Department: Room: 209 Gender: Female Inweaver: anette : 1940 Requested By: Order Number: [id number] Reading MD: Robert Cortes MD Measurements Intervals [place] Rate: 95 P: 76 NH: 100 QRS: -54 QRSD: 94 T: 25 QT: 352 QTc: 442 Interpretive Statements Sinus rhythm with short NH with premature atrial complexes Possible Left atrial enlargement Left axis deviation Incomplete right bundle branch block Nonspecific ST and T wave abnormality, different from previous Electronically Signed On 12-08-2024 12:20:37 PST by Robert Cortes MD
--- NOTE | 2024-12-07 08:16 | P.PN_ITS ---
Subjective Subjective Date Patient Seen: 12/07/24 Time Patient Seen: 08:16 Interval history: Patient's pain is controlled with oral medication. ?Pain is localized to the right leg. ?Patient declines any new numbness or tingling down lower extremities. ?Patient denies any shortness of breath, dizziness, light- headedness, nausea, vomiting, fever or chills. Exam Vital Signs (past 8 hours): - 12/07/24 02:46 12/07/24 04:00 Temperature 97.4 F L Pulse Rate 78 Respiratory Rate 16 Blood Pressure 143/63 H Pulse Oximetry 97 78 L Oxygen Delivery Method Room Air Oxygen Flow Rate 0 0 Oxygen Delivery Method Room Air Oxygen Flow Rate 0 Narrative Exam Narrative: Sensation intact through right lower extremity. Patient is able to flex and extend at the EHL and invert and tamir at the ankle. With encouragement she is able to dorsiflex and plantar flex at the ankle. Tenderness to palpation of the right greater trochanter. Pedal pulses intact. Const General: cooperative and comfortable Objective Labs 12/07/24 05:38 12/07/24 05:38 Labs: Laboratory Results - last 24 hr 12/06/24 12/06/24 12/06/24 11:50 12:09 13:30 WBC 19.3 H RBC 4.94 Hgb 14.8 Hct 43.5 MCV 88.0 MCH 30.0 MCHC 34.1 RDW 13.4 Plt Count 284 Neut % (Auto) 92.9 H Lymph % (Auto) 1.6 L [place] % (Auto) 5.2 Eos % (Auto) 0.0 L Baso % (Auto) 0.3 Neut # (Auto) 62741 H Lymph # (Auto) 300 L [place] # (Auto) 1000 H Eos # (Auto) 0 Baso # (Auto) 0 PT 13.0 H INR 1.1 APTT 30 Sodium 135 L Potassium 3.2 L Chloride 104 Carbon Dioxide 18 L BUN 23 H Creatinine 0.67 Estimated GFR > 60 BUN/Creatinine Ratio 34.3 H Glucose 135 H Lactate 3.1 H Calcium 9.7 Magnesium 1.7 Total Bilirubin 2.3 H AST 86 H ALT 46 H Alkaline Phosphatase 99 Total Creatine Kinase 2201 H Troponin I 0.056 H NT-Pro-B Natriuret Pep 1840 H Total Protein 7.1 Albumin 4.6 Globulin 2.5 Albumin/Globulin Ratio 1.8 Lipase 27 TSH Urine Color Yellow Urine Appearance Clear Urine pH 6.5 Ur Specific [place] 1.020 Urine Protein 2+ H Urine Glucose (UA) Negative Urine Ketones 1+ H Urine Occult Blood 3+ H Urine Nitrate Negative Urine Bilirubin Negative Urine Urobilinogen 0.2 Ur Leukocyte Esterase Negative Urine RBC 1-5/hpf Urine WBC 0-1/hpf Ur Squamous Epith Cells 0-1 /hpf Urine Bacteria Occasional (0-1) Ur Culture Indicated? Cult not indicated Vol Urine Centrifuged 10ml (spun) SARS-CoV-2 (PCR) Negative Influenza A (RT-PCR) Flu a negative Influenza B (RT-PCR) Flu b negative RSV (PCR) Negative 12/06/24 12/06/24 12/06/24 14:05 16:35 22:52 WBC RBC Hgb Hct MCV MCH MCHC RDW Plt Count Neut % (Auto) Lymph % (Auto) [place] % (Auto) Eos % (Auto) Baso % (Auto) Neut # (Auto) Lymph # (Auto) [place] # (Auto) Eos # (Auto) Baso # (Auto) PT INR APTT Sodium Potassium Chloride Carbon Dioxide BUN Creatinine Estimated GFR BUN/Creatinine Ratio Glucose Lactate 1.4 Calcium Magnesium Total Bilirubin AST ALT Alkaline Phosphatase Total Creatine Kinase 2235 H Troponin I 0.076 H 0.079 H NT-Pro-B Natriuret Pep Total Protein Albumin Globulin Albumin/Globulin Ratio Lipase TSH Urine Color Urine Appearance Urine pH Ur Specific [place] Urine Protein Urine Glucose (UA) Urine Ketones Urine Occult Blood Urine Nitrate Urine Bilirubin Urine Urobilinogen Ur Leukocyte Esterase Urine RBC Urine WBC Ur Squamous Epith Cells Urine Bacteria Ur Culture Indicated? Vol Urine Centrifuged SARS-CoV-2 (PCR) Influenza A (RT-PCR) Influenza B (RT-PCR) RSV (PCR) 12/07/24 05:38 WBC 13.6 H RBC 4.28 Hgb 12.8 Hct 37.6 MCV 87.9 MCH 30.0 MCHC 34.1 RDW 13.6 Plt Count 237 Neut % (Auto) 91.9 H Lymph % (Auto) 3.0 L [place] % (Auto) 4.2 Eos % (Auto) 0.1 L Baso % (Auto) 0.8 Neut # (Auto) 04612 H Lymph # (Auto) 400 L [place] # (Auto) 600 Eos # (Auto) 0 Baso # (Auto) 100 PT INR APTT Sodium 138 Potassium 2.8 L Chloride 111 H Carbon Dioxide 18 L BUN 25 H Creatinine 0.79 Estimated GFR > 60 BUN/Creatinine Ratio 31.6 H Glucose 78 L Lactate Calcium 8.7 Magnesium 1.7 Total Bilirubin 1.1 AST 79 H ALT 37 H Alkaline Phosphatase 83 Total Creatine Kinase Troponin I 0.057 H NT-Pro-B Natriuret Pep Total Protein 5.8 L Albumin 3.5 Globulin 2.3 Albumin/Globulin Ratio 1.5 Lipase TSH 2.26 Urine Color Urine Appearance Urine pH Ur Specific [place] Urine Protein Urine Glucose (UA) Urine Ketones Urine Occult Blood Urine Nitrate Urine Bilirubin Urine Urobilinogen Ur Leukocyte Esterase Urine RBC Urine WBC Ur Squamous Epith Cells Urine Bacteria Ur Culture Indicated? Vol Urine Centrifuged SARS-CoV-2 (PCR) Influenza A (RT-PCR) Influenza B (RT-PCR) RSV (PCR) [facility] Medical History Unilateral primary osteoarthritis, right knee Dementia Venous (peripheral) insufficiency GERD without esophagitis Polyneuropathy, unspecified Irritable bowel syndrome with diarrhea Do not resuscitate Generalized anxiety disorder Recurrent UTI (urinary tract infection) Sensorineural hearing loss, bilateral Mixed hyperlipidemia Essential hypertension Idiopathic peripheral neuropathy Optic neuropathy, right Hypertension Surgical History History of cholecystectomy History of tonsillectomy History of hysterectomy Family History Father Hypertension Cancer Cardiovascular disease Mother No problems noted. Social History details: lives alone, 3 sons, one estranged, retired household members: none Smoking Status: Never smoker alcohol intake: never Assessment & Plan Assessment & Plan narrative: The patient has a displaced right subcapital femoral neck fracture. Discussed these types of fractures do not heal on their known and require surgery for mobilization. Dr. Peter has recommended a cemented hemiarthroplasty, which iss a partial hip replacement. -once medical optimized would be candidate for cemented right hip hemiarthroplasty -- giving medical conditional and timing/ and availability Dr. Peter is planning on surgery Tuesday12/08/24. -- hip hemiarthroplasty would be to treat the fracture with a partial hip replacement, allow immediate mobilization and weightbearing and to reduce risks associated with prolonged immobility Discussed planned surgery with the patient & patient agrees. We will discuss with surrogate decision maker sister prior to surgery as well. Currently surgery planned for 9:00 a.m. Tuesday12/08/2024 NPO at midnight. Disposition and medication per hospitalist. Time-Based Coding :: 15 minutes spent with patient and on the chart (including review of chart, obtaining history, exam, reviewing outside data, placing orders, documenting exam and treatment plan, and counseling patient) on 12/07/2024. Quality VTE Deep Vein Thrombosis/Pulmonary Embolism Present on Admission: No
[2024-12-07] MEDS: ENOXAPARIN 40 MG/0.4 ML SYRINGE SUBCUT (09:11)
[2024-12-07] MEDS: DEXTROSE 5%-0.9% NS 1,000 ML 100 ML IV ×2 (09:40→19:52)
--- NOTE | 2024-12-07 11:27 | DI.ECHO.S_ITS ---
[facility] : : [address] : : [place] : : [id number] : : Phone: [phone] Echocardiogram Report + + :Name: SAMANTHA MAYNARD Study Date: 12/08/2024 Height: 61 in : :[facility] ReadingLocation: Weight: 104 lb : : Gender: Female BSA: 1.4 m2 : :: 1940 Age: 84 yrs BP: 161/85 mmHg: :Reason For Study: SYNCOPE : :Ordering Physician: KAYCEE, : :SEYMOUR BRUNNER Performed By: Cachorro Braga : :Referring: SEYMOUR BENOIT : + + Interpretation Summary NSR Normal LV size, wall thickness, wall motion and LV systolic function. Ejection fraction 60-65%. Normal chamber sizes. No significant valvular abnormalities. No prior study available for comparison. Procedure: A two-dimensional transthoracic echocardiogram with color flow and Doppler was performed. The study quality was technically good. Comparison is made with the echocardiogram of 01/14/2019. The patient was in normal sinus rhythm during the exam. Left Ventricle: The left ventricle is normal in size. Left ventricular wall thickness is mildly increased. There is no ventricular septal defect visualized. The ejection fraction is estimated to be 60-65%. There are no focal wall motion abnormalities. Diastolic parameters suggest a relaxation abnormality of the left ventricle, consistent with probable normal filling pressures. Right Ventricle: The right ventricle is normal in size and function. Atria: The left atrium is mildly dilated. Right atrial size is normal. There is no Doppler evidence for an interatrial shunt. Mitral Valve: The mitral valve leaflets appear normal. There is no evidence of stenosis, fluttering, or prolapse. There is trace mitral regurgitation. Aortic Valve: The aortic valve is trileaflet. The aortic valve opens well. No aortic regurgitation is present. Tricuspid Valve: The tricuspid valve leaflets are thin and pliable. There is mild tricuspid regurgitation. The right ventricular systolic pressure is estimated to be at least 35 mmHg based on an estimated right atrial pressure of 3 mm Hg. Pulmonic Valve: The pulmonic valve is not well seen, but is grossly normal. There is no pulmonic valvular regurgitation. Great Vessels: The aortic root is normal size. The dimensions of the ascending aorta are normal. The pulmonary artery is normal size. The IVC is of normal diameter and collapses greater than 50% with a sniff. This suggests a low right atrial pressure of 3 mm Hg. Pericardium/ Pleura There is no pericardial effusion. There is no pleural effusion. MMode/2D Measurements & Calculations LVIDd: 4.4 cm LVOT diam: 1.9 cm LVIDs: 3.3 cm Ao root diam: 2.8 cm FS: 25.8 % asc Aorta Diam: 2.9 cm EPSS: 0.68 cm IVSd: 1.1 cm LVPWd: 0.88 cm LV scott. diameter/BSA (cm/m^2): 3.1 LV sys. diameter/BSA (cm/m^2): 2.3 LA A2 area: 17.6 cm2 RA long axis: 3.5 cm LA A4 area: 17.3 cm2 RA area: 9.5 cm2 LA length (vol): 4.6 cm RA vol: 21.6 ml LA vol: 55.6 ml RA : 15.1 ml/m2 LA vol index: 38.8 ml/m2 IVC diam: 1.8 cm RVD1 (basal): 2.7 cm RVD2 (mid): 1.7 cm TAPSE: 2.3 cm Doppler Measurements & Calculations Ao V2 max: 128.1 cm/sec LVOT Max Arnold: 113.0 cm/sec Ao V2 mean: 89.6 cm/sec LV V1 max P.1 mmHg Ao max P.6 mmHg LV V1 VTI: 23.6 cm Ao mean P.5 mmHg DIANE(I,D): 2.3 cm2 Ao V2 VTI: 29.7 cm DIANE(V,D): 2.5 cm2 sev ratio: 0.80 DIAEN indexed to BSA (cm^2/m^2): 1.6 MV E max arnold: 77.0 cm/sec TR max arnold: 283.0 cm/sec MV A max arnold: 91.0 cm/sec TR max P.0 mmHg MV E/A: 0.85 PA V2 max: 71.5 cm/sec Med Peak E' Arnold: 5.8 cm/sec PA V2 mean: 48.0 cm/sec E/E' med: 13.3 PA mean P.0 mmHg Lat Peak E' Arnold: 7.6 cm/sec PA pr(Accel): 43.0 mmHg E/E' lat: 10.2 E/e' average: 11.7 MV dec time: 0.17 sec SV(LVOT): 67.3 ml Electronically signed by: Urmila Banda M.D. on Reading Physician:12/08/2024 10:55 AM
--- NOTE | 2024-12-07 12:31 | P.PN_ITS ---
Subjective Subjective Date Patient Seen: 12/07/24 Time Patient Seen: 08:16 Interval history: 84 F admitted with rhabdomyolysis and R hip fracture after being found down. CK slightly uptrending today. Her pain is controlled. Has had some LE swelling recently, denies dyspnea. Reports some dizziness and ? syncope though it is difficult to tell with the patient the timeline of events due to chronic cognitive impairment. Given elevated probnp and trop, will check TTE today prior to planned OR tomorrow. She reports fainting and hitting her head on her stove at home. She was able to pull herself up but not enough to get to her phone. Exam Vital Signs (past 8 hours): - 12/07/24 08:00 Temperature 97.7 F Pulse Rate 98 H Respiratory Rate 16 Blood Pressure 139/64 Pulse Oximetry 97 Oxygen Flow Rate 0 Oxygen Delivery Method Room Air Oxygen Flow Rate 0 Narrative Exam Narrative: GENERAL: This is a frail elderly female patient, appears comfortable, answering questions and conversational. HEAD: Right brow and temporal hematoma, with crusting blood over the right brow and around both eyes. EYES: Pupils equal round and reactive. Extraocular motions intact. No scleral icterus. No injection or drainage. ENT: Mucous membranes pink and dry. NECK: Trachea midline. No JVD, bruits or lymphadenopathy. Supple, nontender, no meningeal signs. CARDIOVASCULAR: Regular rate and rhythm without murmurs, gallops, or rubs. RESPIRATORY: Clear to auscultation anterior. GASTROINTESTINAL: Abdomen soft, non-tender, nondistended. EXTREMITIES: No clubbing, cyanosis, or edema. Right leg is shortened and externally rotated. BACK: Nontender without deformity or crepitance. No flank tenderness. NEUROLOGIC: Alert, oriented, speech fluent, full upper and lower motor strength, no focal deficits evident. DERMATOLOGIC: No rashes or skin lesions. Objective Labs 12/07/24 05:38 12/07/24 05:38 Labs: Laboratory Results - last 24 hr 12/06/24 12/06/24 12/06/24 11:50 12:09 13:30 WBC RBC Hgb Hct MCV MCH MCHC RDW Plt Count Neut % (Auto) Lymph % (Auto) [place] % (Auto) Eos % (Auto) Baso % (Auto) Neut # (Auto) Lymph # (Auto) [place] # (Auto) Eos # (Auto) Baso # (Auto) Sodium Potassium Chloride Carbon Dioxide BUN Creatinine Estimated GFR BUN/Creatinine Ratio Glucose Lactate Calcium Magnesium Total Bilirubin AST ALT Alkaline Phosphatase Total Creatine Kinase 2201 H Troponin I 0.056 H NT-Pro-B Natriuret Pep 1840 H Total Protein Albumin Globulin Albumin/Globulin Ratio TSH Urine Color Yellow Urine Appearance Clear Urine pH 6.5 Ur Specific Wallace 1.020 Urine Protein 2+ H Urine Glucose (UA) Negative Urine Ketones 1+ H Urine Occult Blood 3+ H Urine Nitrate Negative Urine Bilirubin Negative Urine Urobilinogen 0.2 Ur Leukocyte Esterase Negative Urine RBC 1-5/hpf Urine WBC 0-1/hpf Ur Squamous Epith Cells 0-1 /hpf Urine Bacteria Occasional (0-1) Ur Culture Indicated? Cult not indicated Vol Urine Centrifuged 10ml (spun) SARS-CoV-2 (PCR) Negative Influenza A (RT-PCR) Flu a negative Influenza B (RT-PCR) Flu b negative RSV (PCR) Negative 12/06/24 12/06/24 12/06/24 14:05 16:35 22:52 WBC RBC Hgb Hct MCV MCH MCHC RDW Plt Count Neut % (Auto) Lymph % (Auto) [place] % (Auto) Eos % (Auto) Baso % (Auto) Neut # (Auto) Lymph # (Auto) [place] # (Auto) Eos # (Auto) Baso # (Auto) Sodium Potassium Chloride Carbon Dioxide BUN Creatinine Estimated GFR BUN/Creatinine Ratio Glucose Lactate 1.4 Calcium Magnesium Total Bilirubin AST ALT Alkaline Phosphatase Total Creatine Kinase 2235 H Troponin I 0.076 H 0.079 H NT-Pro-B Natriuret Pep Total Protein Albumin Globulin Albumin/Globulin Ratio TSH Urine Color Urine Appearance Urine pH Ur Specific Wallace Urine Protein Urine Glucose (UA) Urine Ketones Urine Occult Blood Urine Nitrate Urine Bilirubin Urine Urobilinogen Ur Leukocyte Esterase Urine RBC Urine WBC Ur Squamous Epith Cells Urine Bacteria Ur Culture Indicated? Vol Urine Centrifuged SARS-CoV-2 (PCR) Influenza A (RT-PCR) Influenza B (RT-PCR) RSV (PCR) 12/07/24 05:38 WBC 13.6 H RBC 4.28 Hgb 12.8 Hct 37.6 MCV 87.9 MCH 30.0 MCHC 34.1 RDW 13.6 Plt Count 237 Neut % (Auto) 91.9 H Lymph % (Auto) 3.0 L [place] % (Auto) 4.2 Eos % (Auto) 0.1 L Baso % (Auto) 0.8 Neut # (Auto) 24130 H Lymph # (Auto) 400 L [place] # (Auto) 600 Eos # (Auto) 0 Baso # (Auto) 100 Sodium 138 Potassium 2.8 L Chloride 111 H Carbon Dioxide 18 L BUN 25 H Creatinine 0.79 Estimated GFR > 60 BUN/Creatinine Ratio 31.6 H Glucose 78 L Lactate Calcium 8.7 Magnesium 1.7 Total Bilirubin 1.1 AST 79 H ALT 37 H Alkaline Phosphatase 83 Total Creatine Kinase Troponin I 0.057 H NT-Pro-B Natriuret Pep Total Protein 5.8 L Albumin 3.5 Globulin 2.3 Albumin/Globulin Ratio 1.5 TSH 2.26 Urine Color Urine Appearance Urine pH Ur Specific Wallace Urine Protein Urine Glucose (UA) Urine Ketones Urine Occult Blood Urine Nitrate Urine Bilirubin Urine Urobilinogen Ur Leukocyte Esterase Urine RBC Urine WBC Ur Squamous Epith Cells Urine Bacteria Ur Culture Indicated? Vol Urine Centrifuged SARS-CoV-2 (PCR) Influenza A (RT-PCR) Influenza B (RT-PCR) RSV (PCR) [facility] Medical History Unilateral primary osteoarthritis, right knee Dementia Venous (peripheral) insufficiency GERD without esophagitis Polyneuropathy, unspecified Irritable bowel syndrome with diarrhea Do not resuscitate Generalized anxiety disorder Recurrent UTI (urinary tract infection) Sensorineural hearing loss, bilateral Mixed hyperlipidemia Essential hypertension Idiopathic peripheral neuropathy Optic neuropathy, right Hypertension Surgical History History of cholecystectomy History of tonsillectomy History of hysterectomy Family History Father Hypertension Cancer Cardiovascular disease Mother No problems noted. Social History details: lives alone, 3 sons, one estranged, retired household members: none Smoking Status: Never smoker alcohol intake: never Assessment & Plan Assessment & Plan narrative: 1. Right subcapital hip fracture due to underlying osteoporosis with ground level fall. Anticipate cemented right hip hemiarthroplasty when medically stabilized. 2. Left lower lobe pneumonia, possible community-acquired versus aspiration. 3. Rhabdomyolysis due to ground level fall. 4. Borderline elevated troponin. Monitor serial cardiac enzymes on telemetry. Likely due to demand ischemia. 5. Alzheimer type dementia, moderately advanced. 6. Hypertension. Continue routine medication. 7. Hyperlipidemia. Continue routine medication. 8. Venous insufficiency. Appears controlled. 9. GERD. 10. DVT prophylaxis: Subcutaneous heparin. SCDs 11. Hypokalemia 12. Myocardial injury, resolved Plan: -continue NPO, IV fluids pending [facility] as coughing noted with initial swallow screen possibly related to presenting pain medications as well. -troponin has downtrended overnight. But with elevated proBNP and trop, LE edema, possible syncope will check TTE prior to OR. -monitor CPK and renal function, CK slightly elevated today compared to admit. Glucose also trending down started on d5 NS given NPO status today. -surgical repair planned for tomorrow currently, pending above medical evaluation. -continue ceftriaxone and doxycycline for possible pneumonia, patient is not hypoxic Code: DNR, surrogate is listed as patient's sister The patient is admitted inpatient status as she will require at least 2 midnights of inpatient level care. Likely will need SNF on discharge, pending PT/OT evaluations after surgery. Time-Based Coding :: [TOTAL MINUTES] spent with patient and on the chart (including review of chart, obtaining history, exam, reviewing outside data, placing orders, documenting exam and treatment plan, and counseling patient) on [DATE]. Quality VTE Deep Vein Thrombosis/Pulmonary Embolism Present on Admission: No
--- NOTE | 2024-12-07 14:48 | CM.DANOTE ---
DCP Assessment Note: Pt is a 84yo female, resident of [place], is admitted for a hip fx after a GLF. Pt is scheduled for surgery on 12/08 at 9:00am. Pt lives in a house alone with her dog, Lianna. Pt's Primary Care Provider is Dr. Vic Dquue and insurance is Medicare and [facility]. Reviewed chart and discussed with multidisciplinary team pt's medical status and initial discharge needs. DCP met w/patient at bedside; introduced self and role. Patient was found in bed, alert and oriented, cooperative with assessment. Pt confirmed living situation and good support in sister who lives in [place] and friends who live in [place]. Pt expressed preference in discharging home but understands recommendations after surgery might be fore a SNF. Pt denied hx of SNF Rehab or Home health. DCP will return with Medicare Choice list to review with patient and family when recommendations established after surgery. Plan: Anticipating SNF Rehab post-surgery (per surgeon note), surgery scheduled for Tuesday, 12/08 and PT/OT evaluations to follow. CM team will follow closely for coordination of discharge plans. Sara Pickering [employer]LE[employer] INSTRUCTOR Discharge Planning/Care Management CM Discharge Assessment Start: 12/07/24 14:44 Freq: Status: Active Protocol: Document 12/07/24 14:44 MW (Rec: 12/07/24 14:48 MW [id number]) Discharge Planning Assessment Assigned Hr Business Partner JAMAAL Ruiz DPOA/Assigned Designee Name Sister Argueta Contact Information [phone] Advance Directives? Yes: POLST Advance Directives on File No History Provided By Patient,Medical Record Has Patient been admitted in last 30 No days? Prior Living Arrangements House Household Members none Type of transporation used prior to Relies on Others admit Independent with ADL's Yes Is patient alert and oriented? Yes DME Already Rented / Owned Cane Comment Pending PT/OT evaluations and recommendations post-surgery. Barriers to Discharge No Discharge Plan Home Review Status In Process Please Provide Date Initial DC 12/07/24 Assessment Was Performed Next Review Type Continued Stay Review
--- NOTE | 2024-12-07 15:24 | ST.IPCSEOM ---
Visit Care Team Role Provider Type Vic Duque MD Primary Care Provider Physician Specialty: Internal Medicine Address: [address] [place] [address], [id number] Email: [email or web address] Dat Casper DO Emergency Provider Physician Referring Provider Specialty: Emergency Medicine Address: [address] [place] [address], [id number] Fax: Email: Dat Soriano DO Admit Provider Physician Attending Provider Specialty: Internal Medicine Address: [address] [place] [address], [id number] Email: Current Diagnoses Age-related osteoporosis with current pathological fracture, right femur, initial encounter for fracture (12/06/24) Other osteoporosis with current pathological fracture, right femur, initial encounter for fracture (12/06/24) Unspecified intracapsular fracture of right femur, initial encounter for closed fracture (12/06/24) Past Medical History (Last Reviewed 12/07/24 @ 07:27 by Lisy Peter MD) Dementia (Medical) Do not resuscitate (Medical) Essential hypertension (Medical) Generalized anxiety disorder (Medical) GERD without esophagitis (Medical) Hypertension (Medical) Idiopathic peripheral neuropathy (Medical) Irritable bowel syndrome with diarrhea (Medical) Mixed hyperlipidemia (Medical) Optic neuropathy, right (Medical) Polyneuropathy, unspecified (Medical) Recurrent UTI (urinary tract infection) (Medical) Sensorineural hearing loss, bilateral (Medical) Unilateral primary osteoarthritis, right knee (Medical) Venous (peripheral) insufficiency (Medical) Speech-Language Pathology Swallow Evaluation [facility] Clinical Swallow Evaluation Start: 12/07/24 14:08 Freq: Status: Active Protocol: Document 12/07/24 14:08 SS (Rec: 12/07/24 14:29 SS [id number]) Clinical Swallow Evaluation Session Time Visit Start Time 13:40 Visit Stop Time 14:05 Total Visit Minutes 25 Visit Information Visit Number [address] Dat Soriano Reason for Referral Failed swallowing screen Setting Assessment Location Acute Care Visit Type Note Type Initial evaluation Next Note Type Next Note Type Treatment Note Patient Information Identification Type Name,Date of History Per H&P: 84-year-old woman under the primary care of Dr. Vic Duque was found down today by preliminary who come to her house to do work. Her sister Camilla who is present in the emergency department states that she last talked to her 2 days ago. She has moderate dementia and has been living at home independently. She has a small dog that she wishes to keep and this has kept her from moving into an assisted living memory care facility until now. Emergency department evaluation was notable for right hip fracture in lower lobe pneumonia. She is admitted for further management and evaluation. Due to her dementia she is unable to provide meaningful history about recent events. Pt was referred for clinical swallowing evaluation to assess swallowing function after she failed nursing swallow screen. Per chest CT on 12/06, trace, dependent ground-glass and consolidation , most notably in the left lower lobe. Distribution and appearance raise the concern for aspiration. Partial hip replacement scheduled for 12/08 in the morning. Subjective Observations Pt was alert and oriented x3 upon HEEL SLUGGER arrival. She was able to describe her living situation and some details from current hospitalization, though is not completely reliable given moderately advanced dementia. She reported increased amount of phlegm that she spits out, though denied s/sx of dysphagia or aspiration. She denied coughing or choking and any other airway intrusion problems. She reported one occurrence of PNA in past, but could not recall when. She denied esophageal disorders or hiatal hernia. At baseline, her diet was regular solids, thin liquids, and medications with liquid wash. Pt reported some unintentional weight loss, but could not recall amount. Reported by Patient/Caregiver Pain/Discomfort Yes Other Symptoms Coughing,Difficulty swallowing liquids,Difficulty swallowing solids,Weight loss Current Diet NPO Baseline Feeding Method Independent in self-feeding The IDDSI Framework Protocol: IDDSI.1 Objective Assessment Mental Status Alert,Responsive Oral Integrity WFL Dentition Within normal limits Lip Function Within normal limits Observation of Lips at Rest Symmetrical Pucker Within normal limits Lip Retraction Within normal limits Alternating Pucker/Lip Retraction Within normal limits Tongue Function Within normal limits Observations of Tongue at Rest Within normal limits Tongue Protrusion Within normal limits Tongue Retraction Within normal limits Tongue Lateralization Within normal limits Jaw Function Within normal limits Observation of Jaw at Rest Within normal limits Jaw Opening Within normal limits Jaw Closing Within normal limits Jaw Lateralization Within normal limits Jaw Protrusion Within normal limits Jaw Retraction Within normal limits Hard/Soft Palate Function Within normal limits Observations of Hard/Soft Palate Within normal limits Nasality Within normal limits Respiratory Sufficiency Within normal limits Food and Liquid Trials Position During Assessment Upright (90 degrees) Liquids Trialed Thin (IDDSI 0) Administration Type Tea spoon Oral Impairment Within functional limits Oral Phase Comments Oral phase appeared to be WFL. Good containment. Unable to assess mastication as solids were not presented due to safety concerns. AP transport and manipulation appeared to be delayed and premature spillage suspected. No abnormal oral residue observed with liquids. Oral phase observations limited as only thin liquids via tsp were trialed today. Pharyngeal Impairment Severely impaired Pharyngeal Phase Comments Pt demonstrated immediate weak reflexive prolonged coughing following tsp of thin liquids (water) and did not seem to be able to clear it given at least 6-7 sequential weak coughs. Trials discontinued after two tsp given consistent overt s/sx of aspiration. Pt demonstrated wet/hoarse vocal quality immediately after swallows. She expectorated thick green/ yellow sputum immediately after. Did not provide additional trials given safety concerns with controlled amount of thin liquids. Fatigue/Endurance Endurance WNL The IDDSI Framework Protocol: IDDSI.1 Findings Swallowing Function Pharyngeal phase dysphagia Severity of Swallow Impairment Severely impaired Contributing Factors to Swallow Impaired oral-pharyngeal Impairment transport,Delayed swallow initiation,Impaired airway protection Prognosis Fair Based on Cognitive status,Age, Comorbidities,Other (comment) Comment Currently, pt presents with indications of pharyngeal dysphagia and aspiration risk is judged to be high. Pharyngeal phase cannot be objectively assessed at bedside though subjectively appeared effortful and pt required 5-6 swallows per bolus. Pt demonstrated consistent s/sx of aspiration with all PO re: coughing. Cough strength is judged to be weak increasing aspirated related complications. With any dysphagia aside, pt continues to be at an overall risk of development of PNA d/t her dependence on others for oral care, multiple medical diagnoses, number of medications, poor oral health, and compromised immune system /health status. Impact on Safety and Functioning Risk for aspiration,Risk for inadequate nutrition/hydration Recommendations Instrumental Assessment Yes Swallowing Treatment Yes Frequency 5x/week Recommended Solids NPO Other Recommendations Pt does not appear safe for a PO diet at this time. An ice chip protocol to promote oral hygiene and reduce risk of swallow strength decompensation is not appropriate at this time given significant difficulty with managing small amounts of small liquids. If no clinical improvements are made, strongly recommend MBSS in house to further assess swallow pathophysiology. Messaged on-call HEEL SLUGGER to re- assess pt this weekend following surgery and determine if diet advancement or ice chip protocol is appropriate as well as readiness for MBSS. Pt will benefit from frequent oral care to minimize colonization of oral pathogens that can increase pt's risk of developing aspiration pneumonia if aspirated. Discussed assessment results with MD, Dr. Soriano. Medication Recommendations Not Recommended by Mouth Discharge Recommendations custodial facility, Inpatient rehab facility Referrals Recommended Referrals Dietary Education Patient/Caregiver Education Described results of evaluation,Patient expressed understanding of evaluation, Patient expressed agreement with goals & treatment plans Goals Short-term Goals 1. Patient will complete MBSS to further evaluate swallowing pathophysiology and determine next steps in POC. 2. Patient will increase ability to safely swallow Soft and bite-Sized (SB6) consistencies without overt s/ sx of aspiration in order to meet primary nutrition needs and reduce risk of aspiration pneumonia. 3. Patient will increase ability to safely consume thin liquids without overt s/sx of aspiration in order to meet primary hydration needs and reduce risk of aspiration pneumonia. Long-term Goals Patient will safely tolerate least restrictive diet consistency to allow for safe consumption of daily meals without s/sx of aspiration.
[2024-12-07] MEDS: POTASSIUM CHLORIDE IN WATER 10 MEQ/100 ML PIGGYBACK 100 MEQ IV ×5 (16:50→23:36)
[2024-12-07] MEDS: cefTRIAXone 1,000 MG in SODIUM CHLORIDE 0.9% 100 ML 200 MG IV (18:04)
[2024-12-07] MEDS: SODIUM CHLORIDE 0.9% FLUSH 10 ML IV (22:48)
[2024-12-07] MEDS: HYDROMORPHONE 0.5 MG INJ IV (23:21)
[2024-12-08] VITALS (21 sets, daily range): BP systolic 100–170; BP diastolic 47–88; PULSE 68–97; RESP 11–20; TEMP 35.7–37.2; O2SAT 93–100; BMI 19.8
--- NOTE | 2024-12-08 | DI.RAD.S_ITS ---
PROCEDURE: XR PELVIS 1-2V INDICATIONS: POST OP TECHNIQUE: 1 view of the lower pelvis acquired. COMPARISON: [facility], STEPHANIE, XR PELVIS 1-2V, 12/08/2024, 12:05. [facility], STEPHANIE, XR HIP W PEL IF DONE RT 2V, 12/06/2024, 16:45. FINDINGS: Bones: Patient is status post right hip arthroplasty, with hardware components in expected positions. The hip joint appears congruent. The visualized bony structures appear intact. Soft tissues: Overlying postoperative changes are noted. No suspicious soft tissue densities. IMPRESSION: Expected post-operative appearance of a hip arthroplasty. Dictated by: Dejon Castaneda M.D. on 12/08/2024 at 13:01 Approved by: Dejon Castaneda M.D. on 12/08/2024 at 13:01
--- NOTE | 2024-12-08 | DI.RAD.S_ITS ---
PROCEDURE: XR PELVIS 1-2V INDICATIONS: INTER OP TECHNIQUE: Intra-operative view of the pelvis and hip acquired. COMPARISON: None. FINDINGS: Bones: Intraoperative devices prior to complete mint of hip arthroplasty are in expected positions. No fractures or suspicious bony lesions. Soft tissues: Overlying surgical retractors are present, along with other intraoperative changes. IMPRESSION: Operative imaging obtained during total right hip arthroplasty. No immediate complications noted. Dictated by: Jad Graham M.D. on 12/08/2024 at 12:52 Approved by: Jad Graham M.D. on 12/08/2024 at 12:53
[2024-12-08] MEDS: POTASSIUM CHLORIDE IN WATER 10 MEQ/100 ML PIGGYBACK 100 MEQ IV ×2 (01:59→08:35)
[2024-12-08 05:52] LABS: Add Manual Diff / Slide Review NO; Basophils Absolute Auto 100 /uL (0-100); Basophils Percent Auto 0.9 % (0-2); Eosinophils Absolute Auto 100 /uL (0-450); Hematocrit 37.5 % (36-46); Hemoglobin 12.7 g/dL (12.0-16.0); Lymphocytes Absolute Auto 1000 /uL (1100-4500); Mean Corpuscular Hemoglobin 30.2 PG (26-34); Mean Corpuscular Volume 88.7 fL (80-100); Monocytes Absolute Auto 800 /uL (0-900); Monocytes Percent Auto 9.2 % (3-14); Neutrophils Absolute Auto 7100 /uL (1500-7000); Neutrophils Percent Auto 77.9 % (50-75); Platelet Count 218 X10^3/uL (150-400); Red Blood Cell Count 4.22 X10^6/uL (4.0-5.2); Red Cell Distribution Width 13.7 % (11.6-14.8); White Blood Cell Count 9.1 X10^3/uL (4.5-11.0)
[2024-12-08] MEDS: DEXTROSE 5%-0.9% NS 1,000 ML 100 ML IV (06:12)
[2024-12-08 06:22] LABS: Alanine Aminotransferase 36 IU/L (<35); Albumin Globulin Ratio 1.3 (1.0-2.8); Alkaline Phosphatase 72 U/L (38-126); Aspartate Aminotransferase 57 IU/L (14-36); BUN Creatinine Ratio 26.8 (6-22); Bilirubin Total 0.7 mg/dL (0.2-1.3); Blood Urea Nitrogen 15 mg/dL (7-17); Calcium 8.4 mg/dL (8.4-10.2); Carbon Dioxide 21 mmol/L (22-32); Chloride 115 mmol/L (98-107); Estimated Glomerular Filt Rate > 60 mL/min (>60); Globulin 2.4 g/dL (1.7-4.1); Glucose 114 mg/dL (80-110); HEMOLYSIS < 15 (0-50); Magnesium 1.6 mg/dL (1.6-2.3); Potassium 3.3 mmol/L (3.4-5.1); Sodium 139 mmol/L (137-145); Total Protein 5.4 g/dL (6.3-8.2)
[2024-12-08] MEDS: DOXYCYCLINE 100 MG in SODIUM CHLORIDE 0.9% 100 ML IV ×2 (07:58→21:09)
--- NOTE | 2024-12-08 08:21 | PM.PREOP ---
Pre-operative Note Interval Note History & Physical reviewed/Exam performed by Physician: Yes Changes to H&P: No
[2024-12-08] MEDS: SODIUM CHLORIDE 0.9% FLUSH 10 ML IV ×2 (09:22→21:10)
[2024-12-08] MEDS: LACTATED RINGERS 1,000 ML 42 ML IV (10:20)
--- NOTE | 2024-12-08 10:26 | PM.PN.1 ---
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 Patient is NPO to go to the OR this morning. She states yesterday her hip was not painful but today it has become more painful. She states she recalls when she fell in her kitchen became stuck underneath the cabinet. She knew that her phone was on her night stand which was not accessible to her. She became anxious and worried that that was how she might . She is happy she was able to come to the hospital for surgical repair. She notes over the last several months she has had some ankle edema which has made it difficult to get her compression hose on. She states it typically improves after she has her legs elevated. Exam Vital Signs (past 8 hours): - 12/07/24 15:00 12/07/24 16:00 12/07/24 20:00 Temperature 97.6 F 99.8 F H Pulse Rate 80 69 Respiratory Rate 18 16 Blood Pressure 148/75 H 146/61 H Pulse Oximetry 97 97 97 Oxygen Delivery Method Room Air Oxygen Flow Rate 0 Oxygen Delivery Method Room Air Oxygen Flow Rate 0 Narrative Exam Narrative: GEN: Alert and oriented x 2-3, NAD HEENT:NC, Face symmetric CHEST: Respiratory excursions symmetric, CTAB CV: RRR, no M/R/G ABD: Soft, NT/ND, BT present in all 4 quadrants, no organomegaly or masses EXTR: warm, well perfused, no C/C/E, right leg is externally rotated SKIN: warm and dry, no rash NEURO: Alert and oriented x 2-3, nonfocal Objective Labs 12/08/24 05:10 12/08/24 05:10 Labs: Laboratory Results - last 24 hr 12/06/24 12/07/24 22:52 05:38 WBC 13.6 H RBC 4.28 Hgb 12.8 Hct 37.6 MCV 87.9 MCH 30.0 MCHC 34.1 RDW 13.6 Plt Count 237 Neut % (Auto) 91.9 H Lymph % (Auto) 3.0 L Reeves % (Auto) 4.2 Eos % (Auto) 0.1 L Baso % (Auto) 0.8 Neut # (Auto) 36505 H Lymph # (Auto) 400 L Reeves # (Auto) 600 Eos # (Auto) 0 Baso # (Auto) 100 Sodium 138 Potassium 2.8 L Chloride 111 H Carbon Dioxide 18 L BUN 25 H Creatinine 0.79 Estimated GFR > 60 BUN/Creatinine Ratio 31.6 H Glucose 78 L Calcium 8.7 Magnesium 1.7 Total Bilirubin 1.1 AST 79 H ALT 37 H Alkaline Phosphatase 83 Troponin I 0.079 H 0.057 H Total Protein 5.8 L Albumin 3.5 Globulin 2.3 Albumin/Globulin Ratio 1.5 TSH 2.26 PFSH Medical History Unilateral primary osteoarthritis, right knee Dementia Venous (peripheral) insufficiency GERD without esophagitis Polyneuropathy, unspecified Irritable bowel syndrome with diarrhea Do not resuscitate Generalized anxiety disorder Recurrent UTI (urinary tract infection) Sensorineural hearing loss, bilateral Mixed hyperlipidemia Essential hypertension Idiopathic peripheral neuropathy Optic neuropathy, right Hypertension Surgical History History of cholecystectomy History of tonsillectomy History of hysterectomy Family History Father Hypertension Cancer Cardiovascular disease Mother No problems noted. Social History details: lives alone, 3 sons, one estranged, retired household members: none Smoking Status: Never smoker alcohol intake: never Assessment & Plan Assessment & Plan narrative: 1. Right subcapital hip fracture due to underlying osteoporosis with ground level fall. Plan for R hip hemiarthroplasty today per ortho. 2. Left lower lobe pneumonia, possible community-acquired versus aspiration. Continues on rocephin and doxy. Stable in room air. Speech therapy will be assessing her once her NPO status has been cleared after surgery. 3. Rhabdomyolysis due to ground level fall. Improving. 4. Borderline elevated troponin. Troponin has peaked and has come back down. Likely due to demand ischemia. 5. Alzheimer type dementia, moderately advanced. She is quite clear today and able to articulate what has been going on at home. She is able to explain where all 3 of her children live, the events around her injury, and does seem to understand the rationale behind her planned echocardiogram. However, I am uncertain what her retention is of the material we discussed today 6. Hypertension. Continue routine medication. 7. Hyperlipidemia. Continue routine medication. 8. Venous insufficiency. Chronic. 9. GERD. Continue pantoprazole. 10. Hypokalemia Will continue to replete Code DNR Prophsky Lovenox will be held today and resume postoperatively as long as she has not having any significant oozing from her surgical site. Dispo Pending, but anticipate she will need a half-way facility for rehab Time-Based Coding :: [TOTAL MINUTES] spent with patient and on the chart (including review of chart, obtaining history, exam, reviewing outside data, placing orders, documenting exam and treatment plan, and counseling patient) on [DATE]. Quality VTE Deep Vein Thrombosis/Pulmonary Embolism Present on Admission: No
--- NOTE | 2024-12-08 10:40 | SUR.HOLD ---
Patient still in holding pattern for surgery due to delay in official echocardiogram report. Patient resting quietly with no complaints at this time. VSS. No distress noted. Resting with eyes closed.
--- NOTE | 2024-12-08 11:07 | P.OP_ITS ---
Operative Date/Time/Diagnoses Date of procedure: 12/08/24 Time of procedure: 11:07 Pre-op diagnosis: Right hip femoral neck fracture osteoporotic Post-op diagnosis: same Procedure & Clinicians Procedure: Cemented hemiarthroplasty for right femoral neck fracture CPT code 45736 Same procedure as scheduled: Yes Indications: Patient was a 84-year-old female with a history of dementia, normally ambulatory with a cane. Fell in her house, unwitnessed fall. Was found down. Down to have displaced right femoral neck fracture. She was indicated for hemiarthroplasty for her displaced femoral neck fracture to help allow early mobilization reduce the complications associated with prolonged bed rest. Surgery risks and benefits were discussed in detail with the patient and her son via telephone as well as her sister present in the room. Consent for surgery was signed. The risks and benefits of the procedure have been discussed with the patient and given the opportunity to ask questions. The risks of surgery include but are not limited to infection, malunion, nonunion, persistence of pain, damage to nerves and blood vessels, posttraumatic arthritis, DVT, PE, coardiopulmonary complications and . The patient and POA expressed a thorough understanding of the risks and benefits of surgery and has elected to proceed. Consent was signed. Surgeon: Lisy Peter Registered Account Administrator: Nimisha Dietrich Anesthesia Type: General and Local Operative Notes Findings: Displaced right femoral neck fracture Closure Type: primary Specimen(s): none sent Prosthetic devices, grafts, tissues, transplants, or devices: Grady and nephew Synergy stem cemented 10 Neck +0 Head tandem 44mm Centralizer 8 mm Restrictor small Estimated Blood Loss (mL): 100 Tourniquet time (min): 0 Procedure in detail: During the operation, the services of a physician hand frame surgical elastic knitter were medically indicated and necessary to provide the exposure of the operative site for the surgical procedure and to maintain the limb in a proper position to carry out the operation safely and efficiently. Without a qualified administration assistant being present this would extended the operative procedure and made the procedure technically more difficult to perform. Hemiarthroplasty for femoral neck fracture CPT code 90957. Patient was seen in the preoperative area the site of surgery was marked and informed consent confirmed. This was the right hip. The patient was brought back to the operating room by the anesthesia team. Patient was positioned supine on the operative table. General anesthetic was administered. Patient was then moved into the lateral position. The hip roto mixer operator positioner pads were then placed. A well-padded axillary roll was placed and the arms were appropriately positioned. The affected lower extremity was prepped and draped from the ankle to the iliac crest with ChloraPrep in the standard fashion sterile drapes were placed. Formal time-out procedure was performed confirming the patient's side and site of surgery, presence of informed consent, administration of appropriate preoperative antibiotics. Hip was approached through a standard posterior approach. Dissection was carried down through the skin and subcutaneous tissues sharply through the skin and then with the Bovie through the subcutaneous tissues. The fascia michelle was exposed and opened. Fascia was opened using the Bovie and the gluteus landon was spread with finger retraction. The Charnley retractor was placed. The inflamed bursa was resected. The piriformis was then identified. A Cobra retractor was placed under the gluteus medius to help expose the external rotators. The piriformis and short external rotators were tagged with a 2 Ethibond and divided of the trochanter. These were then retracted posteriorly to protect sciatic nerve. The femur was then flexed and internally rotated to present the femoral neck and the fracture. A corkscrew and a Vickers were used to remove the femoral head from the acetabulum. This was measured to fit a 44 mm head. Next the femur was presented. A clean-up neck cut was made in a minimal fashion. The trial head size was trialed in the acetabulum. Attention was then turned to the femur. T he canal was opened with a box cutting osteotome. This followed by the canal finer and a lateralizing Reamer. The tapered reamers were then used up to a size 10. Then broaching was sequentially done up to a size 10. Trial components were placed. The patient was stable in the position of sleep, squatting and could be put through a range of motion with 70? of internal rotation without dislocation. This was felt to be appropriate. An intraop a AP pelvis x-ray was obtained to assess component position. Final components were then selected. The final stem was a size 10. Femoral canal was prepared . The distal small restrictor was placed approximately 2 cm distal to the end of the planned implant. The bone was meticulously cleaned with pulse lavage. Canal was then packed with gauze. Two packages of cement were mixed and carefully pressurized into the femoral canal. The femoral component was then placed without difficulty. This was held in place until the cement hardened. The r epeat trial reduction showed good range of motion and stability. The final head and neck were then carefully placed. The wound was irrigated. The capsule and muscular flap was repaired with the 2. Ethibond. Next the short external rotators were repaired to the greater trochanter through drill holes in the greater trochanter using the 2.5 drill and a Hewson suture Passer. These were tied with the leg in abduction. The wound was then irrigated again. A mixture of 40 cc of 0.25% Marcaine with epinephrine and 20 cc of 266 mg of Exparel were mixed and infiltrated in the wound for postoperative pain control. The fascia michelle was closed with 0 Vicryl and the subcutaneous layer was closed with 2-0 Vicryl and the skin with obdulia. An Aquacel dressing was placed. An abduction pillow was placed for protection. The drapes removed and the patient was taken to the recovery room in good condition. There no immediate complications from this procedure. All counts were correct. Postoperative AP pelvis x-ray was obtained in the PACU showed appropriate alignment of the cemented hip hemiarthroplasty with no evidence of fracture. Complications: none Post-operative Condition: stable Disposition: PACU Plan for aftercare: Weightbear as tolerated with the assistive devices. Posterior hip precautions x6 weeks. DVT prophy subcutaneous Lovenox once daily x4 weeks. Follow up in Orthopedic Clinic in 2 weeks for repeat x-rays and staple removal.
[2024-12-08] MEDS: BUPIVACAINE 0.25% W/ EPI 30 ML VIAL 60 ML INJ (11:53)
[2024-12-08] MEDS: BUPIVACAINE LIPOSOME 266 MG/20 ML VIAL INJ (11:54)
[2024-12-08] MEDS: SODIUM CHLORIDE IRRIG SOLUTION 250 ML, EPINEPHrine 1 MG IRR (11:59)
--- NOTE | 2024-12-08 12:40 | SLP.IPNOTE ---
This BOLT THREADER went to check on the pt around 12:00 but they were still in surgery. Surgery was delayed today per nurse. Per rounds, the pt seems to be demonstrating better cognitive skills at this time. Discussed plan with the pt's nurse and DIRECTOR NETWORK DEVELOPMENT. Will check back in later to see if the pt is back from surgery and able to participate in a re-evaluation.
--- NOTE | 2024-12-08 13:37 | SLP.IPNOTE ---
CASING SEWER attempted to see if pt had returned from surgery again this afternoon but that was not the case. There had been a few delays which pushed her start time back. Given the change of cognitive abilities noted from this morning, it is this CASING SEWER's recommendation that staff re-administer the nurse bedside swallow assessment to see if there are improvements with the pt. This should be re-administered when the pt is alert and oriented to participate in order to insure pt safety. ST will continue to follow up and re-evaluate the pt to determine least restrictive diet recommendations. MBSS may be warranted to rule out silent aspiration and determine safest diet to consume. Continue frequent oral care to minimize bacteria growth which would increase the risk of aspiration pneumonia.
--- NOTE | 2024-12-08 15:15 | PT-IP ANOTE ---
PT eval order received. EMR reviewed. checked with nurse and pt. nurse stated that pt just arrived to the acute floor. pt is in deep sleep and not alert to do PT. pt not ready for PT eval. will f/u.
[2024-12-08] MEDS: LACTATED RINGERS 1,000 ML 100 ML IV (15:34)
--- NOTE | 2024-12-08 15:35 | CM.DPC ---
DCP Cont: Per Ortho, pt and POA signed consents and pt taken to OR today and seemed to tolerate surgical intervention today. PT/ST, ordered and pending as pt still too groggy from surgery this morning to participate and will attempt eval in the AM. JAMAAL Weller
[2024-12-08] MEDS: KETOROLAC 30 MG/ML VIAL 15 MG IV (22:30)
[2024-12-09] VITALS (10 sets, daily range): BP systolic 103–170; BP diastolic 69–90; PULSE 80–92; RESP 15–18; TEMP 36.6–37.6; O2SAT 93–98
[2024-12-09 05:55] LABS: Add Manual Diff / Slide Review NO; Basophils Absolute Auto 0 /uL (0-100); Basophils Percent Auto 0.1 % (0-2); Eosinophils Absolute Auto 0 /uL (0-450); Hematocrit 32.3 % (36-46); Hemoglobin 11.1 g/dL (12.0-16.0); Lymphocytes Absolute Auto 500 /uL (1100-4500); Lymphocytes Percent Auto 3.9 % (25-40); Mean Corpuscular HGB Conc 34.4 % (30-36); Mean Corpuscular Volume 87.2 fL (80-100); Monocytes Absolute Auto 800 /uL (0-900); Monocytes Percent Auto 6.4 % (3-14); Neutrophils Absolute Auto 10700 /uL (1500-7000); Neutrophils Percent Auto 89.6 % (50-75); Platelet Count 208 X10^3/uL (150-400); Red Blood Cell Count 3.71 X10^6/uL (4.0-5.2); Red Cell Distribution Width 13.7 % (11.6-14.8); White Blood Cell Count 11.9 X10^3/uL (4.5-11.0)
[2024-12-09 06:15] LABS: Alanine Aminotransferase 36 IU/L (<35); Albumin 2.9 g/dL (3.5-5.0); Albumin Globulin Ratio 1.3 (1.0-2.8); Alkaline Phosphatase 76 U/L (38-126); Aspartate Aminotransferase 46 IU/L (14-36); Bilirubin Total 0.9 mg/dL (0.2-1.3); Blood Urea Nitrogen 15 mg/dL (7-17); Calcium 8.7 mg/dL (8.4-10.2); Carbon Dioxide 20 mmol/L (22-32); Chloride 110 mmol/L (98-107); Estimated Glomerular Filt Rate > 60 mL/min (>60); Globulin 2.3 g/dL (1.7-4.1); Glucose 116 mg/dL (80-110); HEMOLYSIS < 15 (0-50); Magnesium 1.4 mg/dL (1.6-2.3); Potassium 3.6 mmol/L (3.4-5.1); Sodium 136 mmol/L (137-145); Total Protein 5.2 g/dL (6.3-8.2)
[2024-12-09] MEDS: LACTATED RINGERS 1,000 ML 100 ML IV (06:48)
--- NOTE | 2024-12-09 08:26 | PM.PNPO.1 ---
Subjective Subjective Date Patient Seen: 12/09/24 Time Patient Seen: 08:27 Interval history: The patient was an 84-year-old female postop day 1 status post right cemented hemiarthroplasty for displaced femoral neck fracture. She was doing well this morning. Her pain is controlled. She was still been NPO because she was found to be a high aspiration risk and failed her swallow study. Primary team and speech therapy we will be determining her next steps regarding that. States her hip pain the minimal. She was using the abduction brace while in bed. She does have some dementia at baseline but is answering questions very appropriately this morning. Exam Vital Signs (past 8 hours): - 12/09/24 03:00 12/09/24 04:00 Temperature 98.2 F Pulse Rate 80 Respiratory Rate 16 Blood Pressure 148/90 H Pulse Oximetry 93 98 Oxygen Delivery Method Nasal Cannula Oxygen Flow Rate 1 Fraction of Inspired Oxygen 24 SaO2/FiO2 Ratio 412 Oxygen Delivery Method Nasal Cannula Oxygen Flow Rate 1 Narrative Exam Narrative: No acute distress. Wondering when she gets to eat. Breathing unlabored on room air . Moving bilateral upper extremities without difficulty. Right lower extremity dressing Aquacel intact clean and dry. Abduction pillow in place. Demonstrates 5/5 dorsiflexion plantar flexion. Calf and thigh are soft. Objective Labs 12/09/24 05:11 12/09/24 05:11 Labs: Laboratory Results - last 24 hr 12/09/24 05:11 WBC 11.9 H RBC 3.71 L Hgb 11.1 L Hct 32.3 L MCV 87.2 MCH 30.0 MCHC 34.4 RDW 13.7 Plt Count 208 Neut % (Auto) 89.6 H Lymph % (Auto) 3.9 L Benson % (Auto) 6.4 Eos % (Auto) 0.0 L Baso % (Auto) 0.1 Neut # (Auto) 86027 H Lymph # (Auto) 500 L Benson # (Auto) 800 Eos # (Auto) 0 Baso # (Auto) 0 Sodium 136 L Potassium 3.6 Chloride 110 H Carbon Dioxide 20 L BUN 15 Creatinine 0.60 Estimated GFR > 60 BUN/Creatinine Ratio 25.0 H Glucose 116 H Calcium 8.7 Magnesium 1.4 L Total Bilirubin 0.9 AST 46 H ALT 36 H Alkaline Phosphatase 76 Total Protein 5.2 L Albumin 2.9 L Globulin 2.3 Albumin/Globulin Ratio 1.3 [facility] Medical History Unilateral primary osteoarthritis, right knee Dementia Venous (peripheral) insufficiency GERD without esophagitis Polyneuropathy, unspecified Irritable bowel syndrome with diarrhea Do not resuscitate Generalized anxiety disorder Recurrent UTI (urinary tract infection) Sensorineural hearing loss, bilateral Mixed hyperlipidemia Essential hypertension Idiopathic peripheral neuropathy Optic neuropathy, right Hypertension Surgical History History of cholecystectomy History of tonsillectomy History of hysterectomy Family History Father Hypertension Cancer Cardiovascular disease Mother No problems noted. Social History details: lives alone, 3 sons, one estranged, retired household members: none Smoking Status: Never smoker alcohol intake: never Assessment & Plan Post-op Postoperative Procedures: Procedures Operation Date: 12/08/24 09:00 Actual Procedure Side Surgeon p Hip Hemiarthroplasty Right Lisy Peter MD Postoperative day: 1 Postoperative status: doing well Postoperative plan: routine post-op care Postoperative plan narrative: Weightbear as tolerated right lower extremity. Abduction pillow while in bed. Posterior hip precautions. Lovenox 40 mg subQ daily for DVT prophylaxis time of 4 weeks. Time Spent With Patient Time with patient: less than 15 minutes Quality VTE Deep Vein Thrombosis/Pulmonary Embolism Present on Admission: No
--- NOTE | 2024-12-09 10:46 | PC.NURSE ---
Addendum entered by Doreen Field R.N. 12/09/24 18:51: visitor here pt awake, angry confused arguing on phone with sister. I intervened and spoke with sister Ele and she has pt's watch and other personal belongings with her. pt calming down and now being more clear. Addendum entered by Doreen Field R.N. 12/09/24 18:21: pt calling out to staff asking questions that don't apply-now she is mad I repositioned her medicated with toradol 15 mg ivp- Addendum entered by Doreen Field R.N. 12/09/24 16:49: feeding pt mashed potatoes and gravy, talking alot so needs 1:1 to prompt to swallow, HOB up 90 degreees, cms intact, denies pain unless moving continues to become more confused thru out the day Original Note: Pt alert oriented to person, place, time- some memory issues when asked to wiggle toes she wiggles her fingers she laughed. sister here doing Bills with pt. pt was given nursing swallow eval did well with teaspoon water and apple sauce, but choked on drinking water- TECHNOLOGY ASSISTANT ordered for rl, to revaluate. mouth care with assist ok.
--- NOTE | 2024-12-09 12:33 | PT.IIE ---
Current Diagnoses Age-related osteoporosis with current pathological fracture, right femur, initial encounter for fracture (12/06/24) Other osteoporosis with current pathological fracture, right femur, initial encounter for fracture (12/06/24) Unspecified intracapsular fracture of right femur, initial encounter for closed fracture (12/06/24) Surgery Performed Operation Date: 12/08/24 09:00 Actual Procedures p Hip Hemiarthroplasty(Right) - Lisy Peter MD Surgical History (Last Reviewed 12/07/24 @ 07:27 by Lisy Peter MD) History of cholecystectomy History of hysterectomy History of tonsillectomy Medical History (Last Reviewed 12/07/24 @ 07:27 by Lisy Peter MD) Dementia Do not resuscitate Essential hypertension Generalized anxiety disorder GERD without esophagitis Hypertension Idiopathic peripheral neuropathy Irritable bowel syndrome with diarrhea Mixed hyperlipidemia Optic neuropathy, right Polyneuropathy, unspecified Recurrent UTI (urinary tract infection) Sensorineural hearing loss, bilateral Unilateral primary osteoarthritis, right knee Venous (peripheral) insufficiency Physical Therapy Inpatient Evaluation/Re-Eval M1 PT/OT-IP Prior Functional Status Start: 12/09/24 08:42 Freq: NEEDED Status: Active Protocol: Document 12/09/24 11:45 MB (Rec: 12/09/24 12:33 MB [id number]) Medical Review Prior Functional Status Medical History Reviewed Yes Communication Unsure baseline diet as notes report possible aspiration, lung findings Mobility and Gait Pt reports mod I with cane, that she is I with bathing and dressing, does not drive and has friends who help with errands. A friend drives her to work at [employer] once a week Social History Household Members none Living Arrangements House Number of Floors (Floors) 3 or More Floors Number of Stairs To Enter/Railing? 2-4 steps with two rails to enter and she thinks she can reach both rails at the same time Home Environment Standard Height Toilet,Walk in Shower,Built-In Shower Seat Home Equipment Straight Cane,Hand Held Shower ,Grab Bars Near Toilet,Grab Bars In Shower Employment Status Retired M2 PT-IP Current Condition Start: 12/09/24 08:42 Freq: NEEDED Status: Active Protocol: Document 12/09/24 11:45 MB (Rec: 12/09/24 12:33 MB [id number]) Physical Therapy Current Condition Current Condition Evaluation Date 12/09/24 Treatment Diagnosis Fall, right femoral neck frature and cemented hemiarthroplasty M3 PT-IP Subjective Start: 12/09/24 08:42 Freq: NEEDED Status: Active Protocol: Document 12/09/24 11:45 MB (Rec: 12/09/24 12:33 MB [id number]) Subjective Physical Therapy Visit Type Type Initial Evaluation Visit Start Time 11:45 Visit Stop Time 12:15 Number of BENEFITS SALES CONSULTANT Visits 0 Physical Therapy Visit Comments Patient Comments Pt with many visitors stopping in and making small talk, she has trouble answering all questions clearly and following some commands, asks if PT can pull up the bottom of bed for her, asks some other questions that do not make sense. She rates pain number as F when asked after mobility, does not seem to follow cues when asked to rate between 1-10 Therapy Pain Assessment Pain When Pain Assessed At Rest Pain Present Pain Present Pain Reported Location Right hip Intensity 4 Scale Used Numeric (0 - 10) M4 PT-IP Mobility and Gait Start: 12/09/24 08:42 Freq: NEEDED Status: Active Protocol: Document 12/09/24 11:45 MB (Rec: 12/09/24 12:33 MB [id number]) PT-Bed Mobility Assessment Supine to Sit Supine to Sit Maximum Assistance,1 Person Assistance,Head of Bed Elevated,Bedrails Scooting Scooting to Edge of Bed Maximum Assistance PT-Transfer Assessment Sit to and From Stand Sit to and from Stand Maximum Assistance,1 Person Assistance,Use of Upper Extremities Equipment Transfer Assistive Device Gait Belt Orthotic/Prosthetic Devices or Brace: No Transfers Transfer Destination Chair Transfer Technique SPT on left foot towards the lefg Transfer Ability Level of Assist Maximum Assistance,Use of Upper Extremities Comments Mobility Comments Pt makes a good initial effort of scooting legs to the right to EOB and attempting to scoot hips out. PT then uses pad to scoot her further out to EOB and she wiggles feet closer to the EOB. Once up in chair, PT is able to see sacrum and posterior hips/ pelvis from posterior and her right hip appears rounded and protruded and PT speaks with nsg and hospitalist. No increased pain in sitting, pt with many areas of ecchymosis forehead, knees, dressing over sacrum and posterior right hip Gait Assessment Comments Gait Comments Unable to gait today PT-Balance Assessment Sitting Balance and Reactions Static Sitting Balance Ability Fair Dynamic Sitting Balance Ability Poor Standing Balance and Reactions Static Standing Balance Ability Poor Dynamic Standing Balance Ability Poor Device Used SPT to the left, on good leg and towards good side M5 PT-IP Objective Assessments Start: 12/09/24 08:42 Freq: NEEDED Status: Active Protocol: Document 12/09/24 11:45 MB (Rec: 12/09/24 12:33 MB [id number]) Orientation Orientation/Cognition Level of Alertness Confusional State Orientation Name,Birthday,Month,Date,Year, Place,Situation Safety Awareness Decreased Safety Awareness Memory Description Short Term Impaired,Fci Impaired Gross Range of Motion Upper Extremity ROM Impairments Defer to OT Lower Extremity ROM Assessment Right Impaired Strength Comments Strength Comments LLE strength is functional and right great toe extension and DF are at least 4/5 today, pt limits right knee and hip ROM Coordination Assessment Gross Coordination Gross Coordination Impaired Assessment Coordination Comments Slow and guarded movement of legs and does not follow coordination or senstory testing Muscle Tone Muscle Tone WNL Yes M6 PT-IP Treatment Start: 12/09/24 08:42 Freq: NEEDED Status: Active Protocol: Document 12/09/24 11:45 MB (Rec: 12/09/24 12:33 MB [id number]) Physical Therapy Treatment Exercises Exercises Ankle Pumps Education Education Provided Precautions,Weight Bearing Status,Post-Op Packet,Safety M7 PT-IP Assessment and Plan Start: 12/09/24 08:42 Freq: NEEDED Status: Active Protocol: Document 12/09/24 11:45 MB (Rec: 12/09/24 12:33 MB [id number]) PT Summary Assessment and Plan Potential Rehabilitation Potential Fair Status of Condition at Evaluation Evolving Summary Impairments Pain,ROM,Strength,Balance, Coordination,Cognition,Bed Mobility,Transfers,Gait, Activity Tolerance Progress Towards Goals Slow Progress due to Activity Tolerance,Slow Progress - Other Assessment Summary Pt is an 84 y/o female presenting with right hip pain at rest and with mobility after fall and right hip fracture s/p cemented hemarthroplasty. Pt answers most questions and also presents with confusion and trouble following simple mobility commands, though she makes a great effort with PT. Abduction pillow between legs in bed and also placed between legs with legs elevated in recliner after treatment with safety alarm attached to gown. Pt makes good initial movement to EOB and then requires heavy max A to fully step out and for SPT on left leg to the left. Once up in chair, PT is able to observe pelvis and hips from posterior and right hip appears rounded . It is soft to touch. PT communicates findings to nsg and hospitalist. Pt will likely require total lift to get back to bed. Recommend SNF for d/c. Pt recall of posterior hip precautions may be challenging. Goals Bed Mobility Goal Standby Assistance Transfer Goal Standby Assistance,Four Wheeled Walker Gait Goal Standby Assistance,Four Wheel Walker Gait Distance 50 Days to Meet Goals 5 Frequency of Treatment Other frequency x2, 1-2x/day Treatment Plan Physical Therapy Treatment Plan Bed Mobility Training,Transfer Training,Gait Training, Therapeutic Exercise,Balance Retraining,Post Op Education, Discharge Planning,Hot or Cold Pack,Neuromuscular Re-ed, Coordination Retraining,Manual Therapy Precautions Posterior Hip Precautions No Hip Flexion > 90 degrees,No Hip Internal Rotation,No Hip Adduction Other Precautions Hip abduction pillow in bed, roll towards operative side only and no flexion past [address] Peter's orders, posterior hip precautions x6 weeks Weight Bearing Status Weight Bearing Status Weight Bear as Tolerated Allowed Weight Bearing Amount (enter % with AD or #) (%) Recommendations To Nursing Amount of Assist Needed Mechanical Lift Discharge Recommendations PT Discharge Recommendations SNF Rehab Transportation Needs at Discharge Wheelchair/Cabulance,Stretcher /Ambulance
[2024-12-09] MEDS: ENOXAPARIN 40 MG/0.4 ML SYRINGE SUBCUT (13:29)
[2024-12-09] MEDS: DOXYCYCLINE 100 MG in SODIUM CHLORIDE 0.9% 100 ML IV ×2 (13:30→20:03)
[2024-12-09] MEDS: MAGNESIUM CHLORIDE 64 MG TABLET 128 MG PO (13:31)
[2024-12-09] MEDS: AMLODIPINE 5 MG TABLET 10 MG PO (13:32)
[2024-12-09] MEDS: MAGNESIUM OXIDE 400 MG TABLET PO ×2 (13:33→21:04)
--- NOTE | 2024-12-09 14:36 | CM.DPC ---
Addendum entered by JAMAAL Weller 12/09/24 15:38: ADD: Per [facility] admissions, currently they can accept pt as long as no behaviors or 1:1 sitter needed overnight. Also ST aidenal pending for tomorrow Tuesday to r/o need for MBSS. BF Original Note: DCP SNF Planning: Per PT, recommending SNF at d/c. SW attempted to meet bedside with pt this afternoon to discussed d/c planning needs and RN in room and pt has now increased confusion this afternoon and not able to have goal directed conversation right now but able to confirm she is agreeable to SW calling her sister Camilla. SW called Camilla and discussed recommendation of SNF and she confirms that pt will initially be hesitant/resistant to SNF but that they and pt's son will help encourage her to SNF before home. Pt also has funds to cover the cost of PP CGs at home if needed after SNF as a couple years ago pt had pneumonia and was able to go home with private CGs for a week or so. Provided SNF Choice list via phone and they do not want [facility] but preference is 1) [facility] due to location and 2)[facility] SNFs if [facility] can't accept. Sister Camilla confirms that she has a house right by pt's house in [place] but sister and spouse primarily stay in their place in [place] but now that pt was admitted they will plan to stay in [place] mostly to visit and provide assist to patient. Sister states that pt's youngest son Micaela Cortes is her POA [phone] and lives in [place] and sister is keeping him updated. RUBEN made initial referral to [facility] [place] to [facility]. PASRR done in anticipation of SNF. JAMAAL Weller
--- NOTE | 2024-12-09 15:19 | PM.PN.1 ---
Subjective Subjective Interval history: 84-year-old female with hypertension, generalized anxiety disorder, hyperlipidemia, optic neuropathy on the right, recurrent UTIs, venous insufficiency, idiopathic peripheral neuropathy, IBS with diarrhea, and underlying dementia who was admitted with rhabdomyolysis and a mildly displaced and impacted subcapital right femoral neck fracture, now POD #1 from cemented hemiarthroplasty. Patient reports that she is overall doing fairly well today. I noted that her face was flushed, and she reported that she had just been moved back to bed from the chair. She reports her main pain is in her hip. RN note she has some confusion through the day. She told the RN she was missing a bracelet. She now tells me she is missing her watch. She is telling me she would like to put makeup on. Exam Vital Signs (past 8 hours): - 12/08/24 12:00 12/08/24 13:34 12/08/24 13:40 Temperature 98.3 F Pulse Rate 74 75 Respiratory Rate 12 13 Blood Pressure 123/57 L 100/47 L Pulse Oximetry 100 99 Oxygen Delivery Method Nasal Cannula Simple Mask Simple Mask Oxygen Flow Rate 7 7 12/08/24 13:54 12/08/24 14:06 12/08/24 14:31 Temperature Pulse Rate 71 73 69 Respiratory Rate 11 L 12 12 Blood Pressure 132/54 L 139/72 136/61 Pulse Oximetry 99 99 93 Oxygen Delivery Method Simple Mask Simple Mask Room Air Oxygen Flow Rate 7 7 12/08/24 14:39 12/08/24 14:55 12/08/24 15:25 Temperature 96.2 F L Pulse Rate 71 75 71 Respiratory Rate 12 20 18 Blood Pressure 141/76 H 150/74 H 165/88 H Pulse Oximetry 93 97 97 Oxygen Delivery Method Room Air Oxygen Flow Rate 1.5 1.5 12/08/24 15:55 12/08/24 16:31 12/08/24 16:55 Temperature 96.8 F L Pulse Rate 74 69 Respiratory Rate 20 20 Blood Pressure 151/85 H 156/82 H Pulse Oximetry 99 99 99 Oxygen Delivery Method Nasal Cannula Oxygen Flow Rate 1.5 2 1 12/08/24 17:55 Temperature Pulse Rate 70 Respiratory Rate Blood Pressure 139/79 Pulse Oximetry 99 Oxygen Delivery Method Oxygen Flow Rate 1 Oxygen Delivery Method Nasal Cannula Oxygen Flow Rate 1 Narrative Exam Narrative: GEN: Alert and oriented x 2-3, NAD HEENT:NC, Face symmetric CHEST: Respiratory excursions symmetric, CTAB CV: RRR, no M/R/G ABD: Soft, NT/ND, BT present in all 4 quadrants, no organomegaly or masses EXTR: warm, well perfused, no C/C/E, block is in place between her legs SKIN: warm and dry, no rash NEURO: Alert and oriented x 2-3, nonfocal Objective Labs 12/09/24 05:11 12/09/24 05:11 Labs: Laboratory Results - last 24 hr 12/08/24 05:10 WBC 9.1 RBC 4.22 Hgb 12.7 Hct 37.5 MCV 88.7 MCH 30.2 MCHC 34.0 RDW 13.7 Plt Count 218 Neut % (Auto) 77.9 H Lymph % (Auto) 11.0 L [place] % (Auto) 9.2 Eos % (Auto) 1.0 L Baso % (Auto) 0.9 Neut # (Auto) 7100 H Lymph # (Auto) 1000 L [place] # (Auto) 800 Eos # (Auto) 100 Baso # (Auto) 100 Sodium 139 Potassium 3.3 L Chloride 115 H Carbon Dioxide 21 L BUN 15 Creatinine 0.56 Estimated GFR > 60 BUN/Creatinine Ratio 26.8 H Glucose 114 H Calcium 8.4 Magnesium 1.6 Total Bilirubin 0.7 AST 57 H ALT 36 H Alkaline Phosphatase 72 Total Protein 5.4 L Albumin 3.0 L Globulin 2.4 Albumin/Globulin Ratio 1.3 PFSH Medical History Unilateral primary osteoarthritis, right knee Dementia Venous (peripheral) insufficiency GERD without esophagitis Polyneuropathy, unspecified Irritable bowel syndrome with diarrhea Do not resuscitate Generalized anxiety disorder Recurrent UTI (urinary tract infection) Sensorineural hearing loss, bilateral Mixed hyperlipidemia Essential hypertension Idiopathic peripheral neuropathy Optic neuropathy, right Hypertension Surgical History History of cholecystectomy History of tonsillectomy History of hysterectomy Family History Father Hypertension Cancer Cardiovascular disease Mother No problems noted. Social History details: lives alone, 3 sons, one estranged, retired household members: none Smoking Status: Never smoker alcohol intake: never Assessment & Plan Assessment & Plan narrative: 1. Right subcapital hip fracture due to underlying osteoporosis with ground level fall, POD #1 from cemented hemiarthroplasty. Patient underwent R hip hemiarthroplasty yesterday. She did work with physical therapy today. I anticipate she will require a rehab stay. She does express concern about her dog, but notes her sister is presently taking care of her dog. 2. Left lower lobe pneumonia, possible community-acquired versus aspiration. Continues on rocephin and doxy. Stable in room air. Speech therapy attempted eval x 2 yesterday but she remained NPO for surgery. We will place on a dysphagia diet with nectar thick liquids for now with one-to-one feeding based on bedside nursing swallow assessment. Anticipate speech therapy will be able to assess her tomorrow. 3. Rhabdomyolysis due to ground level fall. Improving. 4. Borderline elevated troponin. Troponin has peaked and has come back down. Likely due to demand ischemia. 5. Alzheimer type dementia, moderately advanced. Patient is certainly forgetful and a bit tangential but is reasonably oriented overall. 6. Hypertension. Blood pressures have generally been well-controlled. Some elevation today which is likely secondary to pain. 7. Hyperlipidemia. Continue atorvastatin. 8. Venous insufficiency. Chronic. 9. GERD. Continue pantoprazole. 10. Hypokalemia Improved with repletion. Code DNR Prophy On Lovenox. Dispo Pending, but anticipate she will need a longterm facility for rehab Time-Based Coding :: [TOTAL MINUTES] spent with patient and on the chart (including review of chart, obtaining history, exam, reviewing outside data, placing orders, documenting exam and treatment plan, and counseling patient) on [DATE]. Quality VTE Deep Vein Thrombosis/Pulmonary Embolism Present on Admission: No
[2024-12-09] MEDS: KETOROLAC 30 MG/ML VIAL 15 MG IV (18:14)
[2024-12-09] MEDS: DOCUSATE 100 MG CAPSULE PO (21:04)
[2024-12-09] MEDS: ATORVASTATIN 20 MG TABLET 10 MG PO (21:04)
[2024-12-09] MEDS: PANTOPRAZOLE 40 MG VIAL 20 MG IV (21:05)
[2024-12-09] MEDS: SODIUM CHLORIDE 0.9% FLUSH 10 ML IV (21:05)
--- NOTE | 2024-12-09 21:26 | PC.NURSE ---
med pass able to take HS meds crushed and whole (docusate) in applesauce without any difficulty/coughing noted. pt sat in full upright position for medications and 20 minutes following.
[2024-12-10 03:00] VITALS: BP 142/87; PULSE 81; RESP 18; TEMP 37.7; O2SAT 97
[2024-12-10] MEDS: LACTATED RINGERS 1,000 ML 100 ML IV (03:19)
[2024-12-10 05:50] LABS: Add Manual Diff / Slide Review NO; Basophils Absolute Auto 100 /uL (0-100); Basophils Percent Auto 0.7 % (0-2); Eosinophils Absolute Auto 100 /uL (0-450); Eosinophils Percent Auto 0.7 % (2-4); Hematocrit 30.4 % (36-46); Hemoglobin 10.6 g/dL (12.0-16.0); Lymphocytes Absolute Auto 1000 /uL (1100-4500); Mean Corpuscular HGB Conc 34.8 % (30-36); Mean Corpuscular Hemoglobin 30.4 PG (26-34); Mean Corpuscular Volume 87.5 fL (80-100); Monocytes Absolute Auto 700 /uL (0-900); Monocytes Percent Auto 8.9 % (3-14); Neutrophils Absolute Auto 6600 /uL (1500-7000); Neutrophils Percent Auto 77.7 % (50-75); Platelet Count 186 X10^3/uL (150-400); Red Blood Cell Count 3.48 X10^6/uL (4.0-5.2); Red Cell Distribution Width 13.5 % (11.6-14.8); White Blood Cell Count 8.5 X10^3/uL (4.5-11.0)
[2024-12-10 06:03] LABS: Blood Urea Nitrogen 13 mg/dL (7-17); Calcium 8.2 mg/dL (8.4-10.2); Carbon Dioxide 24 mmol/L (22-32); Chloride 104 mmol/L (98-107); Estimated Glomerular Filt Rate > 60 mL/min (>60); Glucose 87 mg/dL (80-110); HEMOLYSIS < 15 (0-50); Potassium 3.4 mmol/L (3.4-5.1); Sodium 133 mmol/L (137-145)
[2024-12-10 07:00] VITALS: O2SAT 95
[2024-12-10 08:00] VITALS: BP 139/79; PULSE 77; RESP 16; TEMP 36.4; O2SAT 96
[2024-12-10] MEDS: DOXYCYCLINE 100 MG in SODIUM CHLORIDE 0.9% 100 ML IV (08:06)
[2024-12-10] MEDS: AMLODIPINE 5 MG TABLET 10 MG PO (08:07)
[2024-12-10] MEDS: DOCUSATE 100 MG CAPSULE PO (08:07)
[2024-12-10] MEDS: PANTOPRAZOLE 40 MG VIAL 20 MG IV (08:07)
[2024-12-10] MEDS: ENOXAPARIN 40 MG/0.4 ML SYRINGE SUBCUT (08:08)
[2024-12-10] MEDS: MAGNESIUM OXIDE 400 MG TABLET PO (08:08)
[2024-12-10] MEDS: POTASSIUM CHLORIDE 20 MEQ TAB 40 MEQ PO (08:08)
[2024-12-10] MEDS: SODIUM CHLORIDE 0.9% FLUSH 10 ML IV (08:08)
--- NOTE | 2024-12-10 10:36 | PM.DS.1 ---
History of Present Illness History of Present Illness Chief complaint: GLF Narrative: From H&P: 84-year-old woman under the primary care of Dr. Vic Duque was found down today by preliminary who come to her house to do work. Her sister Camilla who is present in the emergency department states that she last talked to her 2 days ago. She has moderate dementia and has been living at home independently. She has a small dog that she wishes to keep and this has kept her from moving into an assisted living memory care facility until now. Emergency department evaluation was notable for right hip fracture in lower lobe pneumonia. She is admitted for further management and evaluation. Due to her dementia she is unable to provide meaningful history about recent events. Discharge Providers Provider Date of admission: 12/06/24 17:23 Discharge Date: 12/10/24 Primary care physician: Vic Duque MD Consults: 12/06/24 18:57 Consult to Speech Therapy Evaluate & Treat Comment: Physician Instructions: Evaluate and treat 12/08/24 14:47 Consult to Discharge Planning Routine Comment: Consult to Occupational Therapy Evaluate & Treat Comment: Physician Instructions: Evaluate and treat Consult to Physical Therapy Evaluate & Treat Comment: php --cemented liberty Physician Instructions: post op BIRGIT protocol 12/09/24 08:26 Consult to Orthopedic Surgery Routine Comment: Consulting Provider: Lisy Peter Reason for consultation: hip fx Has provider been notified: Yes 12/09/24 10:42 Consult to Speech Therapy Evaluate & Treat Comment: Physician Instructions: Evaluate and treat Discharge provider: Dorian Jones MD Summary Hospital Course Discharge Diagnosis: 1. Right subcapital hip fracture due to underlying osteoporosis with ground level fall, POD #1 from cemented hemiarthroplasty. Patient underwent R hip hemiarthroplasty yesterday. She did work with physical therapy today. I anticipate she will require a rehab stay. She does express concern about her dog, but notes her sister is presently taking care of her dog. 2. Left lower lobe pneumonia, possible community-acquired versus aspiration. Continues on rocephin and doxy. Stable in room air. Speech therapy attempted eval x 2 yesterday but she remained NPO for surgery. We will place on a dysphagia diet with nectar thick liquids for now with one-to-one feeding based on bedside nursing swallow assessment. Anticipate speech therapy will be able to assess her tomorrow. 3. Rhabdomyolysis due to ground level fall. Improving. 4. Borderline elevated troponin. Troponin has peaked and has come back down. Likely due to demand ischemia. 5. Alzheimer type dementia, moderately advanced. Patient is certainly forgetful and a bit tangential but is reasonably oriented overall. 6. Hypertension. Blood pressures have generally been well-controlled. Some elevation today which is likely secondary to pain. 7. Hyperlipidemia. Continue atorvastatin. 8. Venous insufficiency. Chronic. 9. GERD. Continue pantoprazole. 10. Hypokalemia Improved with repletion. Code DNR Hospital Course: She was admitted with a ground level fall and sustained a right forehead hematoma as well as a hip fracture. She underwent operative repair of the hip fracture without complication on December 08. She did well in the postoperative phase, was also treated for pneumonia with antibiotics. In the day of discharge he was comfortable, and breathing comfortably on room air. She was agreeable to discharge to [facility] for rehabilitation efforts. Status at Discharge Cognitive/behavioral status at discharge: oriented Functional status at discharge: uses cane/walker Overall status at discharge: patient is not back to baseline Time Spent with Patient Time spent: Greater than 30 minutes Exam Vital Signs (past 8 hours): - 12/10/24 03:00 12/10/24 03:00 12/10/24 07:00 Temperature 99.8 F H Pulse Rate 81 Respiratory Rate 18 Blood Pressure 142/87 H Pulse Oximetry 97 97 95 Oxygen Delivery Method Room Air Room Air Oxygen Flow Rate 0 0 12/10/24 08:00 Temperature 97.5 F L Pulse Rate 77 Respiratory Rate 16 Blood Pressure 139/79 Pulse Oximetry 96 Oxygen Delivery Method Oxygen Flow Rate 0 Fraction of Inspired Oxygen 24 SaO2/FiO2 Ratio 412 Oxygen Delivery Method Room Air Oxygen Flow Rate 0 Narrative Exam Narrative: NAD, alert and oriented. Fluent speech. Lungs are clear, normal rate and effort. Heart is regular, no murmur gallop or rub. Abdomen is soft, non distended. Extremities are free of edema. Objective Imaging Echo: Radiologist's impression: NSR Normal LV size, wall thickness, wall motion and LV systolic function. Ejection fraction 60-65%. Normal chamber sizes. No significant valvular abnormalities. No prior study available for comparison. Hip X-ray:: Radiologist's impression: Mildly displaced and impacted subcapital right femoral neck fracture. Multiple studies:: Radiologist's impression: CT head without acute findings, chest x-ray without acute findings, head and neck CTA without acute findings, chest, abdomen and pelvis CT reveal : Subcapital right hip fracture. Trace, dependent ground-glass and consolidation, most notably in the left lower lobe. Distribution and appearance raise the concern for aspiration. . Labs 12/10/24 05:25 12/10/24 05:25 Labs: Laboratory Results - last 24 hr 12/10/24 05:25 WBC 8.5 RBC 3.48 L Hgb 10.6 L Hct 30.4 L MCV 87.5 MCH 30.4 MCHC 34.8 RDW 13.5 Plt Count 186 Neut % (Auto) 77.7 H Lymph % (Auto) 12.[address] [facility] % (Auto) 8.9 Eos % (Auto) 0.7 L Baso % (Auto) 0.7 Neut # (Auto) 6600 Lymph # (Auto) [address] [facility] [facility] # (Auto) 700 Eos # (Auto) 100 Baso # (Auto) 100 Sodium 133 L Potassium 3.4 Chloride 104 Carbon Dioxide 24 BUN 13 Creatinine 0.65 Estimated GFR > 60 BUN/Creatinine Ratio 20.0 Glucose 87 Calcium 8.2 L PFSH Medical History Unilateral primary osteoarthritis, right knee Dementia Venous (peripheral) insufficiency GERD without esophagitis Polyneuropathy, unspecified Irritable bowel syndrome with diarrhea Do not resuscitate Generalized anxiety disorder Recurrent UTI (urinary tract infection) Sensorineural hearing loss, bilateral Mixed hyperlipidemia Essential hypertension Idiopathic peripheral neuropathy Optic neuropathy, right Hypertension Surgical History History of cholecystectomy History of tonsillectomy History of hysterectomy Family History Father Hypertension Cancer Cardiovascular disease Mother No problems noted. Social History details: lives alone, 3 sons, one estranged, retired household members: none Smoking Status: Never smoker alcohol intake: never Discharge Assessment & Plan Assessment and Plan Assessment: 1. Right subcapital hip fracture due to underlying osteoporosis with ground level fall, POD #1 from cemented hemiarthroplasty. Patient underwent R hip hemiarthroplasty yesterday. She did work with physical therapy today. I anticipate she will require a rehab stay. She does express concern about her dog, but notes her sister is presently taking care of her dog. 2. Left lower lobe pneumonia, possible community-acquired versus aspiration. Continues on rocephin and doxy. Stable in room air. Speech therapy attempted eval x 2 yesterday but she remained NPO for surgery. We will place on a dysphagia diet with nectar thick liquids for now with one-to-one feeding based on bedside nursing swallow assessment. Anticipate speech therapy will be able to assess her tomorrow. 3. Rhabdomyolysis due to ground level fall. Improving. 4. Borderline elevated troponin. Troponin has peaked and has come back down. Likely due to demand ischemia. 5. Alzheimer type dementia, moderately advanced. Patient is certainly forgetful and a bit tangential but is reasonably oriented overall. Plan of Treatment: Discharge to [facility] for rehab. Discharge Plan Discharge Plan Patient Disposition: SNF Transfer to: [facility] Under care of provider: SNF Doctor. Provider Discharge Comment: Stable for discharge to intermediate facility for rehabilitation. Discharge orders & Medications Prescriptions: New oxycodone 5 mg capsule 5 mg PO Q8H PRN (Reason: pain) Qty: 14 0RF aspirin 81 mg capsule 81 mg PO BID Qty: 60 0RF Continued rosuvastatin 10 mg tablet 10 mg PO DAILY Qty: 90 1RF omeprazole 20 mg capsule,delayed release(DR/EC) 20 mg PO BID Qty: 180 1RF amlodipine 10 mg tablet 10 mg PO DAILY Qty: 90 3RF pyridoxine (vitamin B6) [Vitamin B-6] 1 cap PO DAILY PRN dorzolamide-timolol 22.3-6.8 mg/mL drops EYE-BOTH latanoprost 0.005 % drops EYE-BOTH cholecalciferol (vitamin D3) 50 mcg (2,000 unit) capsule 50 mcg PO DAILY cefdinir 300 mg capsule 300 mg PO BID Qty: 10 0RF Discontinued aspirin [Adult Aspirin Regimen] 81 mg tablet,delayed release (DR/EC) 81 mg PO DAILY Follow up/Referrals: Vic Duque MD [Primary Care Provider] - Visit Report/Discharge Packet Stand Alone Forms: Patient Portal/API Discharge Data Primary Care Provider: Vic Duque V Quality VTE Deep Vein Thrombosis/Pulmonary Embolism Present on Admission: No
[2024-12-10 11:00] VITALS: O2SAT 95
--- NOTE | 2024-12-10 11:05 | CM.DPC ---
DCP SNF Discharge Per MD and Ortho Surgeon, pt medically stable to d/c to SNF today and no identified barriers to discharge. Per ST eval, adjusted pt's diet but no need for MBSS or to remain NPO and will get eval note in EMR soon. Per RN, pt appropriate and cooperative and no concerns or challenges overnight. RUBEN called [facility] admissions and confirmed they can still accept pt today and provide transport around 1300. RUBEN spoke to pt's POA son Micaela [phone] and updated on above and stable for d/c today and answered some of his questions and he confirms he is agreeable with SNF and willing to encourage the pt if needed and his aunt/pt's sister Camilla rich and kept him updated as well. RUBEN met bedside with pt and explained role and pt pleasant and confirms MD already updated her on plan of d/c to SNF this afternoon and pt very agreeable and states she does not need to call her son or sister now and they both will check in with her and the neighbor is taking good care of her 15 yo dog erastoie while pt is in the hospital and SNF. Updated programmer business, MARICARMEN, RN and provided number to call report. KHALIF Culver kindly faxed d/c packet to [facility] to review. Plan: Patient to d/c to [facility] today via facility van at 1300 before safe return home with local supportive sister nearby. JAMAAL Weller
--- NOTE | 2024-12-10 11:09 | OT.IPNOTE ---
Chart reviewed for OT eval and treat order. Per CM, pt is planned for discharge to SNF today at 1300 not contigent on OT eval. Will hold for discharge.
--- NOTE | 2024-12-10 11:19 | ST.IPDYTX ---
Visit Care Team Role Provider Type Vic Duque MD Primary Care Provider Physician Specialty: Internal Medicine Address: [address] [place] [address], [id number] Email: [email or web address] Lisy Peter MD Other Providers Physician Specialty: Orthopedics Orthopedic Surgery Address: [address] [place] [address], [id number] Email: [email or web address] Emergency Provider Physician Referring Provider Specialty: Emergency Medicine Address: [address] [place] [address], [address] Fax: Email: [email or web address] Admit Provider Physician Attending Provider Specialty: Internal Medicine Address: [address] [place] [address], [facility] Email: [email or web address] CELL BIOLOGY SCIENTIST Dysphagia Treatment CELL BIOLOGY SCIENTIST Dysphagia Treatment Start: 12/07/24 14:08 Freq: Status: Active Protocol: Document 12/10/24 10:56 SS (Rec: 12/10/24 11:19 SS [id number]) Dysphagia Treatment Session Time Visit Start Time 09:15 Visit Stop Time 09:40 Total Visit Minutes 25 Visit Information Visit Number 2 Setting Assessment Location Acute Care Visit Type Note Type Treatment Note Next Note Type Next Note Type Treatment Note Patient Information Subjective Observations Pt was alert and oriented x3 upon CELL BIOLOGY SCIENTIST arrival. She easily engaged in conversation with CELL BIOLOGY SCIENTIST, though some difficulty with recall noted given baseline moderately advanced dementia. Per RN, pt currently on puree diet and moderately thick liquids, though has been demonstrating no overt s/sx of aspiration today. RN reported no difficulty during med pass and pt was able to consume crushed medication in puree carrier without any issues. RN reported baseline productive cough intermittently. Treatment Liquids Trialed Ice chips,Thin (IDDSI 0) Solids Trialed Purred (IDDSI 4),Soft & Bite- sized (IDDSI 6),Regular (IDDSI 7) Administration Type Tea Spoon,Cup Single Sip,Cup Consecutive Sips,Straw,Self- Feeding Oral Strategies Upright at 90 degrees, Controlled Bite/Sip Size Pharyngeal Strategies Sitting Upright (90 deg),Small Bites and Sips,Alternate Liquids/Solids Treatment Activities Therapeutic trials of ice chips, thin liquid (water) via tsp, controlled cup sip, and straw, puree (apple sauce) via tsp, soft and bite-sized ( diced peaches) via tsp, and regular (cracker) with assessment for overt s/sx of dysphagia and aspiration in order to assess tolerance of current diet and potential advancement of diet. Discussed progress and recommendations with RN and MD. The IDDSI Framework Protocol: IDDSI.1 Assessment Patient Response to Treatment Good Rehab Potential Good Assessment of Improvement Increased cognitive function noted from date of initial evaluation. Additionally, no productive coughing noted at baseline throughout trials. Oral phase was within normal limits. Pt demonstrated adequate containment with no bolus loss. Normal rotary mastication that was timely and appeared to be efficient. AP transport appeared to be efficient with no signs of premature spillage. Mild oral residue noted with regular solid, though pt was able to clear given min verbal cueing to utilize liquid wash. Pharyngeal phase was within functional limits. Pt demonstrated single instance of reflexive cough with sip of liquid via straw; however, no other overt s/sx of laryngeal penetration or aspiration noted. Cough was strong, and appears to have strengthened since initial evaluation. No change in vocal quality following PO trials, though pt does have mildly hoarse vocal quality at baseline. Pharyngeal phase appeared to be largely timely and pt was able to utilize 1-2 swallows per bolus to clear. Overall, current swallowing function appears to have significantly improved from initial swallow evaluation, though monitoring will be necessary to advance diet further and ensure tolerance is not affected by waxing and waning cognition throughout the course of the day. CELL BIOLOGY SCIENTIST discussed pt progress and recommendations with RN and MD. Recommendations Recommendations Upgrade Diet Order Liquids Order Thin (IDDSI 0) Diet Order Soft & Bite-sized (IDDSI 6) Medication Recommendations Whole in Carrier,One at a Time Additional Dietary Needs No Straws,1:1 Supervision, Reminders to Use Strategies Aspiration Precautions Recommended Precautions Upright at 90 Degrees,Small Bites/Sips,Liquids from Cup Treatment Plan Placement Recommendation after Discharge Correction Facility Appropriate for Continued Therapy Yes: 1-2 additional visits to advance diet further Therapy Recommendations 1. Recommend diet advance to soft and bite-sized and thin liquids via cup (no straw) as well as medications in puree carrier. 2. 1:1 supervision during all PO intake given baseline cognition and likely difficulty with recalling to use strategies. 3. Oral care BID to minimize colonization of oral pathogens and reduce risk of aspiration pneumonia if aspirated. 4. Continue assessing tolerance of current diet and advance diet as appropriate.
[2024-12-10] MEDS: ACETAMINOPHEN 325 MG TABLET 650 MG PO (12:51)
--- NOTE | 2024-12-10 13:28 | PC.NURSE ---
IV out and telemetry off. Tammie left in for mobility-approved by [facility]. Report given to John at [facility].
--- NOTE | 2024-12-21 11:27 | PC.NURSE ---
late entry- per RN Doxycycline IV dose started at 1700 was completed at 1800.
== END 2024-12-10 13:25 | DRG 521 ==
LOC: ED 17:07 → AC 17:26
PROVIDERS: Family Medicine; Orthopaedic Surgery Foot and Ankle Surgery; Admitting Provider Internal Medicine; Emergency Provider Student in an Organized Health Care Education/Training Program; PCP Internal Medicine; Referring Provider Student in an Organized Health Care Education/Training Program; Visit Provider Internal Medicine
PROC: 0SRR0JZ Replacement of Right Hip Joint, Femoral Surface with Synthetic Substitute, Open Approach (ICD-10-PCS; CPT 27125; principal; 2024-12-08 09:00)
DX: M80.051A Age-related osteoporosis with current pathological fracture, right femur, initial encounter for fracture (principal); J18.9 Pneumonia, unspecified organism; J69.0 Pneumonitis due to inhalation of food and vomit; I24.89 Other forms of acute ischemic heart disease; H46.9 Unspecified optic neuritis; T79.6XXA Traumatic ischemia of muscle, initial encounter; G30.9 Alzheimer's disease, unspecified; I10 Essential (primary) hypertension; E78.5 Hyperlipidemia, unspecified; I87.2 Venous insufficiency (chronic) (peripheral); K21.9 Gastro-esophageal reflux disease without esophagitis; R42 Dizziness and giddiness; R53.1 Weakness; R55 Syncope and collapse; E87.6 Hypokalemia; F41.1 Generalized anxiety disorder; F02.B0 Dementia in other diseases classified elsewhere, moderate, without behavioral disturbance, psychotic disturbance, mood disturbance, and anxiety; S00.83XA Contusion of other part of head, initial encounter; G60.9 Hereditary and idiopathic neuropathy, unspecified; W18.30XA Fall on same level, unspecified, initial encounter; Z66 Do not resuscitate; Z87.440 Personal history of urinary (tract) infections; Z23 Encounter for immunization
CPT/HCPCS: 0241U; 36415; 70450; 70496; 70498; 71045; 71260; 72170; 73502; 74177; 80048; 80053; 81001; 82550; 83605; 83690; 83735; 83880; 84443; 84484; 85025; 85610; 85730; 87040; 90471; 92526; 92610; 93005; 93010; 93306; 96361; 96365; 96368; 97162; 97535; 99285; C1776; 90715; C1713; J0171; J0330; J0666; J0696; J1100; J1171; J1650; J1885; J2405; J2470; J2704; J3010; Q9967

== ENCOUNTER 2025-04-06 15:10 | Emergency (ER) | payer MEDICARE, SELFPAY ==
[2024-12-06 18:27] VITALS: BMI 19.8
[2025-04-06 15:26] VITALS: BP 129/62; PULSE 85; RESP 16; TEMP 36.5; O2SAT 98; BMI 20.7
--- NOTE | 2025-04-06 15:55 | ED.FEMALEGU ---
HPI - Female Genitourinary General Chief complaint: Urogenital-Female Stated complaint: Check UTI Time Seen by Provider: 04/06/25 15:47 Source: patient Mode of arrival: Wheelchair History of Present Illness HPI Narrative: 84-year-old female history of dyslipidemia, hypertension, GERD, venous insufficiency, dementia presents with dysuria, urgency for the past 2 days despite drinking extra water. Patient denies fever chills abdominal pain back pain vaginal discharge blood in the urine. Other than what is stated 14 point review of system is negative. Related Data Home Medications ?Medication ?Instructions ?Recorded ?Confirmed cholecalciferol (vitamin D3) 50 50 mcg PO DAILY 02/17/22 02/28/25 mcg (2,000 unit) capsule pyridoxine (vitamin B6) [Vitamin 1 cap PO DAILY PRN 10/27/23 11/25/24 B-6] dorzolamide 22.3 mg-timolol 6.8 EYE-BOTH 04/26/24 02/28/25 mg/mL eye drops latanoprost 0.005 % eye drops drp EYE-BOTH 04/26/24 02/28/25 Previous Rx's ?Medication ?Instructions ?Recorded amlodipine 10 mg tablet 10 mg PO DAILY #90 tabs 10/11/24 aspirin 81 mg capsule 81 mg PO BID #60 caps 12/10/24 cefdinir 300 mg capsule 300 mg PO BID #10 caps 12/10/24 oxycodone 5 mg capsule 5 mg PO Q8H PRN pain #14 caps 12/10/24 memantine 5 mg tablet 5 mg PO QAM 30 days #30 tabs 02/28/25 omeprazole 20 mg capsule,delayed 20 mg PO BID #180 caps 03/21/25 release rosuvastatin 10 mg tablet 10 mg PO DAILY #90 tabs 03/21/25 ciprofloxacin HCl 500 mg tablet 500 mg PO BID #10 tabs 04/06/25 (Cipro) Allergies Allergy/AdvReac Type Severity Reaction Status Date / Time Opioids-Meperidine and Allergy Severe Vomiting Verified 04/06/25 15:33 Related nitrofurantoin Allergy Unknown Verified 04/06/25 15:33 (NITROFURANTOIN) azithromycin Allergy Verified 04/06/25 15:33 cholestyramine Allergy Verified 04/06/25 15:33 clavulanic acid (From Allergy Verified 04/06/25 15:33 Augmentin) gabapentin Allergy Verified 04/06/25 15:33 lisinopril Allergy Verified 04/06/25 15:33 loratadine (From Claritin) Allergy Verified 04/06/25 15:33 neomycin Allergy Verified 04/06/25 15:33 oseltamivir (From Tamiflu) Allergy Verified 04/06/25 15:33 procaine (From Novocain) Allergy Verified 04/06/25 15:33 Sulfa (Sulfonamide Allergy Verified 04/06/25 15:33 Antibiotics) donepezil (From Aricept) AdvReac Severe Diarrhea Verified 04/06/25 15:33 cephalexin AdvReac Intermediate Verified 04/06/25 15:33 lactose AdvReac Intermediate Nausea Verified 04/06/25 15:33 losartan AdvReac Intermediate GI upset Verified 04/06/25 15:33 Milk Containing Products AdvReac Mild DIARRHEA Verified 04/06/25 15:33 (Dairy) (MILK CONTAINING PRODUCTS) meperidine (MEPERIDINE) AdvReac Unknown Verified 04/06/25 15:33 Review of Systems Review of Systems ROS Unobtainable: All systems reviewed & are unremarkable except as noted in HPI and below Patient History Medical History (Updated 04/06/25 @ 16:02 by Robert Sol DO) Unilateral primary osteoarthritis, right knee Dementia Venous (peripheral) insufficiency GERD without esophagitis Polyneuropathy, unspecified Irritable bowel syndrome with diarrhea Do not resuscitate Generalized anxiety disorder Recurrent UTI (urinary tract infection) Sensorineural hearing loss, bilateral Mixed hyperlipidemia Essential hypertension Idiopathic peripheral neuropathy Optic neuropathy, right Hypertension Surgical History (Updated 02/28/25 @ 14:26 by Vic Duque MD) History of right hip hemiarthroplasty (~12/08/24) History of cholecystectomy History of tonsillectomy History of hysterectomy Family History Father Hypertension Cancer Cardiovascular disease Mother No problems noted. Exam Narrative Exam Narrative: GENERAL: [84] year old patient appears stated age. Well-developed patient, in mild distress. HEAD: Atraumatic. Normocephalic. EYES: Pupils equal round and reactive. Extraocular motions intact. No scleral icterus. No injection or drainage. ENT: Nose without bleeding, purulent drainage. Throat without erythema, tonsillar hypertrophy or exudate. Airway patent. NECK: Trachea midline. Non tender CARDIOVASCULAR: Regular rate and rhythm without murmurs, gallops, or rubs. RESPIRATORY: Clear to auscultation. Breath sounds equal bilaterally. No wheezes, rales, or rhonchi. GASTROINTESTINAL: Abdomen soft, non-tender, nondistended. EXTREMITIES: No edema or joint tenderness. BACK: Nontender without deformity or crepitance. No flank tenderness. NEURO: AOx3. SKIN: No rash or erythema of visible areas Initial Vital Signs Initial Vital Signs: Vital Signs Temperature 97.7 F 04/06/25 15:26 Pulse Rate 85 04/06/25 15:26 Respiratory Rate 16 04/06/25 15:26 Blood Pressure 129/62 04/06/25 15:26 Pulse Oximetry 98 04/06/25 15:26 Oxygen Delivery Method Room Air 04/06/25 15:26 Course Orders Ordered: ED Orders 04/06/25 15:46 Urine Microscopic Stat Ondansetron HCl (Ondansetron 4 Mg/2 Ml Inj) 4 mg IV NOW PRN PRN Reason: Nausea And Vomiting Ondansetron HCl (Ondansetron 4 Mg Odt) 4 mg PO NOW PRN PRN Reason: Nausea And Vomiting Vital Signs Vital signs: Vital Signs - 8 hr 04/06/25 15:26 Temperature 97.7 F Pulse Rate 85 Respiratory Rate 16 Blood Pressure 129/62 Pulse Oximetry 98 Oxygen Delivery Method Room Air MDM - Female Genitourinary Lab Data Labs: Urine Dip Bedside Urine Glucose Negative Bedside Urine Bilirubin + 1 Bedside Urine Ketone - Negative Urine Specific [place] 1.025 Bedside Urine Occult Blood + Bedside Urine pH 6.0 Bedside Urine Protein +/- 15 Bedside Urine Urobilinogen - Negative Bedside Urine Nitrite + Positive Bedside Urine Leukocytes ++ 125 Esterase MDM Narrative Medical decision making narrative: Vital signs, nurse triage note, medication list, previous ER visits, and all imaging modalities reviewed. UA all reviewed patient given Cipro here. Differential diagnosis includes UTI fungal infection kidney infection sepsis. DC home on Cipro. Keep hydrated. Return with new or worsening symptoms Discharge Plan Departure Patient Disposition: Home Clinical Impression: Urinary tract infection Qualifiers: Urinary tract infection type: acute cystitis Hematuria presence: with hematuria Qualified Code(s): N30.01 - Acute cystitis with hematuria Instructions: DI for Urinary Tract Infection (UTI) Activity Restrictions/Additional Instructions: Return with new or worsening symptoms. Take your medicines as directed keep hydrated. Follow up PCP in 1-2 weeks if no improvement in symptoms. Prescriptions: New ciprofloxacin HCl [Cipro] 500 mg tablet 500 mg PO BID Qty: 10 0RF No Action amlodipine 10 mg tablet 10 mg PO DAILY Qty: 90 3RF omeprazole 20 mg capsule,delayed release(DR/EC) 20 mg PO BID Qty: 180 2RF rosuvastatin 10 mg tablet 10 mg PO DAILY Qty: 90 2RF pyridoxine (vitamin B6) [Vitamin B-6] 1 cap PO DAILY PRN dorzolamide-timolol 22.3-6.8 mg/mL drops EYE-BOTH latanoprost 0.005 % drops EYE-BOTH cholecalciferol (vitamin D3) 50 mcg (2,000 unit) capsule 50 mcg PO DAILY memantine 5 mg tablet 5 mg PO QAM 30 Days Qty: 30 12RF oxycodone 5 mg capsule 5 mg PO Q8H PRN (Reason: pain) Qty: 14 0RF aspirin 81 mg capsule 81 mg PO BID Qty: 60 0RF cefdinir 300 mg capsule 300 mg PO BID Qty: 10 0RF Referrals: Tim Pisano MD [Primary Care Provider, Internal Medicine] Stand Alone Forms: Patient Portal/API
[2025-04-06 16:05] LABS: Bacteria Urine Many (>30); Culture Indicated Urine Specimen Cultured; RBC Urine 0-1/HPF (0-5/HPF); Squamous Epithelial Cell Urine 0-1 /HPF (0-5/HPF); Urine Volume 10mL (spun); WBC Urine 30-100/HPF (0-5/HPF)
[2025-04-06] MEDS: CIPROFLOXACIN 250 MG TABLET 500 MG PO (16:06)
[2025-04-06 16:31] VITALS: BP 126/60; PULSE 81; RESP 16; O2SAT 97
== END 2025-04-06 16:30 | disposition home or self-care (01) ==
PROVIDERS: Emergency Provider Family Medicine; PCP Internal Medicine
DX: N30.01 Acute cystitis with hematuria (principal)
CPT/HCPCS: 81003; 81015; 87077; 87086; 87186; 99283

== ENCOUNTER → 2025-06-26 06:12 | Outpatient (ROUT) | payer MEDICARE, SELFPAY ==
[2024-12-06 18:27] VITALS: BMI 19.8
[2025-06-26 08:09] LABS: Hematocrit 37.8 % (36-46); Hemoglobin 12.4 g/dL (12.0-16.0); Mean Corpuscular HGB Conc 32.9 % (30-36); Mean Corpuscular Hemoglobin 28.4 PG (26-34); Mean Corpuscular Volume 86.1 fL (80-100); Platelet Count 360 X10^3/uL (150-400)
[2025-06-26 08:20] LABS: Blood Urea Nitrogen 19 mg/dL (7-17); Calcium 9.2 mg/dL (8.4-10.2); Carbon Dioxide 24 mmol/L (22-32); Chloride 107 mmol/L (98-107); Cholesterol 148 mg/dL (140-199); Estimated Glomerular Filt Rate > 60 mL/min (>60); Glucose 89 mg/dL (70-99); HDL Cholesterol 82 mg/dL (40-60); HEMOLYSIS < 15 (0-50); Potassium 4.1 mmol/L (3.4-5.1); Sodium 139 mmol/L (137-145); Triglycerides 98 mg/dL (35-150)
== END ==
PROVIDERS: PCP Internal Medicine; Visit Provider Registered Nurse
DX: I10 Essential (primary) hypertension (principal); I87.2 Venous insufficiency (chronic) (peripheral); E78.2 Mixed hyperlipidemia
CPT/HCPCS: 36415; 80048; 80061; 85027

== ENCOUNTER 2025-07-19 13:43 | Emergency (ER) | payer MEDICARE, SELFPAY ==
[2024-12-06 18:27] VITALS: BMI 19.8
[2025-07-19] VITALS (22 sets, daily range): BP systolic 119–175; BP diastolic 58–122; PULSE 71–97; RESP 14–21; TEMP 36.4–36.8; O2SAT 96–99
[2025-07-19 14:30] LABS: Add Manual Diff / Slide Review NO; Hematocrit 40.4 % (36-46); Hemoglobin 13.4 g/dL (12.0-16.0); Lymphocytes Absolute Auto 800 /uL (1100-4500); Mean Corpuscular HGB Conc 33.2 % (30-36); Mean Corpuscular Hemoglobin 28.3 PG (26-34); Mean Corpuscular Volume 85.3 fL (80-100); Platelet Count 295 X10^3/uL (150-400)
--- NOTE | 2025-07-19 14:31 | ED_ITS ---
HPI - Abdominal Pain <Deepti Coleman PA-C - Last Filed: 07/19/25 20:06> General Chief Complaint: Abdominal Pain Stated Complaint: Diarrhea 3 times today Time Seen by Provider: 07/19/25 14:11 Source: patient Mode of arrival: Wheelchair History of Present Illness HPI narrative: Ms. Cortes is a very sweet 85-year-old female with a past medical history of dementia, GERD, hypertension, hyperlipidemia, polyneuropathy who presents to the emergency department from [facility] for multiple episodes of diarrhea associated with lower abdominal pain that started this morning. Patient states she did not have any diarrhea yesterday but when she woke up today she has had liquid diarrhea every 30 minutes. Initially she said it was watery but then she also took some nursing staff that it was black. This is associated with some mild lower abdominal discomfort. No nausea, vomiting, fevers, chills, chest pain, shortness of breath, dysuria. Patient does wear briefs at baseline. She does not take blood thinners, decides NSAID use, reports a history of possible cholecystectomy. States that she does have lactose intolerance but did not consume any dairy that she no of yesterday. No hematemesis. Related Data Home Medications ?Medication ?Instructions ?Recorded ?Confirmed cholecalciferol (vitamin D3) 50 50 mcg PO DAILY 02/28/25 mcg (2,000 unit) capsule pyridoxine (vitamin B6) [Vitamin 1 cap PO DAILY PRN 11/25/24 B-6] dorzolamide 22.3 mg-timolol 6.8 EYE-BOTH 04/26/2402/14 525 mg/mL eye drops latanoprost 0.005 % eye drops drp EYE-BOTH 04/26/24 Previous Rx's ?Medication ?Instructions ?Recorded amlodipine 10 mg tablet 10 mg PO DAILY #90 tabs 09/17 04/09 aspirin 81 mg capsule 81 mg PO BID #60 caps cefdinir 300 mg capsule 300 mg PO BID #10 caps 12/10 oxycodone 5 mg capsule 5 mg PO Q8H PRN pain #14 cap s 12/10/24 memantine 5 mg tablet 5 mg PO QAM 30 days #30 tabs 02/28/25 omeprazole 20 mg capsule,delayed 20 mg PO BID #180 cap s 03/21/25 release rosuvastatin 10 mg tablet 10 mg PO DAILY #90 tabs 03/10 ciprofloxacin HCl 500 mg tablet 500 mg PO BID #10 tabs 04/06/25 ciprofloxacin HCl 500 mg tablet 500 mg PO BID #10 tabs 04/06/25 (Cipro) loperamide 2 mg capsule 2 mg PO Q6H loose stool 2 da ys #8 07/19/25 caps Allergies Allergy/AdvReac Type Severity Reaction Status Date / Time Opioids-Meperidine and Allergy Severe Vomiting Verified 04/06/25 15:33 Related nitrofurantoin Allergy Unknown Verified 04/06/25 15:33 (NITROFURANTOIN) azithromycin Allergy Verified 04/06/25 15:33 cholestyramine Allergy Verified 04/06/25 15:33 clavulanic acid (From Allergy Verified 04/06/25 15:33 Augmentin) gabapentin Allergy Verified 04/06/25 15:33 lisinopril Allergy Verified 04/06/25 15:33 loratadine (From Claritin) Allergy Verified 04/06/25 15:33 neomycin Allergy Verified 04/06/25 15:33 oseltamivir (From Tamiflu) Allergy Verified 04/06/25 15:33 procaine (From Novocain) Allergy Verified 04/06/25 15:33 Sulfa (Sulfonamide Allergy Verified 04/06/25 15:33 Antibiotics) donepezil (From Aricept) AdvReac Severe Diarrhea Verified 04/06/25 15:33 cephalexin AdvReac Intermediate Verified 04/06/25 15:33 lactose AdvReac Intermediate Nausea Verified 04/06/25 15:33 losartan AdvReac Intermediate GI upset Verified 04/06/25 15:33 Milk Containing Products AdvReac Mild DIARRHEA Verified 04/06/25 15:33 (Dairy) (MILK CONTAINING PRODUCTS) meperidine (MEPERIDINE) AdvReac Unknown Verified 04/06/25 15:33 Review of Systems <Deepti Coleman PA-C - Last Filed: 07/19/25 20:06> Review of Systems ROS Unobtainable: All systems reviewed & are unremarkable except as noted in HPI and below Patient History <Deepti Coleman PA-C - Last Filed: 07/19/25 20:06> Medical History Unilateral primary osteoarthritis, right knee Dementia Venous (peripheral) insufficiency GERD without esophagitis Polyneuropathy, unspecified Irritable bowel syndrome with diarrhea Do not resuscitate Generalized anxiety disorder Recurrent UTI (urinary tract infection) Sensorineural hearing loss, bilateral Mixed hyperlipidemia Essential hypertension Idiopathic peripheral neuropathy Optic neuropathy, right Hypertension Surgical History History of right hip hemiarthroplasty (~12/08/24) History of cholecystectomy History of tonsillectomy History of hysterectomy Family History Father Hypertension Cancer Cardiovascular disease Mother No problems noted. Social History details: lives alone, 3 sons, one estranged, retired household members: none alcohol intake: never alcohol intake frequency: holidays/special occasions only Exam <Deepti Coleman PA-C - Last Filed: 07/19/25 20:06> Narrative Exam Narrative: GENERAL: 85 year old patient appears stated age. Well-developed patient, well- groomed, in no acute distress. HEAD: Atraumatic. Normocephalic. EYES: No scleral icterus. No injection or drainage. ENT: Nose without bleeding, purulent drainage. Throat without erythema, tonsillar hypertrophy or exudate. Airway patent. NECK: Trachea midline. Cervical ROM intact. CARDIOVASCULAR: Regular rate and rhythm. RESPIRATORY: ?Nonlabored respirations. ?Speaking in clear, full sentences. ?Clear to auscultation. Breath sounds equal bilaterally. No wheezes, rales, or rhonchi. ? GASTROINTESTINAL: Abdomen soft, non-tender, nondistended. BS present. Nurse radiation therapist present rectal exam which revealed light brown stool, negative stool guaiac. EXTREMITIES: 1+ LE edema BL, 2+ DP pulses. BACK: Nontender NEURO: Alert and oriented, alert to full name, date of , current location, current year. 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 SKIN: No rash or erythema of visible areas Initial Vital Signs Initial Vital Signs: Vital Signs Temperature 97.6 F 07/19/25 13:46 Pulse Rate 72 07/19/25 13:46 Respiratory Rate 16 07/19/25 13:46 Blood Pressure 137/63 07/19/25 13:46 Pulse Oximetry 98 07/19/25 13:46 Oxygen Delivery Method Room Air 07/19/25 13:46 <Siri Bae DO - Last Filed: 07/19/25 23:36> Initial Vital Signs Initial Vital Signs: Vital Signs Temperature 97.6 F 07/19/25 13:46 Pulse Rate 72 07/19/25 13:46 Respiratory Rate 16 07/19/25 13:46 Blood Pressure 137/63 07/19/25 13:46 Pulse Oximetry 98 07/19/25 13:46 Oxygen Delivery Method Room Air 07/19/25 13:46 Course <Deepti Coleman PA-C - Last Filed: 07/19/25 20:06> Orders Ordered: ED Orders 07/19/25 14:50 CT abdomen pelvis w con Stat 07/19/25 15:36 GI Panel (Film Array) Stat Discontinued Medications Hydrocodone Bitart/Acetaminophen (Hydrocodone/Acet 5/325 Tablet) 1 tab PO NOW ONE Stop: 07/19/25 18:44 Last Admin: 07/19/25 19:10 Dose: Not Given Documented By: SB Sodium Chloride (Normal Saline 0.9%) 1,000 mls @ 1,000 mls/hr IV BOLUS ONE Stop: 07/19/25 15:49 Last Infusion: 07/19/25 17:58 Dose: Infused Documented By: Infusion: 07/19/25 15:45 Dose: 1,000 mls/hr Documented By: Infusion: 07/19/25 15:33 Dose: 0 mls/hr Documented By: Admin: 07/19/25 15:30 Dose: 1,000 mls/hr Documented By: SB Loperamide HCl (Loperamide 2 Mg Capsule) 4 mg PO NOW ONE Stop: 07/19/25 18:44 Last Admin: 07/19/25 19:20 Dose: 4 mg Documented By: SB Vital Signs Vital signs: Vital Signs - 8 hr 07/19/25 15:36 07/19/25 15:36 07/19/25 16:00 Temperature Pulse Rate 81 Respiratory Rate 16 Blood Pressure 139/63 129/59 L Pulse Oximetry 98 Oxygen Delivery Method 07/19/25 16:00 07/19/25 16:30 07/19/25 16:30 Temperature Pulse Rate 82 79 Respiratory Rate 15 Blood Pressure 130/61 Pulse Oximetry 98 98 Oxygen Delivery Method 07/19/25 17:00 07/19/25 17:30 07/19/25 17:46 Temperature Pulse Rate 71 84 Respiratory Rate Blood Pressure 131/93 H Pulse Oximetry 96 Oxygen Delivery Method 07/19/25 17:46 07/19/25 18:00 07/19/25 18:00 Temperature Pulse Rate 88 97 H Respiratory Rate 20 19 Blood Pressure Pulse Oximetry 96 98 Oxygen Delivery Method 07/19/25 18:00 07/19/25 18:03 07/19/25 18:03 Temperature Pulse Rate 87 Respiratory Rate 21 Blood Pressure 175/122 H 157/70 H Pulse Oximetry 97 Oxygen Delivery Method 07/19/25 18:30 07/19/25 18:30 07/19/25 19:00 Temperature Pulse Rate 74 Respiratory Rate 14 Blood Pressure 119/58 L 125/59 L Pulse Oximetry 97 Oxygen Delivery Method 07/19/25 19:00 07/19/25 19:30 07/19/25 19:30 Temperature Pulse Rate 74 77 Respiratory Rate 14 14 Blood Pressure 127/59 L Pulse Oximetry 97 97 Oxygen Delivery Method Room Air Room Air 07/19/25 19:49 07/19/25 20:00 07/19/25 20:00 Temperature 98.2 F Pulse Rate 82 Respiratory Rate 16 Blood Pressure 133/61 Pulse Oximetry 98 Oxygen Delivery Method 07/19/25 20:23 Temperature 97.9 F Pulse Rate 77 Respiratory Rate 16 Blood Pressure 133/61 Pulse Oximetry 97 Oxygen Delivery Method Room Air <Siri Bae, - Last Filed: 07/19/25 23:36> Orders Ordered: ED Orders 07/19/25 14:50 CT abdomen pelvis w con Stat 07/19/25 15:36 GI Panel (Film Array) Stat Discontinued Medications Hydrocodone Bitart/Acetaminophen (Hydrocodone/Acet 5/325 Tablet) 1 tab PO NOW ONE Stop: 07/19/25 18:44 Last Admin: 07/19/25 19:10 Dose: Not Given Documented By: SB Sodium Chloride (Normal Saline 0.9%) 1,000 mls @ 1,000 mls/hr IV BOLUS ONE Stop: 07/19/25 15:49 Last Infusion: 07/19/25 17:58 Dose: Infused Documented By: Infusion: 07/19/25 15:45 Dose: 1,000 mls/hr Documented By: Infusion: 07/19/25 15:33 Dose: 0 mls/hr Documented By: Admin: 07/19/25 15:30 Dose: 1,000 mls/hr Documented By: ANNIE Loperamide HCl (Loperamide 2 Mg Capsule) 4 mg PO NOW ONE Stop: 07/19/25 18:44 Last Admin: 07/19/25 19:20 Dose: 4 mg Documented By: ANNIE Vital Signs Vital signs: Vital Signs - 8 hr 07/19/25 15:36 07/19/25 15:36 07/19/25 16:00 Temperature Pulse Rate 81 Respiratory Rate 16 Blood Pressure 139/63 129/59 L Pulse Oximetry 98 Oxygen Delivery Method 07/19/25 16:00 07/19/25 16:30 07/19/25 16:30 Temperature Pulse Rate 82 79 Respiratory Rate 15 Blood Pressure 130/61 Pulse Oximetry 98 98 Oxygen Delivery Method 07/19/25 17:00 07/19/25 17:30 07/19/25 17:46 Temperature Pulse Rate 71 84 Respiratory Rate Blood Pressure 131/93 H Pulse Oximetry 96 Oxygen Delivery Method 07/19/25 17:46 07/19/25 18:00 07/19/25 18:00 Temperature Pulse Rate 88 97 H Respiratory Rate 20 19 Blood Pressure Pulse Oximetry 96 98 Oxygen Delivery Method 07/19/25 18:00 07/19/25 18:03 07/19/25 18:03 Temperature Pulse Rate 87 Respiratory Rate 21 Blood Pressure 175/122 H 157/70 H Pulse Oximetry 97 Oxygen Delivery Method 07/19/25 18:30 07/19/25 18:30 07/19/25 19:00 Temperature Pulse Rate 74 Respiratory Rate 14 Blood Pressure 119/58 L 125/59 L Pulse Oximetry 97 Oxygen Delivery Method 07/19/25 19:00 07/19/25 19:30 07/19/25 19:30 Temperature Pulse Rate 74 77 Respiratory Rate 14 14 Blood Pressure 127/59 L Pulse Oximetry 97 97 Oxygen Delivery Method Room Air Room Air 07/19/25 19:49 07/19/25 20:00 07/19/25 20:00 Temperature 98.2 F Pulse Rate 82 Respiratory Rate 16 Blood Pressure 133/61 Pulse Oximetry 98 Oxygen Delivery Method 07/19/25 20:23 Temperature 97.9 F Pulse Rate 77 Respiratory Rate 16 Blood Pressure 133/61 Pulse Oximetry 97 Oxygen Delivery Method Room Air MDM - Abdominal Pain <Deepti Coleman PA-C - Last Filed: 07/19/25 20:06> Medical Records Attestation: I reviewed the patient's medical records. Lab Data 07/19/25 14:21 07/19/25 14:21 Labs: Lab Results 07/19/25 07/19/25 Range/Units 14:21 15:36 WBC 14.1 H (4.5-11.0) X10^3/uL RBC 4.73 (4.0-5.2) X10^6/uL Hgb 13.4 (12.0-16.0) g/dL Hct 40.4 (36-46) % MCV 85.3 (80-100) fL MCH 28.3 (26-34) PG MCHC 33.2 (30-36) % RDW 14.4 (11.6-14.8) % Plt Count 295 (150-400) X10^3/uL Neut % (Auto) 86.6 H (50-75) % Lymph % (Auto) 5.9 L (25-40) % [place] % (Auto) 6.5 (3-14) % Eos % (Auto) 0.6 L (2-4) % Baso % (Auto) 0.4 (0-2) % Neut # (Auto) 78388 H (5953-2447) /uL Lymph # (Auto) 800 L (4665-5414) /uL [place] # (Auto) 900 (0-900) /uL Eos # (Auto) 100 (0-450) /uL Baso # (Auto) 0 (0-100) /uL Sodium 135 L (137-145) mmol/L Potassium 4.3 (3.4-5.1) mmol/L Chloride 105 (98-107) mmol/L Carbon Dioxide 18 L (22-32) mmol/L BUN 27 H (7-17) mg/dL Creatinine 0.84 (0.52-1.04) mg/dL Estimated GFR > 60 (>60) mL/min BUN/Creatinine Ratio 32.1 H (6-22) Glucose 93 (70-99) mg/dL Lactate 0.9 (0.7-2.1) mmol/L Calcium 9.2 (8.4-10.2) mg/dL Total Bilirubin 0.8 (0.2-1.3) mg/dL AST 29 (14-36) IU/L ALT 14 (<35) IU/L Alkaline Phosphatase 106 (38-126) U/L Total Protein 7.4 (6.3-8.2) g/dL Albumin 4.7 (3.5-5.0) g/dL Globulin 2.7 (1.7-4.1) g/dL Albumin/Globulin Ratio 1.7 (1.0-2.8) Lipase 131 (23-300) U/L Stl C. cayetanensis PCR Not detected (Not Detect) Stool Rotavirus (PCR) Not detected (Not Detect) Stool Adenovirus (PCR) Not detected (Not Detect) Stool Astrovirus (PCR) Not detected (Not Detect) Stool Cryptosporidium PCR Not detected (Not Detect) Stl E.coli Shiga Tox PCR Not detected (Not Detect) St Sh/Enteroin Ecoli PCR Not detected (Not Detect) Stl Enterotoxigenic E PCR Not detected (Not Detect) Stool EPEC (PCR) Not detected (Not Detect) Stl E. histolytica PCR Not detected (Not Detect) Stool Giardia Lamblia PCR Not detected (Not Detect) Stool Sapovirus (PCR) Not detected (Not Detect) Stl P. shigelloides PCR Not detected (Not Detect) St Y.enterocolitica PCR Not detected (Not Detect) Stool Vibrio (PCR) Not detected (Not Detect) Stl Vibrio cholerae PCR Not detected (Not Detect) Stl Enteroaggr Ecoli PCR Not detected (Not Detect) Stl Norovirus GI/GII PCR Not detected (Not Detect) Campylobacter (PCR) Not detected (Not Detect) C. difficile Tox (PCR) Not detected (Not Detect) Salmonella (PCR) Not detected (Not Detect) Point of care testing: Point of Care Testing Stool Occult Blood Negative Urine Dip Bedside Urine Glucose Negative Bedside Urine Bilirubin - Negative Bedside Urine Ketone - Negative Urine Specific [place] 1.010 Bedside Urine Occult Blood - Negative Bedside Urine pH 6.0 Bedside Urine Protein - Negative Bedside Urine Urobilinogen - Negative Bedside Urine Nitrite - Negative Bedside Urine Leukocytes - Negative Esterase Imaging Data CT scan - abdomen/pelvis: Radiologist's Impression: PROCEDURE: CT ABDOMEN PELVIS W CON INDICATIONS: Diarrhea, lower abdominal pain TECHNIQUE: After the administration of intravenous contrast, axial sections acquired from the lung bases to the pubic symphysis. Coronal and sagittal reformats were performed. For radiation dose reduction, the following was used: automated exposure control, adjustment of mA and/or kV according to patient size. COMPARISON: [facility], CT, CT ABDOMEN PELVIS W CON, 08/31/2022, 13:25. FINDINGS: Image quality: There is artifact associated with the metallic hardware. Artifact from the metallic hardware is reduced by metal reconstruction algorithm. Lower Chest: No significant findings. ABDOMEN: Liver: No solid mass. Gallbladder: Removed. Biliary ducts: No biliary dilation. Pancreas: No ductal dilation. Spleen: Size is within normal limits. Adrenal Glands: No adrenal nodules. Kidneys and Ureters: No hydronephrosis. No solid mass. No complex renal cystic lesion which requires follow up. Stomach and Bowel: There is liquid stool seen within the colon. No significant colonic abnormality is seen. No dilated loops of small bowel are seen. Peritoneum: No abnormal intraperitoneal fluid. No free air. Ventral Wall: No significant ventral hernia. Abdominal Nodes: No retroperitoneal or mesenteric adenopathy by size criteria. Vessels: Aorta and inferior vena cava are normal in size. PELVIS: Pelvic Organs: Unremarkable. Bladder: No bladder wall thickening, accounting for underdistention. Pelvic Nodes: No enlarged lymph nodes. Miscellaneous: No inguinal hernias are seen. Bones: No aggressive osseous abnormality. Right hip arthroplasty hardware is seen. Age-appropriate bony degenerative changes are seen. Mild levoconvex scoliotic curvature is noted. IMPRESSION: Liquid stool is seen within the colon, which is consistent with the given clinical history. No cause of diarrhea is seen. Additional findings: Cholecystectomy Right hip arthroplasty hardware Dictated by: Dejon Castaneda M.D. on 07/19/2025 at 14:27 Approved by: Dejon Castaneda M.D. on 07/19/2025 at 14:29 MDM Narrative Medical decision making narrative: 85-year-old female with a past medical history of dementia, GERD, hypertension, hyperlipidemia, polyneuropathy who presents to the emergency department from [facility] for multiple episodes of diarrhea associated with lower abdominal pain that started this morning. Differential diagnosis includes but is not limited to infectious diarrhea, C diff, norovirus, dehydration, electrolyte abnormality, colitis, obstruction, etc. On exam patient is in no acute distress, nontoxic-appearing, all vital signs within normal limits. Abdomen is overall soft and nontender with no rebound or guarding, bowel sounds are present but patient reports periumbilical pain. She does have history of dementia but is alert and oriented, initially stated diarrhea was watery however then was also saying that was black, bedside rectal exam revealed light brown stool, negative stool guaiac. We will obtain lab work, CT abdomen pelvis, urine and stool testing. We will treat with IV fluids. Labs reveal elevated WBC count 14.1, normal hemoglobin 13.4 hematocrit 40.4. Sodium 135, potassium 4.3, BUN 27 creatinine 0.84. Normal LFTs, normal lipase 131. Point of care urinalysis negative for infection. GI panel is completely negative, negative for C diff, norovirus, etc. CT abdomen pelvis reveals liquid stool within the colon, otherwise no other abnormality. Discussed case with the attending ED physician, we will treat patient with 4 mg loperamide in the ED followed by prescription for 2 mg prn. Recommended increase hydration, rest, PCP follow up, ED return precautions for any new or worsening symptoms, vomiting, severe pain, fevers or other concerns. Patient verbalized understanding of all information and is agreeable to the plan. Patient's facility, [facility], was called for transfer back home. Patient then decided that she did not want to go back to [facility] and instead wanted to stay in the ER for help with her diarrhea and brief changes. Discussed with the patient that she can not stay in the ER for diarrhea at this time, we discussed her prescription and that it will slowly help with her diarrhea, if she has any new or worsening symptoms to return otherwise follow up with the PCP. Patient verbalized understanding of all information is agreeable with the plan, vital signs within normal limits, transfer to her facility present. <Siri Bae, DO - Last Filed: 07/19/25 23:36> Lab Data Labs: Lab Results 07/19/25 07/19/25 Range/Units 14:21 15:36 WBC 14.1 H (4.5-11.0) X10^3/uL RBC 4.73 (4.0-5.2) X10^6/uL Hgb 13.4 (12.0-16.0) g/dL Hct 40.4 (36-46) % MCV 85.3 (80-100) fL MCH 28.3 (26-34) PG MCHC 33.2 (30-36) % RDW 14.4 (11.6-14.8) % Plt Count 295 (150-400) X10^3/uL Neut % (Auto) 86.6 H (50-75) % Lymph % (Auto) 5.9 L (25-40) % [place] % (Auto) 6.5 (3-14) % Eos % (Auto) 0.6 L (2-4) % Baso % (Auto) 0.4 (0-2) % Neut # (Auto) 00949 H (9430-3318) /uL Lymph # (Auto) 800 L (5052-7237) /uL [place] # (Auto) 900 (0-900) /uL Eos # (Auto) 100 (0-450) /uL Baso # (Auto) 0 (0-100) /uL Sodium 135 L (137-145) mmol/L Potassium 4.3 (3.4-5.1) mmol/L Chloride 105 (98-107) mmol/L Carbon Dioxide 18 L (22-32) mmol/L BUN 27 H (7-17) mg/dL Creatinine 0.84 (0.52-1.04) mg/dL Estimated GFR > 60 (>60) mL/min BUN/Creatinine Ratio 32.1 H (6-22) Glucose 93 (70-99) mg/dL Lactate 0.9 (0.7-2.1) mmol/L Calcium 9.2 (8.4-10.2) mg/dL Total Bilirubin 0.8 (0.2-1.3) mg/dL AST 29 (14-36) IU/L ALT 14 (<35) IU/L Alkaline Phosphatase 106 (38-126) U/L Total Protein 7.4 (6.3-8.2) g/dL Albumin 4.7 (3.5-5.0) g/dL Globulin 2.7 (1.7-4.1) g/dL Albumin/Globulin Ratio 1.7 (1.0-2.8) Lipase 131 (23-300) U/L Stl C. cayetanensis PCR Not detected (Not Detect) Stool Rotavirus (PCR) Not detected (Not Detect) Stool Adenovirus (PCR) Not detected (Not Detect) Stool Astrovirus (PCR) Not detected (Not Detect) Stool Cryptosporidium PCR Not detected (Not Detect) Stl E.coli Shiga Tox PCR Not detected (Not Detect) St Sh/Enteroin Ecoli PCR Not detected (Not Detect) Stl Enterotoxigenic E PCR Not detected (Not Detect) Stool EPEC (PCR) Not detected (Not Detect) Stl E. histolytica PCR Not detected (Not Detect) Stool Giardia Lamblia PCR Not detected (Not Detect) Stool Sapovirus (PCR) Not detected (Not Detect) Stl P. shigelloides PCR Not detected (Not Detect) St Y.enterocolitica PCR Not detected (Not Detect) Stool Vibrio (PCR) Not detected (Not Detect) Stl Vibrio cholerae PCR Not detected (Not Detect) Stl Enteroaggr Ecoli PCR Not detected (Not Detect) Stl Norovirus GI/GII PCR Not detected (Not Detect) Campylobacter (PCR) Not detected (Not Detect) C. difficile Tox (PCR) Not detected (Not Detect) Salmonella (PCR) Not detected (Not Detect) Point of care testing: Point of Care Testing Stool Occult Blood Negative Urine Dip Bedside Urine Glucose Negative Bedside Urine Bilirubin - Negative Bedside Urine Ketone - Negative Urine Specific [place] 1.010 Bedside Urine Occult Blood - Negative Bedside Urine pH 6.0 Bedside Urine Protein - Negative Bedside Urine Urobilinogen - Negative Bedside Urine Nitrite - Negative Bedside Urine Leukocytes - Negative Esterase Discharge Plan Departure Patient Disposition: Home Clinical Impression: Diarrhea Qualifiers: Diarrhea type: unspecified type Qualified Code(s): R19.7 - Diarrhea, unspecified Instructions: DI for Diarrhea and Traveler's Diarrhea -- Adult, Loperamide Activity Restrictions/Additional Instructions: Dear Leonila Sophia, Thank you for coming to the emergency department. Today you were evaluated for frequent diarrhea. We performed lab work, imaging, and a stool test. Your stool culture was negative and did not reveal any source of infectious diarrhea such as norovirus or C diff. Your urine test was also negative. Your CT scan showed liquid stool but did not show any other abnormalities. You have been prescribed loperamide which is [id number] Imodium. This is a medication that helps to slow down and stop diarrhea. It is very important to increase hydration with electrolytes having diarrhea to prevent dehydration. Please rest, hydrate, and follow up with your primary care doctor. Please return to the emergency department if you develop fevers, severe pain, vomiting, or any other concerns. Please follow up with your primary care doctor within the next 2-3 days for ER follow-up. (If you do not have a PCP you can call [phone]. ?to schedule an appointment with an [facility] Primary Care Provider) IF YOU DEVELOP ANY NEW OR WORSENING SYMPTOMS, RETURN TO THE ER! Please read the attached instructions, they highlight more specific treatments and interventions for you at home. Thank you for letting me participate in your care, Deepti Coleman PA-C Prescriptions: New loperamide 2 mg capsule 2 mg PO Q6H 2 Days Qty: 8 0RF Rx Instructions: administer after each loose stool until symptoms controlled; do not exceed 8 mg per 24 hrs No Action amlodipine 10 mg tablet 10 mg PO DAILY Qty: 90 3RF omeprazole 20 mg capsule,delayed release(DR/EC) 20 mg PO BID Qty: 180 2RF rosuvastatin 10 mg tablet 10 mg PO DAILY Qty: 90 2RF pyridoxine (vitamin B6) [Vitamin B-6] 1 cap PO DAILY PRN dorzolamide-timolol 22.3-6.8 mg/mL drops EYE-BOTH latanoprost 0.005 % drops EYE-BOTH cholecalciferol (vitamin D3) 50 mcg (2,000 unit) capsule 50 mcg PO DAILY memantine 5 mg tablet 5 mg PO QAM 30 Days Qty: 30 12RF oxycodone 5 mg capsule 5 mg PO Q8H PRN (Reason: pain) Qty: 14 0RF aspirin 81 mg capsule 81 mg PO BID Qty: 60 0RF cefdinir 300 mg capsule 300 mg PO BID Qty: 10 0RF ciprofloxacin HCl [Cipro] 500 mg tablet 500 mg PO BID Qty: 10 0RF ciprofloxacin HCl 500 mg tablet 500 mg PO BID Qty: 10 0RF Referrals: Tim Pisano MD [Primary Care Provider, Internal Medicine] Stand Alone Forms: Patient Portal/API ED Sign-out <Siri Bae DO - Last Filed: 07/19/25 23:36> Cosign ED Attending Cosignature Attestation: I was immediately available in the department for consultation. Case was discussed.
[2025-07-19 14:47] LABS: Alanine Aminotransferase 14 IU/L (<35); Albumin 4.7 g/dL (3.5-5.0); Albumin Globulin Ratio 1.7 (1.0-2.8); Alkaline Phosphatase 106 U/L (38-126); Blood Urea Nitrogen 27 mg/dL (7-17); Calcium 9.2 mg/dL (8.4-10.2); Carbon Dioxide 18 mmol/L (22-32); Chloride 105 mmol/L (98-107); Estimated Glomerular Filt Rate > 60 mL/min (>60); Globulin 2.7 g/dL (1.7-4.1); Glucose 93 mg/dL (70-99); HEMOLYSIS 28 (0-50); Lactate (Lactic Acid) 0.9 mmol/L (0.7-2.1); Lipase 131 U/L (23-300); Potassium 4.3 mmol/L (3.4-5.1); Sodium 135 mmol/L (137-145); Total Protein 7.4 g/dL (6.3-8.2)
--- NOTE | 2025-07-19 14:50 | DI.CT.S_ITS ---
PROCEDURE: CT ABDOMEN PELVIS W CON INDICATIONS: Diarrhea, lower abdominal pain TECHNIQUE: After the administration of intravenous contrast, axial sections acquired from the lung bases to the pubic symphysis. Coronal and sagittal reformats were performed. For radiation dose reduction, the following was used: automated exposure control, adjustment of mA and/or kV according to patient size. COMPARISON: [facility], CT, CT ABDOMEN PELVIS W CON, 08/31/2022, 13:25. FINDINGS: Image quality: There is artifact associated with the metallic hardware. Artifact from the metallic hardware is reduced by metal reconstruction algorithm. Lower Chest: No significant findings. ABDOMEN: Liver: No solid mass. Gallbladder: Removed. Biliary ducts: No biliary dilation. Pancreas: No ductal dilation. Spleen: Size is within normal limits. Adrenal Glands: No adrenal nodules. Kidneys and Ureters: No hydronephrosis. No solid mass. No complex renal cystic lesion which requires follow up. Stomach and Bowel: There is liquid stool seen within the colon. No significant colonic abnormality is seen. No dilated loops of small bowel are seen. Peritoneum: No abnormal intraperitoneal fluid. No free air. Ventral Wall: No significant ventral hernia. Abdominal Nodes: No retroperitoneal or mesenteric adenopathy by size criteria. Vessels: Aorta and inferior vena cava are normal in size. PELVIS: Pelvic Organs: Unremarkable. Bladder: No bladder wall thickening, accounting for underdistention. Pelvic Nodes: No enlarged lymph nodes. Miscellaneous: No inguinal hernias are seen. Bones: No aggressive osseous abnormality. Right hip arthroplasty hardware is seen. Age-appropriate bony degenerative changes are seen. Mild levoconvex scoliotic curvature is noted. IMPRESSION: Liquid stool is seen within the colon, which is consistent with the given clinical history. No cause of diarrhea is seen. Additional findings: Cholecystectomy Right hip arthroplasty hardware Dictated by: Dejon Castaneda M.D. on 07/19/2025 at 14:27 Approved by: Dejon Castaneda M.D. on 07/19/2025 at 14:29
[2025-07-19] MEDS: SODIUM CHLORIDE 0.9% 1,000 ML 1000 ML IV (15:30)
--- NOTE | 2025-07-19 15:34 | PC.NURSE ---
Fluids paused while patient up to bedside commode and being cleaned up from bowel movement.
[2025-07-19 17:27] LABS: Clostridium difficile toxin AB Not Detected (Not Detect); Enteroaggregative E.coli Not Detected (Not Detect); Enteropathogenic E.coli Not Detected (Not Detect); Enterotoxigenic E.coli It/st Not Detected (Not Detect); Plesiomonsa shigelloides Not Detected (Not Detect); Shiga-like toxin-prod E.coli Not Detected (Not Detect)
[2025-07-19] MEDS: LOPERAMIDE 2 MG CAPSULE 4 MG PO (19:20)
== END 2025-07-19 20:22 | disposition home or self-care (01) ==
PROVIDERS: Emergency Provider Physician Assistant; PCP Internal Medicine
DX: R19.7 Diarrhea, unspecified (principal)
CPT/HCPCS: 36415; 74177; 80053; 81003; 82272; 83605; 83690; 85025; 87507; 96360; 96361; 99284; Q9967

== ENCOUNTER → 2025-09-25 12:22 | Outpatient (CLI) | payer MEDICARE, SELFPAY ==
[2024-12-06 18:27] VITALS: BMI 19.8
--- NOTE | 2025-09-25 | DI.RAD.S_ITS ---
PROCEDURE: XR ABDOMEN MIN 2V INDICATIONS: Gastric distress TECHNIQUE: 2 views of the abdomen were acquired. COMPARISON: None. FINDINGS: Surgical changes and devices: Cholecystectomy clips and right hip arthroplasty. Bowel: No pneumoperitoneum. The bowel gas pattern is nonobstructive. Prominent colonic stool. Soft tissues: No masses; visualized solid organ contours appear normal in size. No suspicious abdominal calcifications. Bones: No suspicious bony abnormalities. IMPRESSION: Prominent colonic stool overall nonobstructive. Dictated by: Isabell Muñoz M.D. on 09/26/2025 at 15:39 Approved by: Isabell Muñoz M.D. on 09/26/2025 at 15:39
== END ==
LOC: RAD 12:25
PROVIDERS: PCP Registered Nurse; Referring Provider Registered Nurse; Visit Provider Registered Nurse
DX: R10.84 Generalized abdominal pain (principal); E73.9 Lactose intolerance, unspecified; R11.0 Nausea; Z96.641 Presence of right artificial hip joint
CPT/HCPCS: 74019

== ENCOUNTER → 2025-09-26 14:54 | Outpatient (ROUT) | payer MEDICARE, SELFPAY ==
[2024-12-06 18:27] VITALS: BMI 19.8
[2025-09-26 15:17] LABS: Appearance Urine UA CLEAR; Bilirubin Urine UA NEGATIVE (NEGATIVE); Color Urine UA YELLOW; Glucose Urine UA NEGATIVE (Negative); Ketones Urine UA NEGATIVE (NEGATIVE); Leukocyte Esterase Urine UA NEGATIVE (NEGATIVE); Nitrite Urine UA NEGATIVE (Negative); Occult Blood Urine UA NEGATIVE (Negative); Protein Urine UA NEGATIVE (Negative); Specific Gravity Urine UA 1.020 (1.000-1.035); Urobilinogen Urine UA 1.0 E.U./dL (0.2)
[2025-09-26 15:30] LABS: pH Urine UA 6.0 (4.5-8.0)
[2025-09-26 15:40] LABS: Culture Indicated Urine Cult Not Indicated
== END ==
PROVIDERS: PCP Registered Nurse; Visit Provider Registered Nurse
DX: N39.0 Urinary tract infection, site not specified (principal)
CPT/HCPCS: 81001